=== PATIENT | male | born 1960 | race Hispanic/Latino ===

== ENCOUNTER 2020-06-23 19:33 | Inpatient (IN) | payer BC, OTHER ==
[2020-06-23 21:06] LABS: #Lymphocytes 0.7 thou/uL (1.20-3.40); #Monocytes 0.5 thou/uL (0.11-0.59); %Basophils 0.1 % (0.0-1.0); %Lymphocytes 5.8 % (21.0-51.0); %Monocytes 4.2 % (0.0-10.0); %Neutrophils 89.9 % (42.0-75.0); Hemoglobin 14.8 g/dL (14.0-18.0); Mean Corpuscular HGB CONC 32.2 g/dL (32.0-36.0); Mean Corpuscular Hemoglobin 30.3 pg (27.0-31.0); Mean Corpuscular Volume 93.9 fL (78.0-98.0); Platelet Count 195 thou/uL (130-400); RBC Distribution Width 12.1 % (11.5-14.5); Red Blood Cell (RBC) Count 4.87 mill/uL (4.70-6.10); White Blood Cell (WBC) Count 12.3 thou/uL (4.8-10.8)
[2020-06-23] MEDS ORDERED: Morphine 2 MG/ML VIAL SLOW IVP PRN (21:16)
[2020-06-23] MEDS ORDERED: Ondansetron PF 4 MG/2 ML Vial IVP PRN (21:16)
[2020-06-23] MEDS ORDERED: hydrALAZINE 20 MG/ML VIAL SLOW IVP PRN (21:16)
[2020-06-23] MEDS ORDERED: Promethazine HCl 12.5 MG in Sodium Chloride 0.9% 50 ML IVPB PRN (21:16)
[2020-06-23] MEDS ORDERED: Labetalol HCl 100 MG/20 ML VIAL SLOW IVP PRN (21:16)
[2020-06-23] MEDS ORDERED: HYDROcodone/Acetaminophen 5/325 mg Tablet PO PRN (21:16)
[2020-06-23] MEDS ORDERED: Guaifenesin DM 100-10/5 ML UDCUP PO PRN (21:16)
[2020-06-23] MEDS ORDERED: cloNIDine 0.1 MG TAB PO PRN (21:16)
[2020-06-23 21:21] LABS: Lactic Acid 2.1 mmol/L (0.5-2.2)
[2020-06-23 21:25] LABS: ALT (SGPT) 27 U/L (8-55); AST (SGOT) 45 U/L (5-34); Alkaline Phosphatase 45 U/L (40-110); Anion Gap 13 mmol/L (10-20); BUN (Urea Nitrogen) 14 mg/dL (8.4-25.7); Bilirubin, Total 0.4 mg/dL (0.2-1.2); CRP (Inflammatory) 6.01 mg/dL (= or < 0.5); Calc. Creatinine Clearance 96 mL/min (70-130); Calcium 8.8 mg/dL (7.8-10.44); Carbon Dioxide 24 mmol/L (22-29); Chloride 106 mmol/L (98-107); Estimated GFR-MDRD 86; Globulin 2.9 g/dL (2.4-3.5); Glucose 106 mg/dL (70-105); Potassium 3.7 mmol/L (3.5-5.1); Protein, Total 6.9 g/dL (6.0-8.3); Sodium 139 mmol/L (136-145)
[2020-06-23] MEDS ORDERED: cefTRIAXone\\ROCEPHIN 1 GM in Sodium Chloride 0.9% 100 ML IVPB SCH (21:30)
--- NOTE | 2020-06-23 21:32 | RAD ---
Exam: Chest one view HISTORY:Shortness of breath. Hypoxia. COVID patient. Comparison: 10/07/2015 FINDINGS: Cardiac silhouette: Normal Aorta: Unremarkable Pulmonary vessels: Normal Costophrenic angles: Clear LUNGS: Diffuse interstitial and alveolar opacities. Pneumothorax: None Osseous abnormalities: None IMPRESSION: Multifocal COVID pneumonia.
[2020-06-23] MEDS: Dexamethasone 10 MG/ML VIAL SLOW IVP SCH (21:54)
[2020-06-23] MEDS: Sodium Chloride 0.9% 1,000 ML IV SCH (21:54)
[2020-06-23] MEDS: Acetaminophen 325 MG TAB PO PRN (21:56)
[2020-06-23] MEDS ORDERED: Azithromycin 500 MG in Sodium Chloride 0.9% 250 ML 250 ML IVPB SCH (22:00)
--- NOTE | 2020-06-23 22:12 | PDOC.HHP ---
Hospitalist HPI - History of Present Illness Shortness of breath, hypoxia History of Present Illness: Patient is a 59 year old male with no significant PMH who presents as transfer from [facility] for cough, hypoxia, covid 19 infection. He was recently diagnosed with covid 4 days ago, presented again to [facility] with persistent cough preventing him from sleeping. he also complained of fever, body aches, sore throat, diarrhea. room air saturations were in mid 80s. CXR performed revealing bibasilar pneumonia which was new compared to previous XR 4 days prior. blood cultures were drawn and patient was started on abx there. Patient was placed on HFNC there, here he is comfortable but becomes SOB with minimal activity. He works in the [employer] and has been exposed through the long-term system. He recieved budesonide, azithromycin, ceftriaxone, lovenox dvt ppx dose, dexamethasone, duoneb, patient transferred here for further care. Hospitalist ROS - Review of Systems Constitutional: denies: fever, chills, sweats, weakness, malaise, other Eyes: denies: pain, vision change, conjunctivae inflammation, eyelid inflammation, redness, other ENT: denies: ear pain, ear discharge, nose pain, nose discharge, nose congestion , mouth pain, mouth swelling, throat pain, throat swelling, other Respiratory: reports: cough, shortness of breath. denies: dry, hemoptysis, SOB with excertion, pleuritic pain, sputum, wheezing, other Cardiovascular: denies: chest pain, palpitations, orthopnea, paroxysmal noc. dyspnea, edema, light headedness, other Gastrointestinal: reports: diarrhea. denies: nausea, vomiting, abdominal pain, constipation, melena, hematochezia, other Genitourinary: denies: dysuria, frequency, incontinence, hematuria, retention, other Musculoskeletal: denies: neck pain, shoulder pain, arm pain, back pain, hand pain, leg pain, foot pain, other Skin: denies: rash, lesions, michael, bruising, other Neurological: denies: weakness, numbness, incoordination, change in speech, confusion, seizures, other All other systems reviewed; all pertinent +/- noted in HPI/Subj - Medication Medications: Active Medications Generic Name Dose Route Start Last Admin Trade Name Freq PRN Reason Stop Dose Admin Acetaminophen 650 mg 06/23/20 21:16 06/23/20 21:56 Tylenol PO 650 mg Q4H PRN Administration Headache/Fever/Mild Pain (1-3) Dexamethasone 6 mg 06/23/20 22:00 06/23/20 21:54 Decadron SLOW IVP 6 mg 2200 MERRILL Administration Azithromycin 500 mg/ Sodium 250 mls @ 250 mls/hr 06/23/20 22:00 06/23/20 21: 54 Chloride IVPB 250 mls 2200 MERRILL Administration Ceftriaxone Sodium 1 gm/ 100 mls @ 200 mls/hr 06/23/20 21:30 06/23/20 21:54 Sodium Chloride IVPB 100 mls 2130 MERRILL Administration Sodium Chloride 1,000 mls @ 75 mls/hr 06/23/20 21:45 06/23/20 21:54 Normal Saline 0.9% IV 1,000 mls .[id number] MERRILL Administration no home medications Hospitalist History - Past Medical History Other Medical History: no significant PMH - Past Surgical History Other Surgical History: knee surgery - Family History Family History: reports: no pertinent history - Social History Smoking Status: Never smoker Alcohol: reports: None Drugs: reports: none - Exam General Appearance: NAD, awake alert Eye: PERRL, anicteric sclera ENT: normocephalic atraumatic, no oropharyngeal lesions, moist mucosa Neck: supple, symmetric, no JVD, no thyromegaly, no lymphadenopathy, no carotid bruit Heart: RRR, no murmur, no gallops, no rubs, normal peripheral pulses Respiratory: rales, rhonchi, tachypneic. negative: wheezes Gastrointestinal: soft, non-tender, non-distended, normal bowel sounds, no palpable masses, no hepatomegaly, no splenomegaly, no bruit Extremities: no cyanosis, no clubbing, no edema Skin: normal turgor, no lesions, no rashes Neurological: cranial nerve grossly intact, normal sensation to touch, no weakness, no focal deficits, no new deficit Musculoskeletal: normal tone, normal strength, no muscle wasting Psychiatric: normal affect, normal behavior, A&O x 3 Hospitalist Results - Labs Result Diagrams: 06/24/20 03:14 06/24/20 03:13 Lab results: WBC 12.3 thou/uL (4.8-10.8) H 06/23/20 20:58 Hgb 14.8 g/dL (14.0-18.0) 06/23/20 20:58 Hct 45.8 % (42.0-52.0) 06/23/20 20:58 MCV 93.9 fL (78.0-98.0) 06/23/20 20:58 Plt Count 195 thou/uL (130-400) 06/23/20 20:58 Neutrophils % 89.9 % (42.0-75.0) H 06/23/20 20:58 Sodium 139 mmol/L (136-145) 06/23/20 20:58 Potassium 3.7 mmol/L (3.5-5.1) 06/23/20 20:58 Chloride 106 mmol/L (98-107) 06/23/20 20:58 Carbon Dioxide 24 mmol/L (22-29) 06/23/20 20:58 BUN 14 mg/dL (8.4-25.7) 06/23/20 20:58 Creatinine 0.91 mg/dL (0.7-1.3) 06/23/20 20:58 Glucose 106 mg/dL (70-105) H 06/23/20 20:58 Lactic Acid 2.1 mmol/L (0.5-2.2) 06/23/20 20:58 Calcium 8.8 mg/dL (7.8-10.44) 06/23/20 20:58 Total Bilirubin 0.4 mg/dL (0.2-1.2) 06/23/20 20:58 AST 45 U/L (5-34) H 06/23/20 20:58 ALT 27 U/L (8-55) 06/23/20 20:58 Alkaline Phosphatase 45 U/L (40-110) 06/23/20 20:58 C-Reactive Protein 6.01 mg/dL (= or < 0.5) H 06/23/20 20:58 Serum Total Protein 6.9 g/dL (6.0-8.3) 06/23/20 20:58 Albumin 4.0 g/dL (3.5-5.0) 06/23/20 20:58 Additional comment: outside CXR report w/ patchy opacities more pronounced in lower lobes. outside labs reviewed abg 7.39/po2 47 pco2 36 tni <0.05 WBC 11.2 CMP essentially normal (AST 48 normal 11-38) hb 13.9 Hospitalist H&P A/P - Plan Plan: Patient is a 59 year old male with no significant PMH who presents as transfer from [facility] for cough, hypoxia, covid 19 infection. # bilateral pneumonia likely viral in setting of covid 19 infection - admit to IMCU on HFNC - continue azithromycin, ceftriaxone, decadron - monitor closely in intermediate care - symptomatic/supportive care - consider pulmonary consult if condition worsens DVT/GI ppx full code
[2020-06-24 03:38] LABS: #Lymphocytes 0.7 thou/uL (1.20-3.40); #Monocytes 0.5 thou/uL (0.11-0.59); #Neutrophils 11.1 thou/uL (1.40-6.50); %Basophils 0.1 % (0.0-1.0); %Eosinophils 0.1 % (0.0-10.0); %Lymphocytes 5.5 % (21.0-51.0); %Monocytes 4.4 % (0.0-10.0); Hemoglobin 14.6 g/dL (14.0-18.0); Mean Corpuscular HGB CONC 32.4 g/dL (32.0-36.0); Mean Corpuscular Hemoglobin 30.5 pg (27.0-31.0); Mean Corpuscular Volume 94.1 fL (78.0-98.0); Mean Platelet Volume 8.9 fL (7.4-10.4); Platelet Count 188 thou/uL (130-400); RBC Distribution Width 12.2 % (11.5-14.5); Red Blood Cell (RBC) Count 4.78 mill/uL (4.70-6.10); White Blood Cell (WBC) Count 12.4 thou/uL (4.8-10.8)
[2020-06-24 04:01] LABS: Anion Gap 14 mmol/L (10-20); BUN (Urea Nitrogen) 14 mg/dL (8.4-25.7); Calc. Creatinine Clearance 105 mL/min (70-130); Calcium 8.6 mg/dL (7.8-10.44); Carbon Dioxide 20 mmol/L (22-29); Chloride 109 mmol/L (98-107); Estimated GFR-MDRD Greater than 90; Glucose 122 mg/dL (70-105); Magnesium 1.9 mg/dL (1.6-2.6); Potassium 4.2 mmol/L (3.5-5.1); Sodium 139 mmol/L (136-145)
[2020-06-24] MEDS ORDERED: Enoxaparin Sodium 40 MG/0.4 ML SYRINGE SC SCH ×2 (09:00→21:00)
[2020-06-24] MEDS: Polyethylene Glycol 3350 17 GM Packet PO SCH (09:33)
[2020-06-24] MEDS: Famotidine 20 MG TAB PO SCH ×2 (09:33→20:47)
[2020-06-24] MEDS: Sodium Chloride 0.9% 1,000 ML IV SCH (09:34)
[2020-06-24] MEDS: Loperamide HCl 1 MG/7.5 ML UDCUP PO PRN (09:37)
--- NOTE | 2020-06-24 11:16 | CON ---
DATE OF CONSULTATION: 06/24/2020 CONSULTING PHYSICIAN: Hospitalist Group. REASON FOR CONSULTATION: COVID-19 pneumonia. HISTORY OF PRESENT ILLNESS: Awais Masterson is a 59-year-old male, who has been sick for 3 days with fever and shortness of breath. He presented to the emergency room with room air O2 saturations in the mid 80s. X-ray showed pneumonia. Apparently, his COVID test was positive. I presume that was done at an outside facility. PAST MEDICAL HISTORY: He essentially denies any past medical history including no history of diabetes. PAST SURGICAL HISTORY: Knee surgery. FAMILY MEDICAL HISTORY: Negative. SOCIAL HISTORY: Does not smoke. Does not consume alcohol. Does not use illicit drugs. MEDICATIONS: Prior to admission, none. REVIEW OF SYSTEMS: Negative except for shortness of breath. PHYSICAL EXAMINATION: VITAL SIGNS: Temperature 98, pulse 63, and blood pressure 143/85. GENERAL: He is on BiPAP. He is tachypneic. His minute ventilation is about 23 L per minute. HEENT: Unremarkable. NECK: No adenopathy or JVD. LUNGS: Diffuse bilateral crackles. CARDIAC: S1 and S2. Regular. ABDOMEN: Soft. EXTREMITIES: No edema. LABORATORY DATA: Sodium 139, potassium 4.2, chloride 109, CO2 of 20, BUN 14, creatinine 0.8, and glucose 122. White blood cell count 12.4, hematocrit 45, and platelet count 188. His x-ray shows diffuse bilateral infiltrates. ASSESSMENT: COVID-19 pneumonia with acute hypoxic respiratory failure, requiring noninvasive ventilation. RECOMMENDATIONS: I agree with the Decadron. Additionally, we would put him on Pulmicort and increase his anticoagulation and continue the BiPAP. Hopefully, he will not progress to intubation, but certainly it looks like he could. Job ID: [id number]
--- NOTE | 2020-06-24 17:41 | PDOC.HOSPP ---
- Subjective Encounter Date: 06/24/20 Subjective: Only okay. Still little short of breath. Improved with the nasal cannula high flow. - Objective Vital Signs & Weight: Vital Signs (12 hours) Temp Pulse Resp Pulse Ox 06/24/20 16:09 98.2 F 06/24/20 13:18 20 06/24/20 12:00 95 06/24/20 08:00 100 06/24/20 06:32 87 21 H 94 L Weight Admit Weight 169 lb Weight 169 lb Most Recent Monitor Data Heart Rate from ECG 71 NIBP 148/89 NIBP BP-Mean 108 Respiration from ECG 34 SpO2 95 I&O: 06/23/20 06/24/20 06/25/20 06:59 06:59 06:59 Output Total 300 Balance -300 Result Diagrams: 06/24/20 03:14 06/24/20 03:13 Hospitalist ROS - Medication Medications: Active Medications Generic Name Dose Route Start Last Admin Trade Name Freq PRN Reason Stop Dose Admin Acetaminophen 650 mg 06/23/20 21:16 06/23/20 21:56 Tylenol PO 650 mg Q4H PRN Administration Headache/Fever/Mild Pain (1-3) Dexamethasone 6 mg 06/23/20 22:00 06/23/20 21:54 Decadron SLOW IVP 6 mg 2200 MERRILL Administration Famotidine 20 mg 06/24/20 09:00 06/24/20 09:33 Pepcid PO Not Given BID MERRILL Sodium Chloride 1,000 mls @ 75 mls/hr 06/23/20 21:45 06/24/20 09:34 Normal Saline 0.9% IV 1,000 mls .[id number] MERRILL Administration Loperamide HCl 1 mg 06/24/20 05:26 06/24/20 09:37 Imodium PO 1 mg Q4H PRN Administration Diarrhea/Loose Stools Morphine Sulfate 2 mg 06/23/20 21:16 06/23/20 23:49 Morphine SLOW IVP 2 mg Q4H PRN Administration Moderate to Severe Pain (4-10) Polyethylene Glycol 17 gm 06/24/20 09:00 06/24/20 09:33 Miralax PO Not Given DAILY MERRILL - Exam General Appearance: NAD, awake alert Heart: RRR, no murmur, no gallops, no rubs, normal peripheral pulses Respiratory - other findings: Scattered bilateral rales Gastrointestinal: soft, non-tender, non-distended, normal bowel sounds, no palpable masses, no hepatomegaly, no splenomegaly, no bruit Extremities: no cyanosis, no clubbing, no edema Skin: normal turgor, no lesions, no rashes Neurological: no new deficit Musculoskeletal: normal tone, normal strength, no muscle wasting Psychiatric: normal affect, normal behavior, A&O x 3 Hosp A/P (1) Acute respiratory failure with hypoxia Code(s): J96.01 - ACUTE RESPIRATORY FAILURE WITH HYPOXIA Status: Acute (2) COVID-19 virus infection Code(s): U07.1 - COVID-19 Status: Acute - Plan DVT proph w/lovenox, GI proph (Pepcid) Discussed with pulmonology. Continue with the high flow nasal cannula oxygen and Decadron. Will discontinue the Rocephin and azithromycin as there is no evidence of underlying bacterial infection. His ferritin level is 1438. CRP is 6.0.
[2020-06-24] MEDS: Mometasone 100 MCG/PUFF (1 INHALER) INH SCH (17:58)
[2020-06-24] MEDS ORDERED: Budesonide 0.5 MG/2 ML NEB INH SCH (18:30)
[2020-06-24] MEDS: Dexamethasone 10 MG/ML VIAL SLOW IVP SCH (20:46)
[2020-06-24] MEDS: Enoxaparin Sodium 80 MG/0.8 ML SYRINGE SC SCH (20:48)
[2020-06-25 03:46] LABS: #Lymphocytes 0.5 thou/uL (1.20-3.40); #Monocytes 0.3 thou/uL (0.11-0.59); #Neutrophils 7.7 thou/uL (1.40-6.50); %Lymphocytes 5.6 % (21.0-51.0); %Monocytes 3.5 % (0.0-10.0); %Neutrophils 90.9 % (42.0-75.0); Hemoglobin 13.7 g/dL (14.0-18.0); Mean Corpuscular HGB CONC 32.2 g/dL (32.0-36.0); Mean Corpuscular Hemoglobin 30.3 pg (27.0-31.0); Mean Corpuscular Volume 94.2 fL (78.0-98.0); Mean Platelet Volume 7.8 fL (7.4-10.4); Platelet Count 174 thou/uL (130-400); RBC Distribution Width 12.1 % (11.5-14.5); Red Blood Cell (RBC) Count 4.52 mill/uL (4.70-6.10); White Blood Cell (WBC) Count 8.5 thou/uL (4.8-10.8)
[2020-06-25 04:05] LABS: Anion Gap 12 mmol/L (10-20); BUN (Urea Nitrogen) 17 mg/dL (8.4-25.7); Calc. Creatinine Clearance 111 mL/min (70-130); Calcium 8.4 mg/dL (7.8-10.44); Carbon Dioxide 24 mmol/L (22-29); Chloride 108 mmol/L (98-107); Estimated GFR-MDRD Greater than 90; Glucose 135 mg/dL (70-105); Potassium 3.9 mmol/L (3.5-5.1); Sodium 140 mmol/L (136-145)
[2020-06-25] MEDS: Sodium Chloride 0.9% 1,000 ML IV SCH ×2 (04:42→08:51)
[2020-06-25] MEDS: Famotidine 20 MG TAB PO SCH ×3 (08:49→21:50)
[2020-06-25] MEDS: Enoxaparin Sodium 80 MG/0.8 ML SYRINGE SC SCH ×2 (08:49→21:35)
[2020-06-25] MEDS: Mometasone 100 MCG/PUFF (1 INHALER) INH SCH ×2 (08:51→17:06)
[2020-06-25] MEDS: Polyethylene Glycol 3350 17 GM Packet PO SCH (08:52)
--- NOTE | 2020-06-25 10:13 | PRG ---
DATE OF SERVICE: 06/25/2020 35 minutes critical care time. SUBJECTIVE: The patient remains on high-flow oxygen, alternating with BiPAP. He is about the same. OBJECTIVE: VITAL SIGNS: His temperature is 98.2, pulse 62, and blood pressure 139/79. HEENT: Unremarkable. NECK: No adenopathy or JVD. CHEST: With crackles. CARDIAC: S1 and S2. Regular. ABDOMEN: Soft. EXTREMITIES: No edema. LABORATORY DATA: White blood cell count 8.5, hematocrit 42, and platelet count 174. Sodium 140, potassium 3.9, chloride 108, CO2 of 24, BUN 17, creatinine 0.8, and glucose 135. ASSESSMENT: COVID-19 pneumonia with acute hypoxic respiratory failure. PLAN: 1. Continue steroids, empiric antibiotics, anticoagulation, inhaled budesonide. 2. Wean FiO2 as tolerated. 3. Repeat chest x-ray tomorrow. Job ID: [id number]
[2020-06-25] MEDS: Loperamide HCl 1 MG/7.5 ML UDCUP PO PRN (17:07)
--- NOTE | 2020-06-25 19:37 | PDOC.HOSPP ---
- Subjective Encounter Date: 06/25/20 Subjective: Reports feeling slightly better today. Tolerating BiPAP. - Objective Vital Signs & Weight: Vital Signs (12 hours) Temp Pulse Ox 06/25/20 12:00 98.4 F 06/25/20 08:00 98.1 F 100 Weight Admit Weight 169 lb Weight 169 lb Most Recent Monitor Data Heart Rate from ECG 64 NIBP 161/122 NIBP BP-Mean 135 Respiration from ECG 26 SpO2 97 I&O: 06/24/20 06/25/20 06/26/20 06:59 06:59 06:59 Intake Total 1305 Output Total 800 600 Balance 505 -600 Result Diagrams: 06/25/20 03:34 06/25/20 03:34 Hospitalist ROS - Medication Medications: Active Medications Generic Name Dose Route Start Last Admin Trade Name Freq PRN Reason Stop Dose Admin Acetaminophen 650 mg 06/23/20 21:16 06/23/20 21:56 Tylenol PO 650 mg Q4H PRN Administration Headache/Fever/Mild Pain (1-3) Dexamethasone 6 mg 06/23/20 22:00 06/24/20 20:46 Decadron SLOW IVP 6 mg 2200 MERRILL Administration Enoxaparin Sodium 70 mg 06/24/20 21:00 06/25/20 08:49 Lovenox SC 70 mg 0900,2100 MERRILL Administration Famotidine 20 mg 06/24/20 09:00 06/25/20 08:49 Pepcid PO 20 mg BID MERRILL Administration Sodium Chloride 1,000 mls @ 75 mls/hr 06/23/20 21:45 06/25/20 08:51 Normal Saline 0.9% IV 1,000 mls .[id number] MERRILL Administration Loperamide HCl 1 mg 06/24/20 05:26 06/25/20 17:07 Imodium PO 1 mg Q4H PRN Administration Diarrhea/Loose Stools Mometasone Furoate 100 mcg 06/24/20 18:30 06/25/20 17:06 Asmanex Hfa 100 Mcg INH 1 inh BID-RT MERRILL Administration Morphine Sulfate 2 mg 06/23/20 21:16 06/23/20 23:49 Morphine SLOW IVP 2 mg Q4H PRN Administration Moderate to Severe Pain (4-10) Polyethylene Glycol 17 gm 06/24/20 09:00 06/25/20 08:52 Miralax PO Not Given DAILY MERRILL Sodium Chloride 10 ml 06/24/20 21:00 06/25/20 08:50 Flush - Normal Saline IVF 10 ml Q12HR MERRILL Administration - Exam General Appearance: NAD, awake alert Neck: supple, symmetric, no JVD, no thyromegaly, no lymphadenopathy, no carotid bruit Heart: RRR, no murmur, no gallops, no rubs, normal peripheral pulses Respiratory: CTAB, no wheezes, no rales, no ronchi, normal chest expansion, no tachypnea, normal percussion Gastrointestinal: soft, non-tender, non-distended, normal bowel sounds, no palpable masses, no hepatomegaly, no splenomegaly, no bruit Extremities: no cyanosis, no clubbing, no edema Skin: normal turgor Musculoskeletal: normal tone Psychiatric: normal affect, normal behavior, A&O x 3 Hosp A/P (1) Acute respiratory failure with hypoxia Code(s): J96.01 - ACUTE RESPIRATORY FAILURE WITH HYPOXIA Status: Acute (2) COVID-19 virus infection Code(s): U07.1 - COVID-19 Status: Acute - Plan Continue with the high flow nasal cannula oxygen and Decadron, inhaled budesonide. Activity as tolerated.
[2020-06-25] MEDS: Dexamethasone 10 MG/ML VIAL SLOW IVP SCH (21:39)
[2020-06-26] MEDS: Sodium Chloride 0.9% 1,000 ML IV SCH ×2 (03:06→18:09)
[2020-06-26 03:35] LABS: #Basophils 0.1 thou/uL (0.0-0.2); #Lymphocytes 0.3 thou/uL (1.20-3.40); #Monocytes 0.2 thou/uL (0.11-0.59); #Neutrophils 7.2 thou/uL (1.40-6.50); %Basophils 1.6 % (0.0-1.0); %Eosinophils 0.2 % (0.0-10.0); %Lymphocytes 3.7 % (21.0-51.0); %Monocytes 3.1 % (0.0-10.0); %Neutrophils 91.4 % (42.0-75.0); Hemoglobin 13.5 g/dL (14.0-18.0); Mean Corpuscular HGB CONC 33.5 g/dL (32.0-36.0); Mean Corpuscular Hemoglobin 31.5 pg (27.0-31.0); Mean Corpuscular Volume 94.1 fL (78.0-98.0); Mean Platelet Volume 7.9 fL (7.4-10.4); Platelet Count 184 thou/uL (130-400); RBC Distribution Width 11.9 % (11.5-14.5); Red Blood Cell (RBC) Count 4.28 mill/uL (4.70-6.10); White Blood Cell (WBC) Count 7.9 thou/uL (4.8-10.8)
[2020-06-26 03:56] LABS: Anion Gap 12 mmol/L (10-20); BUN (Urea Nitrogen) 16 mg/dL (8.4-25.7); Calc. Creatinine Clearance 112 mL/min (70-130); Calcium 8.4 mg/dL (7.8-10.44); Carbon Dioxide 26 mmol/L (22-29); Chloride 105 mmol/L (98-107); Estimated GFR-MDRD Greater than 90; Glucose 117 mg/dL (70-105); Potassium 4.2 mmol/L (3.5-5.1); Sodium 139 mmol/L (136-145)
[2020-06-26] MEDS: Mometasone 100 MCG/PUFF (1 INHALER) INH SCH ×2 (06:15→18:09)
--- NOTE | 2020-06-26 08:07 | RAD ---
XR Chest 1 View Portable History: Pneumonia Comparison: Radiograph June 23, 2020 Findings: Heart size is normal. Multifocal airspace opacities are similar. No pneumothorax. No effusi on. No acute osseous abnormality. Impression: Similar examination of the chest.
[2020-06-26] MEDS: Famotidine 20 MG TAB PO SCH ×2 (09:08→21:04)
[2020-06-26] MEDS: Enoxaparin Sodium 80 MG/0.8 ML SYRINGE SC SCH ×2 (09:08→21:00)
[2020-06-26] MEDS: Polyethylene Glycol 3350 17 GM Packet PO SCH (09:09)
--- NOTE | 2020-06-26 11:52 | PDOC.HOSPP ---
- Subjective Encounter Date: 06/26/20 Subjective: Continues to feel like he is getting little bit better. Apparently prefers the BiPAP over the high flow nasal cannula. Good appetite. - Objective Vital Signs & Weight: Vital Signs (12 hours) Temp Resp Pulse Ox 06/26/20 08:00 98.2 F 06/26/20 04:00 97.7 F 06/26/20 00:14 28 H 97 06/26/20 00:00 98.0 F Weight Admit Weight 169 lb Weight 169 lb Most Recent Monitor Data Heart Rate from ECG 60 NIBP 137/69 NIBP BP-Mean 91 Respiration from ECG 25 SpO2 100 I&O: 06/25/20 06/26/20 06/27/20 06:59 06:59 06:59 Intake Total 1305 2220 Output Total 800 1850 550 Balance 505 370 -550 Result Diagrams: 06/26/20 03:20 06/26/20 03:20 Hospitalist ROS - Medication Medications: Active Medications Generic Name Dose Route Start Last Admin Trade Name Freq PRN Reason Stop Dose Admin Acetaminophen 650 mg 06/23/20 21:16 06/23/20 21:56 Tylenol PO 650 mg Q4H PRN Administration Headache/Fever/Mild Pain (1-3) Dexamethasone 6 mg 06/23/20 22:00 06/25/20 21:39 Decadron SLOW IVP 6 mg 2200 MERRILL Administration Enoxaparin Sodium 70 mg 06/24/20 21:00 06/26/20 09:08 Lovenox SC 70 mg 0900,2100 MERRILL Administration Famotidine 20 mg 06/24/20 09:00 06/26/20 09:08 Pepcid PO 20 mg BID MERRILL Administration Sodium Chloride 1,000 mls @ 75 mls/hr 06/23/20 21:45 06/26/20 03:06 Normal Saline 0.9% IV 1,000 mls .[id number] MERRILL Administration Loperamide HCl 1 mg 06/24/20 05:26 06/25/20 17:07 Imodium PO 1 mg Q4H PRN Administration Diarrhea/Loose Stools Mometasone Furoate 100 mcg 06/24/20 18:30 06/26/20 06:15 Asmanex Hfa 100 Mcg INH Not Given BID-RT MERRILL Morphine Sulfate 2 mg 06/23/20 21:16 06/23/20 23:49 Morphine SLOW IVP 2 mg Q4H PRN Administration Moderate to Severe Pain (4-10) Ondansetron HCl 4 mg 06/23/20 21:16 06/26/20 04:40 Zofran IVP 4 mg Q6H PRN Administration Nausea/Vomiting, use 1st Polyethylene Glycol 17 gm 06/24/20 09:00 06/26/20 09:09 Miralax PO Not Given DAILY MERRILL Sodium Chloride 10 ml 06/24/20 21:00 06/26/20 09:09 Flush - Normal Saline IVF 10 ml Q12HR MERRILL Administration - Exam General Appearance: NAD, awake alert Neck: supple, symmetric, no JVD, no thyromegaly, no lymphadenopathy, no carotid bruit Heart: RRR, no murmur, no gallops, no rubs, normal peripheral pulses Respiratory: rales (Fine scattered rales significantly worse at the left base.) Gastrointestinal: soft, non-tender, non-distended, normal bowel sounds, no palpable masses, no hepatomegaly, no splenomegaly, no bruit Extremities: no cyanosis, no clubbing, no edema Skin: normal turgor, no lesions, no rashes Musculoskeletal: normal tone Psychiatric: normal affect, normal behavior, A&O x 3 Hosp A/P (1) Acute respiratory failure with hypoxia Code(s): J96.01 - ACUTE RESPIRATORY FAILURE WITH HYPOXIA Status: Acute (2) COVID-19 virus infection Code(s): U07.1 - COVID-19 Status: Acute - Plan Continue with the high flow nasal cannula oxygen and Decadron, inhaled budesonide. Activity as tolerated. High-dose anticoagulation. Pulmonology following.
--- NOTE | 2020-06-26 14:57 | PRG ---
DATE OF SERVICE: 06/26/2020 SUBJECTIVE: Awais Masterson remains in the intermediate care unit. OBJECTIVE: VITAL SIGNS: His heart rate is in the 50s, respiratory rate is in 20s, oximetry is 100%. He is alternating with BiPAP and high flow. When he is on high-flow, he says he gets anxious. Remainder of his exam is unchanged. LABORATORY DATA: White count 7.9, hemoglobin 13.5, platelets 184. Electrolytes are normal. We will try low doses of morphine for his air hunger. Overall, he appears to be slowly improving. Job ID: [id number]
[2020-06-26] MEDS: Morphine 4 MG/ML VIAL SLOW IVP SCH ×3 (16:08→21:14)
[2020-06-26] MEDS: Dexamethasone 10 MG/ML VIAL SLOW IVP SCH (21:01)
[2020-06-27] MEDS: Morphine 4 MG/ML VIAL SLOW IVP SCH ×7 (00:19→20:00)
[2020-06-27] MEDS: Mometasone 100 MCG/PUFF (1 INHALER) INH SCH ×2 (06:10→17:08)
[2020-06-27] MEDS: Sodium Chloride 0.9% 1,000 ML IV SCH ×2 (08:08→17:12)
[2020-06-27] MEDS: Enoxaparin Sodium 80 MG/0.8 ML SYRINGE SC SCH ×2 (08:09→19:59)
[2020-06-27] MEDS: Polyethylene Glycol 3350 17 GM Packet PO SCH (08:09)
[2020-06-27] MEDS: Famotidine 20 MG TAB PO SCH ×2 (08:09→19:59)
[2020-06-27] MEDS: Loperamide HCl 1 MG/7.5 ML UDCUP PO PRN (08:38)
--- NOTE | 2020-06-27 15:15 | PDOC.HOSPP ---
- Subjective Encounter Date: 06/27/20 Subjective: Patient reports she is doing okay. She is trying to tolerate the high flow nasal cannula rather than the BiPAP. States it is more of a psychological issue for him. Feels like he is getting more oxygen from the BiPAP. When he feels like he is not getting enough from the high flow nasal cannula he has some panic. Patient does report missing his family. Became tearful when telling me that he just found out today that his daughter is 2 weeks . Says he is homesick. Had lots of questions regarding the long-term sequelae of the infection. - Objective Vital Signs & Weight: Vital Signs (12 hours) Temp Pulse Ox 06/27/20 12:10 98.6 F 06/27/20 08:00 98.7 F 06/27/20 07:18 97 06/27/20 04:00 97.8 F Weight Admit Weight 169 lb Weight 169 lb Most Recent Monitor Data Heart Rate from ECG 70 NIBP 148/70 NIBP BP-Mean 96 Respiration from ECG 31 SpO2 95 I&O: 06/26/20 06/27/20 06/28/20 06:59 06:59 06:59 Intake Total 2220 1880 Output Total 1850 1450 Balance 370 430 Result Diagrams: 06/26/20 03:20 06/26/20 03:20 Hospitalist ROS - Medication Medications: Active Medications Generic Name Dose Route Start Last Admin Trade Name Freq PRN Reason Stop Dose Admin Acetaminophen 650 mg 06/23/20 21:16 06/23/20 21:56 Tylenol PO 650 mg Q4H PRN Administration Headache/Fever/Mild Pain (1-3) Dexamethasone 6 mg 06/23/20 22:00 06/26/20 21:01 Decadron SLOW IVP 6 mg 2200 MERRILL Administration Enoxaparin Sodium 70 mg 06/24/20 21:00 06/27/20 08:09 Lovenox SC 70 mg 0900,2100 MERRILL Administration Famotidine 20 mg 06/24/20 09:00 06/27/20 08:09 Pepcid PO 20 mg BID MERRILL Administration Sodium Chloride 1,000 mls @ 75 mls/hr 06/23/20 21:45 06/27/20 08:08 Normal Saline 0.9% IV 1,000 mls .[id number] MERRILL Administration Loperamide HCl 1 mg 06/24/20 05:26 06/27/20 08:38 Imodium PO 1 mg Q4H PRN Administration Diarrhea/Loose Stools Mometasone Furoate 100 mcg 06/24/20 18:30 06/27/20 06:10 Asmanex Hfa 100 Mcg INH Not Given BID-RT [facility] Morphine Sulfate 2 mg 06/23/20 21:16 06/23/20 23:49 Morphine SLOW IVP 2 mg Q4H PRN Administration Moderate to Severe Pain (4-10) Morphine Sulfate 4 mg 06/26/20 15:00 06/27/20 14:40 Morphine SLOW IVP Not Given Q3HR MERRILL Ondansetron HCl 4 mg 06/23/20 21:16 06/26/20 04:40 Zofran IVP 4 mg Q6H PRN Administration Nausea/Vomiting, use 1st Polyethylene Glycol 17 gm 06/24/20 09:00 06/27/20 08:09 Miralax PO Not Given DAILY [facility] Sodium Chloride 10 ml 06/24/20 21:00 06/27/20 08:10 Flush - Normal Saline IVF 10 ml Q12HR MERRILL Administration - Exam General Appearance: NAD, awake alert Heart: RRR, no murmur, no gallops, no rubs, normal peripheral pulses Respiratory: CTAB, rales (Scattered bilateral fine rales) Gastrointestinal: soft, non-tender, non-distended, normal bowel sounds, no palpable masses, no hepatomegaly, no splenomegaly, no bruit Extremities: no cyanosis, no clubbing, no edema Skin: normal turgor, no lesions, no rashes Musculoskeletal: normal tone Psychiatric: normal behavior, A&O x 3 Psychiatric - other findings: Tearful at times. Hosp A/P (1) Acute respiratory failure with hypoxia Code(s): J96.01 - ACUTE RESPIRATORY FAILURE WITH HYPOXIA Status: Acute (2) COVID-19 virus infection Code(s): U07.1 - COVID-19 Status: Acute (3) Anxiety Code(s): F41.9 - ANXIETY DISORDER, UNSPECIFIED Status: Acute - Plan Continue with the high flow nasal cannula oxygen and Decadron, inhaled mometasone. Encouraged activity as tolerated. Therapeutic range Lovenox. Repeat inflammatory markers in the morning Pulmonology following. Long discussion with the patient today regarding the treatment plan, prognosis, long-term follow-up plan. Xanax 0.25 mg 1 p.o. 3 times daily as needed anxiety.
[2020-06-27] MEDS: ALPRAZolam 0.25 MG TAB PO PRN (15:48)
[2020-06-27] MEDS: Acetaminophen 325 MG TAB PO PRN (20:22)
[2020-06-27] MEDS: Dexamethasone 10 MG/ML VIAL SLOW IVP SCH (22:57)
[2020-06-28] MEDS: Morphine 4 MG/ML VIAL SLOW IVP SCH ×7 (03:27→17:41)
[2020-06-28] MEDS: Mometasone 100 MCG/PUFF (1 INHALER) INH SCH ×2 (05:42→17:41)
[2020-06-28] MEDS: Sodium Chloride 0.9% 1,000 ML IV SCH ×2 (05:44→15:53)
[2020-06-28] MEDS: Polyethylene Glycol 3350 17 GM Packet PO SCH (08:32)
[2020-06-28] MEDS: ALPRAZolam 0.25 MG TAB PO PRN ×2 (08:33→15:50)
[2020-06-28] MEDS: Famotidine 20 MG TAB PO SCH ×2 (08:33→20:26)
[2020-06-28] MEDS: Enoxaparin Sodium 80 MG/0.8 ML SYRINGE SC SCH ×2 (08:33→20:25)
--- NOTE | 2020-06-28 14:03 | PRG ---
DATE OF SERVICE: 06/28/2020 SUBJECTIVE: Mr. Masterson continues to be on and off BiPAP. OBJECTIVE: VITAL SIGNS: He is afebrile. Heart rate is in 70s, blood pressure 150/82, respiratory rates in the high 20s to low 30s. Oximetry is in the low 90s. LUNGS: Unchanged. ABDOMEN: Unchanged. LABORATORY DATA: He has no recent lab. IMPRESSION: COVID-19 pneumonia, making slow progress. He is very anxious with a high-flow and feels better on BiPAP surprisingly. Hopefully this will improve with anxiolytics. Job ID: [id number]
--- NOTE | 2020-06-28 14:04 | PQF ---
CLINICAL DOCUMENTATION CLARIFICATION FORM: Dear Dr. West Date: 06/28/2020 Please exercise your independent, professional judgment in responding to the clarification form. Clinical indicators are provided on the bottom of this form for your review. Please check appropriate box(es) to clarify if the following diagnosis has been ruled in our ruled out: Sepsis [ ] Ruled in diagnosis [ ] Continue to treat [ ] Resolved [ x ] Ruled out diagnosis [ ] Improving [ ] Cannot rule out diagnosis [ ] Other diagnosis [ ] Unable to determine In addition, please specify: Present on Admission (POA): [ ] Yes [ ] No [ ] Unable to determine For continuity of documentation, please document condition throughout progress notes and discharge summary. Thank You. To be completed by CDI/Coding staff for physician review: CLINICAL INDICATORS - SIGNS / SYMPTOMS / LABS / RESULTS AND LOCATION IN [facility]& 06/23 ([facility]) pt with tachypnea, fever to 103F. add diagnosis: sepsis due to covid 19 pneumonia Lab: WBC 12.3 Lactic Acid 2.1 06/24 ([place]) His ferritin level is 1438. CRP is 6.0 RISK FACTORS / RESULTS AND LOCATION IN [facility]& 06/23 ([facility]) Transfer from [facility] for cough hypoxia , covid 19 infection. 06/24 ([place]) COVID -19 pneumonia with acute hypoxic respiratory failure. TREATMENTS / RESULTS AND LOCATION IN 06/24 ([facility]) Continue with high flow nasal cannula oxygen and Decadron. Will discontinue the Rocephin and azithromycin as there is no evidence of underlying bacterial infection. Thank you, Janie Villegas RN, BSN [email or web address] This is a permanent part of the Medical Record [facility]
[2020-06-28] MEDS: Acetaminophen 325 MG TAB PO PRN ×2 (16:08→20:44)
--- NOTE | 2020-06-28 16:50 | PDOC.HOSPP ---
- Subjective Encounter Date: 06/28/20 Subjective: Patient reports he is doing okay. Tolerating BiPAP well. Says he has been getting up a bit. He set up for his meal today. Tolerating that well. - Objective Vital Signs & Weight: Vital Signs (12 hours) Temp Pulse Pulse Ox 06/28/20 16:08 68 06/28/20 12:00 98.5 F 06/28/20 08:00 98.4 F 93 L Weight Admit Weight 169 lb Weight 169 lb Most Recent Monitor Data Heart Rate from ECG 78 NIBP 150/82 NIBP BP-Mean 104 Respiration from ECG 32 SpO2 92 I&O: 06/27/20 06/28/20 06/29/20 06:59 06:59 06:59 Intake Total 1880 700 Output Total 1450 2075 Balance 430 -1375 Result Diagrams: 06/26/20 03:20 06/26/20 03:20 Hospitalist ROS - Medication Medications: Active Medications Generic Name Dose Route Start Last Admin Trade Name Freq PRN Reason Stop Dose Admin Acetaminophen 650 mg 06/23/20 21:16 06/28/20 16:08 Tylenol PO 650 mg Q4H PRN Administration Headache/Fever/Mild Pain (1-3) Alprazolam 0.25 mg 06/27/20 14:04 06/28/20 15:50 Xanax PO 0.25 mg TIDPRN PRN Administration Anxiety Dexamethasone 6 mg 06/23/20 22:00 06/27/20 22:57 Decadron SLOW IVP 6 mg 2200 MERRILL Administration Enoxaparin Sodium 70 mg 06/24/20 21:00 06/28/20 08:33 Lovenox SC 70 mg 0900,2100 MERRILL Administration Famotidine 20 mg 06/24/20 09:00 06/28/20 08:33 Pepcid PO 20 mg BID MERRILL Administration Hydralazine HCl 10 mg 06/23/20 21:16 06/28/20 16:08 Apresoline SLOW IVP 10 mg Q6H PRN Administration SBP GREATER THAN 160 Sodium Chloride 1,000 mls @ 75 mls/hr 06/23/20 21:45 06/28/20 15:53 Normal Saline 0.9% IV 1,000 mls .[id number] MERRILL Administration Loperamide HCl 1 mg 06/24/20 05:26 06/27/20 08:38 Imodium PO 1 mg Q4H PRN Administration Diarrhea/Loose Stools Mometasone Furoate 100 mcg 06/24/20 18:30 06/28/20 05:42 Asmanex Hfa 100 Mcg INH 2 inh BID-RT MERRILL Administration Morphine Sulfate 4 mg 06/26/20 15:00 06/28/20 15:50 Morphine SLOW IVP Not Given Q3HR MERRILL Ondansetron HCl 4 mg 06/23/20 21:16 06/26/20 04:40 Zofran IVP 4 mg Q6H PRN Administration Nausea/Vomiting, use 1st Polyethylene Glycol 17 gm 06/24/20 09:00 06/28/20 08:32 Miralax PO Not Given DAILY MERRILL Sodium Chloride 10 ml 06/24/20 21:00 06/28/20 08:33 Flush - Normal Saline IVF 10 ml Q12HR MERRILL Administration - Exam General Appearance: NAD, awake alert Heart: RRR, no murmur, no gallops, no rubs, normal peripheral pulses Respiratory: no wheezes, no ronchi, rales (Fine bilateral rales. Slightly better.) Gastrointestinal: soft, non-tender, non-distended, normal bowel sounds, no palpable masses, no hepatomegaly, no splenomegaly, no bruit Extremities: no cyanosis, no clubbing, no edema Skin: normal turgor, no lesions, no rashes Neurological: no new deficit Musculoskeletal: normal tone Psychiatric: normal affect, normal behavior, A&O x 3 Hosp A/P (1) Acute respiratory failure with hypoxia Code(s): J96.01 - ACUTE RESPIRATORY FAILURE WITH HYPOXIA Status: Acute (2) COVID-19 virus infection Code(s): U07.1 - COVID-19 Status: Acute (3) Anxiety Code(s): F41.9 - ANXIETY DISORDER, UNSPECIFIED Status: Acute - Plan CRP and D-dimer up, but ferritin down. Continue with the high flow nasal cannula oxygen and Decadron, inhaled mometasone. Encouraged activity as tolerated. Therapeutic range Lovenox. Repeat inflammatory markers in the morning Pulmonology following. Xanax 0.25 mg 1 p.o. 3 times daily as needed anxiety.
[2020-06-28] MEDS: Dexamethasone 10 MG/ML VIAL SLOW IVP SCH (21:02)
[2020-06-29] MEDS: Mometasone 100 MCG/PUFF (1 INHALER) INH SCH ×2 (05:39→18:13)
[2020-06-29] MEDS: Sodium Chloride 0.9% 1,000 ML IV SCH (06:24)
[2020-06-29] MEDS: Polyethylene Glycol 3350 17 GM Packet PO SCH (08:38)
[2020-06-29] MEDS: Famotidine 20 MG TAB PO SCH ×2 (09:17→21:23)
[2020-06-29] MEDS: Enoxaparin Sodium 80 MG/0.8 ML SYRINGE SC SCH ×2 (09:17→21:22)
--- NOTE | 2020-06-29 16:24 | PDOC.HOSPP ---
- Subjective Encounter Date: 06/29/20 Subjective: Still about the same. Patient continues to be frustrated that there are continued attempts to try to get him off the BiPAP and onto the high flow nasal cannula. He prefers the BiPAP. - Objective Vital Signs & Weight: Vital Signs (12 hours) Temp 06/29/20 11:38 98.5 F 06/29/20 08:00 98.9 F Weight Admit Weight 169 lb Weight 169 lb Most Recent Monitor Data Heart Rate from ECG 114 NIBP 138/80 NIBP BP-Mean 99 Respiration from ECG 22 SpO2 96 I&O: 06/28/20 06/29/20 06/30/20 06:59 06:59 06:59 Intake Total 700 2650 Output Total 2075 1920 Balance -1375 730 Result Diagrams: 06/26/20 03:20 06/26/20 03:20 Hospitalist ROS - Medication Medications: Active Medications Generic Name Dose Route Start Last Admin Trade Name Freq PRN Reason Stop Dose Admin Acetaminophen 650 mg 06/23/20 21:16 06/28/20 20:44 Tylenol PO 650 mg Q4H PRN Administration Headache/Fever/Mild Pain (1-3) Alprazolam 0.25 mg 06/27/20 14:04 06/28/20 15:50 Xanax PO 0.25 mg TIDPRN PRN Administration Anxiety Dexamethasone 6 mg 06/23/20 22:00 06/28/20 21:02 Decadron SLOW IVP 6 mg 2200 MERRILL Administration Enoxaparin Sodium 70 mg 06/24/20 21:00 06/29/20 09:17 Lovenox SC 70 mg 0900,2100 MERRILL Administration Famotidine 20 mg 06/24/20 09:00 06/29/20 09:17 Pepcid PO 20 mg BID MERRILL Administration Hydralazine HCl 10 mg 06/23/20 21:16 06/28/20 16:08 Apresoline SLOW IVP 10 mg Q6H PRN Administration SBP GREATER THAN 160 Sodium Chloride 1,000 mls @ 75 mls/hr 06/23/20 21:45 06/29/20 06:24 Normal Saline 0.9% IV 1,000 mls .[id number] MERRILL Administration Loperamide HCl 1 mg 06/24/20 05:26 06/27/20 08:38 Imodium PO 1 mg Q4H PRN Administration Diarrhea/Loose Stools Mometasone Furoate 100 mcg 06/24/20 18:30 06/29/20 05:39 Asmanex Hfa 100 Mcg INH 1 inh BID-RT MERRILL Administration Ondansetron HCl 4 mg 06/23/20 21:16 06/26/20 04:40 Zofran IVP 4 mg Q6H PRN Administration Nausea/Vomiting, use 1st Polyethylene Glycol 17 gm 06/24/20 09:00 06/29/20 08:38 Miralax PO Not Given DAILY MERRILL Sodium Chloride 10 ml 06/24/20 21:00 06/29/20 09:17 Flush - Normal Saline IVF 10 ml Q12HR MERRILL Administration - Exam General Appearance: NAD, awake alert Heart: RRR, no murmur, no gallops, no rubs, normal peripheral pulses Respiratory - other findings: Bibasilar high-pitched rales Gastrointestinal: soft, non-tender, non-distended, normal bowel sounds, no palpable masses, no hepatomegaly, no splenomegaly, no bruit Extremities: no cyanosis, no clubbing, no edema Skin: normal turgor, no lesions, no rashes Hosp A/P (1) Acute respiratory failure with hypoxia Code(s): J96.01 - ACUTE RESPIRATORY FAILURE WITH HYPOXIA Status: Acute (2) COVID-19 virus infection Code(s): U07.1 - COVID-19 Status: Acute (3) Anxiety Code(s): F41.9 - ANXIETY DISORDER, UNSPECIFIED Status: Acute - Plan Continue with the high flow nasal cannula oxygen or BiPAP and Decadron, inhaled mometasone. Encouraged activity as tolerated. Therapeutic range Lovenox. Follow markers. Pulmonology following. Discussed possibly trying to get him from the BiPAP down to facemask oxygen with potential nasal cannula underneath rather than high flow nasal cannula. Xanax 0.25 mg 1 p.o. 3 times daily as needed anxiety.
[2020-06-29] MEDS: Scopolamine 1.5 mg/72 hour Patch TD SCH (18:08)
--- NOTE | 2020-06-29 19:30 | PRG ---
DATE OF SERVICE: 06/29/2020 SUBJECTIVE: Mr. Masterson remains on and off BiPAP. His high-flow makes him dizzy. OBJECTIVE: VITAL SIGNS: He is afebrile. Blood pressure , heart rate is in the 90s, respiratory rates in the high 20s. LUNGS: Unchanged. HEART: Unchanged. ABDOMEN: Unchanged. LABORATORY DATA: Ferritin 730. C-reactive protein is 5 yesterday. IMPRESSION AND PLAN: COVID pneumonia, He is slowly improving. We might be able to control his symptoms on high-flow with a scopolamine patch. trying to switch him to face mask when he is off BiPAP and see how he does with face mask oxygen. He certainly does not have any signs of muscle fatigue at this point in time. Job ID: [id number]
[2020-06-29] MEDS: Dexamethasone 10 MG/ML VIAL SLOW IVP SCH (21:23)
[2020-06-29] MEDS: Loperamide HCl 1 MG/7.5 ML UDCUP PO PRN (21:42)
[2020-06-29] MEDS: Acetaminophen 325 MG TAB PO PRN (22:52)
[2020-06-29] MEDS: ALPRAZolam 0.25 MG TAB PO PRN (23:13)
[2020-06-30] MEDS: Sodium Chloride 0.9% 1,000 ML IV SCH ×2 (01:15→14:54)
[2020-06-30] MEDS: Enoxaparin Sodium 80 MG/0.8 ML SYRINGE SC SCH ×2 (09:05→20:55)
[2020-06-30] MEDS: Famotidine 20 MG TAB PO SCH ×2 (09:06→20:55)
[2020-06-30] MEDS: Mometasone 100 MCG/PUFF (1 INHALER) INH SCH ×2 (09:06→19:30)
[2020-06-30] MEDS: Polyethylene Glycol 3350 17 GM Packet PO SCH (09:06)
--- NOTE | 2020-06-30 16:40 | PDOC.HOSPP ---
- Subjective Encounter Date: 06/30/20 Subjective: Doing about the same. No new complaints. Plan to switch him over to a nonrebreather did not happen yesterday. Apparently there was an equipment issue. - Objective Vital Signs & Weight: Vital Signs (12 hours) Temp Pulse Resp Pulse Ox 06/30/20 08:00 98.5 F 06/30/20 07:02 73 25 H 89 L Weight Admit Weight 169 lb Weight 169 lb Most Recent Monitor Data Heart Rate from ECG 75 NIBP 130/57 NIBP BP-Mean 81 Respiration from ECG 34 SpO2 90 I&O: 06/29/20 06/30/20 07/01/20 06:59 06:59 06:59 Intake Total 2650 900 Output Total 1920 1375 Balance 730 -475 Result Diagrams: 06/26/20 03:20 06/26/20 03:20 Hospitalist ROS - Medication Medications: Active Medications Generic Name Dose Route Start Last Admin Trade Name Freq PRN Reason Stop Dose Admin Acetaminophen 650 mg 06/23/20 21:16 06/29/20 22:52 Tylenol PO 650 mg Q4H PRN Administration Headache/Fever/Mild Pain (1-3) Alprazolam 0.25 mg 06/27/20 14:04 06/29/20 23:13 Xanax PO 0.25 mg TIDPRN PRN Administration Anxiety Dexamethasone 6 mg 06/23/20 22:00 06/29/20 21:23 Decadron SLOW IVP 6 mg 2200 MERRILL Administration Enoxaparin Sodium 70 mg 06/24/20 21:00 06/30/20 09:05 Lovenox SC 70 mg 0900,2100 MERRILL Administration Famotidine 20 mg 06/24/20 09:00 06/30/20 09:06 Pepcid PO 20 mg BID MERRILL Administration Hydralazine HCl 10 mg 06/23/20 21:16 06/28/20 16:08 Apresoline SLOW IVP 10 mg Q6H PRN Administration SBP GREATER THAN 160 Sodium Chloride 1,000 mls @ 75 mls/hr 06/23/20 21:45 06/30/20 14:54 Normal Saline 0.9% IV 1,000 mls .[id number] MERRILL Administration Loperamide HCl 1 mg 06/24/20 05:26 06/29/20 21:42 Imodium PO 1 mg Q4H PRN Administration Diarrhea/Loose Stools Mometasone Furoate 100 mcg 06/24/20 18:30 06/30/20 09:06 Asmanex Hfa 100 Mcg INH 1 inh BID-RT MERRILL Administration Ondansetron HCl 4 mg 06/23/20 21:16 06/26/20 04:40 Zofran IVP 4 mg Q6H PRN Administration Nausea/Vomiting, use 1st Polyethylene Glycol 17 gm 06/24/20 09:00 06/30/20 09:06 Miralax PO Not Given DAILY MERRILL Scopolamine 1.5 mg 06/29/20 17:00 06/29/20 18:08 Transderm Scop TD 1.5 mg Q3D MERRILL Administration Sodium Chloride 10 ml 06/24/20 21:00 06/30/20 09:06 Flush - Normal Saline IVF 10 ml Q12HR MERRILL Administration - Exam General Appearance: NAD, awake alert Heart: RRR, no murmur, no gallops, no rubs, normal peripheral pulses Respiratory: no wheezes, no ronchi, normal chest expansion, no tachypnea, normal percussion, rales (Bibasilar high-pitched rales.) Gastrointestinal: soft, non-tender, non-distended, normal bowel sounds, no palpable masses, no hepatomegaly, no splenomegaly, no bruit Extremities: no cyanosis, no clubbing, no edema Musculoskeletal: normal tone, normal strength, no muscle wasting Psychiatric: normal affect, normal behavior, A&O x 3 Hosp A/P (1) Acute respiratory failure with hypoxia Code(s): J96.01 - ACUTE RESPIRATORY FAILURE WITH HYPOXIA Status: Acute (2) COVID-19 virus infection Code(s): U07.1 - COVID-19 Status: Acute (3) Anxiety Code(s): F41.9 - ANXIETY DISORDER, UNSPECIFIED Status: Acute - Plan Continue with the high flow nasal cannula oxygen or BiPAP and Decadron, inhaled mometasone. Encouraged activity as tolerated. Therapeutic range Lovenox. Follow markers. Pulmonology following. Discussed possibly trying to get him from the BiPAP down to nonrebreather oxygen rather than high flow nasal cannula. Xanax 0.25 mg 1 p.o. 3 times daily as needed anxiety. He continues to struggle little bit emotionally with all of this. He is homesick, misses his family and wants to be outside. Discussed possibilities of antidepressants as he is frequently on the verge of being tearful. He tended to recoil at that idea. Did encourage him to go sit in the chair by the window where he can get some son and see outside. Tends to sit in the room all day with the curtains closed.
[2020-06-30] MEDS: ALPRAZolam 0.25 MG TAB PO PRN (20:55)
[2020-06-30] MEDS: Dexamethasone 10 MG/ML VIAL SLOW IVP SCH (20:59)
[2020-06-30] MEDS: Acetaminophen 325 MG TAB PO PRN (21:07)
--- NOTE | 2020-06-30 22:23 | PRG ---
DATE OF SERVICE: 06/30/2020 Awais Masterson continues to be on and off BiPAP. We are trying to see if he will tolerate face mask oxygen today. His hemodynamics have been stable. Otherwise, it is changed. As expected, he is making slow progress. Job ID: [id number]
[2020-07-01] MEDS: Sodium Chloride 0.9% 1,000 ML IV SCH ×2 (00:26→17:24)
[2020-07-01] MEDS: Mometasone 100 MCG/PUFF (1 INHALER) INH SCH ×2 (06:04→21:13)
[2020-07-01] MEDS: Polyethylene Glycol 3350 17 GM Packet PO SCH (07:57)
[2020-07-01] MEDS: Enoxaparin Sodium 80 MG/0.8 ML SYRINGE SC SCH ×2 (07:57→21:12)
[2020-07-01] MEDS: Famotidine 20 MG TAB PO SCH ×2 (07:58→21:12)
--- NOTE | 2020-07-01 15:15 | PDOC.HOSPP ---
- Subjective Encounter Date: 07/01/20 Subjective: Doing okay. No new complaints today. He is managing to eat okay. This morning when he went to high flow for a short period of time to eat he did desaturate into the 70s. He was subsequently put back on BiPAP. Patient reports that the high flow nasal cannula smells like wild hogs to him. - Objective Vital Signs & Weight: Vital Signs (12 hours) Temp BP Pulse Ox 07/01/20 12:00 98.1 F 07/01/20 10:11 90 L 07/01/20 08:00 97.6 F 91 L 07/01/20 06:00 110/71 07/01/20 05:00 112/68 07/01/20 04:00 97.1 F L Weight Admit Weight 169 lb Weight 169 lb Most Recent Monitor Data Heart Rate from ECG 80 NIBP 105/52 NIBP BP-Mean 69 Respiration from ECG 30 SpO2 90 I&O: 06/30/20 07/01/20 07/02/20 06:59 06:59 06:59 Intake Total 900 1380 Output Total 1375 1800 Balance -475 -420 Result Diagrams: 06/26/20 03:20 06/26/20 03:20 Hospitalist ROS - Medication Medications: Active Medications Generic Name Dose Route Start Last Admin Trade Name Freq PRN Reason Stop Dose Admin Acetaminophen 650 mg 06/23/20 21:16 06/30/20 21:07 Tylenol PO 650 mg Q4H PRN Administration Headache/Fever/Mild Pain (1-3) Alprazolam 0.25 mg 06/27/20 14:04 06/30/20 20:55 Xanax PO 0.25 mg TIDPRN PRN Administration Anxiety Dexamethasone 6 mg 06/23/20 22:00 06/30/20 20:59 Decadron SLOW IVP 6 mg 2200 MERRILL Administration Enoxaparin Sodium 70 mg 06/24/20 21:00 07/01/20 07:57 Lovenox SC 70 mg 0900,2100 MERRILL Administration Famotidine 20 mg 06/24/20 09:00 07/01/20 07:58 Pepcid PO 20 mg BID MERRILL Administration Hydralazine HCl 10 mg 06/23/20 21:16 06/28/20 16:08 Apresoline SLOW IVP 10 mg Q6H PRN Administration SBP GREATER THAN 160 Sodium Chloride 1,000 mls @ 75 mls/hr 06/23/20 21:45 07/01/20 00:26 Normal Saline 0.9% IV 1,000 mls .[id number] MERRILL Administration Loperamide HCl 1 mg 06/24/20 05:26 06/29/20 21:42 Imodium PO 1 mg Q4H PRN Administration Diarrhea/Loose Stools Mometasone Furoate 100 mcg 06/24/20 18:30 07/01/20 06:04 Asmanex Hfa 100 Mcg INH Not Given BID-RT MERRILL Ondansetron HCl 4 mg 06/23/20 21:16 06/26/20 04:40 Zofran IVP 4 mg Q6H PRN Administration Nausea/Vomiting, use 1st Polyethylene Glycol 17 gm 06/24/20 09:00 07/01/20 07:57 Miralax PO Not Given DAILY MERRILL Scopolamine 1.5 mg 06/29/20 17:00 06/29/20 18:08 Transderm Scop TD 1.5 mg Q3D MERRILL Administration Sodium Chloride 10 ml 06/24/20 21:00 07/01/20 07:59 Flush - Normal Saline IVF 10 ml Q12HR MERRILL Administration - Exam General Appearance: NAD, awake alert Heart: RRR, no murmur, no gallops, no rubs, normal peripheral pulses Respiratory: CTAB, no wheezes, no ronchi, normal chest expansion, no tachypnea, normal percussion, rales (Bibasilar rales. Right slightly greater than left.) Gastrointestinal: soft, non-tender, non-distended, normal bowel sounds, no palpable masses, no hepatomegaly, no splenomegaly, no bruit Extremities: no cyanosis, no clubbing, no edema Musculoskeletal: normal tone, normal strength, no muscle wasting Psychiatric: normal affect, normal behavior, A&O x 3 Hosp A/P (1) Acute respiratory failure with hypoxia Code(s): J96.01 - ACUTE RESPIRATORY FAILURE WITH HYPOXIA Status: Acute (2) COVID-19 virus infection Code(s): U07.1 - COVID-19 Status: Acute (3) Anxiety Code(s): F41.9 - ANXIETY DISORDER, UNSPECIFIED Status: Acute - Plan Continue with the high flow nasal cannula oxygen or BiPAP and Decadron, inhaled mometasone. Encouraged activity as tolerated. Therapeutic range Lovenox. Follow markers. Pulmonology following. Discussed possibly trying to get him from the BiPAP down to nonrebreather oxygen rather than high flow nasal cannula. Appears that he is still largely requiring the BiPAP. Xanax 0.25 mg 1 p.o. 3 times daily as needed anxiety.
[2020-07-01] MEDS: Dexamethasone 10 MG/ML VIAL SLOW IVP SCH (21:14)
--- NOTE | 2020-07-01 21:48 | PRG ---
DATE OF SERVICE: 07/01/2020 SUBJECTIVE: Awais Masterson is clinically unchanged. OBJECTIVE: VITAL SIGNS: He is afebrile. Heart rate is in the 90s, respiratory rates in the 20s, oximetry is 95, still on BiPAP most of the time. LUNGS: Unchanged. HEART: Unchanged. ABDOMEN: Unchanged. IMPRESSION: COVID-19 pneumonia, making slow progress as expected. Job ID: [id number]
[2020-07-02] MEDS: Sodium Chloride 0.9% 1,000 ML IV SCH ×2 (03:36→21:24)
[2020-07-02] MEDS: Mometasone 100 MCG/PUFF (1 INHALER) INH SCH ×2 (07:53→21:21)
[2020-07-02] MEDS: Polyethylene Glycol 3350 17 GM Packet PO SCH (07:53)
[2020-07-02] MEDS: Enoxaparin Sodium 80 MG/0.8 ML SYRINGE SC SCH ×2 (07:53→21:23)
[2020-07-02] MEDS: Famotidine 20 MG TAB PO SCH ×2 (07:53→21:23)
--- NOTE | 2020-07-02 09:26 | PRG ---
DATE OF SERVICE: 07/02/2020 SUBJECTIVE: Mr. Masterson remains on BiPAP. He is afebrile. Heart rate is in the 60s, blood pressure 120/83. Overall, he is unchanged otherwise. tomorrow. IMPRESSION: COVID-19 pneumonia, clinically stable. He is on full-dose Lovenox and Decadron. He is also getting inhaled steroids. He is on scopolamine for his dizziness, he was experiencing with high-flow oxygen. We will continue to try to give him breaks from BiPAP. Hopefully, weaning him eventually. Job ID: [id number]
--- NOTE | 2020-07-02 14:10 | PDOC.HOSPP ---
- Subjective Encounter Date: 07/02/20 Encounter Time: 10:20 Subjective: is on bipap feels good, breathing better he is getting into bedside commode and back says he is eating well - Objective Vital Signs & Weight: Vital Signs (12 hours) Temp Pulse Ox 07/02/20 12:00 97.9 F 07/02/20 08:00 98.1 F 96 07/02/20 04:00 97.9 F 96 Weight Admit Weight 169 lb Weight 169 lb Most Recent Monitor Data Heart Rate from ECG 74 NIBP 118/51 NIBP BP-Mean 73 Respiration from ECG 35 SpO2 94 I&O: 07/01/20 07/02/20 07/03/20 06:59 06:59 06:59 Intake Total 1380 3100 Output Total 1800 1200 Balance -420 1900 Result Diagrams: 06/26/20 03:20 06/26/20 03:20 Hospitalist ROS - Medication Medications: Active Medications Generic Name Dose Route Start Last Admin Trade Name Freq PRN Reason Stop Dose Admin Acetaminophen 650 mg 06/23/20 21:16 06/30/20 21:07 Tylenol PO 650 mg Q4H PRN Administration Headache/Fever/Mild Pain (1-3) Alprazolam 0.25 mg 06/27/20 14:04 06/30/20 20:55 Xanax PO 0.25 mg TIDPRN PRN Administration Anxiety Dexamethasone 6 mg 06/23/20 22:00 07/01/20 21:14 Decadron SLOW IVP 6 mg 2200 MERRILL Administration Enoxaparin Sodium 70 mg 06/24/20 21:00 07/02/20 07:53 Lovenox SC 70 mg 0900,2100 MERRILL Administration Famotidine 20 mg 06/24/20 09:00 07/02/20 07:53 Pepcid PO 20 mg BID MERRILL Administration Hydralazine HCl 10 mg 06/23/20 21:16 06/28/20 16:08 Apresoline SLOW IVP 10 mg Q6H PRN Administration SBP GREATER THAN 160 Sodium Chloride 1,000 mls @ 75 mls/hr 06/23/20 21:45 07/02/20 03:36 Normal Saline 0.9% IV 1,000 mls .[id number] MERRILL Administration Loperamide HCl 1 mg 06/24/20 05:26 06/29/20 21:42 Imodium PO 1 mg Q4H PRN Administration Diarrhea/Loose Stools Mometasone Furoate 100 mcg 06/24/20 18:30 07/02/20 07:53 Asmanex Hfa 100 Mcg INH 1 inh BID-RT MERRILL Administration Ondansetron HCl 4 mg 06/23/20 21:16 06/26/20 04:40 Zofran IVP 4 mg Q6H PRN Administration Nausea/Vomiting, use 1st Polyethylene Glycol 17 gm 06/24/20 09:00 07/02/20 07:53 Miralax PO Not Given DAILY MERRILL Scopolamine 1.5 mg 06/29/20 17:00 06/29/20 18:08 Transderm Scop TD 1.5 mg Q3D MERRILL Administration Sodium Chloride 10 ml 06/24/20 21:00 07/02/20 07:53 Flush - Normal Saline IVF 10 ml Q12HR MERRILL Administration - Exam General Appearance: awake alert Eye: PERRL, anicteric sclera ENT: no oropharyngeal lesions, moist mucosa Neck: supple, no JVD Heart: RRR, no murmur Respiratory: no wheezes, no rales, rhonchi Gastrointestinal: soft, non-tender, non-distended, normal bowel sounds Extremities: no cyanosis, no edema Neurological: cranial nerve grossly intact, no focal deficits Psychiatric: normal affect, A&O x 3 Hosp A/P (1) Pneumonia due to COVID-19 virus Code(s): U07.1 - COVID-19; J12.89 - OTHER VIRAL PNEUMONIA Status: Acute (2) Acute respiratory failure with hypoxia Code(s): J96.01 - ACUTE RESPIRATORY FAILURE WITH HYPOXIA Status: Acute (3) Anxiety Code(s): F41.9 - ANXIETY DISORDER, UNSPECIFIED Status: Chronic - Plan is on lovenox full dose, dexamethasone dc iv fluids if he is drinking enough fluids hemostable trial of weaning bipap to nasal canula
[2020-07-02] MEDS: Scopolamine 1.5 mg/72 hour Patch TD SCH (18:00)
[2020-07-02] MEDS: Dexamethasone 10 MG/ML VIAL SLOW IVP SCH (21:23)
[2020-07-03 03:46] LABS: Band 8 % (5-11); Hemoglobin 13.1 g/dL (14.0-18.0); Lymphocytes 3 % (21-51); MDiff Complete? YES; Mean Corpuscular HGB CONC 33.1 g/dL (32.0-36.0); Mean Corpuscular Hemoglobin 30.8 pg (27.0-31.0); Mean Corpuscular Volume 93.1 fL (78.0-98.0); Mean Platelet Volume 8.2 fL (7.4-10.4); Monocytes 2 % (0-10); Neutrophil 87 % (42-75); Platelet Count 200 thou/uL (130-400); Platelet Morphology Comment Appears Adequate; Red Blood Cell (RBC) Count 4.25 mill/uL (4.70-6.10); White Blood Cell (WBC) Count 9.1 thou/uL (4.8-10.8)
[2020-07-03 03:55] LABS: Anion Gap 11 mmol/L (10-20); BUN (Urea Nitrogen) 14 mg/dL (8.4-25.7); Calc. Creatinine Clearance 109 mL/min (70-130); Calcium 8.2 mg/dL (7.8-10.44); Carbon Dioxide 26 mmol/L (22-29); Chloride 104 mmol/L (98-107); Estimated GFR-MDRD Greater than 90; Glucose 132 mg/dL (70-105); Potassium 4.1 mmol/L (3.5-5.1); Sodium 137 mmol/L (136-145)
[2020-07-03] MEDS: Sodium Chloride 0.9% 1,000 ML IV SCH ×2 (08:49→19:53)
[2020-07-03] MEDS: Polyethylene Glycol 3350 17 GM Packet PO SCH (08:50)
[2020-07-03] MEDS: Mometasone 100 MCG/PUFF (1 INHALER) INH SCH ×2 (08:58→19:52)
[2020-07-03] MEDS: Enoxaparin Sodium 80 MG/0.8 ML SYRINGE SC SCH ×2 (08:58→19:51)
[2020-07-03] MEDS: Famotidine 20 MG TAB PO SCH ×2 (08:58→19:51)
--- NOTE | 2020-07-03 12:54 | PDOC.HOSPP ---
- Subjective Encounter Date: 07/03/20 Encounter Time: 09:40 Subjective: is on bipap, anxious, breathing around 30/min shallow breaths - Objective Vital Signs & Weight: Vital Signs (12 hours) Temp Pulse Resp Pulse Ox 07/03/20 12:00 97.9 F 07/03/20 08:00 98.4 F 07/03/20 07:32 96 07/03/20 07:23 75 30 H 96 07/03/20 04:05 98.9 F Weight Admit Weight 169 lb Weight 169 lb Most Recent Monitor Data Heart Rate from ECG 91 NIBP 139/67 NIBP BP-Mean 91 Respiration from ECG 31 SpO2 97 I&O: 07/02/20 07/03/20 07/04/20 06:59 06:59 06:59 Intake Total 3100 1150 Output Total 1200 725 Balance 1900 425 Result Diagrams: 07/03/20 03:10 07/03/20 03:10 Hospitalist ROS - Medication Medications: Active Medications Generic Name Dose Route Start Last Admin Trade Name Freq PRN Reason Stop Dose Admin Acetaminophen 650 mg 06/23/20 21:16 06/30/20 21:07 Tylenol PO 650 mg Q4H PRN Administration Headache/Fever/Mild Pain (1-3) Alprazolam 0.25 mg 06/27/20 14:04 06/30/20 20:55 Xanax PO 0.25 mg TIDPRN PRN Administration Anxiety Dexamethasone 6 mg 06/23/20 22:00 07/02/20 21:23 Decadron SLOW IVP 6 mg 2200 MERRILL Administration Enoxaparin Sodium 70 mg 06/24/20 21:00 07/03/20 08:58 Lovenox SC 70 mg 0900,2100 MERRILL Administration Famotidine 20 mg 06/24/20 09:00 07/03/20 08:58 Pepcid PO 20 mg BID MERRILL Administration Hydralazine HCl 10 mg 06/23/20 21:16 06/28/20 16:08 Apresoline SLOW IVP 10 mg Q6H PRN Administration SBP GREATER THAN 160 Sodium Chloride 1,000 mls @ 75 mls/hr 06/23/20 21:45 07/03/20 08:49 Normal Saline 0.9% IV Not Given .[id number] MERRILL Loperamide HCl 1 mg 06/24/20 05:26 08/04/20 21:42 Imodium PO 1 mg Q4H PRN Administration Diarrhea/Loose Stools Mometasone Furoate 100 mcg 06/24/20 18:30 07/03/20 08:58 Asmanex Hfa 100 Mcg INH 1 inh BID-RT MERRILL Administration Ondansetron HCl 4 mg 06/23/20 21:16 06/26/20 04:40 Zofran IVP 4 mg Q6H PRN Administration Nausea/Vomiting, use 1st Polyethylene Glycol 17 gm 06/24/20 09:00 07/03/20 08:50 Miralax PO Not Given DAILY MERRILL Scopolamine 1.5 mg 06/29/20 17:00 07/02/20 18:00 Transderm Scop TD 1.5 mg Q3D MERRILL Administration Sodium Chloride 10 ml 06/24/20 21:00 07/03/20 09:20 Flush - Normal Saline IVF Not Given Q12HR MERRILL - Exam General Appearance: awake alert Eye: PERRL, anicteric sclera ENT: no oropharyngeal lesions, moist mucosa Neck: supple, no JVD Heart: RRR, no murmur Respiratory: no wheezes, rales, rhonchi Gastrointestinal: soft, non-tender, non-distended, normal bowel sounds Extremities: no cyanosis, no edema Neurological: cranial nerve grossly intact, no focal deficits Psychiatric: normal affect, A&O x 3 Hosp A/P (1) Pneumonia due to COVID-19 virus Code(s): U07.1 - COVID-19; J12.89 - OTHER VIRAL PNEUMONIA Status: Acute (2) Acute respiratory failure with hypoxia Code(s): J96.01 - ACUTE RESPIRATORY FAILURE WITH HYPOXIA Status: Acute (3) Anxiety Code(s): F41.9 - ANXIETY DISORDER, UNSPECIFIED Status: Chronic - Plan is on lovenox full dose, dexamethasone dc iv fluids hemostable trial of weaning bipap to nasal canula cxr today, his inflammatory markers are not high and are trending down may need lasix x1 dose
--- NOTE | 2020-07-03 13:14 | RAD ---
Chest one view HISTORY: Pneumonia. COVID positive. COMPARISON: 06/26/2020. FINDINGS: Cardiac silhouette is magnified and now partially obscured by worsening groundglass infiltr ate throughout each lung, worse on the left than the right. Mediastinum is midline. Pulmonary vasculature are unremarkable. No evidence of pneumothorax. IMPRESSION : Worsening widespread parenchymal infiltrate.
--- NOTE | 2020-07-03 14:09 | PRG ---
DATE OF SERVICE: 07/03/2020 PRESENT ILLNESS: Mr. Masterson is holding his own, but he is still requiring much higher oxygen demands and we would like. He is on BiPAP almost continuously with oxygen 75% and pressure is 15/7. He has been transiently on high-flow nasal cannula at 90% in order to eat and will have rapid desaturation into the mid 70s. He is fairly comfortable and we are doing our best not to proceed with intubation. He denies other symptoms today. PHYSICAL EXAMINATION: VITAL SIGNS: Blood pressure 139/67; heart rate is 91; oxygen saturation 97%, although, again on high oxygen demand; temperature 97.9. GENERAL: He is in no acute distress. Fairly comfortable on BiPAP. He has no adenopathy. LUNGS: Show diffuse crackles without any wheezing. HEART: Regular rate and rhythm. ABDOMEN: Soft. There is no organomegaly. He does not have edema. LABORATORY DATA: White count today 9800, hemoglobin 13.1 with hematocrit 39.6, and platelet count of 200,000. He has 8% bands. Chemistry includes sodium 137, potassium 4.1, chloride 104, CO2 is 26, BUN 14, creatinine 0.8. His CRP is 6. IMPRESSION: COVID pneumonia on high FiO2 demands. PLAN: We will continue current therapies. At this point, we have little to offer except intubation and we would like to avoid this if at all possible. Job ID: [id number]
[2020-07-03] MEDS: Dexamethasone 10 MG/ML VIAL SLOW IVP SCH (19:55)
[2020-07-04 03:46] LABS: Anion Gap 12 mmol/L (10-20); BUN (Urea Nitrogen) 13 mg/dL (8.4-25.7); Calc. Creatinine Clearance 118 mL/min (70-130); Calcium 8.4 mg/dL (7.8-10.44); Carbon Dioxide 24 mmol/L (22-29); Chloride 101 mmol/L (98-107); Estimated GFR-MDRD Greater than 90; Glucose 113 mg/dL (70-105); Potassium 4.4 mmol/L (3.5-5.1); Sodium 133 mmol/L (136-145)
[2020-07-04 03:54] LABS: Band 4 % (5-11); Hemoglobin 13.5 g/dL (14.0-18.0); Hypochromia SLIGHT = 6-15 cells (100X) (0-5/hpf); Lymphocytes 1 % (21-51); MDiff Complete? YES; Mean Corpuscular HGB CONC 33.5 g/dL (32.0-36.0); Mean Corpuscular Hemoglobin 31.1 pg (27.0-31.0); Mean Platelet Volume 7.8 fL (7.4-10.4); Metamyelocyte 1 % (0-0); Monocytes 2 % (0-10); Neutrophil 92 % (42-75); Platelet Count 219 thou/uL (130-400); Platelet Morphology Comment Appears Adequate; RBC Distribution Width 11.9 % (11.5-14.5); Red Blood Cell (RBC) Count 4.34 mill/uL (4.70-6.10); White Blood Cell (WBC) Count 9.1 thou/uL (4.8-10.8)
[2020-07-04] MEDS: Enoxaparin Sodium 80 MG/0.8 ML SYRINGE SC SCH ×2 (08:32→21:02)
[2020-07-04] MEDS: Famotidine 20 MG TAB PO SCH ×2 (08:32→21:03)
[2020-07-04] MEDS: Mometasone 100 MCG/PUFF (1 INHALER) INH SCH ×2 (08:32→18:47)
[2020-07-04] MEDS: Polyethylene Glycol 3350 17 GM Packet PO SCH (09:10)
--- NOTE | 2020-07-04 12:27 | PDOC.HOSPP ---
- Subjective Encounter Date: 07/04/20 Encounter Time: 11:00 Subjective: has sob, is on bipap oriented, is eating well - Objective Vital Signs & Weight: Vital Signs (12 hours) Temp Pulse Resp Pulse Ox 07/04/20 12:00 98.9 F 07/04/20 08:00 97.9 F 07/04/20 07:52 94 L 07/04/20 04:00 97.5 F L 07/04/20 02:49 72 24 H 94 L Weight Admit Weight 169 lb Weight 169 lb Most Recent Monitor Data Heart Rate from ECG 90 NIBP 134/68 NIBP BP-Mean 90 Respiration from ECG 37 SpO2 89 I&O: 07/03/20 07/04/20 07/05/20 06:59 06:59 06:59 Intake Total 1150 400 Output Total 725 1525 Balance 425 -1125 Result Diagrams: 07/04/20 03:16 07/04/20 03:16 Hospitalist ROS - Medication Medications: Active Medications Generic Name Dose Route Start Last Admin Trade Name Freq PRN Reason Stop Dose Admin Acetaminophen 650 mg 06/23/20 21:16 06/30/20 21:07 Tylenol PO 650 mg Q4H PRN Administration Headache/Fever/Mild Pain (1-3) Alprazolam 0.25 mg 06/27/20 14:04 06/30/20 20:55 Xanax PO 0.25 mg TIDPRN PRN Administration Anxiety Dexamethasone 6 mg 06/23/20 22:00 07/03/20 19:55 Decadron SLOW IVP 6 mg 2200 MERRILL Administration Enoxaparin Sodium 70 mg 06/24/20 21:00 07/04/20 08:32 Lovenox SC 70 mg 0900,2100 MERRILL Administration Famotidine 20 mg 06/24/20 09:00 07/04/20 08:32 Pepcid PO 20 mg BID MERRILL Administration Hydralazine HCl 10 mg 06/23/20 21:16 06/28/20 16:08 Apresoline SLOW IVP 10 mg Q6H PRN Administration SBP GREATER THAN 160 Loperamide HCl 1 mg 06/24/20 05:26 06/29/20 21:42 Imodium PO 1 mg Q4H PRN Administration Diarrhea/Loose Stools Mometasone Furoate 100 mcg 06/24/20 18:30 07/04/20 08:32 Asmanex Hfa 100 Mcg INH 1 inh BID-RT MERRILL Administration Ondansetron HCl 4 mg 06/23/20 21:16 06/26/20 04:40 Zofran IVP 4 mg Q6H PRN Administration Nausea/Vomiting, use 1st Polyethylene Glycol 17 gm 06/24/20 09:00 07/04/20 09:10 Miralax PO Not Given DAILY MERRILL Scopolamine 1.5 mg 06/29/20 17:00 07/02/20 18:00 Transderm Scop TD 1.5 mg Q3D MERRILL Administration Sodium Chloride 10 ml 06/24/20 21:00 07/04/20 09:10 Flush - Normal Saline IVF Not Given Q12HR MERRILL - Exam General Appearance: awake alert Eye: PERRL, anicteric sclera ENT: no oropharyngeal lesions, dry oral mucosa Neck: supple, no JVD Heart: RRR, no murmur Respiratory: no wheezes, no ronchi, rales Gastrointestinal: soft, non-tender, non-distended, normal bowel sounds Extremities: no cyanosis, no edema Neurological: cranial nerve grossly intact, no focal deficits Psychiatric: normal affect, A&O x 3 Hosp A/P (1) Pneumonia due to COVID-19 virus Code(s): U07.1 - COVID-19; J12.89 - OTHER VIRAL PNEUMONIA Status: Acute (2) Acute respiratory failure with hypoxia Code(s): J96.01 - ACUTE RESPIRATORY FAILURE WITH HYPOXIA Status: Acute (3) Anxiety Code(s): F41.9 - ANXIETY DISORDER, UNSPECIFIED Status: Chronic (4) ARDS (adult respiratory distress syndrome) Code(s): J80 - ACUTE RESPIRATORY DISTRESS SYNDROME Status: Acute - Plan is on lovenox full dose, dexamethasone cxr showed worsening infiltrates yesterday might get intubated today will need convalescent plasma and IL-6 inh, await pulm advice hemostable pt says he is talking to his over facetime and updating her
[2020-07-04] MEDS ORDERED: Vecuronium 10 MG VIAL ONE (13:07)
[2020-07-04] MEDS ORDERED: Lorazepam 2 MG/ML VIAL SLOW IVP PRN (13:43)
[2020-07-04] MEDS ORDERED: DISCONTINUE PREVIOUS NARCOTIC PAIN MEDICATIONS AND BENZODIAZEPINES FS SCH (13:43)
[2020-07-04] MEDS ORDERED: Fentanyl BOLUS 250 ML IVPB PRN (13:43)
[2020-07-04] MEDS ORDERED: Propofol 1,000 MG/100 ML VIAL IV PRN (13:43)
[2020-07-04] MEDS ORDERED: Lorazepam 2 MG/ML VIAL ONE (13:43)
[2020-07-04] MEDS ORDERED: Propofol BOLUS 1,000 MG/100 ML VIAL IV PRN ×2 (13:43→20:25)
[2020-07-04] MEDS ORDERED: Morphine 2 MG/ML VIAL SLOW IVP PRN ×2 (13:43→20:28)
[2020-07-04] MEDS: fentaNYL Citrate/PF 2,000 MCG in Sodium Chloride 0.9% 60 ML IV SCH (14:03)
--- NOTE | 2020-07-04 14:25 | RAD ---
FRONTAL RADIOGRAPH CHEST SUPINE Date: 07-04-2020 Comparison: 07-03-2020 History: Intubated patient FINDINGS: There has been interval placement of an endotracheal tube and nasogastric tube in proper position. Th ere is a left subclavian vascular catheter with distal tip in the region of the cavoatrial junction. As seen on the prior examination there is extensive nonspecific interstitial and alveolar opacity. IMPRESSION: Extensive nonspecific airspace disease. Question a history of Covid pneumonia. Lines and tubes as abo ve. POS: CHINTAN
[2020-07-04 15:01] LABS: Actual Bicarbonate (HCO3a) 23.1 mEq/L (22-28); Analyzer IN Cardio OR; Base Excess (BEa) -2.2 mEq/L (-2.0 to +3.0); CO2 Tension 41.9 mmHg (35.0-45.0); Calcium, Ionized (arterial) 1.16 mmol/L (1.12-1.30); Hemoglobin (Hb) 14.3 g/dL (14.0-18.0); O2 Tension (PaO2), arterial 74.5 mmHg (80.0-100.0); Potassium - ABG Lab 3.76 mmol/L (3.70-5.30); pH, Arterial 7.36 (7.35-7.45)
[2020-07-04 15:02] LABS: ALV-art Gradient 514.825 (0-20)
--- NOTE | 2020-07-04 15:03 | OP ---
DATE OF PROCEDURE: 07/04/2020 PROCEDURE PERFORMED: Right subclavian triple-lumen catheter placement. INDICATIONS: Hypotension, requiring pressors and sedation and the patient with COVID pneumonia. POSTOPERATIVE DIAGNOSES: Hypotension, requiring pressors and sedation and the patient with COVID pneumonia. DESCRIPTION OF PROCEDURE: Following informed consent, a left subclavian triple-lumen catheter was placed in the usual fashion without complication. All ports were flushed. The catheter was sutured in place and a sterile bandage applied. Postprocedure x-ray showed good placement without evidence of pneumothorax. Job ID: [id number]
--- NOTE | 2020-07-04 15:58 | PRG ---
DATE OF SERVICE: SUBJECTIVE: Mr. Masterson has shown clinical deterioration in the past 24 hours. He has been continuously on BiPAP. He is increasingly fatigued and saturations have been as low as the mid 70s and only is high in the upper 80s on BiPAP with 100% oxygen. The patient is clearly failing. His x-ray shows very dense bilateral consolidations. We have discussed his situation with him and expressed concern that intubation is the best approach at this point. The patient consents. PHYSICAL EXAMINATION: VITAL SIGNS: Blood pressure 134/68, heart rate 90. He is afebrile. GENERAL: He is a 59-year-old gentleman with increased work of breathing. He is mildly diaphoretic. He is having a hard time communicating because of his breathlessness. HEENT: Shows no adenopathy. LUNGS: Show bilateral diffuse rales without wheezing. HEART: Regular rate and rhythm with resting tachycardia. ABDOMEN: Soft. There is no organomegaly. EXTREMITIES: He has no edema. LABORATORY DATA: Chest x-ray shows very dense bilateral consolidation consistent with his COVID infection. White count today 9100, hemoglobin is 13.5 with hematocrit of 40.3, and platelet count of 219,000. Electrolytes include sodium 133, potassium 4.4, chloride 101, CO2 is 24, BUN 13, and creatinine 0.7. Blood gas on BiPAP revealed a pH 7.36, CO2 of 42, PO2 of 74, bicarbonate 23. This is obtained on BiPAP at 100% with a calculated AA gradient of over 500. IMPRESSION: COVID pneumonia with hypoxic respiratory failure. We have no real alternative at this point, except to provide intubation and support. PLAN: The patient is transferred to the intensive care unit and we will pursue intubation and aggressive resuscitation. Critical care time exclusive of any procedures is 40 minutes. Job ID: [id number]
[2020-07-04] MEDS ORDERED: Sodium Chloride 0.9% 1,000 ML IV SCH (16:15)
[2020-07-04] MEDS ORDERED: cloNIDine 0.1 MG TAB PO PRN (20:19)
[2020-07-04] MEDS ORDERED: Acetaminophen 325 MG TAB PO PRN (20:19)
[2020-07-04] MEDS ORDERED: Guaifenesin DM 100-10/5 ML UDCUP PO PRN (20:19)
[2020-07-04] MEDS ORDERED: hydrALAZINE 20 MG/ML VIAL SLOW IVP PRN (20:20)
[2020-07-04] MEDS ORDERED: Loperamide HCl 1 MG/7.5 ML UDCUP PO PRN (20:21)
[2020-07-04] MEDS ORDERED: Promethazine HCl 12.5 MG in Sodium Chloride 0.9% 50 ML IVPB PRN (20:21)
[2020-07-04] MEDS ORDERED: Azithromycin 500 MG in Sodium Chloride 0.9% 250 ML 250 ML IVPB SCH (22:00)
[2020-07-04] MEDS ORDERED: Dexamethasone 10 MG/ML VIAL SLOW IVP SCH (22:00)
[2020-07-04] MEDS: Sodium Chloride 0.9% 1,000 ML IV SCH (22:56)
[2020-07-04] MEDS: Scopolamine 1.5 mg/72 hour Patch TD SCH (23:01)
[2020-07-04] MEDS: Propofol 1,000 MG/100 ML VIAL IV PRN (23:04)
[2020-07-05] MEDS: Propofol 1,000 MG/100 ML VIAL IV PRN ×4 (04:56→20:34)
[2020-07-05 05:08] LABS: Anion Gap 9 mmol/L (10-20); BUN (Urea Nitrogen) 16 mg/dL (8.4-25.7); Calc. Creatinine Clearance 111 mL/min (70-130); Calcium 7.9 mg/dL (7.8-10.44); Carbon Dioxide 31 mmol/L (22-29); Chloride 100 mmol/L (98-107); Estimated GFR-MDRD Greater than 90; Glucose 112 mg/dL (70-105); Potassium 4.5 mmol/L (3.5-5.1); Sodium 135 mmol/L (136-145)
[2020-07-05 05:19] LABS: Band 4 % (5-11); Hemoglobin 12.3 g/dL (14.0-18.0); Lymphocytes 5 % (21-51); MDiff Complete? YES; Mean Corpuscular HGB CONC 31.9 g/dL (32.0-36.0); Mean Corpuscular Hemoglobin 30.2 pg (27.0-31.0); Mean Corpuscular Volume 94.7 fL (78.0-98.0); Mean Platelet Volume 8.4 fL (7.4-10.4); Monocytes 2 % (0-10); Neutrophil 89 % (42-75); Platelet Count 241 thou/uL (130-400); Platelet Morphology Comment Appears Adequate; RBC Distribution Width 11.9 % (11.5-14.5); Red Blood Cell (RBC) Count 4.07 mill/uL (4.70-6.10); White Blood Cell (WBC) Count 9.5 thou/uL (4.8-10.8)
--- NOTE | 2020-07-05 07:47 | OP ---
DATE OF PROCEDURE: 07/04/2020 PROCEDURE: Intubation. INDICATIONS: Hypoxic respiratory failure secondary to COVID pneumonia. DESCRIPTION OF PROCEDURE: Following informed consent from the patient, he received propofol 60 mg IV push and was then intubated with 7.5 endotracheal tube using a laryngoscope. No complications were noted. The patient had improvement in oxygen saturation, was placed on ventilatory support. Postprocedure x-ray shows good positioning. Tube secured 24 cm at the lip. Job ID: [id number]
[2020-07-05 07:58] LABS: Actual Bicarbonate (HCO3a) 30.4 mEq/L (22-28); Base Excess (BEa) 4.9 mEq/L (-2.0 to +3.0); Calcium, Ionized (arterial) 1.15 mmol/L (1.12-1.30); Carboxyhemoglobin (COHb) 0.5 gm% (0.0-3.0); Hemoglobin (Hb) 13.3 g/dL (14.0-18.0); Potassium - ABG Lab 4.56 mmol/L (3.70-5.30); pH, Arterial 7.42 (7.35-7.45)
[2020-07-05 08:05] LABS: O2 Tension (PaO2), arterial 59.4 mmHg (80.0-100.0); Puncture Site RRA
[2020-07-05] MEDS: Famotidine 20 MG TAB PO SCH ×2 (08:05→19:16)
[2020-07-05] MEDS: Sodium Chloride 0.9% 1,000 ML IV SCH ×2 (08:05→15:33)
[2020-07-05] MEDS: Enoxaparin Sodium 80 MG/0.8 ML SYRINGE SC SCH ×2 (08:06→19:16)
[2020-07-05] MEDS: Polyethylene Glycol 3350 17 GM Packet PO SCH (08:06)
[2020-07-05] MEDS ORDERED: Vecuronium 10 MG VIAL ONE (08:16)
[2020-07-05] MEDS ORDERED: VANCOMYCIN IVPB PRN (08:19)
[2020-07-05] MEDS: Lorazepam 2 MG/ML VIAL SLOW IVP PRN ×4 (08:20→19:17)
[2020-07-05] MEDS ORDERED: Sterile Water 10 ML ONE ×4 (09:19→15:31)
[2020-07-05] MEDS: Vecuronium 10 MG VIAL IVP PRN ×6 (09:20→23:10)
--- NOTE | 2020-07-05 09:29 | PRG ---
DATE OF SERVICE: 07/05/2020 35 minutes of critical care time. SUBJECTIVE: The patient remains intubated on mechanical ventilation. There have been no acute changes overnight. OBJECTIVE: VITAL SIGNS: His temperature is 98.0, pulse 77, blood pressure 97/62, and O2 saturation 98%. A 24-hour intake 1194, output 1490. GENERAL: He was intubated. HEENT: Remarkable for intubated oropharynx. NECK: No JVD. LUNGS: Harsh expiratory crackles bilaterally. CARDIOVASCULAR: S1, S2. Regular. ABDOMEN: Soft and nontender to palpation. EXTREMITIES: No clubbing, cyanosis, or edema. LABORATORY DATA: Sodium 135, potassium 4.5, chloride 100, CO2 of 31, BUN 16, creatinine 0.7, and glucose 112. ABG; pH 7.42, pCO2 of 48, PO2 of 59 high-pressure 28, low pressure 12 time 1.3 seconds, FiO2 of 90%. Sodium 135, potassium 4.5, chloride 100, CO2 of 31, BUN 16, creatinine 0.7, and glucose 112. ASSESSMENT: 1. COVID-19 pneumonia. 2. Acute hypoxic respiratory failure, requiring mechanical ventilation. PLAN: 1. This patient has had progressive pneumonia despite being on IV corticosteroids, high-flow oxygen and BiPAP. It is possible that he could have a secondary pneumonia given this length of time in the hospital. Based on that, I will go ahead and add broad-spectrum IV antibiotics. 2. Continue steroids. 3. Prone position ventilation. 4. Prognosis is very dismal given the events of the last 24 hours. Job ID: [id number]
[2020-07-05] MEDS ORDERED: Tocilizumab 400 MG in Sodium Chloride 0.9% 80 ML IV SCH (09:45)
[2020-07-05] MEDS: Mometasone 100 MCG/PUFF (1 INHALER) INH SCH ×2 (10:01→18:37)
[2020-07-05] MEDS: Vancomycin HCl 1.25 GM in Sodium Chloride 0.9% 250 ML 250 ML IVPB SCH ×2 (10:19→20:04)
[2020-07-05] MEDS: Cefepime 1 GM in Sodium Chloride 0.9% 100 ML IVPB SCH ×2 (10:21→19:16)
--- NOTE | 2020-07-05 13:34 | PDOC.HOSPP ---
- Subjective Encounter Date: 07/05/20 Encounter Time: 10:25 Subjective: is in prone ventilation, not in distress, sedated - Objective Vital Signs & Weight: Vital Signs (12 hours) Temp Pulse Resp BP Pulse Ox 07/05/20 12:00 97.6 F 20 07/05/20 10:24 92 98/56 L 07/05/20 10:00 20 07/05/20 08:01 72 107/72 07/05/20 08:00 97.8 F 20 98 07/05/20 06:00 21 H 07/05/20 04:00 98.0 F 23 H 07/05/20 02:48 90 103/65 07/05/20 02:00 24 H Weight Admit Weight 169 lb Weight 169 lb Most Recent Monitor Data Heart Rate from ECG 83 NIBP 109/63 NIBP BP-Mean 78 Respiration from ECG 20 SpO2 94 I&O: 07/04/20 07/05/20 07/06/20 06:59 06:59 06:59 Intake Total 400 1194 1571.2 Output Total 1525 1490 490 Balance -1125 -296 1081.2 Result Diagrams: 07/05/20 04:00 07/05/20 04:00 Hospitalist ROS - Medication Medications: Active Medications Generic Name Dose Route Start Last Admin Trade Name Freq PRN Reason Stop Dose Admin Enoxaparin Sodium 70 mg 07/04/20 21:00 07/05/20 08:06 Lovenox SC 70 mg 0900,2100 MERRILL Administration Famotidine 20 mg 07/04/20 21:00 07/05/20 08:05 Pepcid PO 20 mg BID MERRILL Administration Fentanyl Citrate 2,000 mcg/ 100 mls @ 0 mls/hr 07/04/20 13:43 07/04/20 14:03 Sodium Chloride IV 08/03/20 13:43 100 mls INF MERRILL Administration Protocol Per Protocol Sodium Chloride 1,000 mls @ 100 mls/hr 07/04/20 20:30 07/05/20 08:05 Normal Saline 0.9% IV 1,000 mls .Q10H MERRILL Administration Cefepime HCl 1 gm/ Sodium 100 mls @ 200 mls/hr 07/05/20 09:00 07/05/20 10:21 Chloride IVPB 100 mls Q12HR MERRILL Administration Vancomycin HCl 1.25 gm/ Sodium 250 mls @ 166.667 mls/hr 07/05/20 09:00 10:19 Chloride IVPB 250 mls Q12HR MERRILL Administration Tocilizumab 400 mg/ Sodium 100 mls @ 100 mls/hr 07/05/20 09:45 07/05/20 10:21 Chloride IV 07/05/20 15:00 100 mls NOW MERRILL Administration Lorazepam 2 mg 07/04/20 20:28 07/05/20 08:20 Ativan SLOW IVP 08/03/20 13:43 2 mg Q1H PRN Administration Breakthrough agitation Mometasone Furoate 100 mcg 07/05/20 06:30 07/05/20 10:01 Asmanex Hfa 100 Mcg INH 1 puff BID-RT MERRILL Administration Polyethylene Glycol 17 gm 07/05/20 09:00 07/05/20 08:06 Miralax PO 17 gm DAILY MERRILL Administration Propofol 1,000 mg 07/04/20 20:25 07/05/20 11:08 Diprivan IV 08/03/20 13:43 1,000 mg INF PRN Administration TO ACHIEVE GOAL RASS Protocol Scopolamine 1.5 mg 07/04/20 20:30 07/04/20 23:01 Transderm Scop TD 1.5 mg Q3D MERRILL Administration Sodium Chloride 10 ml 07/04/20 21:00 07/05/20 08:05 Flush - Normal Saline IVF 10 ml Q12HR MERRILL Administration Vecuronium [place] 10 mg 07/05/20 08:14 07/05/20 10:26 Norcuron IVP 10 mg Q30MIN PRN Administration Agitation - Exam General Appearance: ill appearing Eye: PERRL, anicteric sclera ENT: no oropharyngeal lesions, moist mucosa Neck: supple, no JVD Heart: RRR, no murmur Respiratory: rales, rhonchi Gastrointestinal: soft, non-tender, non-distended, normal bowel sounds Extremities: no cyanosis, no edema Neurological: cranial nerve grossly intact, no focal deficits Hosp A/P (1) Pneumonia due to COVID-19 virus Code(s): U07.1 - COVID-19; J12.89 - OTHER VIRAL PNEUMONIA Status: Acute (2) Acute respiratory failure with hypoxia Code(s): J96.01 - ACUTE RESPIRATORY FAILURE WITH HYPOXIA Status: Acute (3) Anxiety Code(s): F41.9 - ANXIETY DISORDER, UNSPECIFIED Status: Chronic (4) ARDS (adult respiratory distress syndrome) Code(s): J80 - ACUTE RESPIRATORY DISTRESS SYNDROME Status: Acute - Plan is on lovenox full dose, dexamethasone, will get IL-6 inh and convalescent plasma d/w prognosis guarded, has had progressive worsening of inflamatory changes seen in cxr hemostable tried calling his x2 to give updates, unable to reach (phone goes straight to voicemail)
[2020-07-05] MEDS: Rocuronium Bromide 10 MG/ML (10ML VIAL) IVP PRN ×4 (16:53→21:32)
[2020-07-05] MEDS: Budesonide 0.5 MG/2 ML NEB INH SCH (18:37)
[2020-07-05] MEDS: fentaNYL Citrate/PF 2,000 MCG in Sodium Chloride 0.9% 60 ML IV SCH (19:32)
[2020-07-05] MEDS ORDERED: Dexamethasone 4 mg/ml Vial SLOW IVP SCH (22:00)
[2020-07-06] MEDS: Rocuronium Bromide 10 MG/ML (10ML VIAL) IVP PRN ×8 (00:19→23:30)
[2020-07-06] MEDS: Sodium Chloride 0.9% 1,000 ML IV SCH ×2 (00:28→09:28)
[2020-07-06] MEDS: Propofol 1,000 MG/100 ML VIAL IV PRN (00:28)
[2020-07-06] MEDS: Vecuronium 10 MG VIAL IVP PRN ×2 (02:02→22:26)
[2020-07-06 04:24] LABS: Anion Gap 7 mmol/L (10-20); BUN (Urea Nitrogen) 15 mg/dL (8.4-25.7); Calc. Creatinine Clearance 121 mL/min (70-130); Carbon Dioxide 31 mmol/L (22-29); Chloride 101 mmol/L (98-107); Estimated GFR-MDRD Greater than 90; Glucose 130 mg/dL (70-105); Potassium 4.5 mmol/L (3.5-5.1); Sodium 134 mmol/L (136-145)
[2020-07-06 04:47] LABS: Band 4 % (5-11); Hemoglobin 12.4 g/dL (14.0-18.0); Hypochromia SLIGHT = 6-15 cells (100X) (0-5/hpf); Lymphocytes 4 % (21-51); MDiff Complete? YES; Mean Corpuscular HGB CONC 33.1 g/dL (32.0-36.0); Mean Corpuscular Hemoglobin 31.6 pg (27.0-31.0); Mean Corpuscular Volume 95.5 fL (78.0-98.0); Mean Platelet Volume 7.8 fL (7.4-10.4); Neutrophil 92 % (42-75); Platelet Count 256 thou/uL (130-400); Platelet Morphology Comment Appears Adequate; RBC Distribution Width 12.1 % (11.5-14.5); Red Blood Cell (RBC) Count 3.91 mill/uL (4.70-6.10); White Blood Cell (WBC) Count 7.2 thou/uL (4.8-10.8)
[2020-07-06 07:21] LABS: Actual Bicarbonate (HCO3a) 28.2 mEq/L (22-28); Base Excess (BEa) 1.1 mEq/L (-2.0 to +3.0); CO2 Tension 55.4 mmHg (35.0-45.0); Calcium, Ionized (arterial) 1.17 mmol/L (1.12-1.30); Carboxyhemoglobin (COHb) 0.2 gm% (0.0-3.0); O2 Tension (PaO2), arterial 65.7 mmHg (80.0-100.0); Potassium - ABG Lab 4.54 mmol/L (3.70-5.30); pH, Arterial 7.32 (7.35-7.45)
[2020-07-06] MEDS: Budesonide 0.5 MG/2 ML NEB INH SCH ×2 (07:26→19:16)
[2020-07-06] MEDS: Mometasone 100 MCG/PUFF (1 INHALER) INH SCH (07:26)
[2020-07-06 07:29] LABS: Puncture Site LR
--- NOTE | 2020-07-06 08:32 | PRG ---
DATE OF SERVICE: 07/06/2020 TIME SPENT: 35 minutes of critical care time. SUBJECTIVE: Mr. Masterson remains in prone position ventilation. He is having to be paralyzed to facilitate cooperation. OBJECTIVE: VITAL SIGNS: Temperature 97.8, pulse 84, blood pressure 96/63, and O2 saturations 96%. 24-hour intake 4812, output 2020. HEENT: He has a bandage over his nose. No evidence of facial edema or necrosis. LUNGS: Crackles bilaterally. CARDIAC: S1 and S2. Regular. ABDOMEN: Cannot be examined because he is in prone position. EXTREMITIES: No edema. LABORATORY DATA: Sodium 134, potassium 4.5, chloride 101, CO2 of 31, BUN 15, creatinine 0.7, and glucose 130. PH of 7.32, pCO2 of 55, pO2 of 65 on bilevel pressure 40, low pressure 12, rate 20, pressure support 15, and FiO2 of 85%. White blood cell count 7.2, hematocrit 37.3, and platelet count 256. ASSESSMENT: COVID-19 pneumonia with acute hypoxic respiratory failure, requiring mechanical ventilation. Does not appear to have any underlying comorbidities. PLAN: 1. I discussed the case in detail with his last night. I have told her that his prognosis is very guarded at this point. 2. I will switch from Decadron to IV Solu-Medrol to see if he has a better response to that. 3. Continue the empiric antibiotics in case he has a secondary infection. 4. He got tocilizumab yesterday. He has received convalescent serum. 5. I have added budesonide nebs. 6. Continue tube feeds. 7. Start Versed drip and stop propofol. Job ID: [id number]
[2020-07-06] MEDS: Famotidine 20 MG TAB PO SCH ×2 (08:43→20:27)
[2020-07-06] MEDS: Enoxaparin Sodium 80 MG/0.8 ML SYRINGE SC SCH ×2 (08:43→20:27)
[2020-07-06] MEDS: Vancomycin HCl 1.25 GM in Sodium Chloride 0.9% 250 ML 250 ML IVPB SCH ×2 (08:44→22:48)
[2020-07-06] MEDS: Lorazepam 2 MG/ML VIAL SLOW IVP PRN ×2 (08:44→23:30)
[2020-07-06] MEDS: Cefepime 1 GM in Sodium Chloride 0.9% 100 ML IVPB SCH ×2 (08:44→20:28)
[2020-07-06] MEDS: Polyethylene Glycol 3350 17 GM Packet PO SCH (08:44)
[2020-07-06] MEDS: methylPREDNISolone Sod Succ 40 MG VIAL IVP SCH ×3 (10:34→23:27)
--- NOTE | 2020-07-06 14:29 | PDOC.HOSPP ---
- Subjective Encounter Date: 07/06/20 Encounter Time: 09:25 Subjective: on vent in prone position, sedated - Objective Vital Signs & Weight: Vital Signs (12 hours) Temp Pulse Resp BP Pulse Ox 07/06/20 12:48 82 109/66 07/06/20 12:00 98.3 F 20 07/06/20 10:44 72 91/57 L 07/06/20 10:00 20 07/06/20 08:00 97.5 F L 95 07/06/20 06:56 90 100/66 07/06/20 06:00 23 H 07/06/20 04:00 33 H 07/06/20 03:00 97.8 F 07/06/20 02:46 93 98/67 Weight Admit Weight 169 lb Weight 163 lb 9.328 oz Most Recent Monitor Data Heart Rate from ECG 76 NIBP 101/62 NIBP BP-Mean 75 Respiration from ECG 21 SpO2 95 I&O: 07/05/20 07/06/20 07/07/20 06:59 06:59 06:59 Intake Total 1194 4812.1 165 Output Total 1490 2020 580 Balance -296 2792.1 -415 Result Diagrams: 07/06/20 03:31 07/06/20 03:31 Hospitalist ROS - Medication Medications: Active Medications Generic Name Dose Route Start Last Admin Trade Name Freq PRN Reason Stop Dose Admin Budesonide 0.5 mg 07/05/20 18:30 07/06/20 07:26 Pulmicort Neb Solution INH 0.5 mg BID-RT MERRILL Administration Enoxaparin Sodium 70 mg 07/04/20 21:00 07/06/20 08:43 Lovenox SC 70 mg 0900,2100 MERRILL Administration Famotidine 20 mg 07/04/20 21:00 07/06/20 08:43 Pepcid PO 20 mg BID MERRILL Administration Fentanyl Citrate 2,000 mcg/ 100 mls @ 0 mls/hr 07/04/20 13:43 07/05/20 19:32 Sodium Chloride IV 08/03/20 13:43 100 mls INF MERRILL Administration Protocol Per Protocol Cefepime HCl 1 gm/ Sodium 100 mls @ 200 mls/hr 07/05/20 09:00 07/06/20 08:44 Chloride IVPB 100 mls Q12HR MERRILL Administration Vancomycin HCl 1.25 gm/ Sodium 250 mls @ 166.667 mls/hr 07/05/20 09:00 08:44 Chloride IVPB 250 mls Q12HR MERRILL Administration Sodium Chloride 1,000 mls @ 70 mls/hr 07/06/20 08:11 07/06/20 09:28 Normal Saline 0.9% IV 1,000 mls .[id number] MERRILL Administration Midazolam HCl 100 mls @ 0 mls/hr 07/06/20 08:15 07/06/20 09:16 Versed IVPB 100 mls INF MERRILL Administration Protocol Titrate Lorazepam 2 mg 07/04/20 20:28 07/06/20 08:44 Ativan SLOW IVP 08/03/20 13:43 2 mg Q1H PRN Administration Breakthrough agitation Methylprednisolone Sodium Succinate 60 mg 07/06/20 12:00 07/06/20 10:34 Solu-Medrol IVP 60 mg Q6HR MERRILL Administration Polyethylene Glycol 17 gm 07/05/20 09:00 07/06/20 08:44 Miralax PO 17 gm DAILY MERRILL Administration Propofol 1,000 mg 07/04/20 20:25 07/06/20 00:28 Diprivan IV 08/03/20 13:43 1,000 mg INF PRN Administration TO ACHIEVE GOAL RASS Protocol Rocuronium [place] 100 mg 07/05/20 16:10 07/06/20 11:59 Zemuron IVP 100 mg Q30MIN PRN Administration movement Scopolamine 1.5 mg 07/04/20 20:30 07/04/20 23:01 Transderm Scop TD 1.5 mg Q3D MERRILL Administration Sodium Chloride 10 ml 07/04/20 21:00 07/06/20 08:45 Flush - Normal Saline IVF 10 ml Q12HR MERRILL Administration Vecuronium [place] 10 mg 07/05/20 08:14 07/06/20 02:02 Norcuron IVP 10 mg Q30MIN PRN Administration Agitation - Exam General Appearance: ill appearing Eye: anicteric sclera ENT: normocephalic atraumatic Neck: no JVD Heart: RRR Respiratory: normal chest expansion, tachypneic Gastrointestinal: non-distended Extremities: no edema Neurological: no focal deficits Hosp A/P (1) Pneumonia due to COVID-19 virus Code(s): U07.1 - COVID-19; J12.89 - OTHER VIRAL PNEUMONIA Status: Acute (2) Acute respiratory failure with hypoxia Code(s): J96.01 - ACUTE RESPIRATORY FAILURE WITH HYPOXIA Status: Acute (3) Anxiety Code(s): F41.9 - ANXIETY DISORDER, UNSPECIFIED Status: Chronic (4) ARDS (adult respiratory distress syndrome) Code(s): J80 - ACUTE RESPIRATORY DISTRESS SYNDROME Status: Acute - Plan is on lovenox full dose, steroids, got IL-6 inh and convalescent plasma d/w prognosis guarded, has had progressive worsening of inflamatory changes seen in cxr hemostable spoke to yesterday, she is aware of poor prognosis
[2020-07-06] MEDS: fentaNYL Citrate/PF 2,000 MCG in Sodium Chloride 0.9% 60 ML IV SCH (15:53)
[2020-07-06 21:14] LABS: Vancomycin, Trough 10.2 ug/mL
[2020-07-06] MEDS: Vancomycin 1.5 GRAM/300 ML BAG 1.5 GM in Premix Bag 1 BAG IVPB SCH (23:26)
[2020-07-07] MEDS ORDERED: Sterile Water 10 ML ONE (00:41)
[2020-07-07] MEDS: Vecuronium 10 MG VIAL IVP PRN ×4 (00:43→06:03)
[2020-07-07] MEDS: Sodium Chloride 0.9% 1,000 ML IV SCH (03:39)
[2020-07-07 04:13] LABS: Band 7 % (5-11); Hemoglobin 12.2 g/dL (14.0-18.0); Lymphocytes 3 % (21-51); MDiff Complete? YES; Mean Corpuscular HGB CONC 32.3 g/dL (32.0-36.0); Mean Corpuscular Hemoglobin 30.3 pg (27.0-31.0); Mean Corpuscular Volume 93.9 fL (78.0-98.0); Mean Platelet Volume 7.8 fL (7.4-10.4); Monocytes 1 % (0-10); Neutrophil 89 % (42-75); Platelet Count 272 thou/uL (130-400); Platelet Morphology Comment Appears Adequate; RBC Distribution Width 12.1 % (11.5-14.5); Red Blood Cell (RBC) Count 4.01 mill/uL (4.70-6.10); White Blood Cell (WBC) Count 6.6 thou/uL (4.8-10.8)
[2020-07-07 04:24] LABS: Anion Gap 9 mmol/L (10-20); BUN (Urea Nitrogen) 17 mg/dL (8.4-25.7); Calc. Creatinine Clearance 113 mL/min (70-130); Calcium 8.1 mg/dL (7.8-10.44); Carbon Dioxide 29 mmol/L (22-29); Chloride 101 mmol/L (98-107); Estimated GFR-MDRD Greater than 90; Glucose 138 mg/dL (70-105); Potassium 4.7 mmol/L (3.5-5.1); Sodium 134 mmol/L (136-145)
[2020-07-07] MEDS: methylPREDNISolone Sod Succ 40 MG VIAL IVP SCH ×4 (06:03→23:33)
[2020-07-07] MEDS: Budesonide 0.5 MG/2 ML NEB INH SCH ×2 (07:10→19:02)
[2020-07-07 07:46] LABS: Actual Bicarbonate (HCO3a) 31.6 mEq/L (22-28); Calcium, Ionized (arterial) 1.18 mmol/L (1.12-1.30); Carboxyhemoglobin (COHb) 0.2 gm% (0.0-3.0); Hemoglobin (Hb) 12.8 g/dL (14.0-18.0); Potassium - ABG Lab 4.71 mmol/L (3.70-5.30); pH, Arterial 7.33 (7.35-7.45)
--- NOTE | 2020-07-07 07:52 | PRG ---
DATE OF SERVICE: 07/07/2020 TIME SPENT: 35 minutes of critical care time. SUBJECTIVE: The patient remains intubated on mechanical ventilation. He is in a supine position today. OBJECTIVE: VITAL SIGNS: Temperature is 98.1, pulse 84, and blood pressure 103/63. 24-hour intake 3237, output 2330. HEENT: Unremarkable. NECK: No adenopathy or JVD. LUNGS: Inspiratory crackles. CARDIAC: S1 and S2. Regular. ABDOMEN: Soft. EXTREMITIES: No edema. LABORATORY DATA: His blood gas is pending. His white blood cell count is 6.6, hematocrit 37.6, and platelet count 272. Sodium 134, potassium 4.7, chloride 101, CO2 of 29, BUN 17, creatinine 0.8, and glucose 138. IMAGING DATA: Chest x-ray shows some mild clearing compared to previous. ASSESSMENT: Acute respiratory failure, requiring mechanical ventilation, secondary to COVID-19 pneumonia. PLAN: 1. I have now told that he has not received his convalescent serum, that is still pending. 2. He was switched over to high-dose Solu-Medrol yesterday, which I will continue. 3. Continue cefepime and vancomycin for secondary coverage given his decompensation several days ago. 4. I will go ahead and stop the normal saline since he is receiving tube feeds. 5. Prognosis remains guarded for recovery. His has been updated several times. Job ID: [id number]
[2020-07-07 08:10] LABS: CO2 Tension 61.9 mmHg (35.0-45.0); O2 Tension (PaO2), arterial 54.1 mmHg (80.0-100.0); Puncture Site L.R.
[2020-07-07 08:11] LABS: ALV-art Gradient 403.275 (0-20)
[2020-07-07] MEDS: fentaNYL Citrate/PF 2,000 MCG in Sodium Chloride 0.9% 60 ML IV SCH ×2 (08:43→23:33)
[2020-07-07] MEDS: Polyethylene Glycol 3350 17 GM Packet PO SCH (08:47)
[2020-07-07] MEDS: Famotidine 20 MG TAB PO SCH ×2 (08:47→19:50)
[2020-07-07] MEDS: Cefepime 1 GM in Sodium Chloride 0.9% 100 ML IVPB SCH ×2 (08:47→19:50)
[2020-07-07] MEDS: Enoxaparin Sodium 80 MG/0.8 ML SYRINGE SC SCH ×2 (08:47→19:50)
--- NOTE | 2020-07-07 09:52 | RAD ---
CHEST 1 VIEW: INDICATION: History of pneumonia. COMPARISON: Prior exam dated 07/04/2020. IMPRESSION: The patient remains intubated with gastric catheter placement and left subclavian central venous cath eter placement. Bilateral airspace disease is stable-appearing. No pleural effusion or pneumothorax is evident. POS: BH
[2020-07-07] MEDS: Vancomycin 1.5 GRAM/300 ML BAG 1.5 GM in Premix Bag 1 BAG IVPB SCH ×2 (10:53→21:51)
--- NOTE | 2020-07-07 13:16 | PDOC.HOSPP ---
- Subjective Encounter Date: 07/07/20 Encounter Time: 12:00 Subjective: is in prone position, not in distress, is on vent, mild sedation - Objective Vital Signs & Weight: Vital Signs (12 hours) Temp Pulse Resp BP Pulse Ox 07/07/20 10:32 81 110/64 07/07/20 10:00 24 H 07/07/20 08:00 98.5 F 24 H 99 07/07/20 07:10 89 33 H 107/64 95 07/07/20 06:00 20 07/07/20 04:00 98.1 F 20 07/07/20 03:32 84 108/63 07/07/20 02:00 20 Weight Admit Weight 169 lb Weight 163 lb 9.328 oz Most Recent Monitor Data Heart Rate from ECG 82 NIBP 111/65 NIBP BP-Mean 80 Respiration from ECG 13 SpO2 98 I&O: 07/06/20 07/07/20 07/08/20 06:59 06:59 06:59 Intake Total 4812.1 3237 Output Total 1542 2330 325 Balance 2792.1 907 -325 Result Diagrams: 07/07/20 03:45 07/07/20 03:45 Hospitalist ROS - Medication Medications: Active Medications Generic Name Dose Route Start Last Admin Trade Name Freq PRN Reason Stop Dose Admin Budesonide 0.5 mg 07/05/20 18:30 07/07/20 07:10 Pulmicort Neb Solution INH 0.5 mg BID-RT MERRILL Administration Enoxaparin Sodium 70 mg 07/04/20 21:00 07/07/20 08:47 Lovenox SC 70 mg 0900,2100 MERRILL Administration Famotidine 20 mg 07/04/20 21:00 07/07/20 08:47 Pepcid PO 20 mg BID MERRILL Administration Fentanyl Citrate 2,000 mcg/ 100 mls @ 0 mls/hr 07/04/20 13:43 07/07/20 08:43 Sodium Chloride IV 08/03/20 13:43 100 mls INF MERRILL Administration Protocol Per Protocol Cefepime HCl 1 gm/ Sodium 100 mls @ 200 mls/hr 07/05/20 09:00 07/07/20 08:47 Chloride IVPB 100 mls Q12HR MERRILL Administration Midazolam HCl 100 mls @ 0 mls/hr 07/06/20 08:15 07/07/20 08:49 Versed IVPB 100 mls INF MERRILL Administration Protocol Titrate Vancomycin HCl 1.5 gm/ Device 300 mls @ 200 mls/hr 07/06/20 22:00 07/07/20 10 :53 IVPB 300 mls 1000,2200 MERRILL Administration Lorazepam 2 mg 07/04/20 20:28 07/06/20 23:30 Ativan SLOW IVP 08/03/20 13:43 2 mg Q1H PRN Administration Breakthrough agitation Methylprednisolone Sodium Succinate 60 mg 07/06/20 12:00 07/07/20 11:18 Solu-Medrol IVP 60 mg Q6HR MERRILL Administration Polyethylene Glycol 17 gm 07/05/20 09:00 07/07/20 08:47 Miralax PO 17 gm DAILY MERRILL Administration Propofol 1,000 mg 07/04/20 20:25 07/06/20 00:28 Diprivan IV 08/03/20 13:43 1,000 mg INF PRN Administration TO ACHIEVE GOAL RASS Protocol Rocuronium [place] 100 mg 07/05/20 16:10 07/06/20 23:30 Zemuron IVP 100 mg Q30MIN PRN Administration movement Scopolamine 1.5 mg 07/04/20 20:30 07/04/20 23:01 Transderm Scop TD 1.5 mg Q3D MERRILL Administration Sodium Chloride 10 ml 07/04/20 21:00 07/07/20 08:48 Flush - Normal Saline IVF 10 ml Q12HR MERRILL Administration Vecuronium [place] 10 mg 07/05/20 08:14 07/07/20 06:03 Norcuron IVP 10 mg Q30MIN PRN Administration Agitation - Exam General Appearance: ill appearing Eye: anicteric sclera ENT: dry oral mucosa Neck: no JVD Heart: RRR Respiratory: normal chest expansion, tachypneic Gastrointestinal: non-distended Extremities: no cyanosis, no edema Neurological: no focal deficits Hosp A/P (1) Pneumonia due to COVID-19 virus Code(s): U07.1 - COVID-19; J12.89 - OTHER VIRAL PNEUMONIA Status: Acute (2) Acute respiratory failure with hypoxia Code(s): J96.01 - ACUTE RESPIRATORY FAILURE WITH HYPOXIA Status: Acute (3) Anxiety Code(s): F41.9 - ANXIETY DISORDER, UNSPECIFIED Status: Chronic (4) ARDS (adult respiratory distress syndrome) Code(s): J80 - ACUTE RESPIRATORY DISTRESS SYNDROME Status: Acute - Plan is on lovenox full dose, steroids, got IL-6 inhibitor and to get convalescent plasma today prognosis guarded, has had progressive worsening of inflamatory changes seen in cxr hemostable is aware of poor prognosis
[2020-07-07] MEDS: Scopolamine 1.5 mg/72 hour Patch TD SCH (19:50)
[2020-07-08] MEDS: methylPREDNISolone Sod Succ 40 MG VIAL IVP SCH ×4 (04:46→23:14)
[2020-07-08] MEDS: Lorazepam 2 MG/ML VIAL SLOW IVP PRN ×2 (04:46→22:00)
[2020-07-08] MEDS: Vecuronium 10 MG VIAL IVP PRN (04:46)
[2020-07-08 04:48] LABS: Band 2 % (5-11); Hemoglobin 12.6 g/dL (14.0-18.0); Hypochromia SLIGHT = 6-15 cells (100X) (0-5/hpf); Lymphocytes 6 % (21-51); MDiff Complete? YES; Mean Corpuscular HGB CONC 32.7 g/dL (32.0-36.0); Mean Corpuscular Hemoglobin 30.6 pg (27.0-31.0); Mean Corpuscular Volume 93.6 fL (78.0-98.0); Mean Platelet Volume 8.2 fL (7.4-10.4); Monocytes 3 % (0-10); Neutrophil 89 % (42-75); Platelet Count 263 thou/uL (130-400); Platelet Morphology Comment Appears Adequate; RBC Distribution Width 11.8 % (11.5-14.5); Red Blood Cell (RBC) Count 4.14 mill/uL (4.70-6.10)
[2020-07-08 04:52] LABS: Anion Gap 11 mmol/L (10-20); BUN (Urea Nitrogen) 23 mg/dL (8.4-25.7); Calc. Creatinine Clearance 119 mL/min (70-130); Calcium 8.5 mg/dL (7.8-10.44); Carbon Dioxide 31 mmol/L (22-29); Chloride 99 mmol/L (98-107); Estimated GFR-MDRD Greater than 90; Glucose 137 mg/dL (70-105); Potassium 4.6 mmol/L (3.5-5.1); Sodium 136 mmol/L (136-145)
[2020-07-08] MEDS: Budesonide 0.5 MG/2 ML NEB INH SCH ×2 (07:15→19:23)
[2020-07-08 07:30] LABS: Actual Bicarbonate (HCO3a) 30.4 mEq/L (22-28); Base Excess (BEa) 2.3 mEq/L (-2.0 to +3.0); Calcium, Ionized (arterial) 1.24 mmol/L (1.12-1.30); Carboxyhemoglobin (COHb) 0.4 gm% (0.0-3.0); Potassium - ABG Lab 4.42 mmol/L (3.70-5.30); pH, Arterial 7.31 (7.35-7.45)
[2020-07-08 07:58] LABS: CO2 Tension 61.7 mmHg (35.0-45.0); O2 Tension (PaO2), arterial 58.9 mmHg (80.0-100.0)
[2020-07-08 07:59] LABS: ALV-art Gradient 398.725 (0-20); Puncture Site L.R.
[2020-07-08] MEDS: Famotidine 20 MG TAB PO SCH ×2 (08:22→19:48)
[2020-07-08] MEDS: Polyethylene Glycol 3350 17 GM Packet PO SCH (08:22)
[2020-07-08] MEDS: Cefepime 1 GM in Sodium Chloride 0.9% 100 ML IVPB SCH ×2 (08:23→19:47)
[2020-07-08] MEDS: Enoxaparin Sodium 80 MG/0.8 ML SYRINGE SC SCH ×2 (08:24→19:48)
--- NOTE | 2020-07-08 08:39 | PRG ---
DATE OF SERVICE: 07/08/2020 TIME SPENT: 35 minutes of critical care time. SUBJECTIVE: The patient remains critically ill in the CCU on mechanical ventilation. OBJECTIVE: VITAL SIGNS: Temperature is 98.9, pulse 92, blood pressure 117/70, 24-hour intake 2557 and output 3145. HEENT: Unremarkable. NECK: No adenopathy or JVD. LUNGS: Coarse rhonchi. CARDIOVASCULAR: S1, S2. Regular. ABDOMEN: Soft. EXTREMITIES: No edema. LABORATORY DATA: Sodium 136, potassium 4.6, chloride 99, CO2 of 31, BUN 23, creatinine 0.7, and glucose 137. White blood cell count 9, hematocrit 38.7, and platelet count 263. PH of 7.31, pCO2 of 61, pO2 of 58 on bilevel 40/12, FiO2 of 75%, inspiratory time 1.3 seconds. Chest x-ray shows no change in the diffuse bilateral infiltrates. ASSESSMENT: 1. COVID-19 pneumonia with respiratory failure, requiring mechanical ventilation. 2. Acute respiratory distress syndrome. PLAN: 1. The patient will be continued on high-dose Solu-Medrol. He continues on broad-spectrum IV antibiotics for possible secondary infections. 2. I have decreased his high pressure on the ventilator and got up on his respiratory rate so that we can maintain a minute ventilation and try to protect his lungs from barotrauma. 3. He will continue to require paralytics for facilitation of mechanical ventilation. 4. Prognosis extremely poor. Job ID: [id number]
--- NOTE | 2020-07-08 08:54 | RAD ---
CHEST 1 VIEW PORTABLE: HISTORY: Followup pneumonia. COMPARISON: 07/07/2020. FINDINGS: Again noted is extensive bilateral alveolar nodular parenchymal changes throughout both lungs, eviden ce for pneumonia. Gastric tube and endotracheal tubes remain in satisfactory location. Left subclav rob catheter in place. IMPRESSION: Extensive bilateral alveolar and ground-glass opacity changes, evidence for bilateral pneumonia. POS: OFF
[2020-07-08 09:38] LABS: Vancomycin, Trough 12.7 ug/mL
[2020-07-08] MEDS: Vancomycin 1.5 GRAM/300 ML BAG 1.5 GM in Premix Bag 1 BAG IVPB SCH (10:45)
[2020-07-08] MEDS: Vancomycin HCl 1.75 GM in Sodium Chloride 0.9% 500 ML IVPB SCH ×2 (11:33→22:00)
[2020-07-08] MEDS: fentaNYL Citrate/PF 2,000 MCG in Sodium Chloride 0.9% 60 ML IV SCH (11:38)
--- NOTE | 2020-07-08 15:05 | PDOC.HOSPP ---
- Subjective Encounter Date: 07/08/20 Encounter Time: 13:15 Subjective: on vent, sedated - Objective Vital Signs & Weight: Vital Signs (12 hours) Temp Pulse Resp Pulse Ox 07/08/20 12:00 97.8 F 07/08/20 10:00 24 H 07/08/20 09:00 97.7 F 07/08/20 08:00 24 H 94 L 07/08/20 07:15 82 20 93 L 07/08/20 06:00 29 H 07/08/20 04:03 79 07/08/20 04:00 98.9 F 20 Weight Admit Weight 169 lb Weight 163 lb 9.328 oz Most Recent Monitor Data Heart Rate from ECG 77 NIBP 98/62 NIBP BP-Mean 74 Respiration from ECG 15 SpO2 97 I&O: 07/07/20 07/08/20 07/09/20 06:59 06:59 06:59 Intake Total 3237 2557 233.2 Output Total 2330 3145 800 Balance 907 -588 -566.8 Result Diagrams: 07/08/20 03:40 07/08/20 03:40 Hospitalist ROS - Medication Medications: Active Medications Generic Name Dose Route Start Last Admin Trade Name Freq PRN Reason Stop Dose Admin Budesonide 0.5 mg 07/05/20 18:30 07/08/20 07:15 Pulmicort Neb Solution INH 0.5 mg BID-RT MERRILL Administration Enoxaparin Sodium 70 mg 07/04/20 21:00 07/08/20 08:24 Lovenox SC 70 mg 0900,2100 MERRILL Administration Famotidine 20 mg 07/04/20 21:00 07/08/20 08:22 Pepcid PO 20 mg BID MERRILL Administration Fentanyl Citrate 2,000 mcg/ 100 mls @ 0 mls/hr 07/04/20 13:43 07/08/20 11:38 Sodium Chloride IV 08/03/20 13:43 100 mls INF MERRILL Administration Protocol Per Protocol Cefepime HCl 1 gm/ Sodium 100 mls @ 200 mls/hr 07/05/20 09:00 07/08/20 08:23 Chloride IVPB 100 mls Q12HR MERRILL Administration Midazolam HCl 100 mls @ 0 mls/hr 07/06/20 08:15 07/08/20 00:50 Versed IVPB 100 mls INF MERRILL Administration Protocol Titrate Vancomycin HCl 1.75 gm/ Sodium 500 mls @ 250 mls/hr 07/08/20 11:00 07/08/20 11:33 Chloride IVPB 500 mls 1100,2300 MERRILL Administration Lorazepam 2 mg 07/04/20 20:28 07/08/20 04:46 Ativan SLOW IVP 08/03/20 13:43 2 mg Q1H PRN Administration Breakthrough agitation Methylprednisolone Sodium Succinate 60 mg 07/06/20 12:00 07/08/20 11:33 Solu-Medrol IVP 60 mg Q6HR MERRILL Administration Polyethylene Glycol 17 gm 07/05/20 09:00 07/08/20 08:22 Miralax PO 17 gm DAILY MRERILL Administration Propofol 1,000 mg 07/04/20 20:25 07/06/20 00:28 Diprivan IV 08/03/20 13:43 1,000 mg INF PRN Administration TO ACHIEVE GOAL RASS Protocol Rocuronium [place] 100 mg 07/05/20 16:10 07/06/20 23:30 Zemuron IVP 100 mg Q30MIN PRN Administration movement Scopolamine 1.5 mg 07/04/20 20:30 07/07/20 19:50 Transderm Scop TD 1.5 mg Q3D MERRILL Administration Sodium Chloride 10 ml 07/04/20 21:00 07/08/20 08:25 Flush - Normal Saline IVF 10 ml Q12HR MERRILL Administration Vecuronium [place] 10 mg 07/05/20 08:14 07/08/20 04:46 Norcuron IVP 10 mg Q30MIN PRN Administration Agitation - Exam General Appearance: ill appearing Eye: anicteric sclera Neck: supple, no JVD Heart: RRR Respiratory: normal chest expansion, tachypneic Gastrointestinal: non-distended Extremities: no edema Neurological: cranial nerve grossly intact Hosp A/P (1) Pneumonia due to COVID-19 virus Code(s): U07.1 - COVID-19; J12.89 - OTHER VIRAL PNEUMONIA Status: Acute (2) Acute respiratory failure with hypoxia Code(s): J96.01 - ACUTE RESPIRATORY FAILURE WITH HYPOXIA Status: Acute (3) Anxiety Code(s): F41.9 - ANXIETY DISORDER, UNSPECIFIED Status: Chronic (4) ARDS (adult respiratory distress syndrome) Code(s): J80 - ACUTE RESPIRATORY DISTRESS SYNDROME Status: Acute - Plan is on lovenox full dose, steroids, got IL-6 inhibitor 07/06, convalescent plasma 07/07. prognosis guarded, has had progressive worsening hemostable is aware of poor prognosis
[2020-07-09] MEDS: fentaNYL Citrate/PF 2,000 MCG in Sodium Chloride 0.9% 60 ML IV SCH ×2 (01:52→15:25)
[2020-07-09] MEDS: methylPREDNISolone Sod Succ 40 MG VIAL IVP SCH ×4 (05:06→23:03)
[2020-07-09 05:13] LABS: Band 1 % (5-11); Hemoglobin 11.9 g/dL (14.0-18.0); Lymphocytes 4 % (21-51); MDiff Complete? YES; Mean Corpuscular HGB CONC 32.6 g/dL (32.0-36.0); Mean Corpuscular Hemoglobin 30.4 pg (27.0-31.0); Mean Corpuscular Volume 93.3 fL (78.0-98.0); Mean Platelet Volume 8.2 fL (7.4-10.4); Monocytes 3 % (0-10); Neutrophil 92 % (42-75); Platelet Count 284 thou/uL (130-400); Platelet Morphology Comment Appears Adequate; RBC Distribution Width 11.8 % (11.5-14.5); RBC Morphology Normal; Red Blood Cell (RBC) Count 3.92 mill/uL (4.70-6.10); White Blood Cell (WBC) Count 11.1 thou/uL (4.8-10.8)
[2020-07-09 05:41] LABS: Anion Gap 10 mmol/L (10-20); BUN (Urea Nitrogen) 24 mg/dL (8.4-25.7); Calc. Creatinine Clearance 121 mL/min (70-130); Calcium 8.2 mg/dL (7.8-10.44); Carbon Dioxide 32 mmol/L (22-29); Chloride 99 mmol/L (98-107); Estimated GFR-MDRD Greater than 90; Glucose 122 mg/dL (70-105); Potassium 4.7 mmol/L (3.5-5.1); Sodium 136 mmol/L (136-145)
[2020-07-09] MEDS: Budesonide 0.5 MG/2 ML NEB INH SCH ×2 (07:30→18:18)
[2020-07-09 07:44] LABS: Actual Bicarbonate (HCO3a) 30.9 mEq/L (22-28); Base Excess (BEa) 4.8 mEq/L (-2.0 to +3.0); CO2 Tension 52.1 mmHg (35.0-45.0); Carboxyhemoglobin (COHb) 0.4 gm% (0.0-3.0); Hemoglobin (Hb) 12.8 g/dL (14.0-18.0); Potassium - ABG Lab 4.53 mmol/L (3.70-5.30); pH, Arterial 7.39 (7.35-7.45)
--- NOTE | 2020-07-09 07:48 | RAD ---
Chest one view HISTORY: Pneumonia. Follow-up. COMPARISON: 07/08/2020. FINDINGS: Cardiac silhouette is magnified by projection. Pulmonary vasculature predominantly obscured by dense widespread airspace infiltrate throughout each lung. Mediastinum is midline. No lobar consolidation or evidence of pneumothorax. IMPRESSION : Dense diffuse infiltrate and other findings are stable
[2020-07-09] MEDS: Famotidine 20 MG TAB PO SCH ×2 (08:12→19:43)
[2020-07-09] MEDS: Cefepime 1 GM in Sodium Chloride 0.9% 100 ML IVPB SCH ×2 (08:12→19:42)
[2020-07-09] MEDS: Enoxaparin Sodium 80 MG/0.8 ML SYRINGE SC SCH ×2 (08:12→19:42)
[2020-07-09] MEDS: Polyethylene Glycol 3350 17 GM Packet PO SCH (08:13)
[2020-07-09 08:45] LABS: O2 Tension (PaO2), arterial 56.6 mmHg (80.0-100.0); Puncture Site LR
[2020-07-09 08:46] LABS: ALV-art Gradient 377.375 (0-20)
--- NOTE | 2020-07-09 08:55 | PRG ---
DATE OF SERVICE: 07/09/2020 TIME SPENT: 35 minutes of critical care time. SUBJECTIVE: Mr. Masterson remains intubated on mechanical ventilation. He is sedated with Versed and fentanyl. He is able to wake up and follow commands. OBJECTIVE: VITAL SIGNS: His temperature is 98.6, pulse 74, blood pressure 112/67, O2 saturation 93%. 24-hour intake 3091, output 3545. HEENT: Unremarkable except for being intubated. NECK: No adenopathy or JVD. LUNGS: Coarse rhonchi. CARDIOVASCULAR: S1, S2. Regular. ABDOMEN: Soft and nontender. EXTREMITIES: No edema. LABORATORY DATA: Sodium 136, potassium 4.7, chloride 99, CO2 of 32, BUN 24, creatinine 0.7, glucose 122. White blood cell count 11.1, hematocrit 36.5, and platelet count 284. PH 7.39, pCO2 of 52, pO2 of 56 on bilevel rate 24, high pressure 37, low pressure 12, FiO2 of 70%. X-ray continued to show bilateral infiltrates, but may be slightly better than the x-ray from the previous days. ASSESSMENT: 1. COVID-19 pneumonia. 2. Acute respiratory failure, requiring mechanical ventilation. 3. Slightly elevated BUN on labs, which is probably from the high-dose steroids I am giving him. PLAN: 1. Since the cultures have been negative, I will go ahead and stop the vancomycin, but we will continue cefepime for secondary coverage. 2. Continue anticoagulation with Lovenox. 3. Continue high-dose steroids. 4. Not weanable from mechanical ventilation at this time. 5. I spent a significant amount of time discussing the above with his , Suzie. I will ask nursing staff if they can get her up here to see him since she is now tested negative for COVID-is over her illness. Job ID: [id number]
[2020-07-09] MEDS: Lorazepam 2 MG/ML VIAL SLOW IVP PRN ×6 (09:46→23:56)
--- NOTE | 2020-07-09 12:43 | PDOC.HOSPP ---
- Subjective Encounter Date: 07/09/20 Encounter Time: 11:45 Subjective: on vent, is supine, sedated - Objective Vital Signs & Weight: Vital Signs (12 hours) Temp Pulse Resp BP Pulse Ox 07/09/20 12:00 98.2 F 07/09/20 10:41 103 H 95/61 07/09/20 10:00 24 H 07/09/20 08:00 98.0 F 24 H 93 L 07/09/20 07:30 74 28 H 98 07/09/20 07:16 74 96/64 07/09/20 06:00 24 H 07/09/20 04:06 76 07/09/20 04:00 28 H 07/09/20 03:00 98.6 F 07/09/20 02:00 24 H Weight Admit Weight 169 lb Weight 163 lb 9.328 oz Most Recent Monitor Data Heart Rate from ECG 96 NIBP 107/67 NIBP BP-Mean 80 Respiration from ECG 21 SpO2 100 I&O: 07/08/20 07/09/20 07/10/20 06:59 06:59 06:59 Intake Total 2557 3091.8 150 Output Total 3145 3545 550 Balance -588 -453.2 -400 Result Diagrams: 07/09/20 03:12 07/09/20 03:12 Hospitalist ROS - Medication Medications: Active Medications Generic Name Dose Route Start Last Admin Trade Name Freq PRN Reason Stop Dose Admin Budesonide 0.5 mg 07/05/20 18:30 07/09/20 07:30 Pulmicort Neb Solution INH 0.5 mg BID-RT MERRILL Administration Enoxaparin Sodium 70 mg 07/04/20 21:00 07/09/20 08:12 Lovenox SC 70 mg 0900,2100 MERRILL Administration Famotidine 20 mg 07/04/20 21:00 07/09/20 08:12 Pepcid PO 20 mg BID MERRILL Administration Fentanyl Citrate 2,000 mcg/ 100 mls @ 0 mls/hr 07/04/20 13:43 07/09/20 01:52 Sodium Chloride IV 08/03/20 13:43 100 mls INF MERRILL Administration Protocol Per Protocol Cefepime HCl 1 gm/ Sodium 100 mls @ 200 mls/hr 07/05/20 09:00 07/09/20 08:12 Chloride IVPB 100 mls Q12HR MERRILL Administration Midazolam HCl 100 mls @ 0 mls/hr 07/06/20 08:15 07/09/20 09:46 Versed IVPB 100 mls INF MERRILL Administration Protocol Titrate Lorazepam 2 mg 07/04/20 20:28 07/09/20 11:02 Ativan SLOW IVP 08/03/20 13:43 2 mg Q1H PRN Administration Breakthrough agitation Methylprednisolone Sodium Succinate 60 mg 07/06/20 12:00 07/09/20 11:01 Solu-Medrol IVP 60 mg Q6HR MERRILL Administration Polyethylene Glycol 17 gm 07/05/20 09:00 07/09/20 08:13 Miralax PO Not Given DAILY MERRILL Propofol 1,000 mg 07/04/20 20:25 07/06/20 00:28 Diprivan IV 08/03/20 13:43 1,000 mg INF PRN Administration TO ACHIEVE GOAL RASS Protocol Rocuronium [place] 100 mg 07/05/20 16:10 07/06/20 23:30 Zemuron IVP 100 mg Q30MIN PRN Administration movement Scopolamine 1.5 mg 07/04/20 20:30 07/07/20 19:50 Transderm Scop TD 1.5 mg Q3D MERRILL Administration Sodium Chloride 10 ml 07/04/20 21:00 07/09/20 08:13 Flush - Normal Saline IVF 10 ml Q12HR MERRILL Administration Vecuronium [place] 10 mg 07/05/20 08:14 07/08/20 04:46 Norcuron IVP 10 mg Q30MIN PRN Administration Agitation - Exam General Appearance: ill appearing Respiratory: tachypneic Hosp A/P (1) Pneumonia due to COVID-19 virus Code(s): U07.1 - COVID-19; J12.89 - OTHER VIRAL PNEUMONIA Status: Acute (2) Acute respiratory failure with hypoxia Code(s): J96.01 - ACUTE RESPIRATORY FAILURE WITH HYPOXIA Status: Acute (3) Anxiety Code(s): F41.9 - ANXIETY DISORDER, UNSPECIFIED Status: Chronic (4) ARDS (adult respiratory distress syndrome) Code(s): J80 - ACUTE RESPIRATORY DISTRESS SYNDROME Status: Acute - Plan is on lovenox full dose, steroids, got IL-6 inhibitor 07/06, convalescent plasma 07/07. prognosis guarded, has had progressive worsening hemostable is aware of poor prognosis per
[2020-07-10] MEDS: Lorazepam 2 MG/ML VIAL SLOW IVP PRN ×7 (03:52→23:04)
[2020-07-10 04:05] LABS: Anion Gap 11 mmol/L (10-20); BUN (Urea Nitrogen) 23 mg/dL (8.4-25.7); Calc. Creatinine Clearance 121 mL/min (70-130); Calcium 8.3 mg/dL (7.8-10.44); Carbon Dioxide 32 mmol/L (22-29); Chloride 98 mmol/L (98-107); Estimated GFR-MDRD Greater than 90; Glucose 165 mg/dL (70-105); Potassium 4.5 mmol/L (3.5-5.1); Sodium 136 mmol/L (136-145)
[2020-07-10 04:18] LABS: Band 2 % (5-11); Hemoglobin 12.8 g/dL (14.0-18.0); Lymphocytes 4 % (21-51); MDiff Complete? YES; Mean Corpuscular HGB CONC 32.8 g/dL (32.0-36.0); Mean Corpuscular Hemoglobin 30.7 pg (27.0-31.0); Mean Corpuscular Volume 93.6 fL (78.0-98.0); Monocytes 2 % (0-10); Neutrophil 92 % (42-75); Platelet Count 260 thou/uL (130-400); Platelet Morphology Comment Appears Adequate; RBC Distribution Width 12.1 % (11.5-14.5); Red Blood Cell (RBC) Count 4.16 mill/uL (4.70-6.10); White Blood Cell (WBC) Count 11.6 thou/uL (4.8-10.8)
[2020-07-10] MEDS: fentaNYL Citrate/PF 2,000 MCG in Sodium Chloride 0.9% 60 ML IV SCH ×2 (04:39→17:21)
[2020-07-10] MEDS: methylPREDNISolone Sod Succ 40 MG VIAL IVP SCH ×4 (05:07→23:05)
[2020-07-10] MEDS: Cefepime 1 GM in Sodium Chloride 0.9% 100 ML IVPB SCH ×2 (07:21→20:40)
[2020-07-10] MEDS: Budesonide 0.5 MG/2 ML NEB INH SCH ×2 (07:30→18:11)
[2020-07-10] MEDS: Polyethylene Glycol 3350 17 GM Packet PO SCH (07:43)
[2020-07-10 07:45] LABS: Actual Bicarbonate (HCO3a) 31.7 mEq/L (22-28); Base Excess (BEa) 5.4 mEq/L (-2.0 to +3.0); Calcium, Ionized (arterial) 1.19 mmol/L (1.12-1.30); Carboxyhemoglobin (COHb) 0.4 gm% (0.0-3.0); Hemoglobin (Hb) 13.2 g/dL (14.0-18.0); pH, Arterial 7.39 (7.35-7.45)
[2020-07-10 08:02] LABS: Puncture Site RB
[2020-07-10] MEDS: Enoxaparin Sodium 80 MG/0.8 ML SYRINGE SC SCH ×2 (08:16→20:40)
[2020-07-10] MEDS: Famotidine 20 MG TAB PO SCH (08:17)
--- NOTE | 2020-07-10 11:16 | RAD ---
CHEST 1 VIEW: Date: 07/10/2020 HISTORY: Endotracheal tube and NG tubes remain in place. Again noted are extensive bilateral alveolar and grou nd-glass opacity changes throughout both lungs. There are some linear lucencies adjacent to the left of mediastinum, having more the appearance of a small pneumomediastinum. Conceivably this could repre sent a very small pneumothorax. IMPRESSION: 1. No significant change in the pulmonary parenchymal changes in both lungs. Evidence for extensive bilateral pneumonia. 2. Evidence for probable small left-sided pneumomediastinum. Findings discussed with nurse, Brenda, at 0852 hours. CODE CR. POS: OFF
--- NOTE | 2020-07-10 13:25 | PDOC.HOSPP ---
- Subjective Encounter Date: 07/10/20 (f/u acute resp failure) Encounter Time: 13:20 Subjective: Pt admitted for acute respiratory failure secondary to COVID. Over past 24 hours has required increasing amounts of lorazepam, even with versed gtt and fentanyl gtt chart reviewed - no significant changes. Pt remains intubated. - Objective Vital Signs & Weight: Vital Signs (12 hours) Temp Pulse Resp BP Pulse Ox 07/10/20 12:00 30 H 07/10/20 10:47 79 113/73 07/10/20 10:00 24 H 07/10/20 08:00 96.6 F L 24 H 07/10/20 07:47 24 H 97 07/10/20 07:30 68 32 H 98 07/10/20 07:26 97 07/10/20 06:00 24 H 07/10/20 04:00 24 H 07/10/20 03:00 98.8 F 07/10/20 02:00 25 H Weight Admit Weight 169 lb Weight 163 lb 9.328 oz Most Recent Monitor Data Heart Rate from ECG 77 NIBP 120/79 NIBP BP-Mean 92 Respiration from ECG 16 SpO2 98 I&O: 07/09/20 07/10/20 07/11/20 06:59 06:59 06:59 Intake Total 3091.8 2945.8 156.3 Output Total 3545 3295 550 Balance -453.2 -349.2 -393.7 Result Diagrams: 07/10/20 03:00 07/10/20 03:00 EKG Reviewed by me: Yes (tele - sinus 70's) Hospitalist ROS - Medication Medications: Active Medications Generic Name Dose Route Start Last Admin Trade Name Freq PRN Reason Stop Dose Admin Budesonide 0.5 mg 07/05/20 18:30 07/10/20 07:30 Pulmicort Neb Solution INH 0.5 mg BID-RT MERRILL Administration Enoxaparin Sodium 70 mg 07/04/20 21:00 07/10/20 08:16 Lovenox SC 70 mg 0900,2100 MERRILL Administration Famotidine 20 mg 07/04/20 21:00 07/10/20 08:17 Pepcid PO 20 mg BID MERRILL Administration Fentanyl Citrate 2,000 mcg/ 100 mls @ 0 mls/hr 07/04/20 13:43 07/10/20 04:39 Sodium Chloride IV 09/08/20 13:43 100 mls INF MERRILL Administration Protocol Per Protocol Cefepime HCl 1 gm/ Sodium 100 mls @ 200 mls/hr 07/05/20 09:00 07/10/20 07:21 Chloride IVPB 100 mls Q12HR MERRILL Administration Midazolam HCl 100 mls @ 0 mls/hr 07/06/20 08:15 07/10/20 09:43 Versed IVPB 100 mls INF MERRILL Administration Protocol Titrate Lorazepam 2 mg 07/04/20 20:28 07/10/20 13:02 Ativan SLOW IVP 08/03/20 13:43 2 mg Q1H PRN Administration Breakthrough agitation Methylprednisolone Sodium Succinate 60 mg 07/06/20 12:00 07/10/20 13:02 Solu-Medrol IVP 60 mg Q6HR MERRILL Administration Polyethylene Glycol 17 gm 07/05/20 09:00 07/10/20 07:43 Miralax PO Not Given DAILY MERRILL Propofol 1,000 mg 07/04/20 20:25 07/06/20 00:28 Diprivan IV 08/03/20 13:43 1,000 mg INF PRN Administration TO ACHIEVE GOAL RASS Protocol Rocuronium [place] 100 mg 07/05/20 16:10 07/06/20 23:30 Zemuron IVP 100 mg Q30MIN PRN Administration movement Scopolamine 1.5 mg 07/04/20 20:30 07/07/20 19:50 Transderm Scop TD 1.5 mg Q3D MERRILL Administration Sodium Chloride 10 ml 07/04/20 21:00 07/10/20 08:19 Flush - Normal Saline IVF 10 ml Q12HR MERRILL Administration Vecuronium [place] 10 mg 07/05/20 08:14 07/08/20 04:46 Norcuron IVP 10 mg Q30MIN PRN Administration Agitation - Exam General Appearance: NAD (Room not entered/pt not examined in person) Hosp A/P (1) ARDS (adult respiratory distress syndrome) Code(s): J80 - ACUTE RESPIRATORY DISTRESS SYNDROME Status: Acute (2) Acute respiratory failure with hypoxia Code(s): J96.01 - ACUTE RESPIRATORY FAILURE WITH HYPOXIA Status: Acute (3) COVID-19 virus infection Code(s): U07.1 - COVID-19 Status: Acute - Plan Following along as hospitalist - appreciate Pulmonology directing care. On steroids - IV and inhaled, antibiotics and s/p convalescent plasma and IL-6 inhibitor full anticoagulation tube feeds recommend increasing versed to reduce the amount of prn lorazepam needed recheck inflammatory markers tomorrow GI prophy - famotidine code status - full
[2020-07-10] MEDS ORDERED: Polyethylene Glycol 3350 17 GM Packet PO PRN (13:27)
--- NOTE | 2020-07-10 14:59 | PRG ---
DATE OF SERVICE: 07/10/2020 SUBJECTIVE: Awais Masterson remains mechanically ventilated. He has been in the hospital 17 days now. OBJECTIVE: VITAL SIGNS: Blood pressure 120/79, heart rates in the 70s, respiratory rates in the teens, oximetry is 98%. LUNGS: Unchanged. HEART: Unchanged. ABDOMEN: Unchanged. LABORATORY DATA: White count 11.6, hemoglobin 12.8, platelets 260. Sodium 136, potassium 4.5, chloride 98, bicarb 32, BUN 23, creatinine 0.7. PH 7.39, pCO2 of 54, pO2 of 63. He is on bilevel at 37/12, rate of 24. His FiO2 is this morning has been turned down to 70%. IMPRESSION: COVID pneumonia, not weanable at this point in time. PLAN: Continue supportive care. Job ID: [id number]
[2020-07-10] MEDS: Propofol 1,000 MG/100 ML VIAL IV PRN ×2 (17:30→23:09)
[2020-07-10] MEDS: Scopolamine 1.5 mg/72 hour Patch TD SCH (19:30)
[2020-07-10] MEDS: Famotidine/PF 20 mg/2ml Vial SLOW IVP SCH (20:41)
[2020-07-11] MEDS: Propofol 1,000 MG/100 ML VIAL IV PRN ×5 (04:01→20:59)
[2020-07-11 04:56] LABS: Anion Gap 11 mmol/L (10-20); BUN (Urea Nitrogen) 22 mg/dL (8.4-25.7); Calc. Creatinine Clearance 122 mL/min (70-130); Calcium 8.4 mg/dL (7.8-10.44); Carbon Dioxide 34 mmol/L (22-29); Chloride 99 mmol/L (98-107); Estimated GFR-MDRD Greater than 90; Glucose 145 mg/dL (70-105); Potassium 4.7 mmol/L (3.5-5.1); Sodium 139 mmol/L (136-145)
[2020-07-11 05:03] LABS: Band 5 % (5-11); Hemoglobin 13.1 g/dL (14.0-18.0); Lymphocytes 4 % (21-51); MDiff Complete? YES; Mean Corpuscular HGB CONC 33.2 g/dL (32.0-36.0); Mean Corpuscular Hemoglobin 31.2 pg (27.0-31.0); Mean Corpuscular Volume 94.1 fL (78.0-98.0); Mean Platelet Volume 7.9 fL (7.4-10.4); Monocytes 3 % (0-10); Neutrophil 87 % (42-75); Platelet Count 258 thou/uL (130-400); Platelet Morphology Comment Appears Adequate; RBC Distribution Width 12.2 % (11.5-14.5); Reactive Lymphocytes 1 % (0-10); Red Blood Cell (RBC) Count 4.18 mill/uL (4.70-6.10); White Blood Cell (WBC) Count 13.1 thou/uL (4.8-10.8)
[2020-07-11] MEDS: methylPREDNISolone Sod Succ 40 MG VIAL IVP SCH ×4 (06:03→23:08)
[2020-07-11] MEDS: Budesonide 0.5 MG/2 ML NEB INH SCH ×2 (06:54→18:23)
[2020-07-11 07:24] LABS: Actual Bicarbonate (HCO3a) 32.6 mEq/L (22-28); Base Excess (BEa) 5.4 mEq/L (-2.0 to +3.0); Carboxyhemoglobin (COHb) 0.7 gm% (0.0-3.0); Hemoglobin (Hb) 14.6 g/dL (14.0-18.0); Potassium - ABG Lab 4.57 mmol/L (3.70-5.30); pH, Arterial 7.37 (7.35-7.45)
[2020-07-11 07:47] LABS: O2 Tension (PaO2), arterial 53.5 mmHg (80.0-100.0); Puncture Site RRAD
[2020-07-11] MEDS: Cefepime 1 GM in Sodium Chloride 0.9% 100 ML IVPB SCH ×2 (08:25→21:02)
[2020-07-11] MEDS: Enoxaparin Sodium 80 MG/0.8 ML SYRINGE SC SCH ×2 (08:26→21:02)
[2020-07-11] MEDS: Famotidine/PF 20 mg/2ml Vial SLOW IVP SCH ×2 (08:26→21:00)
[2020-07-11] MEDS: Lorazepam 2 MG/ML VIAL SLOW IVP PRN ×2 (08:26→10:53)
--- NOTE | 2020-07-11 10:28 | RAD ---
CHEST 1 VIEW: HISTORY: Followup pneumonia. FINDINGS: NG tube, endotracheal tube, and left central lines in place. Fairly extensive bilateral alveolar and ground-glass opacity changes throughout both lungs. The previously noted linear air lucency seen ad jacent to the left mediastinum and heart border are not definitely demonstrated on today's study. No pneumothorax or evidence for pneumomediastinum on this exam. IMPRESSION: Extensive stable bilateral opacities. Continue short-term followup. POS: OFF
--- NOTE | 2020-07-11 14:42 | PDOC.HOSPP ---
- Subjective Encounter Date: 07/11/20 (f/u respiratory failure) Encounter Time: 14:39 Subjective: chart reviewed, d/w RN - pt now on precedex in addition to other meds to improve comfort with the vent. - Objective Vital Signs & Weight: Vital Signs (12 hours) Temp Pulse Resp Pulse Ox 07/11/20 14:33 70 07/11/20 12:00 26 H 07/11/20 10:17 73 07/11/20 10:00 27 H 07/11/20 08:00 35 H 07/11/20 07:45 80 07/11/20 07:42 24 H 90 L 07/11/20 07:00 97.0 F L 07/11/20 06:00 38 H 07/11/20 04:00 96.4 F L 32 H Weight Admit Weight 169 lb Weight 163 lb 9.328 oz Most Recent Monitor Data Heart Rate from ECG 73 NIBP 105/68 NIBP BP-Mean 80 Respiration from ECG 9 SpO2 93 I&O: 07/10/20 07/11/20 07/12/20 06:59 06:59 06:59 Intake Total 2945.8 2233.1 100 Output Total 3295 3355 400 Balance -349.2 -1121.9 -300 Result Diagrams: 07/11/20 04:00 07/11/20 04:00 EKG Reviewed by me: Yes (sinus 60-70's) Hospitalist ROS - Medication Medications: Active Medications Generic Name Dose Route Start Last Admin Trade Name Freq PRN Reason Stop Dose Admin Budesonide 0.5 mg 07/05/20 18:30 07/11/20 06:54 Pulmicort Neb Solution INH 0.5 mg BID-RT MERRILL Administration Enoxaparin Sodium 70 mg 07/04/20 21:00 07/11/20 08:26 Lovenox SC 70 mg 0900,2100 MERRILL Administration Famotidine 20 mg 07/10/20 21:00 07/11/20 08:26 Pepcid SLOW IVP 20 mg BID MERRILL Administration Fentanyl Citrate 2,000 mcg/ 100 mls @ 0 mls/hr 07/04/20 13:43 07/10/20 17:21 Sodium Chloride IV 08/03/20 13:43 100 mls INF MERRILL Administration Protocol Per Protocol Cefepime HCl 1 gm/ Sodium 100 mls @ 200 mls/hr 07/05/20 09:00 07/11/20 08:25 Chloride IVPB 100 mls Q12HR MERRILL Administration Midazolam HCl 100 mls @ 0 mls/hr 07/06/20 08:15 07/10/20 09:43 Versed IVPB 100 mls INF MERRILL Administration Protocol Titrate Dexmedetomidine HCl 400 mcg/ 100 mls @ 0 mls/hr 07/11/20 11:00 07/11/20 11:58 Sodium Chloride IVPB 100 mls INF MERRILL Administration Protocol Titrate Lorazepam 2 mg 07/04/20 20:28 07/11/20 10:53 Ativan SLOW IVP 08/03/20 13:43 2 mg Q1H PRN Administration Breakthrough agitation Methylprednisolone Sodium Succinate 60 mg 07/06/20 12:00 07/11/20 10:53 Solu-Medrol IVP 60 mg Q6HR MERRILL Administration Propofol 1,000 mg 07/04/20 20:25 07/11/20 08:26 Diprivan IV 08/03/20 13:43 1,000 mg INF PRN Administration TO ACHIEVE GOAL RASS Protocol Rocuronium [place] 100 mg 07/05/20 16:10 07/06/20 23:30 Zemuron IVP 100 mg Q30MIN PRN Administration movement Scopolamine 1.5 mg 07/04/20 20:30 07/10/20 19:30 Transderm Scop TD 1.5 mg Q3D MERRILL Administration Sodium Chloride 10 ml 07/04/20 21:00 07/11/20 08:27 Flush - Normal Saline IVF 10 ml Q12HR MERRILL Administration Vecuronium [place] 10 mg 07/05/20 08:14 07/08/20 04:46 Norcuron IVP 10 mg Q30MIN PRN Administration Agitation - Exam General - other findings: did not enter room Hosp A/P (1) ARDS (adult respiratory distress syndrome) Code(s): J80 - ACUTE RESPIRATORY DISTRESS SYNDROME Status: Acute (2) Acute respiratory failure with hypoxia Code(s): J96.01 - ACUTE RESPIRATORY FAILURE WITH HYPOXIA Status: Acute (3) COVID-19 virus infection Code(s): U07.1 - COVID-19 Status: Acute - Plan Following along as hospitalist - appreciate Pulmonology directing care. On steroids - IV and inhaled, antibiotics and s/p convalescent plasma and IL-6 inhibitor full anticoagulation tube feeds GI prophy - famotidine code status - full
--- NOTE | 2020-07-11 14:50 | PRG ---
DATE OF SERVICE: 07/11/2020 SUBJECTIVE: Awais Masterson remains mechanically ventilated. I have decreased his high PEEP to 34, decreased his rate to 20 today. OBJECTIVE: VITAL SIGNS: Heart rates in the 70s, blood pressure 103/67, respiratory rates mechanical ventilation. HEAD AND NECK: Unchanged. LUNGS: Remarkable for coarse equal breath sounds. HEART: Regular rhythm. ABDOMEN: Soft. EXTREMITIES: Without edema. He is 18 days into his hospitalization, so theory should be out of the risk phase for transmitting virus. LABORATORY DATA: White count 13.1, hemoglobin 13.1, platelets 258. Electrolytes are unremarkable. Creatinine is 0.69. C-reactive protein is back to normal. IMPRESSION: COVID pneumonia, still with bilevel ventilation requirement, bilateral infiltrates on today's chest x-ray. He is making slow progress. By the end of the week, he might be a candidate for tracheostomy. Need better gas exchange before that can be considered. Critical care time 30 min. Job ID: [id number] MTDD
[2020-07-11] MEDS: fentaNYL Citrate/PF 2,000 MCG in Sodium Chloride 0.9% 60 ML IV SCH (16:45)
[2020-07-12 05:50] LABS: Anion Gap 10 mmol/L (10-20); BUN (Urea Nitrogen) 24 mg/dL (8.4-25.7); Calc. Creatinine Clearance 116 mL/min (70-130); Calcium 8.4 mg/dL (7.8-10.44); Carbon Dioxide 36 mmol/L (22-29); Chloride 96 mmol/L (98-107); Estimated GFR-MDRD Greater than 90; Glucose 126 mg/dL (70-105); Potassium 4.9 mmol/L (3.5-5.1); Sodium 137 mmol/L (136-145)
[2020-07-12 06:01] LABS: Band 7 % (5-11); Lymphocytes 2 % (21-51); MDiff Complete? YES; Mean Corpuscular HGB CONC 32.4 g/dL (32.0-36.0); Mean Corpuscular Hemoglobin 30.4 pg (27.0-31.0); Mean Corpuscular Volume 93.8 fL (78.0-98.0); Mean Platelet Volume 7.9 fL (7.4-10.4); Monocytes 5 % (0-10); Neutrophil 86 % (42-75); Platelet Count 261 thou/uL (130-400); RBC Distribution Width 12.3 % (11.5-14.5); Red Blood Cell (RBC) Count 4.29 mill/uL (4.70-6.10); White Blood Cell (WBC) Count 15.1 thou/uL (4.8-10.8)
[2020-07-12] MEDS: Propofol 1,000 MG/100 ML VIAL IV PRN (06:08)
[2020-07-12] MEDS: methylPREDNISolone Sod Succ 40 MG VIAL IVP SCH ×3 (06:08→18:09)
[2020-07-12] MEDS: Budesonide 0.5 MG/2 ML NEB INH SCH ×2 (07:06→19:06)
[2020-07-12 07:23] LABS: Base Excess (BEa) 7.7 mEq/L (-2.0 to +3.0); CO2 Tension 49.3 mmHg (35.0-45.0); Calcium, Ionized (arterial) 1.14 mmol/L (1.12-1.30); Carboxyhemoglobin (COHb) 0.2 gm% (0.0-3.0); Hemoglobin (Hb) 12.5 g/dL (14.0-18.0); Potassium - ABG Lab 5.69 mmol/L (3.70-5.30); pH, Arterial 7.44 (7.35-7.45)
--- NOTE | 2020-07-12 08:02 | RAD ---
Exam: Chest one view HISTORY:Pneumonia. Comparison: 07/11/2020 FINDINGS: Lines and tubes: Stable endotracheal and nasogastric tubes. Stable left-sided vascular catheter. Cardiac silhouette: Normal Aorta: Unremarkable Pulmonary vessels: Normal Costophrenic angles: Clear LUNGS: Persistent multi lobar infiltrate. Pneumothorax: None Osseous abnormalities: None IMPRESSION: Stable multi lobar pneumonia.
--- NOTE | 2020-07-12 08:42 | PRG ---
DATE OF SERVICE: 07/12/2020 TIME SPENT: 35 minutes of critical care time. SUBJECTIVE: The patient remains mechanically ventilated. Dr. Singh was able to go down some of the settings over the weekend. For some reason, the patient has been placed back on a propofol drip. OBJECTIVE: VITAL SIGNS: On exam, temperature is 98.0, pulse 69, blood pressure 98/61, and O2 saturation 95%. 24-hour intake 2233, output 3355. He has actually been in negative fluid balance for the last 4 days. HEENT: Unremarkable except for orally intubated. NECK: No JVD. LUNGS: Crackles. CARDIAC: S1 and S2. Regular. ABDOMEN: Soft. EXTREMITIES: Generalized edema throughout. LABORATORY DATA: Sodium 137, potassium 4.9, chloride 96, CO2 of 36, BUN 24, creatinine 0.7, and glucose 126. His blood gas did not show a pO2. His white blood cell count is 15.1, hematocrit 40, and platelet count 261. IMAGING DATA: His x-ray continued to show bilateral infiltrates ASSESSMENT: COVID-19 pneumonia with acute respiratory distress syndrome, requiring mechanical ventilation. PLAN: 1. I have turned his FiO2 down to 55%. 2. I have spoken with his . The patient is making slow progress, but he is making some progress. 3. Continue anticoagulation. 4. Switch back to Versed. Can continue Precedex. I am worried about propofol infusion syndrome, so that is why I have stopped that, particularly in reference to bradycardia. 5. If not better by the end of this week beginning next week, then consider tracheostomy. Job ID: [id number]
[2020-07-12 08:52] LABS: Puncture Site RB
[2020-07-12] MEDS: Cefepime 1 GM in Sodium Chloride 0.9% 100 ML IVPB SCH (09:51)
[2020-07-12] MEDS: Enoxaparin Sodium 80 MG/0.8 ML SYRINGE SC SCH (09:51)
[2020-07-12] MEDS: Famotidine/PF 20 mg/2ml Vial SLOW IVP SCH (09:51)
[2020-07-12] MEDS: fentaNYL Citrate/PF 2,000 MCG in Sodium Chloride 0.9% 60 ML IV SCH (10:42)
[2020-07-12 11:51] LABS: Actual Bicarbonate (HCO3a) 30.1 mEq/L (22-28); Base Excess (BEa) 4.2 mEq/L (-2.0 to +3.0); CO2 Tension 49.4 mmHg (35.0-45.0); Calcium, Ionized (arterial) 1.17 mmol/L (1.12-1.30); Carboxyhemoglobin (COHb) 1.1 gm% (0.0-3.0); Hemoglobin (Hb) 15.4 g/dL (14.0-18.0); O2 Tension (PaO2), arterial 45.2 mmHg (80.0-100.0); Potassium - ABG Lab 4.82 mmol/L (3.70-5.30)
[2020-07-12 11:52] LABS: Puncture Site RB
--- NOTE | 2020-07-12 17:45 | PDOC.HOSPP ---
- Subjective Encounter Date: 07/12/20 (f/u renal failure) Encounter Time: 17:43 Subjective: 59 y/o male with COVID pneumonia and respiratory failure who remains on a vent. Reviewed pt with RN - difficulty with managing sx of being on vent, IV infusions changed today. - Objective Vital Signs & Weight: Vital Signs (12 hours) Temp Pulse Resp BP Pulse Ox 07/12/20 14:28 64 89/57 L 07/12/20 14:00 31 H 07/12/20 13:00 98.0 F 07/12/20 12:00 27 H 07/12/20 10:16 65 104/63 07/12/20 10:00 25 H 07/12/20 09:00 98.2 F 07/12/20 08:00 27 H 92 L 07/12/20 07:06 65 23 H 95 07/12/20 06:00 36 H Weight Admit Weight 169 lb Weight 163 lb 9.328 oz Most Recent Monitor Data Heart Rate from ECG 73 NIBP 91/56 NIBP BP-Mean 67 Respiration from ECG 14 SpO2 95 I&O: 07/11/20 07/12/20 07/13/20 06:59 06:59 06:59 Intake Total 2233.1 2494.7 30 Output Total 3355 3025 650 Balance -1121.9 -530.3 -620 Result Diagrams: 07/12/20 05:00 07/12/20 05:00 EKG Reviewed by me: Yes (tele - sinus 70's) Hospitalist ROS - Medication Medications: Active Medications Generic Name Dose Route Start Last Admin Trade Name Freq PRN Reason Stop Dose Admin Budesonide 0.5 mg 07/05/20 18:30 07/12/20 07:06 Pulmicort Neb Solution INH 0.5 mg BID-RT MERRILL Administration Enoxaparin Sodium 70 mg 07/04/20 21:00 07/12/20 09:51 Lovenox SC 70 mg 0900,2100 MERRILL Administration Famotidine 20 mg 07/10/20 21:00 07/12/20 09:51 Pepcid SLOW IVP 20 mg BID MERRILL Administration Fentanyl Citrate 2,000 mcg/ 100 mls @ 0 mls/hr 07/04/20 13:43 07/12/20 10:42 Sodium Chloride IV 08/03/20 13:43 100 mls INF MERRILL Administration Protocol Per Protocol Cefepime HCl 1 gm/ Sodium 100 mls @ 200 mls/hr 07/05/20 09:00 07/12/20 09:51 Chloride IVPB 100 mls Q12HR MERRILL Administration Midazolam HCl 100 mls @ 0 mls/hr 07/06/20 08:15 07/12/20 11:00 Versed IVPB 100 mls INF MERRILL Administration Protocol Titrate Dexmedetomidine HCl 400 mcg/ 100 mls @ 0 mls/hr 07/11/20 11:00 07/12/20 11:03 Sodium Chloride IVPB 100 mls INF MERRILL Administration Protocol Titrate Lorazepam 2 mg 07/04/20 20:28 07/11/20 10:53 Ativan SLOW IVP 08/03/20 13:43 2 mg Q1H PRN Administration Breakthrough agitation Methylprednisolone Sodium Succinate 60 mg 07/06/20 12:00 07/12/20 13:11 Solu-Medrol IVP 60 mg Q6HR MERRILL Administration Rocuronium [place] 100 mg 07/05/20 16:10 07/06/20 23:30 Zemuron IVP 100 mg Q30MIN PRN Administration movement Scopolamine 1.5 mg 07/04/20 20:30 07/10/20 19:30 Transderm Scop TD 1.5 mg Q3D MERRILL Administration Sodium Chloride 10 ml 07/04/20 21:00 07/12/20 09:51 Flush - Normal Saline IVF Not Given Q12HR MERRILL Sodium Chloride 10 ml 07/04/20 20:22 07/11/20 21:00 Flush - Normal Saline IVF 10 ml PRN PRN Administration Saline Flush Vecuronium [place] 10 mg 07/05/20 08:14 07/08/20 04:46 Norcuron IVP 10 mg Q30MIN PRN Administration Agitation - Exam General Appearance: NAD General - other findings: room not entered Hosp A/P (1) ARDS (adult respiratory distress syndrome) Code(s): J80 - ACUTE RESPIRATORY DISTRESS SYNDROME Status: Acute (2) Acute respiratory failure with hypoxia Code(s): J96.01 - ACUTE RESPIRATORY FAILURE WITH HYPOXIA Status: Acute (3) COVID-19 virus infection Code(s): U07.1 - COVID-19 Status: Acute - Plan Following along as hospitalist - appreciate Pulmonology directing care. - no recommendations as hospitalist full anticoagulation tube feeds GI prophy - famotidine code status - full
[2020-07-12] MEDS ORDERED: Norepinephrine 8 MG/0.9% NS 250 ML ONE (18:07)
[2020-07-12] MEDS ORDERED: Norepinephrine 8 MG/0.9% NS 250 ML IVPB PRN (18:14)
[2020-07-13 05:20] LABS: Band 4 % (5-11); Hemoglobin 13.4 g/dL (14.0-18.0); Lymphocytes 2 % (21-51); MDiff Complete? YES; Mean Corpuscular HGB CONC 32.1 g/dL (32.0-36.0); Mean Corpuscular Hemoglobin 30.3 pg (27.0-31.0); Mean Corpuscular Volume 94.4 fL (78.0-98.0); Monocytes 4 % (0-10); Myelocyte 3 % (0-0); Neutrophil 87 % (42-75); Platelet Count 319 thou/uL (130-400); RBC Distribution Width 12.7 % (11.5-14.5); Red Blood Cell (RBC) Count 4.43 mill/uL (4.70-6.10); White Blood Cell (WBC) Count 16.6 thou/uL (4.8-10.8)
[2020-07-13 05:30] LABS: Anion Gap 11 mmol/L (10-20); BUN (Urea Nitrogen) 27 mg/dL (8.4-25.7); Calc. Creatinine Clearance 107 mL/min (70-130); Calcium 8.3 mg/dL (7.8-10.44); Carbon Dioxide 34 mmol/L (22-29); Chloride 98 mmol/L (98-107); Estimated GFR-MDRD Greater than 90; Glucose 131 mg/dL (70-105); Potassium 4.8 mmol/L (3.5-5.1); Sodium 138 mmol/L (136-145)
--- NOTE | 2020-07-13 07:14 | RAD ---
CHEST 1 VIEW: Date: 07/13/2020 INDICATION: History of pneumonia. COMPARISON: Prior exam dated 07/12/2020. FINDINGS/IMPRESSION: The patient is intubated with left subclavian central venous catheter and gastric catheter. This is u nchanged. Diffuse air space opacity within both lungs is stable. No pneumothorax is evident. Osseous structures are unchanged. POS: BH
[2020-07-13] MEDS: Cefepime 1 GM in Sodium Chloride 0.9% 100 ML IVPB SCH ×3 (08:13→20:45)
[2020-07-13] MEDS: Enoxaparin Sodium 80 MG/0.8 ML SYRINGE SC SCH ×3 (08:14→20:48)
[2020-07-13] MEDS: Famotidine/PF 20 mg/2ml Vial SLOW IVP SCH ×2 (08:14→08:41)
[2020-07-13] MEDS: methylPREDNISolone Sod Succ 40 MG VIAL IVP SCH ×3 (08:15→18:09)
--- NOTE | 2020-07-13 08:18 | PRG ---
DATE OF SERVICE: 07/13/2020 35 minutes of critical care time. SUBJECTIVE: The patient remains intubated on mechanical ventilation. He will wake up once sedation is lessened. OBJECTIVE: VITAL SIGNS: His temperature is 98.0, no fever overnight; pulse 73; blood pressure 101/64. He is currently on Precedex and Versed. His intake for 24 hours was 2494, output 3025. HEENT: Unremarkable. NECK: No adenopathy or JVD. LUNGS: Crackles anteriorly. CARDIAC: S1 and S2. Regular. ABDOMEN: Soft. EXTREMITIES: No edema. LABORATORY DATA: Sodium 138, potassium 4.8, chloride 98, CO2 of 34, BUN 27, creatinine 0.7, glucose 131. White blood cell count 16.6, hematocrit 41.8, and platelet count 319. ABG is pending. O2 saturations are running in the mid to high 90s on mechanical ventilation, 50% oxygen. ASSESSMENT: 1. Acute respiratory failure requiring mechanical ventilation. 2. COVID-19 pneumonia. PLAN: 1. I have switched him over to pressure control ventilation. I have lowered his FiO2 to 50%. 2. Continue to make slow and steady progress. 3. I am hoping we can continue to wean. No overt tracheostomy. 4. Continue IV antibiotics. 5. Continue anticoagulation. 6. Continue high-dose steroids. Job ID: [id number]
[2020-07-13 08:28] LABS: Actual Bicarbonate (HCO3a) 29.3 mEq/L (22-28); Base Excess (BEa) 4.4 mEq/L (-2.0 to +3.0); CO2 Tension 44.9 mmHg (35.0-45.0); Calcium, Ionized (arterial) 1.15 mmol/L (1.12-1.30); Carboxyhemoglobin (COHb) 0.8 gm% (0.0-3.0); Hemoglobin (Hb) 14.1 g/dL (14.0-18.0); O2 Tension (PaO2), arterial 62.5 mmHg (80.0-100.0); Potassium - ABG Lab 4.73 mmol/L (3.70-5.30); pH, Arterial 7.43 (7.35-7.45)
[2020-07-13] MEDS: Budesonide 0.5 MG/2 ML NEB INH SCH ×2 (08:30→19:26)
[2020-07-13 10:54] LABS: ALV-art Gradient 237.875 (0-20); Puncture Site RRA
--- NOTE | 2020-07-13 16:58 | PDOC.HOSPP ---
- Subjective Encounter Date: 07/13/20 non-verbal - Objective Vital Signs & Weight: Vital Signs (12 hours) Temp Pulse Resp BP Pulse Ox 07/13/20 14:35 62 105/66 07/13/20 14:00 23 H 07/13/20 12:00 98.9 F 20 07/13/20 10:59 74 94/60 07/13/20 10:00 20 07/13/20 08:25 74 94/60 07/13/20 08:00 97.8 F 20 98 Weight Admit Weight 169 lb Weight 163 lb 9.328 oz Most Recent Monitor Data Heart Rate from ECG 97 NIBP 131/78 NIBP BP-Mean 95 Respiration from ECG 20 SpO2 95 I&O: 07/12/20 07/13/20 07/14/20 06:59 06:59 06:59 Intake Total 2494.7 1077 80 Output Total 3025 1000 850 Balance -530.3 77 -770 Result Diagrams: 07/13/20 04:00 07/13/20 04:00 Hospitalist ROS - Medication Medications: Active Medications Generic Name Dose Route Start Last Admin Trade Name Freq PRN Reason Stop Dose Admin Budesonide 0.5 mg 07/05/20 18:30 07/13/20 08:30 Pulmicort Neb Solution INH 0.5 mg BID-RT MERRILL Administration Enoxaparin Sodium 70 mg 07/04/20 21:00 07/13/20 08:41 Lovenox SC 70 mg 0900,2100 MERRILL Administration Fentanyl Citrate 2,000 mcg/ 100 mls @ 0 mls/hr 07/04/20 13:43 07/12/20 10:42 Sodium Chloride IV 08/03/20 13:43 100 mls INF MERRILL Administration Protocol Per Protocol Cefepime HCl 1 gm/ Sodium 100 mls @ 200 mls/hr 07/05/20 09:00 07/13/20 08:40 Chloride IVPB 100 mls Q12HR MERRILL Administration Midazolam HCl 100 mls @ 0 mls/hr 07/06/20 08:15 07/12/20 11:00 Versed IVPB 100 mls INF MERRILL Administration Protocol Titrate Dexmedetomidine HCl 400 mcg/ 100 mls @ 0 mls/hr 07/11/20 11:00 07/12/20 11:03 Sodium Chloride IVPB 100 mls INF MERRILL Administration Protocol Titrate Lorazepam 2 mg 07/04/20 20:28 07/11/20 10:53 Ativan SLOW IVP 08/03/20 13:43 2 mg Q1H PRN Administration Breakthrough agitation Methylprednisolone Sodium Succinate 60 mg 07/06/20 12:00 07/13/20 12:19 Solu-Medrol IVP 60 mg Q6HR MERRILL Administration Rocuronium [place] 100 mg 07/05/20 16:10 07/06/20 23:30 Zemuron IVP 100 mg Q30MIN PRN Administration movement Scopolamine 1.5 mg 07/04/20 20:30 07/10/20 19:30 Transderm Scop TD 1.5 mg Q3D MERRILL Administration Sodium Chloride 10 ml 07/04/20 21:00 07/13/20 08:42 Flush - Normal Saline IVF 10 ml Q12HR MERRILL Administration Sodium Chloride 10 ml 07/04/20 20:22 07/11/20 21:00 Flush - Normal Saline IVF 10 ml PRN PRN Administration Saline Flush Vecuronium [place] 10 mg 07/05/20 08:14 07/08/20 04:46 Norcuron IVP 10 mg Q30MIN PRN Administration Agitation - Exam General Appearance: NAD Neck: supple, symmetric, no JVD, no thyromegaly, no lymphadenopathy, no carotid bruit Heart: RRR, no murmur, no gallops, no rubs, normal peripheral pulses Respiratory: no ronchi, rales (Mild bilateral) Gastrointestinal: soft, non-tender, non-distended, normal bowel sounds, no palpable masses, no hepatomegaly, no splenomegaly, no bruit Extremities: no cyanosis, no clubbing, no edema Skin: normal turgor, no lesions, no rashes Musculoskeletal: generalized weakness Hosp A/P (1) Acute respiratory failure with hypoxia Code(s): J96.01 - ACUTE RESPIRATORY FAILURE WITH HYPOXIA Status: Acute (2) COVID-19 virus infection Code(s): U07.1 - COVID-19 Status: Acute (3) Anxiety Code(s): F41.9 - ANXIETY DISORDER, UNSPECIFIED Status: Chronic - Plan Unfortunately required intubation. Pulmonary following. I been able to make some improvements and wean the vent somewhat. IV steroids and inhaled steroids. Therapeutic range Lovenox. Empiric antibiotics.
[2020-07-13] MEDS: Scopolamine 1.5 mg/72 hour Patch TD SCH (20:44)
[2020-07-13] MEDS: Famotidine 20 MG TAB PER TUBE SCH (20:48)
[2020-07-14] MEDS: methylPREDNISolone Sod Succ 40 MG VIAL IVP SCH ×4 (00:11→13:01)
[2020-07-14] MEDS: fentaNYL Citrate/PF 2,000 MCG in Sodium Chloride 0.9% 60 ML IV SCH ×2 (02:40→10:09)
[2020-07-14 03:06] LABS: Band 7 % (5-11); Hemoglobin 14.9 g/dL (14.0-18.0); Lymphocytes 3 % (21-51); MDiff Complete? YES; Mean Platelet Volume 7.8 fL (7.4-10.4); Monocytes 1 % (0-10); Neutrophil 89 % (42-75); Platelet Count 304 thou/uL (130-400); RBC Distribution Width 13.3 % (11.5-14.5); White Blood Cell (WBC) Count 21.3 thou/uL (4.8-10.8)
[2020-07-14 03:31] LABS: Anion Gap 12 mmol/L (10-20); BUN (Urea Nitrogen) 26 mg/dL (8.4-25.7); Calc. Creatinine Clearance 107 mL/min (70-130); Calcium 8.4 mg/dL (7.8-10.44); Carbon Dioxide 32 mmol/L (22-29); Chloride 99 mmol/L (98-107); Estimated GFR-MDRD Greater than 90; Glucose 146 mg/dL (70-105); Sodium 138 mmol/L (136-145)
[2020-07-14] MEDS: Budesonide 0.5 MG/2 ML NEB INH SCH ×2 (06:46→18:58)
[2020-07-14 07:06] LABS: Actual Bicarbonate (HCO3a) 30.9 mEq/L (22-28); Base Excess (BEa) 4.8 mEq/L (-2.0 to +3.0); CO2 Tension 51.1 mmHg (35.0-45.0); Calcium, Ionized (arterial) 1.16 mmol/L (1.12-1.30); Carboxyhemoglobin (COHb) 0.8 gm% (0.0-3.0); O2 Tension (PaO2), arterial 70.8 mmHg (80.0-100.0); Potassium - ABG Lab 4.93 mmol/L (3.70-5.30)
[2020-07-14 07:08] LABS: ALV-art Gradient 186.175 (0-20); Puncture Site RRA
--- NOTE | 2020-07-14 08:03 | RAD ---
Exam: Chest one view HISTORY:Pneumonia Comparison: 07/13/2020, 07/12/2020 FINDINGS: Cardiac silhouette:Enlarged cardiac silhouette. Lines and tubes: Stable left-sided vascular catheter, endotracheal tube and nasogastric tube. Aorta: Unremarkable Pulmonary vessels: Normal Costophrenic angles: Clear LUNGS: Confluent interstitial and alveolar opacities in the lung parenchyma Pneumothorax: Extensive subcutaneous emphysema. There is pneumomediastinum. Multiple bilateral apical pneumothoraces are suggested. Osseous abnormalities: None IMPRESSION: 1. Interval development of pneumomediastinum and subcutaneous emphysema. Small bilateral apical pneum othoraces are suggested. Results study discussed with Betty patient's nurse 07/14/2020 at 8:00 AM Code CR
--- NOTE | 2020-07-14 08:42 | PRG ---
DATE OF SERVICE: 07/14/2020 SUBJECTIVE: The patient is doing fairly well. We have been able to come down on his oxygen nicely. He is awake, following commands. OBJECTIVE: VITAL SIGNS: His temperature is 98 with no fever, pulse generally in the 50s to 60s, blood pressure 103/73, 24-hour intake 2029, output 2109. HEENT: Unremarkable. NECK: No adenopathy or JVD, and some subcutaneous air in left side of his neck. LUNGS: Clear anteriorly. CARDIOVASCULAR: S1 and S2, regular. ABDOMEN: Soft and nontender. EXTREMITIES: No edema. LABORATORY DATA: Sodium 138, potassium 5, chloride 99, CO2 of 32, BUN 26, creatinine 0.7, and glucose 146. White blood cell count 21.3, hematocrit 45.2, and platelet count 304. ASSESSMENT: 1. Pneumomediastinum. 2. Coronavirus disease 2019 pneumonia. 3. Mild hyperkalemia. PLAN: 1. No chest tubes needed to be placed through the mediastinum but just watching closely. 2. Because of the white count, we probably need to think about stopping central line and putting in midlines. 3. Continue IV antibiotics. 4. Continue anticoagulation. 5. Start to wean steroids. 6. I have adjusted ventilator. Job ID: [id number]
[2020-07-14] MEDS: Cefepime 1 GM in Sodium Chloride 0.9% 100 ML IVPB SCH (10:14)
[2020-07-14] MEDS: Enoxaparin Sodium 80 MG/0.8 ML SYRINGE SC SCH (10:15)
[2020-07-14] MEDS: Famotidine 20 MG TAB PER TUBE SCH (10:17)
[2020-07-14] MEDS: Lorazepam 2 MG/ML VIAL SLOW IVP PRN (10:55)
[2020-07-14] MEDS ORDERED: methylPREDNISolone Sod Succ/PF 125 MG/2 ML VIAL IVP SCH (12:30)
[2020-07-14 15:11] LABS: Actual Bicarbonate (HCO3a) 21.9 mEq/L (22-28); Base Excess (BEa) -2.4 mEq/L (-2.0 to +3.0); CO2 Tension 36.5 mmHg (35.0-45.0); Calcium, Ionized (arterial) 1.14 mmol/L (1.12-1.30); Carboxyhemoglobin (COHb) 0.3 gm% (0.0-3.0); Hemoglobin (Hb) 14.1 g/dL (14.0-18.0); Potassium - ABG Lab 4.04 mmol/L (3.70-5.30)
[2020-07-14 15:12] LABS: O2 Tension (PaO2), arterial 47.6 mmHg (80.0-100.0)
[2020-07-14 15:13] LABS: Puncture Site RRA
--- NOTE | 2020-07-14 15:24 | PDOC.HOSPP ---
- Subjective Encounter Date: 07/14/20 non-verbal - Objective Vital Signs & Weight: Vital Signs (12 hours) Temp Pulse Resp BP Pulse Ox 07/14/20 14:33 69 105/69 07/14/20 14:00 20 07/14/20 12:00 98.7 F 20 07/14/20 11:09 100 101/72 07/14/20 10:00 20 07/14/20 08:00 99.0 F 21 H 95 07/14/20 06:57 59 L 104/72 Weight Admit Weight 169 lb Weight 163 lb 9.328 oz Most Recent Monitor Data Heart Rate from ECG 70 NIBP 105/66 NIBP BP-Mean 79 Respiration from ECG 14 SpO2 99 I&O: 07/13/20 07/14/20 07/15/20 06:59 06:59 06:59 Intake Total 1077 2030.4 350 Output Total 1000 2110 625 Balance 77 -79.6 -275 Result Diagrams: 07/14/20 02:40 07/14/20 02:40 Hospitalist ROS - Medication Medications: Active Medications Generic Name Dose Route Start Last Admin Trade Name Freq PRN Reason Stop Dose Admin Budesonide 0.5 mg 07/05/20 18:30 07/14/20 06:46 Pulmicort Neb Solution INH 0.5 mg BID-RT MERRILL Administration Enoxaparin Sodium 70 mg 07/04/20 21:00 07/14/20 10:15 Lovenox SC 70 mg 0900,2100 MERRILL Administration Famotidine 20 mg 07/13/20 21:00 07/14/20 10:17 Pepcid PER TUBE 20 mg BID MERRILL Administration Cefepime HCl 1 gm/ Sodium 100 mls @ 200 mls/hr 07/05/20 09:00 07/14/20 10:14 Chloride IVPB 100 mls Q12HR MERRILL Administration Midazolam HCl 100 mls @ 0 mls/hr 07/06/20 08:15 07/14/20 10:09 Versed IVPB 100 mls INF MERRILL Administration Protocol Titrate Dexmedetomidine HCl 400 mcg/ 100 mls @ 0 mls/hr 07/11/20 11:00 07/14/20 14:29 Sodium Chloride IVPB 100 mls INF MERRILL Administration Protocol Titrate Lorazepam 2 mg 07/04/20 20:28 07/14/20 10:55 Ativan SLOW IVP 08/03/20 13:43 2 mg Q1H PRN Administration Breakthrough agitation Morphine Sulfate 2 mg 07/04/20 20:28 07/14/20 10:15 Morphine SLOW IVP 08/03/20 13:43 2 mg Q1H PRN Administration Breakthrough Pain/Agitation Polyethylene Glycol 17 gm 07/10/20 13:27 07/14/20 10:15 Miralax PO 17 gm DAILYPRN PRN Administration Constipation Rocuronium [place] 100 mg 07/05/20 16:10 07/06/20 23:30 Zemuron IVP 100 mg Q30MIN PRN Administration movement Scopolamine 1.5 mg 07/04/20 20:30 07/13/20 20:44 Transderm Scop TD 1.5 mg Q3D MERRILL Administration Sodium Chloride 10 ml 07/04/20 21:00 07/14/20 10:17 Flush - Normal Saline IVF 10 ml Q12HR MERRILL Administration Sodium Chloride 10 ml 07/04/20 20:22 07/11/20 21:00 Flush - Normal Saline IVF 10 ml PRN PRN Administration Saline Flush - Exam General Appearance: NAD General - other findings: Intubated. Awake. Heart: RRR, no murmur, no gallops, no rubs, normal peripheral pulses Respiratory: CTAB, no wheezes, no ronchi, normal chest expansion, no tachypnea, normal percussion, rales Gastrointestinal: soft, non-tender, non-distended, normal bowel sounds, no palpable masses, no hepatomegaly, no splenomegaly, no bruit Extremities: no cyanosis, no clubbing, no edema Skin: normal turgor Hosp A/P (1) Acute respiratory failure with hypoxia Code(s): J96.01 - ACUTE RESPIRATORY FAILURE WITH HYPOXIA Status: Acute (2) COVID-19 virus infection Code(s): U07.1 - COVID-19 Status: Acute (3) Anxiety Code(s): F41.9 - ANXIETY DISORDER, UNSPECIFIED Status: Chronic (4) Pneumomediastinum Code(s): J98.2 - INTERSTITIAL EMPHYSEMA Status: Acute - Plan Remains intubated Pulmonary following. Made some improvements and wean the vent somewhat. IV steroids and inhaled steroids. Weaning IV steroids. Therapeutic range Lovenox. Empiric antibiotics. Nothing additional to offer.
[2020-07-14] MEDS: methylPREDNISolone Sod Succ/PF 125 MG/2 ML VIAL IVP SCH (18:31)
[2020-07-15 04:16] LABS: Anion Gap 12 mmol/L (10-20); BUN (Urea Nitrogen) 29 mg/dL (8.4-25.7); Calc. Creatinine Clearance 116 mL/min (70-130); Calcium 8.3 mg/dL (7.8-10.44); Carbon Dioxide 30 mmol/L (22-29); Chloride 99 mmol/L (98-107); Estimated GFR-MDRD Greater than 90; Glucose 145 mg/dL (70-105); Potassium 4.6 mmol/L (3.5-5.1); Sodium 136 mmol/L (136-145)
[2020-07-15 04:41] LABS: Band 1 % (5-11); Hemoglobin 13.8 g/dL (14.0-18.0); Lymphocytes 6 % (21-51); MDiff Complete? YES; Mean Corpuscular HGB CONC 32.8 g/dL (32.0-36.0); Mean Corpuscular Hemoglobin 31.1 pg (27.0-31.0); Mean Corpuscular Volume 94.8 fL (78.0-98.0); Mean Platelet Volume 8.2 fL (7.4-10.4); Monocytes 3 % (0-10); Neutrophil 90 % (42-75); Platelet Count 256 thou/uL (130-400); RBC Distribution Width 13.4 % (11.5-14.5); Red Blood Cell (RBC) Count 4.43 mill/uL (4.70-6.10); White Blood Cell (WBC) Count 18.4 thou/uL (4.8-10.8)
[2020-07-15] MEDS: Budesonide 0.5 MG/2 ML NEB INH SCH ×2 (06:53→18:58)
[2020-07-15 07:09] LABS: Actual Bicarbonate (HCO3a) 31.8 mEq/L (22-28); Base Excess (BEa) 6.2 mEq/L (-2.0 to +3.0); CO2 Tension 49.5 mmHg (35.0-45.0); Calcium, Ionized (arterial) 1.15 mmol/L (1.12-1.30); Carboxyhemoglobin (COHb) 1.3 gm% (0.0-3.0); Hemoglobin (Hb) 14.6 g/dL (14.0-18.0); Potassium - ABG Lab 4.98 mmol/L (3.70-5.30); pH, Arterial 7.43 (7.35-7.45)
[2020-07-15 07:11] LABS: Puncture Site RRA
[2020-07-15 07:12] LABS: ALV-art Gradient 170.325 (0-20)
--- NOTE | 2020-07-15 08:08 | RAD ---
EXAM: Single view of the chest HISTORY: Pneumonia COMPARISON: 07/14/2020 FINDINGS: Single view of the chest shows an enlarged but stable cardiomediastinal silhouette. The sukhdev tral venous catheter has been removed. The other lines and tubes are unchanged in position. Stable diffuse mixed multifocal opacities are seen. Air is seen in the soft tissues at the cervicothoracic j unction. No obvious pneumothorax is seen, but evaluation is limited given the subcutaneous air. Degenerative changes are seen in the spine. IMPRESSION: Stable exam
[2020-07-15] MEDS: Enoxaparin Sodium 80 MG/0.8 ML SYRINGE SC SCH ×3 (08:53→21:13)
[2020-07-15] MEDS: Famotidine 20 MG TAB PER TUBE SCH ×3 (08:54→21:13)
[2020-07-15] MEDS: Cefepime 1 GM in Sodium Chloride 0.9% 100 ML IVPB SCH ×2 (08:54→12:27)
--- NOTE | 2020-07-15 09:11 | PRG ---
DATE OF SERVICE: 07/15/2020 TIME SPENT: 35 minutes critical care time. SUBJECTIVE: Mr. Masterson remains intubated on mechanical ventilation. He is in a sitting position this morning. He is awake and can follow commands without limitation. OBJECTIVE: VITAL SIGNS: His temperature is 98.8, pulse 78, blood pressure 158/104, O2 saturation 95%. Intake for 24 hours 1294, output 1015. HEENT: Unremarkable. NECK: No adenopathy or JVD. LUNGS: Inspiratory crackles. CARDIOVASCULAR: S1, S2. Slightly tachycardic. ABDOMEN: Soft and nontender. EXTREMITIES: No edema. LABORATORY DATA: ABG; pH 7.43, pCO2 of 49, and pO2 of 53, that was on SIMV rate 20 with an inspiratory pressure of 23 and FiO2 of 40%. A-a gradient is down to 170. Sodium 136, potassium 4.6, chloride 99, CO2 of 30, BUN 29, creatinine 0.7, and glucose 145. White blood cell count 18.4, hematocrit 42, and platelet count 256. Chest x-ray continues to show small pneumomediastinum. ASSESSMENT: 1. COVID-19 pneumonia. 2. Acute hypoxic respiratory failure requiring mechanical ventilation. 3. Pneumomediastinum. PLAN: 1. Trial pressure support ventilation, so far tolerated well this morning. 2. Continue IV antibiotics, anticoagulation, steroids, and daily chair trials. 3. PT, OT involvement. 4. Hopefully working toward extubation in the upcoming days. Job ID: [id number]
[2020-07-15] MEDS: methylPREDNISolone Sod Succ/PF 125 MG/2 ML VIAL IVP SCH ×5 (12:23→23:26)
[2020-07-15] MEDS: fentaNYL Citrate/PF 2,000 MCG in Sodium Chloride 0.9% 60 ML IV SCH (13:14)
--- NOTE | 2020-07-15 15:47 | PDOC.HOSPP ---
- Subjective Encounter Date: 07/15/20 non-verbal - Objective Vital Signs & Weight: Vital Signs (12 hours) Temp Pulse Pulse Pulse Resp BP BP 07/15/20 14:27 99 80/59 L 07/15/20 14:22 92 87 123/71 07/15/20 14:00 17 07/15/20 13:00 99.9 F H 07/15/20 12:00 20 07/15/20 11:00 118 H 155/113 H 07/15/20 10:00 13 07/15/20 08:00 22 H 07/15/20 07:29 23 H 07/15/20 07:00 99.9 F H 07/15/20 06:54 77 158/104 H 07/15/20 06:53 60 20 BP Pulse Ox Pulse Ox Pulse Ox 07/15/20 14:27 07/15/20 14:22 80/59 L 99 99 07/15/20 14:00 07/15/20 13:00 07/15/20 12:00 07/15/20 11:00 07/15/20 10:00 07/15/20 08:00 07/15/20 07:29 92 L 07/15/20 07:00 07/15/20 06:54 07/15/20 06:53 99 Weight Admit Weight 169 lb Weight 163 lb 9.328 oz Most Recent Monitor Data Heart Rate from ECG 105 NIBP 151/79 NIBP BP-Mean 103 Respiration from ECG 12 SpO2 96 I&O: 07/14/20 07/15/20 07/16/20 06:59 06:59 06:59 Intake Total 2030.4 1294.9 80 Output Total 2110 1015 695 Balance -79.6 279.9 -615 Result Diagrams: 07/15/20 03:28 07/15/20 03:29 Hospitalist ROS - Medication Medications: Active Medications Generic Name Dose Route Start Last Admin Trade Name Freq PRN Reason Stop Dose Admin Budesonide 0.5 mg 07/05/20 18:30 07/15/20 06:53 Pulmicort Neb Solution INH 0.5 mg BID-RT MERRILL Administration Enoxaparin Sodium 70 mg 07/04/20 21:00 07/15/20 12:28 Lovenox SC Not Given 899,2099 MERRILL Famotidine 20 mg 07/13/20 21:00 07/15/20 12:28 Pepcid PER TUBE Not Given BID MERRILL Cefepime HCl 1 gm/ Sodium 100 mls @ 200 mls/hr 07/05/20 09:00 07/15/20 12:27 Chloride IVPB Not Given Q12HR MERRILL Midazolam HCl 100 mls @ 0 mls/hr 07/06/20 08:15 07/15/20 08:20 Versed IVPB 100 mls INF MERRILL Administration Protocol Titrate Dexmedetomidine HCl 400 mcg/ 100 mls @ 0 mls/hr 07/11/20 11:00 07/15/20 14:08 Sodium Chloride IVPB 100 mls INF MERRILL Administration Protocol Titrate Fentanyl Citrate 2,000 mcg/ 100 mls @ 0 mls/hr 07/14/20 20:00 07/15/20 13:14 Sodium Chloride IV 100 mls INF MERRILL Administration Protocol Per Protocol Methylprednisolone Sodium Succinate 40 mg 07/14/20 18:00 07/15/20 12:29 Solu-Medrol IVP Not Given Q6HR [facility] Polyethylene Glycol 17 gm 07/10/20 13:27 07/14/20 10:15 Miralax PO 17 gm DAILYPRN PRN Administration Constipation Rocuronium [place] 100 mg 07/05/20 16:10 07/06/20 23:30 Zemuron IVP 100 mg Q30MIN PRN Administration movement Scopolamine 1.5 mg 07/04/20 20:30 07/13/20 20:44 Transderm Scop TD 1.5 mg Q3D MERRILL Administration Sodium Chloride 10 ml 07/04/20 21:00 07/15/20 12:28 Flush - Normal Saline IVF Not Given Q12HR MERRILL Sodium Chloride 10 ml 07/04/20 20:22 07/11/20 21:00 Flush - Normal Saline IVF 10 ml PRN PRN Administration Saline Flush - Exam General Appearance: NAD General - other findings: Intubated and mechanically ventilated. Slightly sedated. Heart: RRR, no murmur, no gallops, no rubs, normal peripheral pulses Respiratory: CTAB, no wheezes, no rales, no ronchi, normal chest expansion, no tachypnea, normal percussion Gastrointestinal: soft, non-tender, non-distended, normal bowel sounds, no palpable masses, no hepatomegaly, no splenomegaly, no bruit Extremities: no cyanosis, no clubbing, no edema Musculoskeletal: generalized weakness Hosp A/P (1) Acute respiratory failure with hypoxia Code(s): J96.01 - ACUTE RESPIRATORY FAILURE WITH HYPOXIA Status: Acute (2) COVID-19 virus infection Code(s): U07.1 - COVID-19 Status: Acute (3) Anxiety Code(s): F41.9 - ANXIETY DISORDER, UNSPECIFIED Status: Chronic (4) Pneumomediastinum Code(s): J98.2 - INTERSTITIAL EMPHYSEMA Status: Acute - Plan Remains intubated. He has been weaned significantly. Was on a CPAP trial this morning. Did well until he fatigue. Discussed with nursing. Patient's Lorazepam has fallen off. We will renew that as he seems to have some anxiety associated with the ventilator and that seems to work well. Pulmonary following. IV steroids and inhaled steroids. Weaning IV steroids. Therapeutic range Lovenox. Empiric antibiotics.
[2020-07-16] MEDS: Lorazepam 2 MG/ML VIAL SLOW IVP PRN ×2 (03:23→09:04)
[2020-07-16 03:40] LABS: Band 8 % (5-11); Hemoglobin 13.6 g/dL (14.0-18.0); Lymphocytes 1 % (21-51); MDiff Complete? YES; Mean Corpuscular HGB CONC 33.4 g/dL (32.0-36.0); Mean Corpuscular Hemoglobin 31.3 pg (27.0-31.0); Mean Corpuscular Volume 93.8 fL (78.0-98.0); Mean Platelet Volume 8.8 fL (7.4-10.4); Monocytes 1 % (0-10); Neutrophil 90 % (42-75); Platelet Count 185 thou/uL (130-400); Platelet Morphology Comment Appears Adequate; RBC Distribution Width 13.5 % (11.5-14.5); Red Blood Cell (RBC) Count 4.33 mill/uL (4.70-6.10); White Blood Cell (WBC) Count 21.6 thou/uL (4.8-10.8)
[2020-07-16 03:46] LABS: Anion Gap 13 mmol/L (10-20); BUN (Urea Nitrogen) 30 mg/dL (8.4-25.7); Calc. Creatinine Clearance 106 mL/min (70-130); Calcium 8.5 mg/dL (7.8-10.44); Carbon Dioxide 30 mmol/L (22-29); Chloride 98 mmol/L (98-107); Estimated GFR-MDRD Greater than 90; Glucose 137 mg/dL (70-105); Potassium 4.8 mmol/L (3.5-5.1); Sodium 136 mmol/L (136-145)
[2020-07-16] MEDS: methylPREDNISolone Sod Succ/PF 125 MG/2 ML VIAL IVP SCH ×3 (05:27→18:24)
[2020-07-16 07:47] LABS: Actual Bicarbonate (HCO3a) 29.5 mEq/L (22-28); Base Excess (BEa) 5.1 mEq/L (-2.0 to +3.0); CO2 Tension 42.6 mmHg (35.0-45.0); Calcium, Ionized (arterial) 1.14 mmol/L (1.12-1.30); Carboxyhemoglobin (COHb) 0.6 gm% (0.0-3.0); Hemoglobin (Hb) 13.9 g/dL (14.0-18.0); Potassium - ABG Lab 4.32 mmol/L (3.70-5.30); pH, Arterial 7.46 (7.35-7.45)
[2020-07-16 07:49] LABS: O2 Tension (PaO2), arterial 56.6 mmHg (80.0-100.0); Puncture Site RRA
[2020-07-16] MEDS: Budesonide 0.5 MG/2 ML NEB INH SCH ×2 (07:53→19:06)
--- NOTE | 2020-07-16 08:39 | RAD ---
CHEST 1 VIEW: Date: 07/16/2020 HISTORY: Pneumonia. COMPARISON: 07/15/2020. FINDINGS/IMPRESSION: Again noted is evidence for pneumomediastinum. Life support tubes in place and stable. Again noted ar e extensive bilateral alveolar nodular and ground-glass opacity changes throughout both lungs, eviden ce for extensive bilateral but overall stable COVID pneumonia. Continue short-term follow-up. POS: OFF
[2020-07-16] MEDS: Famotidine 20 MG TAB PER TUBE SCH ×2 (09:04→20:30)
[2020-07-16] MEDS: Enoxaparin Sodium 80 MG/0.8 ML SYRINGE SC SCH ×2 (09:05→20:30)
--- NOTE | 2020-07-16 09:24 | PRG ---
DATE OF SERVICE: 07/16/2020 TIME SPENT: 35 minutes of critical care time. SUBJECTIVE: The patient remains intubated on mechanical ventilation. He is sitting up. He is awake. He follows commands. OBJECTIVE: VITAL SIGNS: On exam, his pulse is 130, blood pressure 201/99, O2 saturation 94%, and respiratory rate 17. HEENT: Unremarkable except for being intubated. NECK: No JVD. LUNGS: Coarse breath sounds. CARDIAC: S1 and S2. Tachycardic and agitated. ABDOMEN: Soft. EXTREMITIES: No edema. LABORATORY DATA: Sodium 136, potassium 4.8, chloride 98, CO2 of 30, BUN 30, creatinine 0.8, and glucose 137. PH of 7.46, pCO2 of 42, pO2 of 56, A-a gradient 246, FiO2 currently set of 50%. White blood cell count 21.6, hematocrit 40.6, and platelet count 185. ASSESSMENT: 1. COVID-19 pneumonia. 2. Acute respiratory failure, requiring mechanical ventilation. 3. Pneumomediastinum. 4. Extensive agitation. PLAN: 1. Start him on scheduled Geodon. 2. Add metoprolol given tachycardia and elevated blood pressure. 3. I have gone down on his inspiratory pressure on mechanical ventilation. 4. We will see how he is doing over the weekend. If he is not making much progress by Sunday, then consider tracheostomy. Job ID: [id number]
[2020-07-16] MEDS ORDERED: Ziprasidone 20 MG VIAL IM SCH ×2 (10:00→21:00)
[2020-07-16] MEDS: Labetalol HCl 100 MG/20 ML VIAL SLOW IVP PRN (10:55)
[2020-07-16] MEDS: fentaNYL Citrate/PF 2,000 MCG in Sodium Chloride 0.9% 60 ML IV SCH (11:34)
--- NOTE | 2020-07-16 13:59 | PDOC.HOSPP ---
- Subjective Encounter Date: 07/16/20 non-verbal - Objective Vital Signs & Weight: Vital Signs (12 hours) Temp Pulse Pulse Pulse Resp BP BP 07/16/20 10:55 136 H 173/105 H 07/16/20 10:28 115 H 07/16/20 08:35 112 H 72 173/92 H 07/16/20 07:27 112 H 07/16/20 05:57 17 07/16/20 04:00 98.8 F 13 07/16/20 02:47 80 07/16/20 02:00 18 BP Pulse Ox Pulse Ox 07/16/20 10:55 07/16/20 10:28 07/16/20 08:35 177/72 H 96 98 07/16/20 07:27 07/16/20 05:57 07/16/20 04:00 07/16/20 02:47 07/16/20 02:00 Weight Admit Weight 169 lb Weight 163 lb 9.328 oz Most Recent Monitor Data Heart Rate from ECG 106 NIBP 173/99 NIBP BP-Mean 123 Respiration from ECG 12 SpO2 94 I&O: 07/15/20 07/16/20 07/17/20 06:59 06:59 06:59 Intake Total 1294.9 3392 Output Total 1015 1750 Balance 279.9 1642 Result Diagrams: 07/16/20 03:00 07/16/20 03:00 Hospitalist ROS - Medication Medications: Active Medications Generic Name Dose Route Start Last Admin Trade Name Freq PRN Reason Stop Dose Admin Budesonide 0.5 mg 07/05/20 18:30 07/16/20 07:53 Pulmicort Neb Solution INH 0.5 mg BID-RT MERRILL Administration Enoxaparin Sodium 70 mg 07/04/20 21:00 07/16/20 09:05 Lovenox SC 70 mg 0900,2100 MERRILL Administration Famotidine 20 mg 07/13/20 21:00 07/16/20 09:04 Pepcid PER TUBE 20 mg BID MERRILL Administration Dexmedetomidine HCl 400 mcg/ 100 mls @ 0 mls/hr 07/11/20 11:00 07/16/20 05:55 Sodium Chloride IVPB 100 mls INF MERRILL Administration Protocol Titrate Fentanyl Citrate 2,000 mcg/ 100 mls @ 0 mls/hr 07/14/20 20:00 07/16/20 11:34 Sodium Chloride IV 100 mls INF MERRILL Administration Protocol Per Protocol Labetalol HCl 20 mg 07/04/20 20:20 07/16/20 10:55 Normodyne SLOW IVP 20 mg Q4H PRN Administration SBP > 160, use third Lorazepam 2 mg 07/15/20 15:45 07/16/20 09:04 Ativan SLOW IVP 2 mg Q6H PRN Administration Anxiety/Agitation Methylprednisolone Sodium Succinate 40 mg 07/14/20 18:00 07/16/20 12:14 Solu-Medrol IVP 40 mg Q6HR MERRILL Administration Polyethylene Glycol 17 gm 07/10/20 13:27 07/14/20 10:15 Miralax PO 17 gm DAILYPRN PRN Administration Constipation Rocuronium Quimby 100 mg 07/05/20 16:10 07/06/20 23:30 Zemuron IVP 100 mg Q30MIN PRN Administration movement Scopolamine 1.5 mg 07/04/20 20:30 07/13/20 20:44 Transderm Scop TD 1.5 mg Q3D MERRILL Administration Sodium Chloride 10 ml 07/04/20 21:00 07/16/20 09:05 Flush - Normal Saline IVF 10 ml Q12HR MERRILL Administration Sodium Chloride 10 ml 07/04/20 20:22 07/11/20 21:00 Flush - Normal Saline IVF 10 ml PRN PRN Administration Saline Flush - Exam General Appearance: NAD, awake alert General - other findings: Intubated Heart: RRR, no murmur, no gallops, no rubs, normal peripheral pulses Respiratory: CTAB, no wheezes, no rales, no ronchi, normal chest expansion, no tachypnea, normal percussion Gastrointestinal: soft, non-distended, normal bowel sounds, no palpable masses, no hepatomegaly, no splenomegaly, no bruit Extremities - other findings: Trace edema in all extremities Skin: normal turgor Musculoskeletal: generalized weakness Psychiatric: flat affect Hosp A/P (1) Acute respiratory failure with hypoxia Code(s): J96.01 - ACUTE RESPIRATORY FAILURE WITH HYPOXIA Status: Acute (2) COVID-19 virus infection Code(s): U07.1 - COVID-19 Status: Acute (3) Anxiety Code(s): F41.9 - ANXIETY DISORDER, UNSPECIFIED Status: Chronic (4) Pneumomediastinum Code(s): J98.2 - INTERSTITIAL EMPHYSEMA Status: Acute - Plan Remains intubated. Pulmonary following. Weaning as tolerated. IV steroids and inhaled steroids. Therapeutic range Lovenox. Empiric antibiotics. Patient has a significant anxiety component. Resumed Lorazepam. Pulmonary adding scheduled Geomehdi.
[2020-07-16] MEDS: Scopolamine 1.5 mg/72 hour Patch TD SCH (20:30)
[2020-07-16] MEDS ORDERED: Metoprolol Tartrate 25 MG TAB PER TUBE SCH (21:00)
[2020-07-17] MEDS: methylPREDNISolone Sod Succ/PF 125 MG/2 ML VIAL IVP SCH ×2 (00:10→05:02)
[2020-07-17] MEDS: fentaNYL Citrate/PF 2,000 MCG in Sodium Chloride 0.9% 60 ML IV SCH ×2 (01:39→18:14)
[2020-07-17 04:30] LABS: Anion Gap 12 mmol/L (10-20); BUN (Urea Nitrogen) 26 mg/dL (8.4-25.7); Calc. Creatinine Clearance 117 mL/min (70-130); Calcium 8.3 mg/dL (7.8-10.44); Carbon Dioxide 29 mmol/L (22-29); Chloride 98 mmol/L (98-107); Estimated GFR-MDRD Greater than 90; Glucose 128 mg/dL (70-105); Potassium 4.4 mmol/L (3.5-5.1); Sodium 135 mmol/L (136-145)
[2020-07-17 04:40] LABS: Band 1 % (5-11); Hemoglobin 12.5 g/dL (14.0-18.0); Lymphocytes 2 % (21-51); MDiff Complete? YES; Mean Corpuscular HGB CONC 33.3 g/dL (32.0-36.0); Mean Corpuscular Hemoglobin 31.2 pg (27.0-31.0); Mean Corpuscular Volume 93.6 fL (78.0-98.0); Mean Platelet Volume 9.2 fL (7.4-10.4); Metamyelocyte 1 % (0-0); Monocytes 3 % (0-10); Neutrophil 93 % (42-75); Platelet Count 203 thou/uL (130-400); Platelet Morphology Comment Appears Adequate; RBC Distribution Width 13.9 % (11.5-14.5); RBC Morphology Normal; White Blood Cell (WBC) Count 18.7 thou/uL (4.8-10.8)
--- NOTE | 2020-07-17 07:43 | RAD ---
CHEST 1 VIEW: INDICATION: History of pneumonia. COMPARISON: Prior exam dated 07/16/2020. IMPRESSION: There is some mild improvement in the parenchymal opacities within both lungs. Mild cardiomegaly per sists. ET tube and gastric catheter are unchanged. No pneumothorax is evident. There is persistent subcutaneous edema overlying the neck base. POS: BH
[2020-07-17] MEDS: Budesonide 0.5 MG/2 ML NEB INH SCH ×2 (07:44→18:55)
[2020-07-17 07:53] LABS: Actual Bicarbonate (HCO3a) 27.3 mEq/L (22-28); Base Excess (BEa) 2.2 mEq/L (-2.0 to +3.0); Calcium, Ionized (arterial) 1.14 mmol/L (1.12-1.30); Carboxyhemoglobin (COHb) 0.7 gm% (0.0-3.0); Hemoglobin (Hb) 12.8 g/dL (14.0-18.0); O2 Tension (PaO2), arterial 62.9 mmHg (80.0-100.0); Potassium - ABG Lab 4.54 mmol/L (3.70-5.30); pH, Arterial 7.41 (7.35-7.45)
[2020-07-17 07:54] LABS: Puncture Site LRA
[2020-07-17] MEDS ORDERED: Sterile Water 10 ML VIAL FS PRN (08:39)
--- NOTE | 2020-07-17 08:58 | PRG ---
DATE OF SERVICE: 07/17/2020 TIME SPENT: 35 minutes of critical care time. SUBJECTIVE: Mr. Masterson remains intubated, on mechanical ventilation. He will wake up and follow commands. He is currently sedated on light dose of Versed, Precedex, and fentanyl. OBJECTIVE: VITAL SIGNS: Temperature 98.3, pulse 101, blood pressure 156/99, O2 saturation 98%. Total intake 1132, output 1670. HEENT: Unremarkable. NECK: No adenopathy or JVD. LUNGS: Clear anteriorly. CARDIAC: S1, S2. Regular. ABDOMEN: Soft. EXTREMITIES: No edema. LABORATORY DATA: White blood cell count 18.7, hematocrit 37.4, and platelet count 203. PH 7.41, pCO2 of 44, pO2 of 62, A-a gradient 238, on SIMV rate 10, high pressure 13, PEEP 11, FiO2 of 50%. Sodium 135, potassium 4.4, chloride 98, CO2 of 29, BUN 26, creatinine 0.7, and glucose 128. Chest x-ray shows some clearing. ASSESSMENT: 1. Improving COVID-19 pneumonia. 2. Acute hypoxic respiratory failure, requiring mechanical ventilation. 3. Diarrhea. 4. Resolved pneumomediastinum. PLAN: 1. We will lower respiratory settings. He is rapidly progressing toward extubation, which hopefully can be accomplished next week. I have cut his steroid dose down. I have also cut his Geodon dose down. I have to decrease his beta shell dose because he was getting mildly hypotensive on the dose I started him on yesterday. 2. We will update his . Job ID: [id number]
[2020-07-17] MEDS: Metoprolol Tartrate 25 MG TAB PER TUBE SCH ×2 (09:24→20:26)
[2020-07-17] MEDS: Ziprasidone 20 MG VIAL IM SCH ×2 (09:24→20:27)
[2020-07-17] MEDS: Famotidine 20 MG TAB PER TUBE SCH ×2 (09:24→20:26)
[2020-07-17] MEDS: Enoxaparin Sodium 80 MG/0.8 ML SYRINGE SC SCH ×2 (09:25→20:26)
[2020-07-17] MEDS: Ondansetron PF 4 MG/2 ML Vial IVP PRN (10:41)
--- NOTE | 2020-07-17 14:30 | PDOC.HOSPP ---
- Subjective Encounter Date: 07/17/20 Subjective: Intubated. - Objective Vital Signs & Weight: Vital Signs (12 hours) Temp Pulse Resp BP Pulse Ox 07/17/20 14:01 112 H 160/86 H 07/17/20 12:00 19 07/17/20 10:11 83 134/82 07/17/20 10:00 30 H 07/17/20 08:00 99.1 F 26 H 98 07/17/20 07:31 93 156/99 H 07/17/20 06:00 14 07/17/20 04:00 25 H 07/17/20 03:13 90 142/69 H Weight Admit Weight 169 lb Weight 163 lb 9.328 oz Most Recent Monitor Data Heart Rate from ECG 112 NIBP 136/87 NIBP BP-Mean 103 Respiration from ECG 24 SpO2 96 I&O: 07/16/20 07/17/20 07/18/20 06:59 06:59 06:59 Intake Total 3392 1132.6 60 Output Total 1750 1670 410 Balance 1642 -537.4 -350 Result Diagrams: 07/17/20 03:05 07/17/20 03:05 Hospitalist ROS - Medication Medications: Active Medications Generic Name Dose Route Start Last Admin Trade Name Freq PRN Reason Stop Dose Admin Budesonide 0.5 mg 07/05/20 18:30 07/17/20 07:44 Pulmicort Neb Solution INH 0.5 mg BID-RT MERRILL Administration Enoxaparin Sodium 70 mg 07/04/20 21:00 07/17/20 09:25 Lovenox SC 70 mg 0900,2100 MERRILL Administration Famotidine 20 mg 07/13/20 21:00 07/17/20 09:24 Pepcid PER TUBE 20 mg BID MERRILL Administration Dexmedetomidine HCl 400 mcg/ 100 mls @ 0 mls/hr 07/11/20 11:00 07/17/20 06:38 Sodium Chloride IVPB 100 mls INF MERRILL Administration Protocol Titrate Fentanyl Citrate 2,000 mcg/ 100 mls @ 0 mls/hr 07/14/20 20:00 07/17/20 01:39 Sodium Chloride IV 100 mls INF MERRILL Administration Protocol Per Protocol Midazolam HCl 100 mls @ 0 mls/hr 07/16/20 13:15 07/16/20 15:13 Versed IVPB 100 mls INF MERRILL Administration Protocol Titrate Labetalol HCl 20 mg 07/04/20 20:20 07/16/20 10:55 Normodyne SLOW IVP 20 mg Q4H PRN Administration SBP > 160, use third Lorazepam 2 mg 07/15/20 15:45 07/16/20 09:04 Ativan SLOW IVP 2 mg Q6H PRN Administration Anxiety/Agitation Metoprolol Tartrate 12.5 mg 07/17/20 09:00 07/17/20 09:24 Lopressor PER TUBE 12.5 mg BID MERRILL Administration Ondansetron HCl 4 mg 07/04/20 20:20 07/17/20 10:41 Zofran IVP 4 mg Q6H PRN Administration Nausea/Vomiting, use 1st Polyethylene Glycol 17 gm 07/10/20 13:27 07/14/20 10:15 Miralax PO 17 gm DAILYPRN PRN Administration Constipation Rocuronium Pauline 100 mg 07/05/20 16:10 07/06/20 23:30 Zemuron IVP 100 mg Q30MIN PRN Administration movement Scopolamine 1.5 mg 07/04/20 20:30 07/16/20 20:30 Transderm Scop TD 1.5 mg Q3D MERRILL Administration Sodium Chloride 10 ml 07/04/20 21:00 07/17/20 09:26 Flush - Normal Saline IVF 10 ml Q12HR MERRILL Administration Sodium Chloride 10 ml 07/04/20 20:22 07/11/20 21:00 Flush - Normal Saline IVF 10 ml PRN PRN Administration Saline Flush Sterile Water 1.2 ml 07/17/20 08:39 07/17/20 09:24 Water For Injection FS 1.2 ml PRN PRN Administration RECONSTITUTION Ziprasidone 10 mg 07/17/20 09:00 07/17/20 09:24 Geodon IM 10 mg Q12HR MERRILL Administration - Exam General Appearance: NAD, awake alert Heart: RRR, no murmur, no gallops, no rubs, normal peripheral pulses Respiratory: CTAB, no wheezes, no rales, no ronchi, normal chest expansion, no tachypnea, normal percussion Gastrointestinal: soft, non-tender, non-distended, normal bowel sounds, no palpable masses, no hepatomegaly, no splenomegaly, no bruit Extremities: no cyanosis, no clubbing, no edema Skin: normal turgor Hosp A/P (1) Acute respiratory failure with hypoxia Code(s): J96.01 - ACUTE RESPIRATORY FAILURE WITH HYPOXIA Status: Acute (2) COVID-19 virus infection Code(s): U07.1 - COVID-19 Status: Acute (3) Anxiety Code(s): F41.9 - ANXIETY DISORDER, UNSPECIFIED Status: Chronic (4) Pneumomediastinum Code(s): J98.2 - INTERSTITIAL EMPHYSEMA Status: Acute - Plan Remains intubated. Pulmonary following. Weaning is going fairly well. IV steroids, which are being reduced, and inhaled steroids. Therapeutic range Lovenox. Empiric antibiotics. Patient has a significant anxiety component. Resumed Lorazepam. Pulmonary adding scheduled Geodon. This dose has been decreased.
[2020-07-17] MEDS: methylPREDNISolone Sod Succ 40 MG VIAL IVP SCH (17:27)
[2020-07-18 05:17] LABS: Anion Gap 12 mmol/L (10-20); BUN (Urea Nitrogen) 21 mg/dL (8.4-25.7); Calc. Creatinine Clearance 114 mL/min (70-130); Carbon Dioxide 29 mmol/L (22-29); Chloride 97 mmol/L (98-107); Estimated GFR-MDRD Greater than 90; Glucose 122 mg/dL (70-105); Potassium 4.2 mmol/L (3.5-5.1); Sodium 134 mmol/L (136-145)
[2020-07-18 05:26] LABS: Band 2 % (5-11); Hemoglobin 11.5 g/dL (14.0-18.0); Lymphocytes 3 % (21-51); MDiff Complete? YES; Mean Corpuscular HGB CONC 33.3 g/dL (32.0-36.0); Mean Corpuscular Hemoglobin 30.9 pg (27.0-31.0); Mean Platelet Volume 8.8 fL (7.4-10.4); Monocytes 3 % (0-10); Myelocyte 1 % (0-0); Neutrophil 91 % (42-75); Platelet Count 232 thou/uL (130-400); RBC Distribution Width 13.9 % (11.5-14.5); Red Blood Cell (RBC) Count 3.71 mill/uL (4.70-6.10); White Blood Cell (WBC) Count 28.2 thou/uL (4.8-10.8)
[2020-07-18] MEDS: methylPREDNISolone Sod Succ 40 MG VIAL IVP SCH ×2 (05:50→17:48)
--- NOTE | 2020-07-18 06:25 | RAD ---
CHEST ONE VIEW: INDICATIONS: History of pneumonia. COMPARISON: Prior exam dated 07/17/2020. IMPRESSION: Diffuse bilateral air space disease persists and appears stable. Gastric catheter and endotracheal tu be are unchanged. Subcutaneous emphysema involving the upper chest wall and neck base are stable. No definite pneumothorax is evident. Osseous structures are intact. POS: BH
[2020-07-18] MEDS: fentaNYL Citrate/PF 2,000 MCG in Sodium Chloride 0.9% 60 ML IV SCH ×2 (07:53→22:22)
[2020-07-18] MEDS: Budesonide 0.5 MG/2 ML NEB INH SCH ×2 (07:53→18:47)
[2020-07-18 08:06] LABS: Actual Bicarbonate (HCO3a) 27.7 mEq/L (22-28); Base Excess (BEa) 2.9 mEq/L (-2.0 to +3.0); CO2 Tension 43.3 mmHg (35.0-45.0); Calcium, Ionized (arterial) 1.12 mmol/L (1.12-1.30); Carboxyhemoglobin (COHb) 0.8 gm% (0.0-3.0); Hemoglobin (Hb) 12.7 g/dL (14.0-18.0); Potassium - ABG Lab 4.32 mmol/L (3.70-5.30); pH, Arterial 7.42 (7.35-7.45)
[2020-07-18 08:07] LABS: O2 Tension (PaO2), arterial 56.8 mmHg (80.0-100.0); Puncture Site RRA
[2020-07-18 08:08] LABS: ALV-art Gradient 245.575 (0-20)
[2020-07-18] MEDS: Enoxaparin Sodium 80 MG/0.8 ML SYRINGE SC SCH ×2 (08:12→21:54)
[2020-07-18] MEDS: Ziprasidone 20 MG VIAL IM SCH ×2 (08:12→21:55)
[2020-07-18] MEDS: Famotidine 20 MG TAB PER TUBE SCH ×2 (08:13→21:55)
[2020-07-18] MEDS: Metoprolol Tartrate 25 MG TAB PER TUBE SCH ×2 (08:13→21:40)
--- NOTE | 2020-07-18 11:18 | PRG ---
DATE OF SERVICE: 07/18/2020 35 minutes critical care time. SUBJECTIVE: The patient remains intubated on mechanical ventilation. He will wake up and follow all commands for me. OBJECTIVE: VITAL SIGNS: His temperature is 99.5, pulse 105, blood pressure 117/78. HEENT: Unremarkable. NECK: No adenopathy or JVD. CHEST: Clear anteriorly. CARDIAC: S1 and S2. Regular. ABDOMEN: Soft. EXTREMITIES: No edema. LABORATORY DATA: PH 7.42, pCO2 of 43, pO2 of 56. White blood count 28.2, hematocrit 34.1, and platelet count 232. Sodium 134, potassium 4.2, chloride 97, CO2 of 29, BUN 21, creatinine 0.7, glucose 122. ASSESSMENT: 1. COVID-19 pneumonia. 2. Acute hypoxic respiratory failure requiring mechanical ventilation. 3. Slowly improving x-ray. PLAN: 1. Decrease respiratory rate and PEEP. 2. Tentatively plan to extubate tomorrow if he does well today. He probably extubated directly to a high-flow nasal cannula. 3. I will go ahead and re-culture him since his white count is persistently elevated and he just came off antibiotics. Of note, we did take his central line out earlier this week because of elevated white blood cell count. The count may be elevated simply due steroids. However, since he is on steroids, infection surveillance is warranted. I will speak with the patient's . Job ID: [id number]
--- NOTE | 2020-07-18 12:53 | ULT ---
ULTRASOUND DOPPLER DUPLEX VENOUS RIGHT UPPER EXTREMITY: DATE: 07/18/2020 HISTORY: 59-year-old male with right arm swelling. TECHNIQUE: Grayscale, color-flow, and spectral analysis, of the right internal jugular, subclavian, axillary, br achial, basilic, cephalic, radial, and ulnar, veins. FINDINGS: Technically difficult study because patient unable to cooperate, and because of severe arm swelling. Large hematoma in the arm, from proximal arm to proximal forearm. The brachial vein is not visualized at all. Brachial artery is visualized with pulsatile flow, in the antecubital fossa and upper arm proximal to the hematoma. Cephalic vein is thrombosed, with noncompressibility and lack of flow from mid arm through elbow and forearm. Basilic vein has flow. Axillary vein has flow. Internal jugular vein has flow. Subclavian vein has flow. Radial and ulnar veins and arteries have flow.. IMPRESSION: 1) large hematoma in right arm. 2) nonvisualization of brachial vein in arm, presumably occluded. 3) occlusive superficial venous thrombosis of right cephalic vein.
[2020-07-18] MEDS ORDERED: fentaNYL 75 mcg/hour Patch TD SCH (13:00)
[2020-07-18] MEDS: Nicotine 14 MG PATCH TD SCH (13:29)
--- NOTE | 2020-07-18 17:22 | PDOC.HOSPP ---
- Subjective Encounter Date: 07/18/20 (f/u acute resp failure) Encounter Time: 17:21 Subjective: Pt remains intubated and sedated. Currently hypotensive secondary to meds used for agitation associated with being on vent. Pt continues to require intermittent dosing of meds along with the continuous gtts. - Objective Vital Signs & Weight: Vital Signs (12 hours) Temp Pulse Resp BP Pulse Ox 07/18/20 16:00 98.4 F 12 07/18/20 14:50 105 H 164/97 H 07/18/20 14:00 28 H 07/18/20 12:00 98.6 F 07/18/20 11:53 10 L 07/18/20 10:50 76 117/78 07/18/20 10:00 16 07/18/20 08:00 99.5 F 12 97 07/18/20 07:53 143 H 138/76 07/18/20 06:00 16 Weight Admit Weight 169 lb Weight 163 lb 9.328 oz Most Recent Monitor Data Heart Rate from ECG 104 NIBP 163/82 NIBP BP-Mean 109 Respiration from ECG 26 SpO2 96 I&O: 07/17/20 07/18/20 07/19/20 06:59 06:59 06:59 Intake Total 1132.6 2458.4 160 Output Total 1670 1735 750 Balance -537.4 723.4 -590 Result Diagrams: 07/18/20 04:31 07/18/20 04:31 EKG Reviewed by me: Yes (sinus 60's) Hospitalist ROS - Medication Medications: Active Medications Generic Name Dose Route Start Last Admin Trade Name Stanislawq PRN Reason Stop Dose Admin Budesonide 0.5 mg 07/05/20 18:30 07/18/20 07:53 Pulmicort Neb Solution INH 0.5 mg BID-RT MERRILL Administration Enoxaparin Sodium 70 mg 07/04/20 21:00 07/18/20 08:12 Lovenox SC 70 mg 0900,2100 MERRILL Administration Famotidine 20 mg 07/13/20 21:00 07/18/20 08:13 Pepcid PER TUBE 20 mg BID MERRILL Administration Fentanyl 75 mcg 07/18/20 13:00 07/18/20 13:21 Duragesic TD 75 mcg Q3D MERRILL Administration Dexmedetomidine HCl 400 mcg/ 100 mls @ 0 mls/hr 07/11/20 11:00 07/18/20 15:14 Sodium Chloride IVPB 100 mls INF MERRILL Administration Protocol Titrate Fentanyl Citrate 2,000 mcg/ 100 mls @ 0 mls/hr 07/14/20 20:00 07/18/20 07:53 Sodium Chloride IV 100 mls INF MERRILL Administration Protocol Per Protocol Midazolam HCl 100 mls @ 0 mls/hr 07/16/20 13:15 07/17/20 19:12 Versed IVPB 100 mls INF MERRILL Administration Protocol Titrate Labetalol HCl 20 mg 07/04/20 20:20 07/16/20 10:55 Normodyne SLOW IVP 20 mg Q4H PRN Administration SBP > 160, use third Lorazepam 2 mg 07/15/20 15:45 07/16/20 09:04 Ativan SLOW IVP 2 mg Q6H PRN Administration Anxiety/Agitation Methylprednisolone Sodium Succinate 40 mg 07/17/20 18:00 07/18/20 05:50 Solu-Medrol IVP 40 mg 0600,1800 MERRILL Administration Metoprolol Tartrate 12.5 mg 07/17/20 09:00 07/18/20 08:13 Lopressor PER TUBE 12.5 mg BID MERRILL Administration Nicotine 14 mg 07/18/20 12:00 07/18/20 13:29 Nicoderm Patch TD 14 mg Q24HR MERRILL Administration Ondansetron HCl 4 mg 07/04/20 20:20 07/17/20 10:41 Zofran IVP 4 mg Q6H PRN Administration Nausea/Vomiting, use 1st Polyethylene Glycol 17 gm 07/10/20 13:27 07/14/20 10:15 Miralax PO 17 gm DAILYPRN PRN Administration Constipation Scopolamine 1.5 mg 07/04/20 20:30 07/16/20 20:30 Transderm Scop TD 1.5 mg Q3D MERRILL Administration Sodium Chloride 10 ml 07/04/20 21:00 07/18/20 08:13 Flush - Normal Saline IVF 10 ml Q12HR MERRILL Administration Sodium Chloride 10 ml 07/04/20 20:22 07/11/20 21:00 Flush - Normal Saline IVF 10 ml PRN PRN Administration Saline Flush Sterile Water 1.2 ml 07/17/20 08:39 07/17/20 09:24 Water For Injection FS 1.2 ml PRN PRN Administration RECONSTITUTION Ziprasidone 10 mg 07/17/20 09:00 07/18/20 08:12 Geodon IM 10 mg Q12HR MERRILL Administration - Exam General Appearance: NAD General - other findings: intubated, sedated Heart: RRR, no murmur Respiratory: no wheezes, no rales, no ronchi Gastrointestinal: soft, non-tender, non-distended, normal bowel sounds Extremities: no cyanosis, no clubbing Neurological - other findings: unable to assess Psychiatric - other findings: unable to assess Hosp A/P (1) ARDS (adult respiratory distress syndrome) Code(s): J80 - ACUTE RESPIRATORY DISTRESS SYNDROME Status: Acute (2) Acute respiratory failure with hypoxia Code(s): J96.01 - ACUTE RESPIRATORY FAILURE WITH HYPOXIA Status: Acute (3) COVID-19 virus infection Code(s): U07.1 - COVID-19 Status: Acute (4) Hematoma Code(s): T14.8XXA - OTHER INJURY OF UNSPECIFIED BODY REGION, INITIAL ENCOUNTER Status: Acute - Plan Acute respiratory failure with hypoxia - appreciate Pulmonology directing care - weaning from vent with possible extubation tomorrow - IV and inhaled steroids Hematoma RUE with presumed brachial vein occlusion - monitor for signs of vascular compromise - pt is already on full dose lovenox for presumed RUE DVT Elevated WBC count - surveillance cultures performed today PT/OT DVT prophy - on full dose lovenox due to COVID GI prophy - famotidine code status - full
[2020-07-19 04:28] LABS: Hemoglobin 9.5 g/dL (14.0-18.0); Hypochromia SLIGHT = 6-15 cells (100X) (0-5/hpf); Lymphocytes 2 % (21-51); MDiff Complete? YES; Mean Corpuscular HGB CONC 33.4 g/dL (32.0-36.0); Mean Corpuscular Hemoglobin 31.4 pg (27.0-31.0); Mean Corpuscular Volume 94.1 fL (78.0-98.0); Mean Platelet Volume 9.6 fL (7.4-10.4); Monocytes 2 % (0-10); Neutrophil 96 % (42-75); Platelet Count 143 thou/uL (130-400); Platelet Morphology Comment Appears Adequate; RBC Distribution Width 14.3 % (11.5-14.5); Red Blood Cell (RBC) Count 3.02 mill/uL (4.70-6.10); White Blood Cell (WBC) Count 22.5 thou/uL (4.8-10.8)
[2020-07-19 04:32] LABS: Anion Gap 13 mmol/L (10-20); BUN (Urea Nitrogen) 22 mg/dL (8.4-25.7); Calc. Creatinine Clearance 117 mL/min (70-130); Calcium 7.8 mg/dL (7.8-10.44); Carbon Dioxide 29 mmol/L (22-29); Chloride 99 mmol/L (98-107); Estimated GFR-MDRD Greater than 90; Glucose 116 mg/dL (70-105); Potassium 4.5 mmol/L (3.5-5.1); Sodium 136 mmol/L (136-145)
[2020-07-19] MEDS: methylPREDNISolone Sod Succ 40 MG VIAL IVP SCH ×2 (05:35→18:22)
[2020-07-19] MEDS: Budesonide 0.5 MG/2 ML NEB INH SCH ×2 (06:50→18:44)
[2020-07-19 07:07] LABS: Base Excess (BEa) 4.2 mEq/L (-2.0 to +3.0); CO2 Tension 44.3 mmHg (35.0-45.0); Calcium, Ionized (arterial) 1.11 mmol/L (1.12-1.30); Hemoglobin (Hb) 11.3 g/dL (14.0-18.0); O2 Tension (PaO2), arterial 66.3 mmHg (80.0-100.0); Potassium - ABG Lab 4.18 mmol/L (3.70-5.30); pH, Arterial 7.43 (7.35-7.45)
[2020-07-19 07:10] LABS: ALV-art Gradient 199.175 (0-20); Peep/CPAP 7.5 cmH2O; Puncture Site LRA
--- NOTE | 2020-07-19 08:00 | RAD ---
Chest AP view INDICATION: Pneumonia COMPARISON: Prior exam dated July 18, 2020 FINDINGS: Lungs: Bilateral airspace disease persists Cardiac silhouette: Mild cardiomegaly is stable. Pulmonary vasculature: Normal Pleural spaces: No pleural effusion or pneumothorax is demonstrated. Upper abdomen: Gastric catheter is unchanged. Osseous structures: No acute osseous abnormality. Additional findings: Subcutaneous emphysema involving the neck base and upper chest wall is stable. ET tube tip is unchanged. IMPRESSION: Stable exam.
[2020-07-19] MEDS ORDERED: Lorazepam 2 MG/ML VIAL SLOW IVP PRN (08:03)
--- NOTE | 2020-07-19 08:32 | PRG ---
DATE OF SERVICE: 07/19/2020 Thirty minutes of critical time. SUBJECTIVE: The patient remains intubated on mechanical ventilation. He will wake up and follow commands without limitation. OBJECTIVE: VITAL SIGNS: His temperature is 99.8, pulse 128, blood pressure 127/84. The 24-hour intake 2017, output 2230. HEENT: Unremarkable. NECK: No adenopathy or JVD. LUNGS: Fairly clear anteriorly. Has some subcu subcutaneous air, right upper lobe. ABDOMEN: Soft and nontender. CARDIAC: S1 and S2. Tachycardic. EXTREMITIES: No edema. LABORATORY DATA: White count 22.5, hematocrit 28.4, and platelet count 143. Sodium 136, potassium 4.5, chloride 99, CO2 of 29, BUN 22, creatinine 0.7, glucose 116. Ultrasound of the right arm showed a large hematoma. Cultures show no growth to date. Chest x-ray stable. ASSESSMENT: 1. COVID-19 pneumonia with acute respiratory failure requiring mechanical ventilation. 2. Right arm hematoma with anemia. PLAN: Just very borderline for extubation today. His heart rate is extremely fast, and I think we would probably be better off waiting until tomorrow before proceeding. We will discuss with the . Job ID: [id number]
[2020-07-19] MEDS: Metoprolol Tartrate 25 MG TAB PER TUBE SCH ×2 (09:11→22:28)
[2020-07-19] MEDS: Famotidine 20 MG TAB PER TUBE SCH ×2 (09:11→22:28)
[2020-07-19] MEDS: Ziprasidone 20 MG CAP PER TUBE SCH ×2 (09:12→22:28)
--- NOTE | 2020-07-19 09:29 | PDOC.HOSPP ---
- Subjective Encounter Date: 07/19/20 Encounter Time: 11:00 Subjective: Patient remains sedated on vent. Gets very anxious. Heart rate elevated this AM , better now in 110s. - Objective Vital Signs & Weight: Vital Signs (12 hours) Temp Pulse Resp BP 07/19/20 06:55 133 H 07/19/20 02:32 76 73/42 L 07/19/20 00:00 25 H 07/18/20 23:00 99.2 F 07/18/20 22:34 135 H 113/71 07/18/20 22:00 28 H Weight Admit Weight 169 lb Weight 163 lb 9.328 oz Most Recent Monitor Data Heart Rate from ECG 128 NIBP 127/84 NIBP BP-Mean 98 Respiration from ECG 20 SpO2 98 I&O: 07/18/20 07/19/20 07/20/20 06:59 06:59 06:59 Intake Total 2458.4 2217 Output Total 1735 2230 Balance 723.4 -13 Result Diagrams: 07/19/20 03:05 07/19/20 03:05 Hospitalist ROS - Review of Systems ROS unobtainable: due to endotracheal tube - Medication Medications: Active Medications Generic Name Dose Route Start Last Admin Trade Name Freq PRN Reason Stop Dose Admin Budesonide 0.5 mg 07/05/20 18:30 07/19/20 06:50 Pulmicort Neb Solution INH 0.5 mg BID-RT MERRILL Administration Enoxaparin Sodium 70 mg 07/04/20 21:00 07/18/20 21:54 Lovenox SC 70 mg 0900,2100 MERRILL Administration Famotidine 20 mg 07/13/20 21:00 07/19/20 09:11 Pepcid PER TUBE 20 mg BID MERRILL Administration Fentanyl 75 mcg 07/18/20 13:00 07/18/20 13:21 Duragesic TD 75 mcg Q3D MERRILL Administration Dexmedetomidine HCl 400 mcg/ 100 mls @ 0 mls/hr 07/11/20 11:00 07/18/20 21:56 Sodium Chloride IVPB 100 mls INF MERRILL Administration Protocol Titrate Fentanyl Citrate 2,000 mcg/ 100 mls @ 0 mls/hr 07/14/20 20:00 07/18/20 22:22 Sodium Chloride IV 100 mls INF MERRILL Administration Protocol Per Protocol Midazolam HCl 100 mls @ 0 mls/hr 07/16/20 13:15 07/19/20 00:30 Versed IVPB 100 mls INF MERRILL Administration Protocol Titrate Labetalol HCl 20 mg 07/04/20 20:20 07/16/20 10:55 Normodyne SLOW IVP 20 mg Q4H PRN Administration SBP > 160, use third Lorazepam 2 mg 07/15/20 15:45 07/16/20 09:04 Ativan SLOW IVP 2 mg Q6H PRN Administration Anxiety/Agitation Methylprednisolone Sodium Succinate 40 mg 07/17/20 18:00 07/19/20 05:35 Solu-Medrol IVP 40 mg 0600,1800 MERRILL Administration Metoprolol Tartrate 12.5 mg 07/17/20 09:00 07/19/20 09:11 Lopressor PER TUBE 12.5 mg BID MERRILL Administration Nicotine 14 mg 07/18/20 12:00 07/18/20 13:29 Nicoderm Patch TD 14 mg Q24HR MERRILL Administration Ondansetron HCl 4 mg 07/04/20 20:20 07/17/20 10:41 Zofran IVP 4 mg Q6H PRN Administration Nausea/Vomiting, use 1st Polyethylene Glycol 17 gm 07/10/20 13:27 07/14/20 10:15 Miralax PO 17 gm DAILYPRN PRN Administration Constipation Scopolamine 1.5 mg 07/04/20 20:30 07/16/20 20:30 Transderm Scop TD 1.5 mg Q3D MERRILL Administration Sodium Chloride 10 ml 07/04/20 21:00 07/19/20 09:12 Flush - Normal Saline IVF 10 ml Q12HR MERRILL Administration Sodium Chloride 10 ml 07/04/20 20:22 07/11/20 21:00 Flush - Normal Saline IVF 10 ml PRN PRN Administration Saline Flush Sterile Water 1.2 ml 07/17/20 08:39 07/17/20 09:24 Water For Injection FS 1.2 ml PRN PRN Administration RECONSTITUTION Ziprasidone 20 mg 07/19/20 09:00 07/19/20 09:12 Geodon PER TUBE 20 mg BID MERRILL Administration - Exam General Appearance: NAD ENT: moist mucosa Heart: no murmur, no gallops, no rubs Heart - other findings: tachycardic Respiratory: CTAB, no wheezes, no rales, no ronchi Gastrointestinal: soft, non-tender, non-distended, normal bowel sounds Extremities: no edema Psychiatric - other findings: sedated on vent Hosp A/P (1) Pneumonia due to COVID-19 virus Code(s): U07.1 - COVID-19; J12.89 - OTHER VIRAL PNEUMONIA Status: Acute (2) ARDS (adult respiratory distress syndrome) Code(s): J80 - ACUTE RESPIRATORY DISTRESS SYNDROME Status: Acute (3) Acute respiratory failure with hypoxia Code(s): J96.01 - ACUTE RESPIRATORY FAILURE WITH HYPOXIA Status: Acute (4) Hematoma Code(s): T14.8XXA - OTHER INJURY OF UNSPECIFIED BODY REGION, INITIAL ENCOUNTER Status: Acute (5) Anxiety Code(s): F41.9 - ANXIETY DISORDER, UNSPECIFIED Status: Chronic - Plan Acute respiratory failure with hypoxia - appreciate Pulmonology directing care - weaning from vent, holding extubation due to tachycardia, possibly tomorrow - IV and inhaled steroids - off Covid-19 precautions due to length of stay Hematoma RUE with presumed brachial vein occlusion - monitor for signs of vascular compromise - pt is already on full dose lovenox for presumed RUE DVT - Hgb dropped to 9 today, monitor closely Elevated WBC count - surveillance cultures performed 07/18/2020 - Likely due to steroids PT/OT DVT prophy - on full dose lovenox due to COVID GI prophy - famotidine code status - full
[2020-07-19] MEDS: Ondansetron PF 4 MG/2 ML Vial IVP PRN (12:26)
[2020-07-19] MEDS: Nicotine 14 MG PATCH TD SCH (12:29)
[2020-07-19] MEDS: fentaNYL Citrate/PF 2,000 MCG in Sodium Chloride 0.9% 60 ML IV SCH (14:56)
[2020-07-19] MEDS: Scopolamine 1.5 mg/72 hour Patch TD SCH (22:27)
[2020-07-19] MEDS: Labetalol HCl 100 MG/20 ML VIAL SLOW IVP PRN (22:28)
[2020-07-20 03:33] LABS: Band 8 % (5-11); Hemoglobin 9.8 g/dL (14.0-18.0); MDiff Complete? YES; Mean Corpuscular HGB CONC 32.6 g/dL (32.0-36.0); Mean Corpuscular Hemoglobin 30.9 pg (27.0-31.0); Mean Corpuscular Volume 94.6 fL (78.0-98.0); Mean Platelet Volume 8.4 fL (7.4-10.4); Monocytes 1 % (0-10); Neutrophil 91 % (42-75); Platelet Count 171 thou/uL (130-400); Platelet Morphology Comment Appears Adequate; RBC Distribution Width 14.3 % (11.5-14.5); Red Blood Cell (RBC) Count 3.19 mill/uL (4.70-6.10); White Blood Cell (WBC) Count 25.8 thou/uL (4.8-10.8)
[2020-07-20 03:49] LABS: Anion Gap 12 mmol/L (10-20); BUN (Urea Nitrogen) 20 mg/dL (8.4-25.7); Calc. Creatinine Clearance 134 mL/min (70-130); Calcium 8.4 mg/dL (7.8-10.44); Carbon Dioxide 31 mmol/L (22-29); Chloride 98 mmol/L (98-107); Estimated GFR-MDRD Greater than 90; Glucose 133 mg/dL (70-105); Potassium 4.5 mmol/L (3.5-5.1); Sodium 136 mmol/L (136-145)
[2020-07-20] MEDS: methylPREDNISolone Sod Succ 40 MG VIAL IVP SCH ×2 (05:15→18:54)
--- NOTE | 2020-07-20 07:03 | RAD ---
CHEST 1 VIEW: Date: 07/20/2020 INDICATION: History of pneumonia. COMPARISON: Prior exam dated 07/19/2020. IMPRESSION: Bilateral air space disease, ET tube, and gastric catheter are unchanged. No pneumothorax is evident. Chest wall emphysema and neck/face emphysema is stable. Mild cardiomegaly is similar. POS: BH
[2020-07-20] MEDS: Budesonide 0.5 MG/2 ML NEB INH SCH ×2 (07:04→18:56)
[2020-07-20 07:14] LABS: Base Excess (BEa) 5.3 mEq/L (-2.0 to +3.0); CO2 Tension 59.1 mmHg (35.0-45.0); Calcium, Ionized (arterial) 1.15 mmol/L (1.12-1.30); Carboxyhemoglobin (COHb) 0.8 gm% (0.0-3.0); Hemoglobin (Hb) 9.4 g/dL (14.0-18.0); O2 Tension (PaO2), arterial 64.7 mmHg (80.0-100.0); pH, Arterial 7.35 (7.35-7.45)
[2020-07-20 07:16] LABS: Puncture Site RRA
[2020-07-20 07:17] LABS: ALV-art Gradient 182.275 (0-20)
--- NOTE | 2020-07-20 08:25 | PRG ---
DATE OF SERVICE: 07/20/2020 TIME SPENT: 35 minutes critical time. SUBJECTIVE: Awais is doing well this morning. He has been on spontaneous breathing for several days now. OBJECTIVE: VITAL SIGNS: Temperature 99.7, pulse 116, blood pressure 153/91, 24-hour intake 2750, output 2530. HEENT: Unremarkable. NECK: No JVD. CHEST: Fairly clear anteriorly. CARDIOVASCULAR: S1 and S2. Regular. ABDOMEN: Soft. EXTREMITIES: No edema. LABORATORY DATA: Sodium 136, potassium 4.5, chloride 98, CO2 of 31, BUN 20, creatinine 0.6, and glucose 133. White blood count 25.8, hematocrit 30.2, and platelet count 171. IMAGING: Chest x-ray shows no significant change. ASSESSMENT: 1. Acute respiratory failure requiring mechanical ventilation. 2. COVID-19 pneumonia. 3. Right arm hematoma with anemia. PLAN: 1. Extubation trial. 2. Holding anticoagulation temporarily until the right arm situation is better. 3. Continue IV steroids. 4. Continue the fentanyl patch as I am concerned about narcotic withdrawal given the duration that he has been on a fentanyl drip. 5. P.r.n. Ativan as I am worried about benzo withdrawal given the duration that he has been on . Job ID: [id number]
[2020-07-20] MEDS: Metoprolol Tartrate 25 MG TAB PER TUBE SCH ×2 (09:00→20:33)
[2020-07-20] MEDS: Famotidine 20 MG TAB PER TUBE SCH ×2 (09:00→20:32)
--- NOTE | 2020-07-20 11:15 | PDOC.HOSPP ---
- Subjective Encounter Date: 07/20/20 Encounter Time: 11:30 Subjective: Patient extubated this AM. Did have some initial desating. Improved with repositioning and then with placement of high flow O2 at 70%. Patient is much happier, starting to try to talk though very hoarse, and eager to start moving around. - Objective Vital Signs & Weight: Vital Signs (12 hours) Temp Pulse Resp BP Pulse Ox 07/20/20 08:09 102 H 21 H 96 07/20/20 07:10 88 07/20/20 06:00 12 07/20/20 04:00 99.7 F H 07/20/20 02:43 110 H 102/66 07/20/20 02:00 13 07/20/20 00:00 13 Weight Admit Weight 169 lb Weight 163 lb 9.328 oz Most Recent Monitor Data Heart Rate from ECG 116 NIBP 153/91 NIBP BP-Mean 111 Respiration from ECG 19 SpO2 91 I&O: 07/19/20 07/20/20 07/21/20 06:59 06:59 06:59 Intake Total 2217 2750 Output Total 2230 2530 Balance -13 220 Result Diagrams: 07/20/20 03:07 07/20/20 03:07 Hospitalist ROS - Review of Systems Constitutional: denies: fever Respiratory: denies: cough, shortness of breath Cardiovascular: denies: chest pain, palpitations Gastrointestinal: denies: nausea, vomiting, abdominal pain - Medication Medications: Active Medications Generic Name Dose Route Start Last Admin Trade Name Freq PRN Reason Stop Dose Admin Budesonide 0.5 mg 07/05/20 18:30 07/20/20 07:04 Pulmicort Neb Solution INH 0.5 mg BID-RT MERRILL Administration Enoxaparin Sodium 70 mg 07/04/20 21:00 07/18/20 21:54 Lovenox SC 70 mg 0900,2100 MERRILL Administration Famotidine 20 mg 07/13/20 21:00 07/19/20 22:28 Pepcid PER TUBE 20 mg BID MERRILL Administration Fentanyl 75 mcg 07/18/20 13:00 07/18/20 13:21 Duragesic TD 75 mcg Q3D MERRILL Administration Dexmedetomidine HCl 400 mcg/ 100 mls @ 0 mls/hr 07/11/20 11:00 07/19/20 12:26 Sodium Chloride IVPB 100 mls INF MERRILL Administration Protocol Titrate Labetalol HCl 20 mg 07/04/20 20:20 07/19/20 22:28 Normodyne SLOW IVP 20 mg Q4H PRN Administration SBP > 160, use third Methylprednisolone Sodium Succinate 40 mg 07/17/20 18:00 07/20/20 05:15 Solu-Medrol IVP 40 mg 0600,1800 MERRILL Administration Metoprolol Tartrate 12.5 mg 07/17/20 09:00 07/19/20 22:28 Lopressor PER TUBE 12.5 mg BID MERRILL Administration Nicotine 14 mg 07/18/20 12:00 07/19/20 12:29 Nicoderm Patch TD 14 mg Q24HR MERRILL Administration Ondansetron HCl 4 mg 07/04/20 20:20 07/19/20 12:26 Zofran IVP 4 mg Q6H PRN Administration Nausea/Vomiting, use 1st Polyethylene Glycol 17 gm 07/10/20 13:27 07/14/20 10:15 Miralax PO 17 gm DAILYPRN PRN Administration Constipation Scopolamine 1.5 mg 07/04/20 20:30 07/19/20 22:27 Transderm Scop TD 1.5 mg Q3D MERRILL Administration Sodium Chloride 10 ml 07/04/20 21:00 07/19/20 22:28 Flush - Normal Saline IVF 10 ml Q12HR MERRILL Administration Sodium Chloride 10 ml 07/04/20 20:22 07/11/20 21:00 Flush - Normal Saline IVF 10 ml PRN PRN Administration Saline Flush Sterile Water 1.2 ml 07/17/20 08:39 07/17/20 09:24 Water For Injection FS 1.2 ml PRN PRN Administration RECONSTITUTION - Exam General Appearance: NAD, awake alert ENT: moist mucosa ENT - other findings: high flow nasal canula O2 Heart: RRR, no murmur, no gallops, no rubs Respiratory: CTAB, no wheezes, no rales, no ronchi Gastrointestinal: soft, non-tender, non-distended, normal bowel sounds Psychiatric: normal affect, normal behavior Hosp A/P (1) Pneumonia due to COVID-19 virus Code(s): U07.1 - COVID-19; J12.89 - OTHER VIRAL PNEUMONIA Status: Acute (2) ARDS (adult respiratory distress syndrome) Code(s): J80 - ACUTE RESPIRATORY DISTRESS SYNDROME Status: Acute (3) Acute respiratory failure with hypoxia Code(s): J96.01 - ACUTE RESPIRATORY FAILURE WITH HYPOXIA Status: Acute (4) Hematoma Code(s): T14.8XXA - OTHER INJURY OF UNSPECIFIED BODY REGION, INITIAL ENCOUNTER Status: Acute (5) Anxiety Code(s): F41.9 - ANXIETY DISORDER, UNSPECIFIED Status: Chronic - Plan Acute respiratory failure with hypoxia - appreciate Pulmonology directing care - successfully extubated and on high flow NC O2 - IV and inhaled steroids - off Covid-19 precautions due to length of stay Hematoma RUE with presumed brachial vein occlusion - monitor for signs of vascular compromise - pt is already on full dose lovenox for presumed RUE DVT - Hgb dropped to 9, stable there today Elevated WBC count - surveillance cultures performed 07/18/2020- all negative - Likely due to steroids PT/OT DVT prophy - on full dose lovenox due to COVID GI prophy - famotidine code status - full
[2020-07-20] MEDS: Nicotine 14 MG PATCH TD SCH ×2 (12:00→15:06)
[2020-07-21 03:41] LABS: Anion Gap 14 mmol/L (10-20); BUN (Urea Nitrogen) 20 mg/dL (8.4-25.7); Calc. Creatinine Clearance 136 mL/min (70-130); Carbon Dioxide 27 mmol/L (22-29); Chloride 100 mmol/L (98-107); Estimated GFR-MDRD Greater than 90; Glucose 114 mg/dL (70-105); Potassium 5.1 mmol/L (3.5-5.1); Sodium 136 mmol/L (136-145)
[2020-07-21] MEDS: methylPREDNISolone Sod Succ 40 MG VIAL IVP SCH ×2 (06:24→17:57)
[2020-07-21 06:27] LABS: Hemoglobin 10.2 g/dL (14.0-18.0); Hypochromia SLIGHT = 6-15 cells (100X) (0-5/hpf); Lymphocytes 9 % (21-51); MDiff Complete? YES; Mean Corpuscular HGB CONC 31.9 g/dL (32.0-36.0); Mean Corpuscular Hemoglobin 30.8 pg (27.0-31.0); Mean Corpuscular Volume 96.6 fL (78.0-98.0); Mean Platelet Volume 8.9 fL (7.4-10.4); Monocytes 1 % (0-10); Neutrophil 90 % (42-75); Platelet Count 161 thou/uL (130-400); Platelet Morphology Comment Appears Adequate; RBC Distribution Width 14.4 % (11.5-14.5); Red Blood Cell (RBC) Count 3.32 mill/uL (4.70-6.10); White Blood Cell (WBC) Count 17.1 thou/uL (4.8-10.8)
[2020-07-21] MEDS: Budesonide 0.5 MG/2 ML NEB INH SCH ×2 (07:42→18:42)
--- NOTE | 2020-07-21 08:05 | PRG ---
DATE OF SERVICE: 07/21/2020 SUBJECTIVE: The patient remains in the ICU. He was extubated yesterday, but is extremely weak. OBJECTIVE: VITAL SIGNS: His temperature is 98.2, pulse 71, blood pressure 117/74, O2 saturation generally in the high 90s to 100% on BiPAP. He did do some high-flow nasal cannula yesterday as being put back on high-flow this morning. 24-hour intake was 925, output 2420. HEENT: Dry oral mucous secretions. NECK: No JVD. LUNGS: Few crackles. CARDIAC: S1 and S2. Regular. ABDOMEN: Soft. EXTREMITIES: No edema. LABORATORY DATA: Sodium 136, potassium 5.1, chloride 100, CO2 of 27, BUN 20, creatinine 0.6, and glucose 114. White blood cell count 17.1, hematocrit 32, and platelet count 161. ASSESSMENT: 1. COVID-19 pneumonia. 2. Status post respiratory failure requiring mechanical ventilation. 3. Right arm hematoma with anemia. PLAN: 1. We will try to back off on some of his sedation including weaning the Precedex off. 2. Reduce the dose of the fentanyl patch. 3. Reduce the dose of the p.r.n. Ativan. 4. Continue physical therapy and occupational therapy. 5. Stop scopolamine patch. 6. Continue steroids. 7. Leave the ICU. Job ID: [id number]
[2020-07-21] MEDS: Enoxaparin Sodium 80 MG/0.8 ML SYRINGE SC SCH ×2 (08:35→20:51)
[2020-07-21] MEDS: Metoprolol Tartrate 25 MG TAB PER TUBE SCH ×2 (08:52→19:41)
[2020-07-21] MEDS: Famotidine 20 MG TAB PER TUBE SCH (08:52)
--- NOTE | 2020-07-21 09:38 | PDOC.HOSPP ---
- Subjective Encounter Date: 07/21/20 Encounter Time: 11:30 non-verbal Subjective: Patient very tired from doing PT and OT in a row this AM. No return of voice yet. - Objective Vital Signs & Weight: Vital Signs (12 hours) Temp Pulse Resp Pulse Ox 07/21/20 07:54 100 07/21/20 07:43 100 07/21/20 07:42 72 17 100 07/21/20 04:00 98.2 F 07/21/20 02:28 66 07/21/20 00:00 98.1 F Weight Admit Weight 169 lb Weight 163 lb 9.328 oz Most Recent Monitor Data Heart Rate from ECG 81 NIBP 130/56 NIBP BP-Mean 80 Respiration from ECG 21 SpO2 93 I&O: 07/20/20 07/21/20 07/22/20 06:59 06:59 06:59 Intake Total 2750 925.1 Output Total 2530 2420 185 Balance 220 -1494.9 -185 Result Diagrams: 07/21/20 05:44 07/21/20 03:15 Hospitalist ROS - Review of Systems ROS unobtainable: due to mental status - Medication Medications: Active Medications Generic Name Dose Route Start Last Admin Trade Name Freq PRN Reason Stop Dose Admin Budesonide 0.5 mg 07/05/20 18:30 07/21/20 07:42 Pulmicort Neb Solution INH 0.5 mg BID-RT MERRILL Administration Enoxaparin Sodium 70 mg 07/04/20 21:00 07/21/20 08:35 Lovenox SC 70 mg 0900,2100 MERRILL Administration Famotidine 20 mg 07/13/20 21:00 07/21/20 08:52 Pepcid PER TUBE Not Given BID MERRILL Fentanyl 25 mcg 07/21/20 07:43 07/21/20 08:36 Duragesic TD 25 mcg Q3D MERRILL Administration Dexmedetomidine HCl 400 mcg/ 100 mls @ 0 mls/hr 07/11/20 11:00 07/20/20 21:16 Sodium Chloride IVPB 100 mls INF MERRILL Administration Protocol Titrate Labetalol HCl 20 mg 07/04/20 20:20 07/19/20 22:28 Normodyne SLOW IVP 20 mg Q4H PRN Administration SBP > 160, use third Methylprednisolone Sodium Succinate 40 mg 07/17/20 18:00 07/21/20 06:24 Solu-Medrol IVP 40 mg 0600,1800 MERRILL Administration Metoprolol Tartrate 12.5 mg 07/17/20 09:00 07/21/20 08:52 Lopressor PER TUBE Not Given BID MERRILL Nicotine 14 mg 07/18/20 12:00 07/20/20 15:06 Nicoderm Patch TD 14 mg Q24HR MERRILL Administration Ondansetron HCl 4 mg 07/04/20 20:20 07/19/20 12:26 Zofran IVP 4 mg Q6H PRN Administration Nausea/Vomiting, use 1st Polyethylene Glycol 17 gm 07/10/20 13:27 07/14/20 10:15 Miralax PO 17 gm DAILYPRN PRN Administration Constipation Sodium Chloride 10 ml 07/04/20 21:00 07/21/20 08:41 Flush - Normal Saline IVF 10 ml Q12HR MERRILL Administration Sodium Chloride 10 ml 07/04/20 20:22 07/11/20 21:00 Flush - Normal Saline IVF 10 ml PRN PRN Administration Saline Flush Sterile Water 1.2 ml 07/17/20 08:39 07/17/20 09:24 Water For Injection FS 1.2 ml PRN PRN Administration RECONSTITUTION - Exam General Appearance: NAD General - other findings: sleepy but arousable ENT: moist mucosa Heart: RRR, no murmur, no gallops, no rubs Respiratory: CTAB, no wheezes, no rales, no ronchi Gastrointestinal: soft, non-tender, non-distended, normal bowel sounds Psychiatric: normal affect, normal behavior Hosp A/P (1) Pneumonia due to COVID-19 virus Code(s): U07.1 - COVID-19; J12.89 - OTHER VIRAL PNEUMONIA Status: Acute (2) ARDS (adult respiratory distress syndrome) Code(s): J80 - ACUTE RESPIRATORY DISTRESS SYNDROME Status: Acute (3) Acute respiratory failure with hypoxia Code(s): J96.01 - ACUTE RESPIRATORY FAILURE WITH HYPOXIA Status: Acute (4) Hematoma Code(s): T14.8XXA - OTHER INJURY OF UNSPECIFIED BODY REGION, INITIAL ENCOUNTER Status: Acute (5) Anxiety Code(s): F41.9 - ANXIETY DISORDER, UNSPECIFIED Status: Chronic - Plan Acute respiratory failure with hypoxia - appreciate Pulmonology directing care - successfully extubated and on high flow NC O2 - IV and inhaled steroids - off Covid-19 precautions due to length of stay Hematoma RUE with presumed brachial vein occlusion - monitor for signs of vascular compromise - pt is already on full dose lovenox for presumed RUE DVT - Hgb dropped to 9, stable past few days Elevated WBC count - surveillance cultures performed 07/18/2020- all negative - Likely due to steroids - improved to 17,000 today PT/OT DVT prophy - on full dose lovenox due to COVID GI prophy - famotidine code status - full
[2020-07-21] MEDS ORDERED: Famotidine/PF 20 mg/2ml Vial SLOW IVP SCH (10:00)
[2020-07-21] MEDS: Nicotine 14 MG PATCH TD SCH (11:57)
[2020-07-21] MEDS: Labetalol HCl 100 MG/20 ML VIAL SLOW IVP PRN (18:09)
[2020-07-21] MEDS: Famotidine/PF 20 mg/2ml Vial SLOW IVP SCH (20:51)
[2020-07-22] MEDS: methylPREDNISolone Sod Succ 40 MG VIAL IVP SCH ×2 (05:58→18:42)
[2020-07-22] MEDS: Budesonide 0.5 MG/2 ML NEB INH SCH ×2 (07:47→18:46)
[2020-07-22 08:09] LABS: Hemoglobin 10.6 g/dL (14.0-18.0); Mean Corpuscular HGB CONC 32.2 g/dL (32.0-36.0); Mean Corpuscular Hemoglobin 31.2 pg (27.0-31.0); Mean Corpuscular Volume 97.1 fL (78.0-98.0); Mean Platelet Volume 8.2 fL (7.4-10.4); Platelet Count 233 thou/uL (130-400); RBC Distribution Width 14.6 % (11.5-14.5); White Blood Cell (WBC) Count 19.7 thou/uL (4.8-10.8)
[2020-07-22 08:12] LABS: Band 1 % (5-11); Eosinophils 2 % (0-10); Lymphocytes 6 % (21-51); MDiff Complete? YES; Monocytes 2 % (0-10); Neutrophil 88 % (42-75); Platelet Morphology Comment Appears Adequate; Polychromasia SLIGHT = 2-3 cells (100X) (0-2/hpf); Reactive Lymphocytes 1 % (0-10)
--- NOTE | 2020-07-22 08:14 | PRG ---
DATE OF SERVICE: 07/22/2020 SUBJECTIVE: The patient remains alternating between BiPAP and high-flow oxygen. He is much more awake and alert today. Does not appear to be in any distress. OBJECTIVE: VITAL SIGNS: On exam, his O2 saturations in the mid 90s, heart rate 96, blood pressure 146/70. He has had no fever. Intake 347, output 1585. HEENT: Unremarkable. NECK: No adenopathy or JVD. LUNGS: Clear anteriorly. CARDIAC: S1 and S2. Regular. ABDOMEN: Soft. EXTREMITIES: No edema except for the right arm hematoma. LABORATORY DATA: White blood cell count 17.1, hematocrit 32, and platelet count 161. Sodium 136, potassium 5.1, chloride 100, CO2 of 27, BUN 20, creatinine 0.6, and glucose 114. ASSESSMENT: 1. Status post acute respiratory failure requiring mechanical ventilation. 2. Status post COVID-19 pneumonia. PLAN: 1. Continue wean oxygen as tolerated. 2. Leave in ICU for the time being. 3. Continue PT. 4. Advance diet if okay with Speech. Job ID: [id number]
[2020-07-22 08:16] LABS: Anion Gap 15 mmol/L (10-20); BUN (Urea Nitrogen) 18 mg/dL (8.4-25.7); Calc. Creatinine Clearance 146 mL/min (70-130); Calcium 8.6 mg/dL (7.8-10.44); Carbon Dioxide 28 mmol/L (22-29); Chloride 98 mmol/L (98-107); Estimated GFR-MDRD Greater than 90; Glucose 102 mg/dL (70-105); Potassium 4.2 mmol/L (3.5-5.1); Sodium 137 mmol/L (136-145)
[2020-07-22] MEDS: Metoprolol Tartrate 25 MG TAB PER TUBE SCH ×2 (10:12→20:05)
--- NOTE | 2020-07-22 10:26 | PDOC.HOSPP ---
- Subjective Encounter Date: 07/22/20 Encounter Time: 11:00 Subjective: Patient on Bipap overnight, now on nasal cannula high flow and sating well without tachycardia, not quite as tired after PT as yesterday. Able to talk better. Refused his po meds this morning saying "I'm better now." is coming in at noon and will try to help us talk him in to taking them. - Objective Vital Signs & Weight: Vital Signs (12 hours) Pulse Resp Pulse Ox 07/22/20 08:00 99 07/22/20 07:49 92 L 07/22/20 07:47 92 22 H 93 L 07/22/20 02:25 99 07/22/20 00:32 83 Weight Admit Weight 169 lb Weight 163 lb 9.328 oz Most Recent Monitor Data Heart Rate from ECG 102 NIBP 153/91 NIBP BP-Mean 111 Respiration from ECG 22 SpO2 100 I&O: 07/21/20 07/22/20 07/23/20 06:59 06:59 06:59 Intake Total 925.1 347.5 Output Total 2420 1585 280 Balance -1494.9 -1237.5 -280 Result Diagrams: 07/22/20 07:27 07/22/20 07:27 Hospitalist ROS - Review of Systems Constitutional: denies: fever, chills Respiratory: denies: cough, shortness of breath Cardiovascular: denies: chest pain Gastrointestinal: denies: nausea, vomiting, abdominal pain - Medication Medications: Active Medications Generic Name Dose Route Start Last Admin Trade Name Freq PRN Reason Stop Dose Admin Budesonide 0.5 mg 07/05/20 18:30 07/22/20 07:47 Pulmicort Neb Solution INH 0.5 mg BID-RT MERRILL Administration Enoxaparin Sodium 70 mg 07/04/20 21:00 07/21/20 20:51 Lovenox SC 70 mg 0900,2100 MERRILL Administration Famotidine 20 mg 07/21/20 21:00 07/21/20 20:51 Pepcid SLOW IVP 20 mg BID MERRILL Administration Fentanyl 25 mcg 07/21/20 07:43 07/21/20 08:36 Duragesic TD 25 mcg Q3D MERRILL Administration Labetalol HCl 20 mg 07/04/20 20:20 07/21/20 18:09 Normodyne SLOW IVP 20 mg Q4H PRN Administration SBP > 160, use third Metoprolol Tartrate 12.5 mg 07/17/20 09:00 07/22/20 10:12 Lopressor PER TUBE Not Given BID MERRILL Nicotine 14 mg 07/18/20 12:00 07/21/20 11:57 Nicoderm Patch TD 14 mg Q24HR MERRILL Administration Ondansetron HCl 4 mg 07/04/20 20:20 07/19/20 12:26 Zofran IVP 4 mg Q6H PRN Administration Nausea/Vomiting, use 1st Polyethylene Glycol 17 gm 07/10/20 13:27 07/14/20 10:15 Miralax PO 17 gm DAILYPRN PRN Administration Constipation Sodium Chloride 10 ml 07/04/20 21:00 07/21/20 20:51 Flush - Normal Saline IVF 10 ml Q12HR MERRILL Administration Sodium Chloride 10 ml 07/04/20 20:22 07/11/20 21:00 Flush - Normal Saline IVF 10 ml PRN PRN Administration Saline Flush Sterile Water 1.2 ml 07/17/20 08:39 07/17/20 09:24 Water For Injection FS 1.2 ml PRN PRN Administration RECONSTITUTION - Exam General Appearance: NAD, awake alert ENT: moist mucosa Heart: RRR, no murmur, no gallops, no rubs Respiratory: CTAB, no wheezes, no rales, no ronchi Gastrointestinal: soft, non-tender, non-distended, normal bowel sounds Neurological - other findings: very hoarse but easiler to understand than 2 days ago Psychiatric: normal affect, normal behavior Hosp A/P (1) Pneumonia due to COVID-19 virus Code(s): U07.1 - COVID-19; J12.89 - OTHER VIRAL PNEUMONIA Status: Acute (2) ARDS (adult respiratory distress syndrome) Code(s): J80 - ACUTE RESPIRATORY DISTRESS SYNDROME Status: Acute (3) Acute respiratory failure with hypoxia Code(s): J96.01 - ACUTE RESPIRATORY FAILURE WITH HYPOXIA Status: Acute (4) Hematoma Code(s): T14.8XXA - OTHER INJURY OF UNSPECIFIED BODY REGION, INITIAL ENCOUNTER Status: Acute (5) Anxiety Code(s): F41.9 - ANXIETY DISORDER, UNSPECIFIED Status: Chronic - Plan Acute respiratory failure with hypoxia - appreciate Pulmonology directing care - successfully extubated and on high flow NC O2, alternating with Bipap when tires out - IV and inhaled steroids - off Covid-19 precautions due to length of stay Hematoma RUE with presumed brachial vein occlusion - monitor for signs of vascular compromise - pt is already on full dose lovenox for presumed RUE DVT - Hgb dropped to 9, now stable at 10 for the past couple days Elevated WBC count - surveillance cultures performed 07/18/2020- all negative - Likely due to steroids - improved, at 19,000 today PT/OT DVT prophy - on full dose lovenox due to COVID GI prophy - famotidine code status - full
[2020-07-22] MEDS: Enoxaparin Sodium 80 MG/0.8 ML SYRINGE SC SCH ×2 (12:54→20:06)
[2020-07-22] MEDS: Famotidine/PF 20 mg/2ml Vial SLOW IVP SCH ×2 (12:55→20:06)
[2020-07-22] MEDS: Nicotine 14 MG PATCH TD SCH (13:34)
--- NOTE | 2020-07-22 16:13 | RAD ---
Exam: 1 view abdomen HISTORY: Confirm Dobbhoff feeding tube placement FINDINGS: Nonspecific bowel gas pattern. No pneumoperitoneum on this supine projection. Dobbhoff feed ing tube curls upon itself in terminates in the gastric cardia. Repositioning and advancement is recommended No acute osseous abnormalities IMPRESSION: Dobbhoff feeding tube positioning as above. Repositioning and advancement is recommended.
--- NOTE | 2020-07-22 16:46 | RAD ---
Radiograph abdomen one view: DATE: 07/22/2020 Time: 4:36 PM HISTORY: 59-year-old male status post repositioning of Dobbhoff feeding tube. COMPARISON: 07/22/2020 3:54 PM FINDINGS: Dobbhoff feeding tube continues to be curled in the fundus of the stomach, with distal tip directed m edially, at or near the cardia. Normal bowel gas pattern. No interval change. IMPRESSION: No interval change in position of Dobbhoff feeding tube in the proximal stomach.
[2020-07-22] MEDS: Lorazepam 2 MG/ML VIAL SLOW IVP PRN (20:04)
[2020-07-23] MEDS: Lorazepam 2 MG/ML VIAL SLOW IVP PRN ×2 (01:38→14:44)
[2020-07-23] MEDS: methylPREDNISolone Sod Succ 40 MG VIAL IVP SCH ×2 (05:18→18:16)
[2020-07-23 05:43] LABS: Anion Gap 13 mmol/L (10-20); BUN (Urea Nitrogen) 19 mg/dL (8.4-25.7); Calc. Creatinine Clearance 130 mL/min (70-130); Calcium 8.8 mg/dL (7.8-10.44); Carbon Dioxide 31 mmol/L (22-29); Chloride 98 mmol/L (98-107); Estimated GFR-MDRD Greater than 90; Glucose 130 mg/dL (70-105); Potassium 4.1 mmol/L (3.5-5.1); Sodium 138 mmol/L (136-145)
[2020-07-23 06:19] LABS: Band 5 % (5-11); Hemoglobin 10.8 g/dL (14.0-18.0); Lymphocytes 3 % (21-51); MDiff Complete? YES; Mean Corpuscular HGB CONC 32.1 g/dL (32.0-36.0); Mean Corpuscular Hemoglobin 30.8 pg (27.0-31.0); Mean Corpuscular Volume 96.1 fL (78.0-98.0); Mean Platelet Volume 8.7 fL (7.4-10.4); Monocytes 2 % (0-10); Neutrophil 90 % (42-75); Platelet Count 222 thou/uL (130-400); RBC Distribution Width 14.9 % (11.5-14.5); Red Blood Cell (RBC) Count 3.51 mill/uL (4.70-6.10); White Blood Cell (WBC) Count 21.3 thou/uL (4.8-10.8)
[2020-07-23] MEDS: Budesonide 0.5 MG/2 ML NEB INH SCH ×2 (06:59→18:18)
[2020-07-23] MEDS: Metoprolol Tartrate 25 MG TAB PER TUBE SCH ×2 (07:40→20:30)
--- NOTE | 2020-07-23 07:56 | RAD ---
RADIOGRAPH CHEST 1 VIEW: DATE: 07/23/2020 TIME: 7:34 AM HISTORY: 59-year-old male with tachypnea and tachycardia COMPARISON: 07/18/2020 FINDINGS: Endotracheal tube has been removed. Nasogastric tube has been removed. There is a new Dobbhoff feeding tube with distal tip curled in the body and fundus of the stomach, di stal tip pointed towards the cardia. Subcutaneous emphysema in the neck, including supraclavicular regions, remains. No pneumothorax. Diffuse mild interstitial densities of the lungs, left greater than right, unchanged. No cardiomegaly. IMPRESSION: 1) status post extubation. 2) exchange of esophagogastric tube for Dobbhoff feeding tube. 3) no other interval change. 4) subcutaneous emphysema in neck. 5) mild interstitial changes, greatest at the bases, especially the left, unchanged,
--- NOTE | 2020-07-23 07:57 | PRG ---
DATE OF SERVICE: 07/23/2020 SUBJECTIVE: The patient remains in the ICU. He had to go back on BiPAP last night. He is more tachypneic this morning than he has been. OBJECTIVE: VITAL SIGNS: Temperature 98.8, pulse is in the 130s, blood pressure 158/86, O2 saturation 95%. 24-hour intake is 813, output 2075. HEENT: Unremarkable. NECK: No adenopathy or JVD. LUNGS: Coarse breath sounds. CARDIOVASCULAR: S1 and S2. Tachycardic sinus. ABDOMEN: Soft. EXTREMITIES: No edema. LABORATORY DATA: Sodium 138, potassium 4.1, chloride 98, CO2 of 31, BUN 19, creatinine 0.6, glucose 130. White blood cell count 21.3, hematocrit 33.7, and platelet count 221. Chest x-ray is pending. ASSESSMENT: 1. COVID-19 pneumonia. 2. Status post prolonged mechanical ventilation with extubation earlier this week. 3. Worsening tachypnea, now requiring noninvasive ventilation. PLAN: 1. Continue enteral tube feeds. Continue BiPAP. 2. Chest x-ray from today. 3. Continue to monitor daily labs. 4. Increase steroids. Job ID: [id number]
[2020-07-23] MEDS ORDERED: methylPREDNISolone Sod Succ 40 MG VIAL IVP SCH (08:00)
[2020-07-23] MEDS: Piperacillin/Tazobactam 3.375 GM in Sodium Chloride 0.9% 100 ML IVPB SCH ×3 (08:23→20:28)
[2020-07-23] MEDS: Enoxaparin Sodium 80 MG/0.8 ML SYRINGE SC SCH ×2 (08:24→20:29)
[2020-07-23] MEDS: Famotidine/PF 20 mg/2ml Vial SLOW IVP SCH ×2 (08:24→20:30)
--- NOTE | 2020-07-23 09:06 | PDOC.HOSPP ---
- Subjective Encounter Date: 07/23/20 Encounter Time: 10:10 Subjective: Patient with respiratory difficulty last night, put on BIPAP, still tachypneic this AM. Dr. Jefferson concerned about withdrawl symptoms since was on sedation on the vent for so long, precedex started. - Objective Vital Signs & Weight: Vital Signs (12 hours) Temp Pulse Resp Pulse Ox 07/23/20 08:00 99 07/23/20 07:03 130 H 07/23/20 06:59 136 H 35 H 98 07/23/20 05:00 98.8 F 07/23/20 02:32 92 07/23/20 00:13 106 H 07/22/20 22:04 105 H Weight Admit Weight 169 lb Weight 163 lb 9.328 oz Most Recent Monitor Data Heart Rate from ECG 137 NIBP 133/86 NIBP BP-Mean 101 Respiration from ECG 36 SpO2 97 I&O: 07/22/20 07/23/20 07/24/20 06:59 06:59 06:59 Intake Total 347.5 813 220 Output Total 1585 2075 105 Balance -1237.5 -1262 115 Result Diagrams: 07/23/20 05:00 07/23/20 05:00 Hospitalist ROS - Review of Systems Constitutional: denies: fever, chills Respiratory: denies: cough, shortness of breath Cardiovascular: denies: chest pain Gastrointestinal: denies: nausea, vomiting, abdominal pain - Medication Medications: Active Medications Generic Name Dose Route Start Last Admin Trade Name Freq PRN Reason Stop Dose Admin Budesonide 0.5 mg 07/05/20 18:30 07/23/20 06:59 Pulmicort Neb Solution INH 0.5 mg BID-RT MERRILL Administration Enoxaparin Sodium 70 mg 07/04/20 21:00 07/23/20 08:24 Lovenox SC 70 mg 0900,2100 MERRILL Administration Famotidine 20 mg 07/21/20 21:00 07/23/20 08:24 Pepcid SLOW IVP 20 mg BID MERRILL Administration Fentanyl 25 mcg 07/21/20 07:43 07/21/20 08:36 Duragesic TD 25 mcg Q3D MERRILL Administration Piperacillin Sod/Tazobactam 100 mls @ 200 mls/hr 07/23/20 08:00 07/23/20 08: 23 Sod 3.375 gm/ Sodium Chloride IVPB 100 mls 0200,0800,1400,2000 MERRILL Administration Dexmedetomidine HCl 400 mcg/ 100 mls @ 0 mls/hr 07/23/20 08:00 07/23/20 08:24 Sodium Chloride IVPB 100 mls INF MERRILL Administration Protocol Per Protocol Labetalol HCl 20 mg 07/04/20 20:20 07/21/20 18:09 Normodyne SLOW IVP 20 mg Q4H PRN Administration SBP > 160, use third Lorazepam 1 mg 07/21/20 07:48 07/23/20 01:38 Ativan SLOW IVP 1 mg Q4H PRN Administration Anxiety/Agitation Methylprednisolone Sodium Succinate 20 mg 07/23/20 08:00 07/23/20 08:23 Solu-Medrol IVP 07/23/20 10:00 20 mg NOW MERRILL Administration Metoprolol Tartrate 12.5 mg 07/17/20 09:00 07/23/20 07:40 Lopressor PER TUBE 12.5 mg BID MERRILL Administration Nicotine 14 mg 07/18/20 12:00 07/22/20 13:34 Nicoderm Patch TD 14 mg Q24HR MERRILL Administration Ondansetron HCl 4 mg 07/04/20 20:20 07/19/20 12:26 Zofran IVP 4 mg Q6H PRN Administration Nausea/Vomiting, use 1st Polyethylene Glycol 17 gm 07/10/20 13:27 07/14/20 10:15 Miralax PO 17 gm DAILYPRN PRN Administration Constipation Sertraline HCl 50 mg 07/23/20 09:00 07/23/20 08:24 Zoloft PO 50 mg DAILY MERRILL Administration Sodium Chloride 10 ml 07/04/20 21:00 07/23/20 08:24 Flush - Normal Saline IVF 10 ml Q12HR MERRILL Administration Sodium Chloride 10 ml 07/04/20 20:22 07/11/20 21:00 Flush - Normal Saline IVF 10 ml PRN PRN Administration Saline Flush Sterile Water 1.2 ml 07/17/20 08:39 07/17/20 09:24 Water For Injection FS 1.2 ml PRN PRN Administration RECONSTITUTION - Exam General Appearance: awake alert General - other findings: mild resp distress on Bipap Heart: no murmur, no gallops, no rubs Heart - other findings: regular rhythm, mild tachycardia Respiratory: CTAB, no wheezes, no rales, no ronchi Respiratory - other findings: mild increased WOB/tachypnea Gastrointestinal: soft, non-tender, non-distended, normal bowel sounds Psychiatric: normal affect, normal behavior Hosp A/P (1) Pneumonia due to COVID-19 virus Code(s): U07.1 - COVID-19; J12.89 - OTHER VIRAL PNEUMONIA Status: Acute (2) ARDS (adult respiratory distress syndrome) Code(s): J80 - ACUTE RESPIRATORY DISTRESS SYNDROME Status: Acute (3) Acute respiratory failure with hypoxia Code(s): J96.01 - ACUTE RESPIRATORY FAILURE WITH HYPOXIA Status: Acute (4) Hematoma Code(s): T14.8XXA - OTHER INJURY OF UNSPECIFIED BODY REGION, INITIAL ENCOUNTER Status: Acute (5) Anxiety Code(s): F41.9 - ANXIETY DISORDER, UNSPECIFIED Status: Chronic - Plan Acute respiratory failure with hypoxia - appreciate Pulmonology directing care - successfully extubated and on high flow NC O2, alternating with Bipap when tires out, tachypnea and had to be on Bipap last night and continuing this morning - IV and inhaled steroids - off Covid-19 precautions due to length of stay Hematoma RUE with presumed brachial vein occlusion - monitor for signs of vascular compromise - pt is already on full dose lovenox for presumed RUE DVT - Hgb dropped to 9, now stable at 10 for the past few days Elevated WBC count - surveillance cultures performed 07/18/2020- all negative - Likely due to steroids - WBC back up to 22,000 PT/OT DVT prophy - on full dose lovenox due to COVID GI prophy - famotidine code status - full
[2020-07-23] MEDS ORDERED: Piperacillin/Tazobactam 3.375 GM VIAL ONE (13:24)
[2020-07-23] MEDS: Nicotine 14 MG PATCH TD SCH (13:25)
[2020-07-24] MEDS: Piperacillin/Tazobactam 3.375 GM in Sodium Chloride 0.9% 100 ML IVPB SCH ×4 (02:42→20:30)
[2020-07-24] MEDS: Lorazepam 2 MG/ML VIAL SLOW IVP PRN (05:32)
[2020-07-24] MEDS: methylPREDNISolone Sod Succ 40 MG VIAL IVP SCH ×2 (05:32→17:06)
[2020-07-24 06:26] LABS: Anion Gap 12 mmol/L (10-20); BUN (Urea Nitrogen) 20 mg/dL (8.4-25.7); Calc. Creatinine Clearance 148 mL/min (70-130); Calcium 8.1 mg/dL (7.8-10.44); Carbon Dioxide 29 mmol/L (22-29); Chloride 104 mmol/L (98-107); Estimated GFR-MDRD Greater than 90; Glucose 129 mg/dL (70-105); Potassium 3.7 mmol/L (3.5-5.1); Sodium 141 mmol/L (136-145)
[2020-07-24 06:43] LABS: Hemoglobin 9.3 g/dL (14.0-18.0); Mean Corpuscular HGB CONC 33.2 g/dL (32.0-36.0); Mean Corpuscular Hemoglobin 32.4 pg (27.0-31.0); Mean Corpuscular Volume 97.5 fL (78.0-98.0); Mean Platelet Volume 8.3 fL (7.4-10.4); Platelet Count 181 thou/uL (130-400); RBC Distribution Width 14.8 % (11.5-14.5); Red Blood Cell (RBC) Count 2.88 mill/uL (4.70-6.10); White Blood Cell (WBC) Count 16.4 thou/uL (4.8-10.8)
[2020-07-24 06:45] LABS: Band 2 % (5-11); Lymphocytes 1 % (21-51); MDiff Complete? YES; Monocytes 2 % (0-10); Neutrophil 95 % (42-75)
[2020-07-24] MEDS: Budesonide 0.5 MG/2 ML NEB INH SCH ×2 (07:09→18:18)
[2020-07-24] MEDS: Famotidine/PF 20 mg/2ml Vial SLOW IVP SCH ×2 (09:04→20:31)
[2020-07-24] MEDS: Enoxaparin Sodium 80 MG/0.8 ML SYRINGE SC SCH ×2 (09:04→20:31)
[2020-07-24] MEDS: Metoprolol Tartrate 25 MG TAB PER TUBE SCH ×2 (09:05→20:31)
--- NOTE | 2020-07-24 09:57 | PRG ---
DATE OF SERVICE: 07/24/2020 SUBJECTIVE: This morning, he is awake, responsive, very weak. He is tachypneic and breathing about 30 times a minute. OBJECTIVE: VITAL SIGNS: Temperature 100.3, pulse 104, blood pressure 158/86. He has been day 30 in the hospital. He is on high-flow, and his saturations are 98%. CHEST: Decreased breath sounds. No wheezing. CARDIAC: Normal S1 and S2. No gallops. ABDOMEN: Soft. LABORATORY DATA: H and H are 9 and 27. Platelet count is normal. Lytes are normal. IMPRESSION AND PLAN: Status post sparks positive pneumonia, severe deconditioning, hypertension, tobacco abuse, pneumonia. Continue observation in the ICU. His condition is still precarious. Continue aggressive PT. Continue nutrition. Job ID: [id number]
[2020-07-24] MEDS: Nicotine 14 MG PATCH TD SCH (11:19)
--- NOTE | 2020-07-24 11:28 | PDOC.HOSPP ---
- Subjective Encounter Date: 07/24/20 Encounter Time: 11:50 Subjective: Patient off the BIPAP this AM. Still weak but better than yesterday. Sitting up in the bedside chair. - Objective Vital Signs & Weight: Vital Signs (12 hours) Temp Pulse Resp Pulse Ox 07/24/20 08:00 100.3 F H 07/24/20 07:11 100 07/24/20 07:09 104 H 26 H 100 07/24/20 01:57 95 07/24/20 00:00 98.7 F Weight Admit Weight 169 lb Weight 163 lb 9.328 oz Most Recent Monitor Data Heart Rate from ECG 79 NIBP 107/71 NIBP BP-Mean 83 Respiration from ECG 22 SpO2 100 I&O: 07/23/20 07/24/20 07/25/20 06:59 06:59 06:59 Intake Total 813 2678.8 100 Output Total 2075 1640 275 Balance -1262 1038.8 -175 Result Diagrams: 07/24/20 05:40 07/24/20 05:40 Hospitalist ROS - Review of Systems Constitutional: denies: fever Respiratory: reports: shortness of breath. denies: cough Cardiovascular: denies: chest pain, palpitations Gastrointestinal: denies: nausea, vomiting, abdominal pain - Medication Medications: Active Medications Generic Name Dose Route Start Last Admin Trade Name Freq PRN Reason Stop Dose Admin Budesonide 0.5 mg 07/05/20 18:30 07/24/20 07:09 Pulmicort Neb Solution INH 0.5 mg BID-RT MERRILL Administration Enoxaparin Sodium 70 mg 07/04/20 21:00 07/24/20 09:04 Lovenox SC 70 mg 0900,2100 MERRILL Administration Famotidine 20 mg 07/21/20 21:00 07/24/20 09:04 Pepcid SLOW IVP 20 mg BID MERRILL Administration Fentanyl 25 mcg 07/21/20 07:43 07/24/20 11:17 Duragesic TD 25 mcg Q3D MERRILL Administration Piperacillin Sod/Tazobactam 100 mls @ 200 mls/hr 07/23/20 08:00 07/24/20 09: 01 Sod 3.375 gm/ Sodium Chloride IVPB 100 mls 0200,0800,1400,2000 MERRILL Administration Dexmedetomidine HCl 400 mcg/ 100 mls @ 0 mls/hr 07/23/20 08:00 07/24/20 09:24 Sodium Chloride IVPB 100 mls INF MERRILL Administration Protocol Per Protocol Labetalol HCl 20 mg 07/04/20 20:20 07/21/20 18:09 Normodyne SLOW IVP 20 mg Q4H PRN Administration SBP > 160, use third Lorazepam 1 mg 07/21/20 07:48 07/24/20 05:32 Ativan SLOW IVP 1 mg Q4H PRN Administration Anxiety/Agitation Methylprednisolone Sodium Succinate 40 mg 07/23/20 07:42 07/24/20 05:32 Solu-Medrol IVP 40 mg 0600,1800 MERRILL Administration Metoprolol Tartrate 12.5 mg 07/17/20 09:00 07/24/20 09:05 Lopressor PER TUBE 12.5 mg BID MERRILL Administration Nicotine 14 mg 07/18/20 12:00 07/24/20 11:19 Nicoderm Patch TD 14 mg Q24HR MERRILL Administration Ondansetron HCl 4 mg 07/04/20 20:20 07/19/20 12:26 Zofran IVP 4 mg Q6H PRN Administration Nausea/Vomiting, use 1st Polyethylene Glycol 17 gm 07/10/20 13:27 07/14/20 10:15 Miralax PO 17 gm DAILYPRN PRN Administration Constipation Sertraline HCl 50 mg 07/23/20 09:00 07/24/20 09:05 Zoloft PO 50 mg DAILY MERRILL Administration Sodium Chloride 10 ml 07/04/20 21:00 07/24/20 09:06 Flush - Normal Saline IVF 10 ml Q12HR MERRILL Administration Sodium Chloride 10 ml 07/04/20 20:22 07/11/20 21:00 Flush - Normal Saline IVF 10 ml PRN PRN Administration Saline Flush Sterile Water 1.2 ml 07/17/20 08:39 07/17/20 09:24 Water For Injection FS 1.2 ml PRN PRN Administration RECONSTITUTION - Exam General Appearance: NAD, awake alert ENT: moist mucosa Heart: no murmur, no gallops, no rubs Heart - other findings: mild tachycardia Respiratory: no wheezes, no rales, no ronchi Respiratory - other findings: mild tachypnea Gastrointestinal: soft, non-tender, non-distended, normal bowel sounds Psychiatric: normal affect, normal behavior Hosp A/P (1) Pneumonia due to COVID-19 virus Code(s): U07.1 - COVID-19; J12.89 - OTHER VIRAL PNEUMONIA Status: Acute (2) ARDS (adult respiratory distress syndrome) Code(s): J80 - ACUTE RESPIRATORY DISTRESS SYNDROME Status: Acute (3) Acute respiratory failure with hypoxia Code(s): J96.01 - ACUTE RESPIRATORY FAILURE WITH HYPOXIA Status: Acute (4) Hematoma Code(s): T14.8XXA - OTHER INJURY OF UNSPECIFIED BODY REGION, INITIAL ENCOUNTER Status: Acute (5) Anxiety Code(s): F41.9 - ANXIETY DISORDER, UNSPECIFIED Status: Chronic - Plan Acute respiratory failure with hypoxia - appreciate Pulmonology directing care - successfully extubated and on high flow NC O2, alternating with Bipap when tires out, tachypnea. Off Bipap this AM but tachypnea and weak - IV and inhaled steroids - off Covid-19 precautions due to length of stay Hematoma RUE with presumed brachial vein occlusion - monitor for signs of vascular compromise - pt is already on full dose lovenox for presumed RUE DVT - Hgb dropped to 9, now stable at 10 for the past few days Elevated WBC count - surveillance cultures performed 07/18/2020- all negative - Likely due to steroids - WBC down to 16,000 today PT/OT DVT prophy - on full dose lovenox due to COVID GI prophy - famotidine code status - full
[2020-07-25] MEDS: Piperacillin/Tazobactam 3.375 GM in Sodium Chloride 0.9% 100 ML IVPB SCH ×4 (02:14→20:39)
[2020-07-25 05:38] LABS: Anion Gap 9 mmol/L (10-20); BUN (Urea Nitrogen) 20 mg/dL (8.4-25.7); Calc. Creatinine Clearance 133 mL/min (70-130); Carbon Dioxide 31 mmol/L (22-29); Chloride 105 mmol/L (98-107); Estimated GFR-MDRD Greater than 90; Glucose 156 mg/dL (70-105); Potassium 3.4 mmol/L (3.5-5.1); Sodium 142 mmol/L (136-145)
[2020-07-25] MEDS: methylPREDNISolone Sod Succ 40 MG VIAL IVP SCH ×2 (06:00→17:38)
[2020-07-25] MEDS: Budesonide 0.5 MG/2 ML NEB INH SCH ×2 (06:45→18:30)
[2020-07-25 07:07] LABS: Band 5 % (5-11); Hemoglobin 8.8 g/dL (14.0-18.0); Lymphocytes 6 % (21-51); MDiff Complete? YES; Mean Corpuscular HGB CONC 32.2 g/dL (32.0-36.0); Mean Corpuscular Hemoglobin 31.5 pg (27.0-31.0); Mean Corpuscular Volume 97.9 fL (78.0-98.0); Monocytes 2 % (0-10); Neutrophil 87 % (42-75); Platelet Count 161 thou/uL (130-400); RBC Distribution Width 14.9 % (11.5-14.5); White Blood Cell (WBC) Count 13.7 thou/uL (4.8-10.8)
[2020-07-25] MEDS: Famotidine/PF 20 mg/2ml Vial SLOW IVP SCH ×2 (09:36→20:38)
[2020-07-25] MEDS: Enoxaparin Sodium 80 MG/0.8 ML SYRINGE SC SCH ×2 (09:36→20:37)
--- NOTE | 2020-07-25 09:36 | PRG ---
DATE OF SERVICE: 07/25/2020 SUBJECTIVE: Awais Masterson is a 59-year-old gentleman, who has been in the ICU, weak. OBJECTIVE: VITAL SIGNS: Sats 94% to 95% on high-flow, 40%, blood pressure 141/67. CHEST: Decreased breath sounds. No wheezing. CARDIAC: Normal S1 and S2. No gallops. ABDOMEN: Soft. LABORATORY DATA: Hemoglobin and hematocrit platelet count 161, white count 37. IMPRESSION: Respiratory failure, positive pneumonia, weakness. PLAN: Continue aggressive PT, supportive care, antibiotics and steroids as prescribed. We will follow. Job ID: [id number]
[2020-07-25] MEDS: Potassium Bicarbonate/Cit Ac 25 MEQ TAB PO SCH ×2 (09:43→17:38)
[2020-07-25] MEDS: Metoprolol Tartrate 25 MG TAB PER TUBE SCH ×2 (09:44→20:38)
[2020-07-25] MEDS: Nicotine 14 MG PATCH TD SCH (11:52)
[2020-07-25] MEDS: Lorazepam 2 MG/ML VIAL SLOW IVP PRN (13:44)
--- NOTE | 2020-07-25 15:45 | PDOC.HOSPP ---
- Subjective Encounter Date: 07/25/20 Subjective: Feels tired due to increased attempts to rotate him. is at bedside. - Objective Vital Signs & Weight: Vital Signs (12 hours) Temp Pulse Resp Pulse Ox 07/25/20 11:00 98.1 F 07/25/20 08:00 92 L 07/25/20 07:00 98.3 F 07/25/20 06:48 100 07/25/20 06:45 80 17 100 07/25/20 04:00 97.5 F L Weight Admit Weight 169 lb Weight 151 lb 7.321 oz Most Recent Monitor Data Heart Rate from ECG 117 NIBP 132/69 NIBP BP-Mean 90 Respiration from ECG 28 SpO2 100 I&O: 07/24/20 07/25/20 07/26/20 06:59 06:59 06:59 Intake Total 2678.8 1939.2 440 Output Total 1640 1915 490 Balance 1038.8 24.2 -50 Result Diagrams: 07/25/20 04:33 07/25/20 04:33 Hospitalist ROS - Review of Systems Constitutional: reports: weakness Eyes: denies: pain, vision change, conjunctivae inflammation, eyelid inflammation, redness, other ENT: denies: ear pain, ear discharge, nose pain, nose discharge, nose congestion , mouth pain, mouth swelling, throat pain, throat swelling, other Respiratory: denies: cough, dry, shortness of breath, hemoptysis, SOB with excertion, pleuritic pain, sputum, wheezing, other Cardiovascular: denies: chest pain, palpitations, orthopnea, paroxysmal noc. dyspnea, edema, light headedness, other Gastrointestinal: denies: nausea, vomiting, abdominal pain, diarrhea, constipation, melena, hematochezia, other Genitourinary: denies: dysuria, frequency, incontinence, hematuria, retention, other Musculoskeletal: denies: neck pain, shoulder pain, arm pain, back pain, hand pain, leg pain, foot pain, other Neurological: reports: weakness - Medication Medications: Active Medications Generic Name Dose Route Start Last Admin Trade Name Freq PRN Reason Stop Dose Admin Budesonide 0.5 mg 07/05/20 18:30 07/25/20 06:45 Pulmicort Neb Solution INH 0.5 mg BID-RT MERRILL Administration Enoxaparin Sodium 70 mg 07/04/20 21:00 07/25/20 09:36 Lovenox SC 70 mg 0900,2100 MERRILL Administration Famotidine 20 mg 07/21/20 21:00 07/25/20 09:36 Pepcid SLOW IVP 20 mg BID MERRILL Administration Fentanyl 25 mcg 07/21/20 07:43 07/24/20 11:17 Duragesic TD 25 mcg Q3D MERRILL Administration Piperacillin Sod/Tazobactam 100 mls @ 200 mls/hr 07/23/20 08:00 07/25/20 14: 04 Sod 3.375 gm/ Sodium Chloride IVPB 100 mls 0200,0800,1400,2000 MERRILL Administration Dexmedetomidine HCl 400 mcg/ 100 mls @ 0 mls/hr 07/23/20 08:00 07/25/20 15:29 Sodium Chloride IVPB 100 mls INF MERRILL Administration Protocol Per Protocol Labetalol HCl 20 mg 07/04/20 20:20 07/21/20 18:09 Normodyne SLOW IVP 20 mg Q4H PRN Administration SBP > 160, use third Lorazepam 1 mg 07/21/20 07:48 07/25/20 13:44 Ativan SLOW IVP 1 mg Q4H PRN Administration Anxiety/Agitation Methylprednisolone Sodium Succinate 40 mg 07/23/20 07:42 07/25/20 06:00 Solu-Medrol IVP 40 mg 0600,1800 MERRILL Administration Metoprolol Tartrate 12.5 mg 07/17/20 09:00 07/25/20 09:44 Lopressor PER TUBE 12.5 mg BID MERRILL Administration Nicotine 14 mg 07/18/20 12:00 07/25/20 11:52 Nicoderm Patch TD 14 mg Q24HR MERRILL Administration Ondansetron HCl 4 mg 07/04/20 20:20 07/19/20 12:26 Zofran IVP 4 mg Q6H PRN Administration Nausea/Vomiting, use 1st Polyethylene Glycol 17 gm 07/10/20 13:27 07/14/20 10:15 Miralax PO 17 gm DAILYPRN PRN Administration Constipation Potassium Bicarbonate/Citric Acid 25 meq 07/25/20 17:00 07/25/20 09:43 K-Vescent PO 25 meq BID-WM MERRILL Administration Sertraline HCl 50 mg 07/23/20 09:00 07/25/20 09:37 Zoloft PO 50 mg DAILY MERRILL Administration Sodium Chloride 10 ml 07/04/20 21:00 07/25/20 09:37 Flush - Normal Saline IVF 10 ml Q12HR MERRILL Administration Sodium Chloride 10 ml 07/04/20 20:22 07/11/20 21:00 Flush - Normal Saline IVF 10 ml PRN PRN Administration Saline Flush Sterile Water 1.2 ml 07/17/20 08:39 07/17/20 09:24 Water For Injection FS 1.2 ml PRN PRN Administration RECONSTITUTION - Exam General Appearance: awake alert, ill appearing General - other findings: Dubhuff tube noted Eye: PERRL, anicteric sclera ENT: normocephalic atraumatic, moist mucosa Neck: supple, symmetric, no JVD, no thyromegaly, no lymphadenopathy Heart: no murmur, no gallops, no rubs Respiratory: CTAB, no wheezes, no rales, no ronchi Respiratory - other findings: High flow O2 noted at 40% Gastrointestinal: soft, non-tender, non-distended, normal bowel sounds Neurological: cranial nerve grossly intact Musculoskeletal: generalized weakness Psychiatric: normal affect, A&O x 3, oriented to person Hosp A/P (1) ARDS (adult respiratory distress syndrome) Code(s): J80 - ACUTE RESPIRATORY DISTRESS SYNDROME Status: Acute Plan: Cont current mgt including steroids, O2 and proning. PCCM is on board. (2) Acute respiratory failure with hypoxia Code(s): J96.01 - ACUTE RESPIRATORY FAILURE WITH HYPOXIA Status: Acute Plan: Wean off o2 as tolerated. (3) COVID-19 virus infection Code(s): U07.1 - COVID-19 Status: Acute Plan: No longer in isolation. COVID complications still being treated. Cont supportive mgt (4) Debility Code(s): R53.81 - OTHER MALAISE Status: Acute Plan: Cont PT/OT. Pt may need a boot for ankle/heel support. Will defer to PT. (5) Leucocytosis Code(s): D72.829 - ELEVATED WHITE BLOOD CELL COUNT, UNSPECIFIED Status: Acute Qualifiers: Leukocytosis type: unspecified Qualified Code(s): D72.829 - Elevated white blood cell count, unspecified Plan: Likely from steroids. Monitor WBC for now. - Plan plan discussed w/ family, respiratory therapy, DVT proph w/SCDs PPx: SCDs and Pepcid. CODE: FULL. Dispo: Cont current mgt.
[2020-07-26] MEDS: Piperacillin/Tazobactam 3.375 GM in Sodium Chloride 0.9% 100 ML IVPB SCH ×4 (02:16→22:32)
[2020-07-26 05:17] LABS: Band 2 % (5-11); Hemoglobin 9.3 g/dL (14.0-18.0); Lymphocytes 5 % (21-51); MDiff Complete? YES; Mean Corpuscular HGB CONC 32.7 g/dL (32.0-36.0); Mean Corpuscular Hemoglobin 32.1 pg (27.0-31.0); Mean Corpuscular Volume 98.1 fL (78.0-98.0); Mean Platelet Volume 8.7 fL (7.4-10.4); Metamyelocyte 1 % (0-0); Monocytes 2 % (0-10); Neutrophil 90 % (42-75); Platelet Count 152 thou/uL (130-400); RBC Distribution Width 14.7 % (11.5-14.5); Red Blood Cell (RBC) Count 2.88 mill/uL (4.70-6.10); White Blood Cell (WBC) Count 12.4 thou/uL (4.8-10.8)
[2020-07-26 05:34] LABS: Anion Gap 11 mmol/L (10-20); BUN (Urea Nitrogen) 18 mg/dL (8.4-25.7); Calc. Creatinine Clearance 118 mL/min (70-130); Calcium 8.1 mg/dL (7.8-10.44); Carbon Dioxide 29 mmol/L (22-29); Chloride 104 mmol/L (98-107); Estimated GFR-MDRD Greater than 90; Glucose 147 mg/dL (70-105); Potassium 4.2 mmol/L (3.5-5.1); Sodium 140 mmol/L (136-145)
[2020-07-26] MEDS: methylPREDNISolone Sod Succ 40 MG VIAL IVP SCH ×2 (05:47→22:32)
[2020-07-26] MEDS: Budesonide 0.5 MG/2 ML NEB INH SCH ×2 (08:30→18:49)
--- NOTE | 2020-07-26 08:36 | PDOC.HOSPP ---
- Subjective Encounter Date: 07/26/20 Encounter Time: 08:34 Subjective: alert, appropriate. no respiratory distress - Objective Vital Signs & Weight: Vital Signs (12 hours) Temp Pulse Resp Pulse Ox 07/26/20 08:30 77 29 H 100 07/26/20 04:00 98.6 F 07/26/20 00:00 98.7 F Weight Admit Weight 169 lb Weight 132 lb 7.965 oz Most Recent Monitor Data Heart Rate from ECG 100 NIBP 146/74 NIBP BP-Mean 98 Respiration from ECG 24 SpO2 100 I&O: 07/25/20 07/26/20 07/27/20 06:59 06:59 06:59 Intake Total 1939.2 2856.6 Output Total 1915 2315 Balance 24.2 541.6 Result Diagrams: 07/26/20 04:01 07/26/20 04:01 Hospitalist ROS - Medication Medications: Active Medications Generic Name Dose Route Start Last Admin Trade Name Freq PRN Reason Stop Dose Admin Budesonide 0.5 mg 07/05/20 18:30 07/26/20 08:30 Pulmicort Neb Solution INH 0.5 mg BID-RT MERRILL Administration Enoxaparin Sodium 70 mg 07/04/20 21:00 07/25/20 20:37 Lovenox SC 70 mg 0900,2100 MERRILL Administration Famotidine 20 mg 07/21/20 21:00 07/25/20 20:38 Pepcid SLOW IVP 20 mg BID MERRILL Administration Piperacillin Sod/Tazobactam 100 mls @ 200 mls/hr 07/23/20 08:00 07/26/20 02: 16 Sod 3.375 gm/ Sodium Chloride IVPB 100 mls 0200,0800,1400,2000 MERRILL Administration Dexmedetomidine HCl 400 mcg/ 100 mls @ 0 mls/hr 07/23/20 08:00 07/26/20 04:25 Sodium Chloride IVPB 100 mls INF MERRILL Administration Protocol Per Protocol Labetalol HCl 20 mg 07/04/20 20:20 07/21/20 18:09 Normodyne SLOW IVP 20 mg Q4H PRN Administration SBP > 160, use third Lorazepam 1 mg 07/21/20 07:48 07/25/20 13:44 Ativan SLOW IVP 1 mg Q4H PRN Administration Anxiety/Agitation Metoprolol Tartrate 12.5 mg 07/17/20 09:00 07/25/20 20:38 Lopressor PER TUBE 12.5 mg BID MERRILL Administration Nicotine 14 mg 07/18/20 12:00 07/25/20 11:52 Nicoderm Patch TD 14 mg Q24HR MERRILL Administration Ondansetron HCl 4 mg 07/04/20 20:20 07/19/20 12:26 Zofran IVP 4 mg Q6H PRN Administration Nausea/Vomiting, use 1st Polyethylene Glycol 17 gm 07/10/20 13:27 07/14/20 10:15 Miralax PO 17 gm DAILYPRN PRN Administration Constipation Potassium Bicarbonate/Citric Acid 25 meq 07/25/20 17:00 07/25/20 17:38 K-Vescent PO 25 meq BID-WM MERRILL Administration Sodium Chloride 10 ml 07/04/20 21:00 07/25/20 20:37 Flush - Normal Saline IVF 10 ml Q12HR MERRILL Administration Sodium Chloride 10 ml 07/04/20 20:22 07/11/20 21:00 Flush - Normal Saline IVF 10 ml PRN PRN Administration Saline Flush Sterile Water 1.2 ml 07/17/20 08:39 07/17/20 09:24 Water For Injection FS 1.2 ml PRN PRN Administration RECONSTITUTION - Exam General Appearance: awake alert Neck: no JVD Heart: RRR, no murmur Respiratory - other findings: decreased BS, no-focal findings Gastrointestinal: soft, non-tender, normal bowel sounds Extremities: no edema Hosp A/P (1) Yeast UTI Code(s): B37.49 - OTHER UROGENITAL CANDIDIASIS Status: Acute (2) Acute respiratory failure with hypoxia Code(s): J96.01 - ACUTE RESPIRATORY FAILURE WITH HYPOXIA Status: Acute (3) COVID-19 virus infection Code(s): U07.1 - COVID-19 Status: Acute (4) Pneumonia due to COVID-19 virus Code(s): U07.1 - COVID-19; J12.89 - OTHER VIRAL PNEUMONIA Status: Acute - Plan on high flow O2 support on iv diflucan for yeaast UTI iv glucocorticoidss full dose anticoag with lovenoxon broad spectrum iv antibx
[2020-07-26] MEDS: Fluconazole 100 MG TAB PER TUBE SCH (08:57)
[2020-07-26] MEDS: Enoxaparin Sodium 80 MG/0.8 ML SYRINGE SC SCH ×2 (08:57→22:33)
[2020-07-26] MEDS: Metoprolol Tartrate 25 MG TAB PER TUBE SCH ×2 (08:58→22:32)
[2020-07-26] MEDS: Potassium Bicarbonate/Cit Ac 25 MEQ TAB PO SCH ×2 (08:58→17:34)
[2020-07-26] MEDS: Famotidine/PF 20 mg/2ml Vial SLOW IVP SCH ×2 (08:58→22:33)
--- NOTE | 2020-07-26 09:08 | PRG ---
DATE OF SERVICE: 07/26/2020 SUBJECTIVE: The patient looks like he is actually doing well. He is able to verbalize in a soft voice, appears in no distress. OBJECTIVE: VITAL SIGNS: Temperature 98.6, pulse of 100, blood pressure 146/74, O2 saturation 100%. A 24-hour intake 2856, output 2315. HEENT: Unremarkable. NECK: No adenopathy or JVD. LUNGS: Clear anteriorly. CARDIAC: S1, S2. Regular. ABDOMEN: Soft. EXTREMITIES: No edema. LABORATORY DATA: Sodium 140, potassium 4.2, chloride 104, CO2 of 29, BUN 8, creatinine 0.6, glucose 147. White blood cell count 12.4, hematocrit 28.3, and platelet count 152. ASSESSMENT: 1. COVID-19 pneumonia with prolonged respiratory failure requiring mechanical ventilation. He has been extubated now for 5 or 6 days and although weak, his oxygen continues to improve impressively. 2. He has the appearance of a critical illness polyneuropathy/myopathy. This may be somewhat exacerbated by the steroids and I think he is at the point where we can start to wean the steroids more aggressively. PLAN: 1. Cut steroid dose. 2. Discontinue fentanyl patch. 3. Up in chair as tolerated. 4. Wean oxygen as tolerated. 5. Increase the dose of his antidepressant. Job ID: [id number]
[2020-07-26] MEDS: Nicotine 14 MG PATCH TD SCH (11:15)
[2020-07-26] MEDS: Lorazepam 2 MG/ML VIAL SLOW IVP PRN (14:00)
[2020-07-27] MEDS: Piperacillin/Tazobactam 3.375 GM in Sodium Chloride 0.9% 100 ML IVPB SCH ×4 (03:21→20:51)
[2020-07-27 05:51] LABS: Hemoglobin 9.6 g/dL (14.0-18.0); Mean Corpuscular HGB CONC 31.8 g/dL (32.0-36.0); Mean Corpuscular Hemoglobin 30.7 pg (27.0-31.0); Mean Corpuscular Volume 96.4 fL (78.0-98.0); Mean Platelet Volume 8.5 fL (7.4-10.4); Platelet Count 176 thou/uL (130-400); RBC Distribution Width 15.1 % (11.5-14.5); Red Blood Cell (RBC) Count 3.11 mill/uL (4.70-6.10); White Blood Cell (WBC) Count 15.9 thou/uL (4.8-10.8)
[2020-07-27 05:57] LABS: Anion Gap 15 mmol/L (10-20); BUN (Urea Nitrogen) 17 mg/dL (8.4-25.7); Calc. Creatinine Clearance 105 mL/min (70-130); Calcium 8.6 mg/dL (7.8-10.44); Carbon Dioxide 27 mmol/L (22-29); Chloride 98 mmol/L (98-107); Estimated GFR-MDRD Greater than 90; Glucose 157 mg/dL (70-105); Potassium 4.8 mmol/L (3.5-5.1); Sodium 135 mmol/L (136-145)
[2020-07-27 06:34] LABS: Band 4 % (5-11); Lymphocytes 8 % (21-51); MDiff Complete? YES; Monocytes 1 % (0-10); Neutrophil 87 % (42-75)
[2020-07-27] MEDS: Budesonide 0.5 MG/2 ML NEB INH SCH (07:18)
--- NOTE | 2020-07-27 08:37 | PRG ---
DATE OF SERVICE: 07/27/2020 SUBJECTIVE: Mr. Masterson is in fairly good spirits today. He remains on a Precedex drip. He says he is having some anxiety issues. OBJECTIVE: VITAL SIGNS: His temperature is 98.3, pulse 95, blood pressure 118/75, and O2 saturation 100%. 24-hour intake 1793, output 2450. HEENT: Unremarkable. NECK: No adenopathy or JVD. LUNGS: Fairly clear anteriorly. CARDIOVASCULAR: S1 and S2. Regular. ABDOMEN: Soft. EXTREMITIES: He has bilateral footdrop to some degree. LABORATORY DATA: Sodium 135, potassium 4.8, chloride 98, CO2 of 27, BUN 17, creatinine 0.6, and glucose 157. White blood cell count 15.9, hematocrit 30, and platelet count 176. ASSESSMENT: 1. COVID-19 pneumonia. 2. Status post acute respiratory failure, requiring mechanical ventilation. 3. Severe neuromuscular weakness. PLAN: 1. I will get some footdrop boots for the patient. 2. Wean off Precedex drip. 3. Continue Diflucan for the fungus in his urine. 4. Continue Zosyn for possible secondary infection. 5. Continue Zoloft for depression/anxiety. 6. Continue slow wean of steroids. Job ID: [id number]
[2020-07-27] MEDS: Metoprolol Tartrate 25 MG TAB PER TUBE SCH ×3 (09:41→22:36)
[2020-07-27] MEDS: Famotidine/PF 20 mg/2ml Vial SLOW IVP SCH ×2 (09:42→20:51)
[2020-07-27] MEDS: Fluconazole 100 MG TAB PER TUBE SCH (09:42)
[2020-07-27] MEDS: Lorazepam 2 MG/ML VIAL SLOW IVP PRN ×3 (09:43→18:27)
[2020-07-27] MEDS: Enoxaparin Sodium 80 MG/0.8 ML SYRINGE SC SCH ×2 (09:43→20:51)
[2020-07-27] MEDS: Potassium Bicarbonate/Cit Ac 25 MEQ TAB PO SCH ×2 (09:44→17:30)
--- NOTE | 2020-07-27 10:17 | PDOC.HOSPP ---
- Subjective Encounter Date: 07/27/20 Encounter Time: 10:14 Subjective: sedated - Objective Vital Signs & Weight: Vital Signs (12 hours) Temp Pulse Resp Pulse Ox 07/27/20 08:00 95 07/27/20 07:19 100 07/27/20 07:18 113 H 27 H 100 07/27/20 04:00 98.3 F Weight Admit Weight 169 lb Weight 132 lb 7.965 oz Most Recent Monitor Data Heart Rate from ECG 106 NIBP 113/79 NIBP BP-Mean 90 Respiration from ECG 24 SpO2 100 I&O: 07/26/20 07/27/20 07/28/20 06:59 06:59 06:59 Intake Total 2856.6 1793 183 Output Total 2315 7010 195 Balance 541.6 -657 -12 Result Diagrams: 07/27/20 05:25 07/27/20 05:25 Hospitalist ROS - Medication Medications: Active Medications Generic Name Dose Route Start Last Admin Trade Name Freq PRN Reason Stop Dose Admin Enoxaparin Sodium 70 mg 07/04/20 21:00 07/27/20 09:43 Lovenox SC 70 mg 0900,2100 MERRILL Administration Famotidine 20 mg 07/21/20 21:00 07/27/20 09:42 Pepcid SLOW IVP 20 mg BID MERRILL Administration Fluconazole 200 mg 07/26/20 09:00 07/27/20 09:42 Diflucan PER TUBE 07/31/20 09:01 200 mg DAILY MERRILL Administration Piperacillin Sod/Tazobactam 100 mls @ 200 mls/hr 07/23/20 08:00 07/27/20 09: 43 Sod 3.375 gm/ Sodium Chloride IVPB 100 mls 0200,0800,1400,2000 MERRILL Administration Dexmedetomidine HCl 400 mcg/ 100 mls @ 0 mls/hr 07/23/20 08:00 07/26/20 20:45 Sodium Chloride IVPB 100 mls INF MERRILL Administration Protocol Per Protocol Labetalol HCl 20 mg 07/04/20 20:20 07/21/20 18:09 Normodyne SLOW IVP 20 mg Q4H PRN Administration SBP > 160, use third Lorazepam 1 mg 07/21/20 07:48 07/27/20 09:43 Ativan SLOW IVP 1 mg Q4H PRN Administration Anxiety/Agitation Methylprednisolone Sodium Succinate 20 mg 07/26/20 21:00 07/26/20 22:32 Solu-Medrol IVP 20 mg 0900,2100 MERRILL Administration Metoprolol Tartrate 12.5 mg 07/17/20 09:00 07/27/20 09:41 Lopressor PER TUBE 12.5 mg BID MERRILL Administration Nicotine 14 mg 07/18/20 12:00 07/26/20 11:15 Nicoderm Patch TD Not Given Q24HR MERRILL Ondansetron HCl 4 mg 07/04/20 20:20 07/19/20 12:26 Zofran IVP 4 mg Q6H PRN Administration Nausea/Vomiting, use 1st Polyethylene Glycol 17 gm 07/10/20 13:27 07/14/20 10:15 Miralax PO 17 gm DAILYPRN PRN Administration Constipation Potassium Bicarbonate/Citric Acid 25 meq 07/25/20 17:00 07/27/20 09:44 K-Vescent PO 25 meq BID-WM MERRILL Administration Sertraline HCl 100 mg 07/26/20 08:15 07/27/20 09:42 Zoloft PO 100 mg DAILY MERRILL Administration Sodium Chloride 10 ml 07/04/20 21:00 07/27/20 09:44 Flush - Normal Saline IVF 10 ml Q12HR MERRILL Administration Sodium Chloride 10 ml 07/04/20 20:22 07/11/20 21:00 Flush - Normal Saline IVF 10 ml PRN PRN Administration Saline Flush Sterile Water 1.2 ml 07/17/20 08:39 07/17/20 09:24 Water For Injection FS 1.2 ml PRN PRN Administration RECONSTITUTION - Exam Neck: no JVD Heart: RRR, no murmur Respiratory: CTAB Gastrointestinal: soft, normal bowel sounds Extremities: no edema Hosp A/P (1) Yeast UTI Code(s): B37.49 - OTHER UROGENITAL CANDIDIASIS Status: Acute (2) Acute respiratory failure with hypoxia Code(s): J96.01 - ACUTE RESPIRATORY FAILURE WITH HYPOXIA Status: Acute (3) COVID-19 virus infection Code(s): U07.1 - COVID-19 Status: Acute (4) Pneumonia due to COVID-19 virus Code(s): U07.1 - COVID-19; J12.89 - OTHER VIRAL PNEUMONIA Status: Acute - Plan on high flow O2 support on iv diflucan for yeaast UTI iv glucocorticoids, slow taper per pulmonology full dose anticoag with lovenoxon broad spectrum iv antibx
[2020-07-27] MEDS: methylPREDNISolone Sod Succ 40 MG VIAL IVP SCH ×2 (12:08→20:52)
[2020-07-27] MEDS: Nicotine 14 MG PATCH TD SCH (12:11)
[2020-07-27] MEDS ORDERED: Fentanyl 100 MCG/2 ML VIAL ONE (18:53)
[2020-07-27] MEDS ORDERED: Fentanyl 100 MCG/2 ML VIAL SLOW IVP SCH (19:00)
[2020-07-27] MEDS: Fentanyl 100 MCG/2 ML VIAL SLOW IVP PRN ×2 (20:48→22:33)
[2020-07-28] MEDS: Fentanyl 100 MCG/2 ML VIAL SLOW IVP PRN ×3 (00:28→21:37)
[2020-07-28] MEDS: Piperacillin/Tazobactam 3.375 GM in Sodium Chloride 0.9% 100 ML IVPB SCH ×4 (01:07→19:32)
[2020-07-28] MEDS: Lorazepam 2 MG/ML VIAL SLOW IVP PRN ×3 (01:13→19:32)
[2020-07-28] MEDS: Famotidine/PF 20 mg/2ml Vial SLOW IVP SCH (08:02)
[2020-07-28] MEDS: methylPREDNISolone Sod Succ 40 MG VIAL IVP SCH ×2 (08:02→20:18)
[2020-07-28] MEDS: Fluconazole 100 MG TAB PER TUBE SCH (08:02)
[2020-07-28] MEDS: Metoprolol Tartrate 25 MG TAB PER TUBE SCH ×2 (08:02→20:18)
[2020-07-28] MEDS: Potassium Bicarbonate/Cit Ac 25 MEQ TAB PO SCH ×2 (08:05→17:18)
[2020-07-28] MEDS: Ziprasidone 20 MG CAP PER TUBE SCH ×2 (08:06→20:18)
--- NOTE | 2020-07-28 08:13 | PRG ---
DATE OF SERVICE: 07/28/2020 35 minutes critical care time. SUBJECTIVE: The patient had a very rough night last night. I believe he is probably now in narcotic withdrawal. He had been on fentanyl for quite some time intravenously and then on Duragesic patch for a while and I had stopped the patch about 48 hours ago. His symptoms last night were manifested by tachycardia, tachypnea, but incidentally he did not have any drop in his O2 sats on the same amount of oxygen. OBJECTIVE: GENERAL: Today, his temperature is 98.4. His pulse has been ranging from 98 to 130, blood pressure 97/71, O2 saturation 100%. 24-hour intake 2478, output 2318. HEENT: Unremarkable. NECK: No JVD. LUNGS: Few crackles anteriorly. CARDIAC: S1 and S2. Tachycardic. ABDOMEN: Soft. EXTREMITIES: No edema. LABORATORY DATA: Actually today was a lab holiday. ASSESSMENT: 1. Status post COVID-19 pneumonia with prolonged respiratory failure requiring mechanical ventilation. 2. Severe neuromuscular weakness. 3. Likely some degree of narcotic withdrawal. 4. Skin breakdown on his buttocks with some bleeding. PLAN: 1. Hold Lovenox for next 2 days. 2. fentanyl patch. 3. Add some Geodon. 4. Continuing Zosyn and Diflucan through . 5. Will update patient's . Job ID: [id number]
--- NOTE | 2020-07-28 09:40 | PDOC.HOSPP ---
- Subjective Encounter Date: 07/28/20 Encounter Time: 09:39 Subjective: profoundly weak, still tachycardic/tachypneic at times - Objective Vital Signs & Weight: Vital Signs (12 hours) Temp Pulse Pulse Ox 07/28/20 07:23 98 07/28/20 07:10 123 H 07/28/20 03:00 98.4 F 07/27/20 23:00 98.8 F Weight Admit Weight 169 lb Weight 148 lb 2.41 oz Most Recent Monitor Data Heart Rate from ECG 126 NIBP 116/86 NIBP BP-Mean 96 Respiration from ECG 33 SpO2 98 I&O: 07/27/20 07/28/20 07/29/20 06:59 06:59 06:59 Intake Total 1793 2478.7 30 Output Total 2450 2380 100 Balance -657 98.7 -70 Result Diagrams: 07/27/20 05:25 07/27/20 05:25 Hospitalist ROS - Medication Medications: Active Medications Generic Name Dose Route Start Last Admin Trade Name Freq PRN Reason Stop Dose Admin Enoxaparin Sodium 70 mg 07/04/20 21:00 07/27/20 20:51 Lovenox SC 70 mg 0900,2100 MERRILL Administration Famotidine 20 mg 07/21/20 21:00 07/28/20 08:02 Pepcid SLOW IVP 20 mg BID MERRILL Administration Fentanyl 50 mcg 07/27/20 20:35 07/28/20 07:57 Sublimaze SLOW IVP 50 mcg Q1H PRN Administration Severe Pain (7-10) Fluconazole 200 mg 07/26/20 09:00 07/28/20 08:02 Diflucan PER TUBE 07/31/20 09:01 200 mg DAILY MERRILL Administration Piperacillin Sod/Tazobactam 100 mls @ 200 mls/hr 07/23/20 08:00 07/28/20 08: 02 Sod 3.375 gm/ Sodium Chloride IVPB 100 mls 0200,0800,1400,2000 MERRILL Administration Dexmedetomidine HCl 400 mcg/ 100 mls @ 0 mls/hr 07/23/20 08:00 07/27/20 23:48 Sodium Chloride IVPB 100 mls INF MERRILL Administration Protocol Per Protocol Labetalol HCl 20 mg 07/04/20 20:20 07/21/20 18:09 Normodyne SLOW IVP 20 mg Q4H PRN Administration SBP > 160, use third Lorazepam 1 mg 07/21/20 07:48 07/28/20 01:13 Ativan SLOW IVP 1 mg Q4H PRN Administration Anxiety/Agitation Methylprednisolone Sodium Succinate 20 mg 07/26/20 21:00 07/28/20 08:02 Solu-Medrol IVP 20 mg 0900,2100 MERRILL Administration Metoprolol Tartrate 12.5 mg 07/17/20 09:00 07/28/20 08:02 Lopressor PER TUBE 12.5 mg BID MERRILL Administration Nicotine 14 mg 07/18/20 12:00 07/27/20 12:11 Nicoderm Patch TD 14 mg Q24HR MERRILL Administration Ondansetron HCl 4 mg 07/04/20 20:20 07/19/20 12:26 Zofran IVP 4 mg Q6H PRN Administration Nausea/Vomiting, use 1st Polyethylene Glycol 17 gm 07/10/20 13:27 07/14/20 10:15 Miralax PO 17 gm DAILYPRN PRN Administration Constipation Potassium Bicarbonate/Citric Acid 25 meq 07/25/20 17:00 07/28/20 08:05 K-Vescent PO 25 meq BID-WM MERRILL Administration Sertraline HCl 100 mg 07/26/20 08:15 07/28/20 08:01 Zoloft PO 100 mg DAILY MERRILL Administration Sodium Chloride 10 ml 07/04/20 21:00 07/28/20 08:03 Flush - Normal Saline IVF 10 ml Q12HR MERRILL Administration Sodium Chloride 10 ml 07/04/20 20:22 07/11/20 21:00 Flush - Normal Saline IVF 10 ml PRN PRN Administration Saline Flush Sterile Water 1.2 ml 07/17/20 08:39 07/17/20 09:24 Water For Injection FS 1.2 ml PRN PRN Administration RECONSTITUTION Ziprasidone 20 mg 07/28/20 09:00 07/28/20 08:06 Geodon PER TUBE 20 mg BID MERRILL Administration - Exam Neck: no JVD Heart: RRR Respiratory - other findings: grossly clear, adequate inspiratory effort Gastrointestinal: soft, normal bowel sounds Extremities: 1+ LE edema Hosp A/P (1) Yeast UTI Code(s): B37.49 - OTHER UROGENITAL CANDIDIASIS Status: Acute (2) Acute respiratory failure with hypoxia Code(s): J96.01 - ACUTE RESPIRATORY FAILURE WITH HYPOXIA Status: Acute (3) COVID-19 virus infection Code(s): U07.1 - COVID-19 Status: Acute (4) Pneumonia due to COVID-19 virus Code(s): U07.1 - COVID-19; J12.89 - OTHER VIRAL PNEUMONIA Status: Acute - Plan on high flow O2 support on iv diflucan for yeast UTI x 224 more hours iv glucocorticoids, slow taper per pulmonology lovenoxon held broad spectrum iv antibx x 24 more hours
--- NOTE | 2020-07-28 12:16 | PQF ---
CLINICAL DOCUMENTATION CLARIFICATION FORM: Dear Dr. Allison Date: 07/28/2020 Please exercise your independent, professional judgment in responding to the clarification form. Clinical indicators are provided on the bottom of this form for your review. Please check appropriate box(es): [ x ] UTI please specify if due to or related to (as applicable): [ ] Indwelling catheter [x ] Unable to determine etiology [ ] Other diagnosis [ ] Unable to determine In addition, please specify: Present on Admission (POA): [ ] Yes [ ] No [ ] Unable to determine For continuity of documentation, please document condition throughout progress notes and discharge summary. Thank You. To be completed by CDI/Coding staff for physician review: CLINICAL INDICATORS - SIGNS / SYMPTOMS / LABS / RESULTS AND LOCATION IN Nursing Assessment 06/23 @ 2301: Urine: Voiding method: Urinal Nursing Assessment 07/27: Urine voiding method Indwelling Catheter Date of insertion: 07/04/2020 Microbiology: Urine culture 07/18/2020: No growth at 48 hrs Source: Urine gaines catheter Microbiology: Urine culture 07/23/2020 Yeast species 07/26 (Keegan) Yeast UTI RISK FACTORS / RESULTS AND LOCATION IN MR / ([facility]) Pneumonia due to COVID 19 virus. Acute resp. failure with hypoxia. ARDS Nursing Assessment 07/27: Urine voiding method Indwelling Catheter. Date of insertion: 07/04/2020 TREATMENT / RESULTS AND LOCATION IN MR 07/18 Routine urine culture : Urine Gaines Catheter 07/26 (Keegan) on IV diflucan for yeast UTI Thank you, Janie Villegas RN, BSN [email or web address] This is a permanent part of the Medical Record [facility]
[2020-07-28] MEDS: Nicotine 14 MG PATCH TD SCH (15:06)
[2020-07-28] MEDS: Famotidine 20 MG TAB PER TUBE SCH (20:18)
[2020-07-29] MEDS: Piperacillin/Tazobactam 3.375 GM in Sodium Chloride 0.9% 100 ML IVPB SCH ×2 (02:03→07:57)
[2020-07-29 05:10] LABS: Anion Gap 13 mmol/L (10-20); BUN (Urea Nitrogen) 27 mg/dL (8.4-25.7); Calc. Creatinine Clearance 111 mL/min (70-130); Calcium 8.5 mg/dL (7.8-10.44); Carbon Dioxide 30 mmol/L (22-29); Chloride 103 mmol/L (98-107); Estimated GFR-MDRD Greater than 90; Glucose 162 mg/dL (70-105); Potassium 4.9 mmol/L (3.5-5.1); Sodium 141 mmol/L (136-145)
[2020-07-29 05:42] LABS: Anisocytosis SLIGHT = 6-15 cells (100X) (0-5/hpf); Band 6 % (5-11); Lymphocytes 6 % (21-51); MDiff Complete? YES; Mean Corpuscular HGB CONC 32.9 g/dL (32.0-36.0); Mean Corpuscular Hemoglobin 32.3 pg (27.0-31.0); Mean Corpuscular Volume 98.1 fL (78.0-98.0); Mean Platelet Volume 8.6 fL (7.4-10.4); Monocytes 4 % (0-10); Neutrophil 84 % (42-75); Nucleated RBC 3 % (0); Platelet Count 187 thou/uL (130-400); RBC Distribution Width 15.8 % (11.5-14.5); Red Blood Cell (RBC) Count 2.47 mill/uL (4.70-6.10); White Blood Cell (WBC) Count 26.3 thou/uL (4.8-10.8)
[2020-07-29] MEDS: methylPREDNISolone Sod Succ 40 MG VIAL IVP SCH ×2 (08:52→21:20)
--- NOTE | 2020-07-29 08:53 | PDOC.HOSPP ---
- Subjective Encounter Date: 07/29/20 Encounter Time: 08:51 Subjective: much more alert, expresses no distress - Objective Vital Signs & Weight: Vital Signs (12 hours) Temp Pulse Ox 07/29/20 08:37 100 07/29/20 04:00 97.7 F 07/29/20 00:00 98.7 F Weight Admit Weight 169 lb Weight 142 lb 3.17 oz Most Recent Monitor Data Heart Rate from ECG 136 NIBP 124/86 NIBP BP-Mean 98 Respiration from ECG 30 SpO2 100 I&O: 07/28/20 07/29/20 07/30/20 06:59 06:59 06:59 Intake Total 2478.7 2571.0 Output Total 2380 1890 Balance 98.7 681.0 Result Diagrams: 07/29/20 04:20 07/29/20 04:20 Hospitalist ROS - Medication Medications: Active Medications Generic Name Dose Route Start Last Admin Trade Name Freq PRN Reason Stop Dose Admin Enoxaparin Sodium 70 mg 07/04/20 21:00 07/27/20 20:51 Lovenox SC 70 mg 0900,2100 MERRILL Administration Famotidine 20 mg 07/28/20 21:00 07/28/20 20:18 Pepcid PER TUBE 20 mg BID MERRILL Administration Fentanyl 50 mcg 07/27/20 20:35 07/28/20 21:37 Sublimaze SLOW IVP 50 mcg Q1H PRN Administration Severe Pain (7-10) Fluconazole 200 mg 07/26/20 09:00 07/28/20 08:02 Diflucan PER TUBE 07/31/20 09:01 200 mg DAILY MERRILL Administration Piperacillin Sod/Tazobactam 100 mls @ 200 mls/hr 07/23/20 08:00 07/29/20 07: 57 Sod 3.375 gm/ Sodium Chloride IVPB 100 mls 0200,0800,1400,2000 MERRILL Administration Dexmedetomidine HCl 400 mcg/ 100 mls @ 0 mls/hr 07/23/20 08:00 07/28/20 17:45 Sodium Chloride IVPB 100 mls INF MERRILL Administration Protocol Per Protocol Labetalol HCl 20 mg 07/04/20 20:20 07/21/20 18:09 Normodyne SLOW IVP 20 mg Q4H PRN Administration SBP > 160, use third Lorazepam 1 mg 07/21/20 07:48 07/28/20 19:32 Ativan SLOW IVP 1 mg Q4H PRN Administration Anxiety/Agitation Methylprednisolone Sodium Succinate 20 mg 07/26/20 21:00 07/28/20 20:18 Solu-Medrol IVP 20 mg 0900,2100 MERRILL Administration Metoprolol Tartrate 12.5 mg 07/17/20 09:00 07/28/20 20:18 Lopressor PER TUBE 12.5 mg BID MERRILL Administration Nicotine 14 mg 07/18/20 12:00 07/28/20 15:06 Nicoderm Patch TD 14 mg Q24HR MERRILL Administration Ondansetron HCl 4 mg 07/04/20 20:20 07/19/20 12:26 Zofran IVP 4 mg Q6H PRN Administration Nausea/Vomiting, use 1st Polyethylene Glycol 17 gm 07/10/20 13:27 07/14/20 10:15 Miralax PO 17 gm DAILYPRN PRN Administration Constipation Potassium Bicarbonate/Citric Acid 25 meq 07/25/20 17:00 07/28/20 17:18 K-Vescent PO 25 meq BID-WM MERRILL Administration Sertraline HCl 100 mg 07/26/20 08:15 07/28/20 08:01 Zoloft PO 100 mg DAILY MERRILL Administration Sodium Chloride 10 ml 07/04/20 21:00 07/28/20 20:29 Flush - Normal Saline IVF Not Given Q12HR MERRILL Sodium Chloride 10 ml 07/04/20 20:22 07/11/20 21:00 Flush - Normal Saline IVF 10 ml PRN PRN Administration Saline Flush Sterile Water 1.2 ml 07/17/20 08:39 07/17/20 09:24 Water For Injection FS 1.2 ml PRN PRN Administration RECONSTITUTION Ziprasidone 20 mg 07/28/20 09:00 07/28/20 20:18 Geodon PER TUBE 20 mg BID MERRILL Administration - Exam General Appearance: awake alert Neck: no JVD Heart: RRR, no murmur Respiratory: CTAB Gastrointestinal: soft, normal bowel sounds Extremities: no edema Hosp A/P (1) Yeast UTI Code(s): B37.49 - OTHER UROGENITAL CANDIDIASIS Status: Acute (2) Acute respiratory failure with hypoxia Code(s): J96.01 - ACUTE RESPIRATORY FAILURE WITH HYPOXIA Status: Acute (3) COVID-19 virus infection Code(s): U07.1 - COVID-19 Status: Acute (4) Pneumonia due to COVID-19 virus Code(s): U07.1 - COVID-19; J12.89 - OTHER VIRAL PNEUMONIA Status: Acute - Plan on high flow O2 support DC diflucan, iv antibx iv glucocorticoids, slow taper per pulmonology patient in chronic phase with weakness, etc cont tube feedings
[2020-07-29] MEDS: Famotidine 20 MG TAB PER TUBE SCH ×2 (08:54→21:20)
[2020-07-29] MEDS: Fluconazole 100 MG TAB PER TUBE SCH (08:54)
[2020-07-29] MEDS: Metoprolol Tartrate 25 MG TAB PER TUBE SCH ×2 (08:54→21:20)
[2020-07-29] MEDS: Ziprasidone 20 MG CAP PER TUBE SCH ×2 (08:56→21:21)
[2020-07-29] MEDS: Potassium Bicarbonate/Cit Ac 25 MEQ TAB PO SCH ×2 (09:00→18:14)
--- NOTE | 2020-07-29 09:30 | PRG ---
DATE OF SERVICE: 07/29/2020 SUBJECTIVE: He is in better spirits today. He is more interactive and does not appear to be in near this stress he has been. OBJECTIVE: VITAL SIGNS: Temperature 97.7, pulse in the 120s, blood pressure 124/96. 24-hour intake 2571, output 1890. HEENT: Unremarkable. NECK: No adenopathy or JVD. LUNGS: Coarse breath sounds. CARDIAC: S1, S2. Slightly tachycardic. ABDOMEN: Soft. EXTREMITIES: No edema. LABORATORY DATA: White blood cell count 26.3, hematocrit 24.2, and platelet count 187. Sodium 141, potassium 4.9, chloride 103, CO2 of 30, BUN 27, creatinine 0.6, glucose 162. ASSESSMENT: 1. COVID-19 pneumonia. 2. Severe neuromuscular weakness. 3. Status post respiratory failure, requiring mechanical ventilation. PLAN: 1. Continue IV steroids, but at the low dose he is currently on. 2. Continue antidepressant, Geodon, and Precedex. 3. Continue fentanyl because I fear he was withdrawing from fentanyl the other day. 4. Hopefully resume anticoagulation tomorrow. It was held because of some bleeding from the buttocks area. Job ID: [id number]
[2020-07-29] MEDS: Ondansetron PF 4 MG/2 ML Vial IVP PRN (09:45)
[2020-07-29] MEDS: Nicotine 14 MG PATCH TD SCH (14:01)
[2020-07-30 04:46] LABS: Anion Gap 13 mmol/L (10-20); BUN (Urea Nitrogen) 29 mg/dL (8.4-25.7); Calc. Creatinine Clearance 102 mL/min (70-130); Calcium 8.7 mg/dL (7.8-10.44); Carbon Dioxide 32 mmol/L (22-29); Chloride 101 mmol/L (98-107); Estimated GFR-MDRD Greater than 90; Glucose 160 mg/dL (70-105); Potassium 5.1 mmol/L (3.5-5.1); Sodium 141 mmol/L (136-145)
[2020-07-30 05:04] LABS: Band 2 % (5-11); Hypochromia SLIGHT = 6-15 cells (100X) (0-5/hpf); Lymphocytes 11 % (21-51); MDiff Complete? YES; Mean Corpuscular HGB CONC 32.1 g/dL (32.0-36.0); Mean Corpuscular Volume 99.6 fL (78.0-98.0); Mean Platelet Volume 8.9 fL (7.4-10.4); Metamyelocyte 1 % (0-0); Monocytes 1 % (0-10); Neutrophil 85 % (42-75); Platelet Count 222 thou/uL (130-400); Platelet Morphology Comment Appears Adequate; RBC Distribution Width 15.7 % (11.5-14.5); Red Blood Cell (RBC) Count 2.51 mill/uL (4.70-6.10); White Blood Cell (WBC) Count 21.4 thou/uL (4.8-10.8)
--- NOTE | 2020-07-30 08:15 | PRG ---
DATE OF SERVICE: 07/30/2020 SUBJECTIVE: Mr. Masterson has now been extubated for about 10 days. He seems to be over the narcotic withdrawal, now that he is back on his fentanyl patch. The nurse has been able to come down his Precedex drip. OBJECTIVE: VITAL SIGNS: Temperature is 98.1, pulse 117, blood pressure 101/62, O2 saturation 100%. He is currently on 35% high-flow oxygen. HEENT: Unremarkable. NECK: No JVD. LUNGS: Clear anteriorly. CARDIOVASCULAR: S1 and S2. Slightly tachycardic. ABDOMEN: Soft. EXTREMITIES: He has hematoma through right upper arm. LABORATORY DATA: White blood cell count 21.4, hematocrit 25, platelet count 222. Sodium 141, potassium 5.1, chloride 101, CO2 of 32, BUN 29, creatinine 0.7, and glucose 160. ASSESSMENT: 1. COVID-19 pneumonia. 2. Status post acute respiratory failure, requiring prolonged mechanical ventilation. 3. Severe neuromuscular weakness. 4. Narcotic withdrawal symptoms. 5. Mild hyperkalemia. PLAN: 1. I will go ahead and stop the scheduled potassium that he was getting. 2. Start oral steroids and Florinef. 3. I told his that he is approaching the time where he can be transferred to an LTAC. I would make that a goal for this coming Sunday if he does well this weekend. 4. I would not attempt to wean him off the fentanyl patch at this time. 5. Continue the Zoloft for depression. Job ID: [id number]
[2020-07-30] MEDS: Enoxaparin Sodium 80 MG/0.8 ML SYRINGE SC SCH ×2 (09:08→20:15)
[2020-07-30] MEDS: Famotidine 20 MG TAB PER TUBE SCH ×2 (09:09→20:15)
[2020-07-30] MEDS: Ziprasidone 20 MG CAP PER TUBE SCH ×2 (09:09→20:15)
[2020-07-30] MEDS: Fludrocortisone Acetate 0.1 MG TAB PER TUBE SCH (09:10)
[2020-07-30] MEDS: Metoprolol Tartrate 25 MG TAB PER TUBE SCH ×2 (09:10→20:15)
[2020-07-30] MEDS: predniSONE 20 MG TAB PER TUBE SCH (09:10)
--- NOTE | 2020-07-30 09:28 | PDOC.HOSPP ---
- Subjective Encounter Date: 07/30/20 Encounter Time: 09:25 Subjective: more alert, resonsive, more acyivity with upper ext - Objective Vital Signs & Weight: Vital Signs (12 hours) Temp Pulse Ox 07/30/20 07:36 98.1 F 07/30/20 07:33 96 07/30/20 04:00 98.3 F 07/30/20 00:00 98.8 F Weight Admit Weight 169 lb Weight 142 lb 3.17 oz Most Recent Monitor Data Heart Rate from ECG 117 NIBP 101/62 NIBP BP-Mean 75 Respiration from ECG 23 SpO2 100 I&O: 07/29/20 07/30/20 07/31/20 06:59 06:59 06:59 Intake Total 2571.0 2215 Output Total 1890 1785 Balance 681.0 430 Result Diagrams: 07/30/20 04:15 07/30/20 04:15 Hospitalist ROS - Medication Medications: Active Medications Generic Name Dose Route Start Last Admin Trade Name Freq PRN Reason Stop Dose Admin Enoxaparin Sodium 70 mg 07/04/20 21:00 07/30/20 09:08 Lovenox SC 70 mg 0900,2100 MERRILL Administration Famotidine 20 mg 07/28/20 21:00 07/30/20 09:09 Pepcid PER TUBE 20 mg BID MERRILL Administration Fentanyl 50 mcg 07/27/20 20:35 07/28/20 21:37 Sublimaze SLOW IVP 50 mcg Q1H PRN Administration Severe Pain (7-10) Fludrocortisone Acetate 0.1 mg 07/30/20 08:00 07/30/20 09:10 Florinef PER TUBE 0.1 mg QAM-WM MERRILL Administration Dexmedetomidine HCl 400 mcg/ 100 mls @ 0 mls/hr 07/23/20 08:00 07/30/20 00:02 Sodium Chloride IVPB 100 mls INF MERRILL Administration Protocol Per Protocol Labetalol HCl 20 mg 07/04/20 20:20 07/21/20 18:09 Normodyne SLOW IVP 20 mg Q4H PRN Administration SBP > 160, use third Lorazepam 1 mg 07/21/20 07:48 07/28/20 19:32 Ativan SLOW IVP 1 mg Q4H PRN Administration Anxiety/Agitation Metoprolol Tartrate 12.5 mg 07/17/20 09:00 07/30/20 09:10 Lopressor PER TUBE 12.5 mg BID MERRILL Administration Nicotine 14 mg 07/18/20 12:00 07/29/20 14:01 Nicoderm Patch TD 14 mg Q24HR MERRILL Administration Ondansetron HCl 4 mg 07/04/20 20:20 07/29/20 09:45 Zofran IVP 4 mg Q6H PRN Administration Nausea/Vomiting, use 1st Polyethylene Glycol 17 gm 07/10/20 13:27 07/14/20 10:15 Miralax PO 17 gm DAILYPRN PRN Administration Constipation Prednisone 20 mg 07/30/20 08:00 07/30/20 09:10 Prednisone PER TUBE 20 mg 0800 MERRILL Administration Sertraline HCl 100 mg 07/26/20 08:15 07/30/20 09:16 Zoloft PO 100 mg DAILY MERRILL Administration Sodium Chloride 10 ml 07/04/20 21:00 07/30/20 09:17 Flush - Normal Saline IVF 10 ml Q12HR MERRILL Administration Sodium Chloride 10 ml 07/04/20 20:22 07/11/20 21:00 Flush - Normal Saline IVF 10 ml PRN PRN Administration Saline Flush Sterile Water 1.2 ml 07/17/20 08:39 07/17/20 09:24 Water For Injection FS 1.2 ml PRN PRN Administration RECONSTITUTION Ziprasidone 20 mg 07/28/20 09:00 07/30/20 09:09 Geodon PER TUBE 20 mg BID MERRILL Administration - Exam General Appearance: awake alert Neck: no JVD Heart: RRR, no murmur Respiratory: CTAB Gastrointestinal: soft, normal bowel sounds Extremities: no edema Hosp A/P (1) Yeast UTI Code(s): B37.49 - OTHER UROGENITAL CANDIDIASIS Status: Resolved (2) Acute respiratory failure with hypoxia Code(s): J96.01 - ACUTE RESPIRATORY FAILURE WITH HYPOXIA Status: Acute (3) COVID-19 virus infection Code(s): U07.1 - COVID-19 Status: Acute (4) Pneumonia due to COVID-19 virus Code(s): U07.1 - COVID-19; J12.89 - OTHER VIRAL PNEUMONIA Status: Acute (5) HTN (hypertension) Code(s): I10 - ESSENTIAL (PRIMARY) HYPERTENSION Status: Acute Qualifiers: Hypertension type: essential hypertension Qualified Code(s): I10 - Essential (primary) hypertension (6) Dysphagia Code(s): R13.10 - DYSPHAGIA, UNSPECIFIED Status: Acute Qualifiers: Dysphagia type: unspecified Qualified Code(s): R13.10 - Dysphagia, unspecified - Plan on high flow O2 support deescalate to ppo kristi and alida vanessa for nutrition/meds probable transfer to LTAC in near future
[2020-07-30] MEDS: Nicotine 14 MG PATCH TD SCH (12:19)
[2020-07-31] MEDS: Fentanyl 100 MCG/2 ML VIAL SLOW IVP PRN (04:26)
[2020-07-31 06:17] LABS: Anion Gap 15 mmol/L (10-20); BUN (Urea Nitrogen) 35 mg/dL (8.4-25.7); Calc. Creatinine Clearance 103 mL/min (70-130); Calcium 8.7 mg/dL (7.8-10.44); Carbon Dioxide 30 mmol/L (22-29); Chloride 103 mmol/L (98-107); Estimated GFR-MDRD Greater than 90; Glucose 162 mg/dL (70-105); Potassium 4.5 mmol/L (3.5-5.1); Sodium 143 mmol/L (136-145)
[2020-07-31 06:23] LABS: Band 2 % (5-11); Elliptocytes SLIGHT = 2-5 cells (100X) (0-1/hpf); Hemoglobin 7.5 g/dL (14.0-18.0); Lymphocytes 6 % (21-51); MDiff Complete? YES; Mean Corpuscular HGB CONC 31.2 g/dL (32.0-36.0); Mean Corpuscular Hemoglobin 31.1 pg (27.0-31.0); Mean Corpuscular Volume 99.4 fL (78.0-98.0); Mean Platelet Volume 8.6 fL (7.4-10.4); Monocytes 3 % (0-10); Neutrophil 89 % (42-75); Nucleated RBC 8 % (0); Platelet Count 294 thou/uL (130-400); Platelet Morphology Comment Appears Adequate; Polychromasia SLIGHT = 2-3 cells (100X) (0-2/hpf); RBC Distribution Width 16.5 % (11.5-14.5); Red Blood Cell (RBC) Count 2.41 mill/uL (4.70-6.10); White Blood Cell (WBC) Count 20.5 thou/uL (4.8-10.8)
[2020-07-31] MEDS: Fludrocortisone Acetate 0.1 MG TAB PER TUBE SCH (08:42)
[2020-07-31] MEDS: predniSONE 20 MG TAB PER TUBE SCH (08:43)
[2020-07-31] MEDS: Ziprasidone 20 MG CAP PER TUBE SCH ×2 (08:45→20:44)
[2020-07-31] MEDS: Famotidine 20 MG TAB PER TUBE SCH (08:45)
[2020-07-31] MEDS: Metoprolol Tartrate 25 MG TAB PER TUBE SCH ×2 (08:45→20:44)
[2020-07-31 09:36] LABS: Hemoglobin 8.4 g/dL (14.0-18.0); Mean Corpuscular HGB CONC 31.7 g/dL (32.0-36.0); RBC Distribution Width 16.7 % (11.5-14.5); Red Blood Cell (RBC) Count 2.63 mill/uL (4.70-6.10)
[2020-07-31 09:46] LABS: Anisocytosis MODERATE=16-30 cells (100X) (0-5/hpf); Band 4 % (5-11); Eosinophils 1 % (0-10); Lymphocytes 9 % (21-51); MDiff Complete? YES; Mean Platelet Volume 8.4 fL (7.4-10.4); Metamyelocyte 2 % (0-0); Monocytes 7 % (0-10); Myelocyte 1 % (0-0); Neutrophil 76 % (42-75); Nucleated RBC 6 % (0); Ovalocytes SLIGHT = 2-5 cells (100X) (0-1/hpf); Platelet Count 320 thou/uL (130-400); Platelet Morphology Comment Appears Adequate; Polychromasia MODERATE = 3-4 cells (100X) (0-2/hpf); White Blood Cell (WBC) Count 26.2 thou/uL (4.8-10.8)
[2020-07-31] MEDS: Enoxaparin Sodium 80 MG/0.8 ML SYRINGE SC SCH (10:52)
[2020-07-31] MEDS: Nicotine 14 MG PATCH TD SCH (11:52)
--- NOTE | 2020-07-31 13:59 | PDOC.HOSPP ---
- Subjective Encounter Date: 07/31/20 Encounter Time: 11:20 Subjective: On high flow oxygen -patient had a rectal tube for the last few days. This morning he had a significant amount of clot removed from that area. Patient is awake and he was expressing that he has a lower abdominal discomfort. Following that rectal tube evaluation showed a huge clot. Lovenox therapeutic dose discontinued and DVT prophylaxis dose initiated. His hemoglobin is kind of variable from 8.4- 7.4. We are going to repeat that this evening. He is on tube feed JVD. That has stopped until further GI evaluation. Placed him on Protonix IV daily. Iwill run the maintenance fluid for now. This morning his heart rate was in the 1 5160s improved to 110. - Objective Vital Signs & Weight: Vital Signs (12 hours) Temp Pulse Ox 07/31/20 08:00 97.8 F 100 07/31/20 07:34 97 07/31/20 03:00 98.5 F Weight Admit Weight 169 lb Weight 142 lb 3.17 oz Most Recent Monitor Data Heart Rate from ECG 122 NIBP 117/63 NIBP BP-Mean 81 Respiration from ECG 34 SpO2 98 I&O: 07/30/20 07/31/20 08/01/20 06:59 06:59 06:59 Intake Total 2215 1063.6 30.8 Output Total 1785 1781 240 Balance 430 -717.4 -209.2 Result Diagrams: 07/31/20 09:12 07/31/20 05:32 Hospitalist ROS - Medication Medications: Active Medications Generic Name Dose Route Start Last Admin Trade Name Freq PRN Reason Stop Dose Admin Fentanyl 25 mcg 07/30/20 19:30 07/30/20 20:14 Duragesic TD 25 mcg Q3D@1930 MERRILL Administration Fludrocortisone Acetate 0.1 mg 07/30/20 08:00 07/31/20 08:42 Florinef PER TUBE 0.1 mg QAM-WM MERRILL Administration Dexmedetomidine HCl 400 mcg/ 100 mls @ 0 mls/hr 07/23/20 08:00 07/31/20 08:45 Sodium Chloride IVPB 100 mls INF MERRILL Administration Protocol Per Protocol Metoprolol Tartrate 12.5 mg 07/17/20 09:00 07/31/20 08:45 Lopressor PER TUBE 12.5 mg BID MERRILL Administration Nicotine 14 mg 07/18/20 12:00 07/31/20 11:52 Nicoderm Patch TD Not Given Q24HR MERRILL Ondansetron HCl 4 mg 07/04/20 20:20 07/29/20 09:45 Zofran IVP 4 mg Q6H PRN Administration Nausea/Vomiting, use 1st Polyethylene Glycol 17 gm 07/10/20 13:27 07/14/20 10:15 Miralax PO 17 gm DAILYPRN PRN Administration Constipation Prednisone 20 mg 07/30/20 08:00 07/31/20 08:43 Prednisone PER TUBE 20 mg 0800 MERRILL Administration Sertraline HCl 100 mg 07/26/20 08:15 07/31/20 08:45 Zoloft PO 100 mg DAILY MERRILL Administration Sodium Chloride 10 ml 07/04/20 21:00 07/31/20 08:46 Flush - Normal Saline IVF 10 ml Q12HR MERRILL Administration Sodium Chloride 10 ml 07/04/20 20:22 07/11/20 21:00 Flush - Normal Saline IVF 10 ml PRN PRN Administration Saline Flush Sterile Water 1.2 ml 07/17/20 08:39 07/17/20 09:24 Water For Injection FS 1.2 ml PRN PRN Administration RECONSTITUTION Ziprasidone 20 mg 07/28/20 09:00 07/31/20 08:45 Geodon PER TUBE 20 mg BID MERRILL Administration - Exam General Appearance: NAD, awake alert General - other findings: On high flow oxygen. Eye: PERRL ENT: normocephalic atraumatic Neck: supple Heart: RRR Respiratory: CTAB, normal chest expansion Gastrointestinal: soft, normal bowel sounds Neurological: cranial nerve grossly intact, no focal deficits Psychiatric: A&O x 3 Hosp A/P - Plan (1) Yeast UTI Code(s): B37.49 - OTHER UROGENITAL CANDIDIASIS Status: Resolved (2) Acute respiratory failure with hypoxia Code(s): J96.01 - ACUTE RESPIRATORY FAILURE WITH HYPOXIA Status: Acute (3) COVID-19 virus infection Code(s): U07.1 - COVID-19 Status: Acute (4) Pneumonia due to COVID-19 virus Code(s): U07.1 - COVID-19; J12.89 - OTHER VIRAL PNEUMONIA Status: Acute (5) HTN (hypertension) Code(s): I10 - ESSENTIAL (PRIMARY) HYPERTENSION Status: Acute Qualifiers: Hypertension type: essential hypertension Qualified Code(s): I10 - Essential (primary) hypertension (6) Dysphagia Code(s): R13.10 - DYSPHAGIA, UNSPECIFIED Status: Acute Qualifiers: Dysphagia type: unspecified Qualified Code(s): R13.10 - Dysphagia, unspecified - Plan on high flow O2 support PPI IV prednisone and florinef Hold to the tube feed Blood clot via rectal tube Elevated leukocytosis Acute blood loss anemia Unclear why jump in white count to 26K. -?Likely due to the rectal bleed/blood clot with acute stress demargination -We will follow with chest x-ray as well as urine analysis.--Added. -Patient is not on any antibiotic Will follow with the image studies and will start antibiotic as clinically indicated. -Placed a GI consult. -Hold the tube feed and Lovenox switched to DVT prophylaxis. Will repeat both hemoglobin as well as white count this evening.
--- NOTE | 2020-07-31 14:11 | PRG ---
DATE OF SERVICE: 07/31/2020 SUBJECTIVE: Mr. Masterson is doing well. He is on high-flow oxygen. OBJECTIVE: His heart rate is 119, blood pressure 105/74, respiratory rate in the 20s, oximetry is 100%. LUNGS: Clear anteriorly. HEART: Regular rhythm. ABDOMEN: Soft. He had rectal bleeding around the rectal tube today so the rectal tube was removed. Multiple large blood clots were removed. A repeat CBC showed a hemoglobin that went from 7.5 to 8.4, platelets of 320,000. Electrolytes are normal. BUN 29, creatinine 0.7. IMPRESSION: 1. Status post mechanical ventilation COVID-19, clinically doing well. 2. Rectal bleeding, most likely secondary to rectal ulcer secondary to a rectal tube. GI has been consulted. 3. Critical illness myopathy. 4. Probable fentanyl withdrawal. He will hopefully transition out to the intermediate care unit today. Today is day 38 in the hospital. I met with his family and answered all their questions. Job ID: [id number]
--- NOTE | 2020-07-31 14:45 | RAD ---
PORTABLE CHEST ONE VIEW: 07/31/20 at 2:!6 p.m. HISTORY: Elevated WBCs. COMPARISON: 07/23/20. FINDINGS/IMPRESSION: Feeding tube can be traced into the stomach with tip excluded from the film. The heart size is normal . Subcutaneous emphysema has resolved. No lobar consolidation, pneumothoraces or large effusions are seen. Interstitial changes demonstrate mild improvement. POS: OFF
[2020-07-31 16:31] LABS: Anisocytosis SLIGHT = 6-15 cells (100X) (0-5/hpf); Band 4 % (5-11); Hemoglobin 7.8 g/dL (14.0-18.0); Lymphocytes 9 % (21-51); MDiff Complete? YES; Macrocytosis SLIGHT = 6-15 cells (100X) (0-5/hpf); Mean Corpuscular HGB CONC 31.9 g/dL (32.0-36.0); Mean Corpuscular Hemoglobin 31.9 pg (27.0-31.0); Mean Platelet Volume 8.7 fL (7.4-10.4); Metamyelocyte 2 % (0-0); Monocytes 3 % (0-10); Myelocyte 2 % (0-0); Neutrophil 80 % (42-75); Nucleated RBC 5 % (0); Platelet Count 289 thou/uL (130-400); Platelet Morphology Comment Appears Adequate; Polychromasia MODERATE = 3-4 cells (100X) (0-2/hpf); RBC Distribution Width 16.4 % (11.5-14.5); Red Blood Cell (RBC) Count 2.44 mill/uL (4.70-6.10); White Blood Cell (WBC) Count 24.3 thou/uL (4.8-10.8)
--- NOTE | 2020-07-31 20:46 | CON ---
DATE OF CONSULTATION: 07/31/2020 REASON FOR CONSULTATION: Hematochezia. CONSULTING PROVIDER: Dr. Toby Villanueva. HISTORY OF PRESENT ILLNESS: The patient is a 59-year-old male, with no significant past medical history, who was initially admitted to the hospital from [facility] due to acute respiratory failure. The patient had been diagnosed with the COVID virus approximately 4 days prior to being seen at the [facility], but had been having worsening respiratory status leading into that evaluation. While evaluated at the [facility], he complained of fever, body aches, sore throat, diarrhea with oxygen saturations in the mid 80s. Chest x-ray performed revealed bibasilar pneumonias, so he was transferred to [facility] for further management. While at [facility], the patient has had a fairly complicated hospital course, including mechanical ventilation secondary to adult respiratory distress syndrome with the causative etiology being COVID-19 virus. He also was noted to have a right upper extremity DVT and was subsequently placed on anticoagulation as part of the treatment for this condition. The patient was also placed on antifungal, antibiotic, and glucocorticoid therapy as part of treatment for the COVID virus infection and has been responding slowly with extubation from the ventilator only within the last week. He currently remains on high-flow oxygen as part of respiratory support. During the course of this hospitalization, he had a bowel management system placed with excoriations of his buttocks area and ulcerations of the buttocks area. However, over the last 24 to 48 hours, the patient has had some bright red blood from around the bowel management system and upon removal of the bowel management system, had overt hematochezia characterized as bright red blood per rectum. Since that time, he has had 2 to 3 semi-solid/liquid bowel movements with lessening amounts of bright red blood per bowel movement with no pain with the expression of this hematochezia. Given the patient's current respiratory status, conversation with him was very difficult due to significant conversational dyspnea. Currently, he denies any nausea, vomiting, fevers, chills, abdominal pain, hematemesis, odynophagia, or dysphagia. REVIEW OF SYSTEMS: A 10-category review of systems was difficult to obtain due to the patient's significant conversational dyspnea. PAST MEDICAL HISTORY: As per HPI and hospital course. PAST SURGICAL HISTORY: Knee surgery. FAMILY HISTORY: No GI malignancies. SOCIAL HISTORY: No mention of tobacco, alcohol, or illicit drug use within the chart. OUTPATIENT MEDICATIONS: Prior to this admission, none. INPATIENT MEDICATIONS: Reviewed. ALLERGIES: NO KNOWN DRUG ALLERGIES. PHYSICAL EXAMINATION: VITAL SIGNS: Temperature 98.5, pulse 132, blood pressure 138/75, respiratory rate 24, and saturating 97% on high-flow nasal cannula. GENERAL: The patient is lying in bed, in mild respiratory distress. Alert and oriented x3. Significant conversational dyspnea noted. HEENT: Normocephalic and atraumatic. NECK: Supple. No JVD or scleral icterus noted. CARDIOVASCULAR: Tachycardic rate but regular rhythm with no discernible murmurs, gallops, or rubs. RESPIRATORY: Diminished breath sounds auscultated in all lung cramer with mild coarse sounds due to high-flow oxygen. ABDOMEN: Normoactive bowel sounds. Soft, nontender, and nondistended. EXTREMITIES: Multiple ecchymoses noted on the upper extremities, more specifically the right upper extremity. Trace bilateral lower extremity edema to mid vidales. RECTAL: No evidence of external hemorrhoids, although bright red/maroon colored blood was seen mixed with stool. Upon rectal examination, significant excoriations of the gluteal skin in addition to what appeared to be a stage II decubitus ulceration was noted. LABORATORY DATA: CBC with a white blood cell count of 26.2, hemoglobin 8.4, hematocrit 26.5, and platelets 320. Chemistry with a sodium of 143, potassium 4.5, chloride 103, CO2 is 30, BUN 35, creatinine 0.71, and glucose 172. IMAGING DATA: Chest x-ray was obtained on July 31, 2020, which showed a feeding tube traced into the stomach with tip excluded from the film. Heart site was normal. Subcutaneous emphysema had resolved with no lobar consolidation, pneumothoraces, or large effusion seen. Interstitial changes demonstrated some mild improvement. ASSESSMENT AND PLAN: The patient is a 59-year-old male, with no prior medical history, presenting with COVID-19 infection, characterized with acute respiratory failure requiring medical ventilation and having a complicated hospital course, including right upper extremity deep venous thrombosis formation and now with hematochezia while on full anticoagulation. Hematochezia. The patient initially presented to the hospital with acute respiratory failure secondary to COVID-19 infection and during the course of this hospitalization has been on mechanical ventilation and had a bowel management system placed as part of treatment while on mechanical ventilation. The patient was also noted to have a right upper extremity deep vein thrombosis and was ultimately placed on full anticoagulation for this condition. However, over the last 24 to 48 hours, he has been having increasing amounts of hematochezia characterized as bright red/maroon-colored stools concerning for GI bleeding. However, this hematochezia seems to be more prominent now that the bowel management system/rectal tube has been removed. On rectal examination today, there was no evidence of external hemorrhoids with palpation of no internal hemorrhoids. However, again with the recent removal of the rectal tube and while on full anticoagulation, the pressure of the rectal tube could create colitis/proctitis within the rectum, which is now oozing blood while the patient is on full anticoagulation. RECOMMENDATIONS: 1. We would continue to trend his H and H and transfuse as necessary to maintain an H and H of 7/21. 2. Continue to monitor clinically for signs of active GI bleeding. 3. We would attempt to either decrease or hold any anticoagulation for the time being in light of active GI bleeding, but would weigh this in response to clinical benefit from treatment of his right upper extremity DVT. 4. We would recommend avoiding replacement of the bowel management system. 5. We would recommend consultation of wound service for evaluation of the gluteal ulcerations. 6. No endoscopic evaluation is indicated at this time given stable H and H and significantly compromised respiratory status. We will continue to follow. Please call with any questions. Job ID: [id number]
[2020-07-31 20:55] LABS: Bacteria/HPF None Seen HPF (None Seen); Bilirubin Negative (Negative); Blood, Urine Negative (Negative); Clarity Turbid (Clear); Glucose, Urine (Dipstick) Normal (Negative); Ketone, Urine Negative (Negative); Leukocyte Negative Leu/uL (Negative); Mucous/LPF Rare LPF (<2+); Nitrite Negative (Negative); Protein, Urine (Dipstick) 30 mg/dL (Neg-Trace); Specific Gravity, Urine 1.022 (1.002-1.036); Squamous Epithelial 0-3 HPF (0-3); Urobilinogen Normal mg/dL (Less than 2); WBC/HPF 0-3 HPF (0-3)
--- NOTE | 2020-07-31 22:54 | PDOC.EVN ---
Event Note - Event Note Event Note: Called by IMU RN. Hypotensive BP 80/45. HR 140s Went and examine pt lethargic Tachycardic Abd Mild tender Hgb 7.8 on admission 14 DC lovenox DC fentanyl patch hold metoprolol PPI drip transfuse 2 units PRBCs
[2020-07-31] MEDS ORDERED: Sodium Chloride 0.9% 500 ML IVPB SCH (23:00)
[2020-07-31] MEDS: Pantoprazole 80 MG, Admixture Fee 1 EACH in Sodium Chloride 0.9% 100 ML IVPB SCH (23:27)
[2020-08-01 06:34] LABS: Anion Gap 17 mmol/L (10-20); BUN (Urea Nitrogen) 51 mg/dL (8.4-25.7); Calc. Creatinine Clearance 90 mL/min (70-130); Calcium 8.3 mg/dL (7.8-10.44); Carbon Dioxide 27 mmol/L (22-29); Chloride 108 mmol/L (98-107); Estimated GFR-MDRD Greater than 90; Glucose 158 mg/dL (70-105); Potassium 4.4 mmol/L (3.5-5.1); Sodium 148 mmol/L (136-145)
[2020-08-01 06:42] LABS: Band 5 % (5-11); Hemoglobin 8.9 g/dL (14.0-18.0); Hypochromia SLIGHT = 6-15 cells (100X) (0-5/hpf); Lymphocytes 10 % (21-51); MDiff Complete? YES; Mean Corpuscular HGB CONC 31.7 g/dL (32.0-36.0); Mean Corpuscular Hemoglobin 31.1 pg (27.0-31.0); Mean Corpuscular Volume 98.2 fL (78.0-98.0); Mean Platelet Volume 8.8 fL (7.4-10.4); Monocytes 2 % (0-10); Neutrophil 83 % (42-75); Nucleated RBC 3 % (0); Platelet Count 274 thou/uL (130-400); Platelet Morphology Comment Appears Adequate; Red Blood Cell (RBC) Count 2.87 mill/uL (4.70-6.10); White Blood Cell (WBC) Count 20.4 thou/uL (4.8-10.8)
[2020-08-01] MEDS: Ziprasidone 20 MG CAP PER TUBE SCH ×2 (09:38→20:37)
[2020-08-01] MEDS: Metoprolol Tartrate 25 MG TAB PER TUBE SCH ×2 (09:39→20:38)
[2020-08-01] MEDS: predniSONE 20 MG TAB PER TUBE SCH (09:41)
[2020-08-01] MEDS: Enoxaparin Sodium 40 MG/0.4 ML SYRINGE SC SCH (09:41)
[2020-08-01] MEDS: Pantoprazole 40 MG VIAL IVP SCH (09:42)
--- NOTE | 2020-08-01 10:48 | PRG ---
DATE OF SERVICE: 08/01/2020 SUBJECTIVE: Awais Masterson continues to have large blood clots. The nurses tell me since last night, he has had 6 to 7 passings of large clots. He apparently became hypotensive overnight. It was documented dropped into the 90s. He received fluids and blood last night. His hemoglobin this morning is 8.9. OBJECTIVE: LUNGS: Unchanged. HEART: Unchanged. ABDOMEN: Unchanged. He is still on high flow, but appears reasonably comfortable. Given his drop in blood pressure and his ongoing rectal bleeding, probably needs to be back in the critical care unit for closer observation. Job ID: [id number]
[2020-08-01] MEDS: Fludrocortisone Acetate 0.1 MG TAB PER TUBE SCH (12:10)
[2020-08-01] MEDS: Nicotine 14 MG PATCH TD SCH (12:45)
[2020-08-01] MEDS: Pantoprazole 80 MG, Admixture Fee 1 EACH in Sodium Chloride 0.9% 100 ML IVPB SCH ×2 (13:24→23:50)
--- NOTE | 2020-08-01 13:41 | PDOC.HOSPP ---
- Subjective Encounter Date: 08/01/20 Encounter Time: 10:50 Subjective: Patient is alert. He feels he is hungry but no abdominal discomfort or pain anywhere. He did not pass the swallow study. He received a unit of blood last night. His white count is trending down. His sodium is quite high at 148. On tube feed - Objective Vital Signs & Weight: Vital Signs (12 hours) Temp Pulse Ox 08/01/20 11:00 100 08/01/20 10:30 99 08/01/20 10:00 100 08/01/20 07:31 98.5 F 08/01/20 03:40 98.7 F 08/01/20 03:32 98.7 F Weight Admit Weight 169 lb Weight 142 lb 3.17 oz Most Recent Monitor Data Heart Rate from ECG 107 NIBP 157/84 NIBP BP-Mean 108 Respiration from ECG 25 SpO2 100 I&O: 07/31/20 08/01/20 08/02/20 06:59 06:59 06:59 Intake Total 1063.6 1270.8 630 Output Total 1781 565 650 Balance -717.4 705.8 -20 Result Diagrams: 08/01/20 05:45 08/01/20 05:45 Hospitalist ROS - Medication Medications: Active Medications Generic Name Dose Route Start Last Admin Trade Name Freq PRN Reason Stop Dose Admin Acetaminophen 650 mg 07/04/20 20:19 08/01/20 09:38 Tylenol PO 650 mg Q4H PRN Administration Headache/Fever/Mild Pain (1-3) Enoxaparin Sodium 40 mg 08/01/20 09:00 08/01/20 09:41 Lovenox SC Not Given 899 MERRILL Fludrocortisone Acetate 0.1 mg 07/30/20 08:00 08/01/20 12:10 Florinef PER TUBE 0.1 mg QAM-WM MERRILL Administration Dexmedetomidine HCl 400 mcg/ 100 mls @ 0 mls/hr 07/23/20 08:00 07/31/20 17:37 Sodium Chloride IVPB 100 mls INF MERRILL Administration Protocol Per Protocol Pantoprazole Sodium 80 mg/ 100 mls @ 10 mls/hr 07/31/20 23:00 08/01/20 13:24 Miscellaneous Medication 1 IVPB 100 mls each/ Sodium Chloride INF MERRILL Administration Metoprolol Tartrate 12.5 mg 07/17/20 09:00 08/01/20 09:39 Lopressor PER TUBE 12.5 mg BID MERRILL Administration Nicotine 14 mg 07/18/20 12:00 08/01/20 12:45 Nicoderm Patch TD Not Given Q24HR MERRILL Ondansetron HCl 4 mg 07/04/20 20:20 07/29/20 09:45 Zofran IVP 4 mg Q6H PRN Administration Nausea/Vomiting, use 1st Pantoprazole Sodium 40 mg 08/01/20 09:00 08/01/20 09:42 Protonix IVP 40 mg DAILY MERRILL Administration Polyethylene Glycol 17 gm 07/10/20 13:27 07/14/20 10:15 Miralax PO 17 gm DAILYPRN PRN Administration Constipation Prednisone 20 mg 07/30/20 08:00 08/01/20 09:41 Prednisone PER TUBE 20 mg 0800 MERRILL Administration Sertraline HCl 100 mg 07/26/20 08:15 08/01/20 09:40 Zoloft PO 100 mg DAILY MERRILL Administration Sodium Chloride 10 ml 07/04/20 21:00 08/01/20 09:42 Flush - Normal Saline IVF 10 ml Q12HR MERRILL Administration Sodium Chloride 10 ml 07/04/20 20:22 07/11/20 21:00 Flush - Normal Saline IVF 10 ml PRN PRN Administration Saline Flush Sterile Water 1.2 ml 07/17/20 08:39 07/17/20 09:24 Water For Injection FS 1.2 ml PRN PRN Administration RECONSTITUTION Ziprasidone 20 mg 07/28/20 09:00 08/01/20 09:38 Geodon PER TUBE 20 mg BID MERRILL Administration - Exam General Appearance: NAD, awake alert General - other findings: T-piece Eye: PERRL ENT: normocephalic atraumatic Neck: supple Heart: RRR, normal peripheral pulses Respiratory: CTAB, normal chest expansion Gastrointestinal: soft, normal bowel sounds Neurological: no new deficit Psychiatric: oriented to person, oriented to place Hosp A/P - Plan (1) Yeast UTI Code(s): B37.49 - OTHER UROGENITAL CANDIDIASIS Status: Resolved (2) Acute respiratory failure with hypoxia Code(s): J96.01 - ACUTE RESPIRATORY FAILURE WITH HYPOXIA Status: Acute (3) COVID-19 virus infection Code(s): U07.1 - COVID-19 Status: Acute (4) Pneumonia due to COVID-19 virus Code(s): U07.1 - COVID-19; J12.89 - OTHER VIRAL PNEUMONIA Status: Acute (5) HTN (hypertension) Code(s): I10 - ESSENTIAL (PRIMARY) HYPERTENSION Status: Acute Qualifiers: Hypertension type: essential hypertension Qualified Code(s): I10 - Essential (primary) hypertension (6) Dysphagia Code(s): R13.10 - DYSPHAGIA, UNSPECIFIED Status: Acute Qualifiers: Dysphagia type: unspecified Qualified Code(s): R13.10 - Dysphagia, unspecified - Plan on high flow O2 support PPI IV prednisone and florinef Hold to the tube feed Blood clot via rectal tube Elevated leukocytosis Acute blood loss anemia Unclear why jump in white count to 26K. -?Likely due to the rectal bleed/blood clot with acute stress demargination -We will follow with chest x-ray as well as urine analysis.--Added. -Patient is not on any antibiotic Will follow with the image studies and will start antibiotic as clinically indicated. -Placed a GI consult. -Hold the tube feed and Lovenox switched to DVT prophylaxis. Will repeat both hemoglobin as well as white count this evening. 6th Acute blood loss anemia secondary to clot with the rectal tube associated. Status post unit of transfusion and current hemoglobin 8.9. -He is on Protonix drip. White count is trending down. -Chest x-ray with no new infiltrate -UA without any signs of urinary tract infection. Right upper extremity DVT -Given the rectal bleed will just provide Lovenox DVT prophylaxis for now. Gluteal ulceration present on admission Routine wound care If continued stability we can transfer him back to [facility] tomorrow.
[2020-08-01] MEDS ORDERED: Dextrose 5% w/ 20 mEq KCl 1,000 ML IV SCH (13:45)
--- NOTE | 2020-08-01 18:19 | PRG ---
DATE OF SERVICE: 08/01/2020 REASON FOR CONSULTATION: Hematochezia. SUBJECTIVE: Overnight, the patient had approximately 6 to 7 small to medium size bloody bowel movements, that was associated with significant hypotension with the systolic blood pressure reaching in the 90s mmHg. Subsequently, the patient was transferred back to the CCU for further/closer monitoring and care. Over the course of the day today, he has had no further episodes of bloody bowel movements and was resting comfortably at the time of evaluation. Currently, he denies any nausea, vomiting, fevers, chills, hematemesis, melena, abdominal pain, dysphagia, or odynophagia. OBJECTIVE: VITAL SIGNS: Temperature 98.5, pulse 116, blood pressure 135/70, respiratory rate 25, and saturating 100% on room air. GENERAL: The patient was lying in bed, in no acute distress. Alert and oriented x4. Significant conversational dyspnea noted. CARDIOVASCULAR: Tachycardic rate, but regular rhythm. RESPIRATORY: Diminished breath sounds auscultated in all lung cramer with mild coarse sounds due to the higher flow oxygen. ABDOMEN: Normoactive bowel sounds. Soft, nontender, nondistended. EXTREMITIES: Multiple ecchymoses noted in the right upper extremity. Trace bilateral lower extremity edema to the mid vidales. LABORATORY DATA: CBC with a white blood cell count of 20.4, hemoglobin 8.9, hematocrit 28.2, platelets 274. Chemistry with a sodium of 148, potassium 4.4, chloride 108, CO2 of 27, BUN 51, creatinine 0.82, glucose 158. IMAGING DATA: No current GI imaging is available for review. ASSESSMENT AND PLAN: The patient is a 59-year-old male with no prior medical history, presenting with the COVID-19 infection, complicated by acute respiratory failure requiring mechanical ventilation, and further complicated by right upper extremity deep venous thrombosis formation and now with hematochezia while on anticoagulation. Hematochezia: During the course of the patient's hospitalization, he has had a fairly complicated hospital course secondary to the sequelae of the COVID-19 infection, more recently the patient was noted to have a right upper extremity deep vein thrombosis and was ultimately placed on full anticoagulation for this condition. However, upon removal of the patient's rectal tube approximately 2 to 3 days ago, he had been having increasing amounts of hematochezia, characterized as bright red/maroon-colored stools. Initially on rectal examination, there was no evidence of external hemorrhoids and no palpation of internal hemorrhoids. However, on the night of July 31, 2020, he had continued passage of bloody bowel movement/blood clots with hypotension, concerning for acute blood loss resulting in decreased blood pressure. He was given IV fluids and blood product and responded very appropriately to both of these interventions with his hemoglobin and hematocrit this morning significantly above what would be expected for a gastrointestinal bleed to generate hypotension. During the course of the day today, he has had no further episodes of hematochezia. At this time, it seems the more likely explanation for his recent hematochezia would be colitis/proctitis associated with rectal tube insertion and resultant ulcerations from the pressure exerted on the distal rectum. With the restoration of placing the patient on full anticoagulation, it subsequently seems to have resulted in significant hematochezia; however, seems not to have been enough to generate significant hypotension (unclear if it was bleeding or the Precedex has generated the hypotension last night). RECOMMENDATIONS: 1. We would continue to trend his hemoglobin and hematocrit and transfuse as necessary to maintain hemoglobin and hematocrit of 7/21. 2. Continue to monitor clinically for signs of active GI bleeding. 3. We would hold any anticoagulation at this time in light of recent GI bleed. 4. Avoid replacement of the bowel management system. 5. If the patient continues to have decreasing hemoglobin and hematocrit/bloody bowel movements or any further episodes of hypotension, endoscopic evaluation may be indicated with flexible sigmoidoscopy with minimal sedation in order to prevent respiratory compromise during the procedure. We will continue to follow. Please call with any questions. Job ID: [id number]
[2020-08-02 04:45] LABS: Band 24 % (5-11); Eosinophils 1 % (0-10); Lymphocytes 6 % (21-51); MDiff Complete? YES; Mean Corpuscular HGB CONC 32.2 g/dL (32.0-36.0); Mean Corpuscular Hemoglobin 32.2 pg (27.0-31.0); Mean Platelet Volume 8.6 fL (7.4-10.4); Metamyelocyte 2 % (0-0); Monocytes 1 % (0-10); Myelocyte 1 % (0-0); Neutrophil 64 % (42-75); Nucleated RBC 5 % (0); Platelet Count 250 thou/uL (130-400); Platelet Morphology Comment Appears Adequate; RBC Distribution Width 16.1 % (11.5-14.5); Reactive Lymphocytes 1 % (0-10); Red Blood Cell (RBC) Count 2.49 mill/uL (4.70-6.10); White Blood Cell (WBC) Count 17.5 thou/uL (4.8-10.8)
[2020-08-02 05:17] LABS: Anion Gap 10 mmol/L (10-20); BUN (Urea Nitrogen) 30 mg/dL (8.4-25.7); Calc. Creatinine Clearance 111 mL/min (70-130); Carbon Dioxide 34 mmol/L (22-29); Chloride 108 mmol/L (98-107); Estimated GFR-MDRD Greater than 90; Glucose 171 mg/dL (70-105); Potassium 4.4 mmol/L (3.5-5.1); Sodium 148 mmol/L (136-145)
[2020-08-02] MEDS: predniSONE 20 MG TAB PER TUBE SCH (08:05)
[2020-08-02] MEDS: Enoxaparin Sodium 40 MG/0.4 ML SYRINGE SC SCH (08:05)
[2020-08-02] MEDS: Pantoprazole 40 MG VIAL IVP SCH (08:05)
[2020-08-02] MEDS: Metoprolol Tartrate 25 MG TAB PER TUBE SCH ×2 (08:06→20:23)
[2020-08-02] MEDS: Ziprasidone 20 MG CAP PER TUBE SCH (08:06)
--- NOTE | 2020-08-02 08:51 | PRG ---
DATE OF SERVICE: 08/02/2020 SUBJECTIVE: He is moved back to the ICU yesterday because of rectal bleeding that has dissipated. OBJECTIVE: VITAL SIGNS: Temperature 98.5, pulse 120s, O2 saturation 97% to 100% on 4 L nasal cannula, and blood pressure 154/81. HEENT: Unremarkable. NECK: No adenopathy or JVD. LUNGS: Fairly clear anteriorly. CARDIAC: S1 and S2, slightly tachycardic. ABDOMEN: Soft and nontender. EXTREMITIES: He has the right upper arm hematoma present. LABORATORY DATA: White blood cell count 17.5, hemoglobin 8, hematocrit 24.9, platelet count 215. Sodium 140, potassium 4.4, chloride 108, CO2 of 34, BUN 30, creatinine 0.6, and glucose 171. ASSESSMENT: 1. Status post COVID-19 pneumonia. 2. Severe neuromuscular weakness. 3. Hematochezia. 4. Right arm hematoma. PLAN: 1. I am going to hold the anticoagulation for the next 2 days. 2. Stop the Geodon. 3. Decrease dose of nicotine patch. 4. Continue low-dose prednisone and Florinef. 5. Add D5W at a slightly higher rate than what he is getting. 6. Discontinue potassium from IV fluids. Job ID: [id number]
[2020-08-02] MEDS: Dextrose 5% in Water 1,000 ML IV SCH ×2 (09:15→20:27)
[2020-08-02] MEDS: Fludrocortisone Acetate 0.1 MG TAB PER TUBE SCH (09:15)
[2020-08-02] MEDS: Nicotine 7 MG PATCH TD SCH (09:16)
[2020-08-02 12:25] VITALS: BMI 22.2
--- NOTE | 2020-08-02 12:29 | PDOC.HOSPP ---
- Subjective Encounter Date: 08/02/20 Encounter Time: 10:20 Subjective: pt being cleaned up. Sodium still on the high end. D5W rate increased. Elizabeth stopped, given his ongoing weakness. Recent blood clot-hemoglobin at 8 it came down from 8.9 and he has a right upper arm hematoma. Lovenox DVT prophylaxis stopped. - Objective Vital Signs & Weight: Vital Signs (12 hours) Temp Pulse Pulse BP BP Pulse Ox Pulse Ox 08/02/20 11:54 100 08/02/20 11:00 100 08/02/20 10:55 125 H 119 H 162/66 H 146/78 H 100 08/02/20 09:53 100 08/02/20 09:00 100 08/02/20 07:58 100 08/02/20 07:49 100 08/02/20 07:00 98.5 F 08/02/20 04:00 98.5 F Pulse Ox 08/02/20 11:54 08/02/20 11:00 08/02/20 10:55 100 08/02/20 09:53 08/02/20 09:00 08/02/20 07:58 08/02/20 07:49 08/02/20 07:00 08/02/20 04:00 Weight Admit Weight 169 lb Weight 142 lb Most Recent Monitor Data Heart Rate from ECG 124 NIBP 133/76 NIBP BP-Mean 95 Respiration from ECG 24 SpO2 100 I&O: 08/01/20 08/02/20 08/03/20 06:59 06:59 06:59 Intake Total 1270.8 2775 180 Output Total 565 1810 330 Balance 705.8 965 -150 Result Diagrams: 08/02/20 03:48 08/02/20 03:48 Hospitalist ROS - Medication Medications: Active Medications Generic Name Dose Route Start Last Admin Trade Name Freq PRN Reason Stop Dose Admin Acetaminophen 650 mg 07/04/20 20:19 08/01/20 09:38 Tylenol PO 650 mg Q4H PRN Administration Headache/Fever/Mild Pain (1-3) Enoxaparin Sodium 40 mg 08/01/20 09:00 08/01/20 09:41 Lovenox SC Not Given 09 MERRILL Fludrocortisone Acetate 0.1 mg 07/30/20 08:00 08/02/20 09:15 Florinef PER TUBE 0.1 mg QAM-WM MERRILL Administration Pantoprazole Sodium 80 mg/ 100 mls @ 10 mls/hr 07/31/20 23:00 08/01/20 23:50 Miscellaneous Medication 1 IVPB 100 mls each/ Sodium Chloride INF MERRILL Administration Dextrose/Water 1,000 mls @ 75 mls/hr 08/02/20 08:45 08/02/20 09:15 D5w IV 1,000 mls .[id number] MERRILL Administration Metoprolol Tartrate 12.5 mg 07/17/20 09:00 08/02/20 08:06 Lopressor PER TUBE Not Given BID MERRILL Nicotine 7 mg 08/02/20 09:00 08/02/20 09:16 Nicoderm Patch TD 7 mg Q24HR MERRILL Administration Ondansetron HCl 4 mg 07/04/20 20:20 07/29/20 09:45 Zofran IVP 4 mg Q6H PRN Administration Nausea/Vomiting, use 1st Pantoprazole Sodium 40 mg 08/01/20 09:00 08/02/20 08:05 Protonix IVP 40 mg DAILY MERRILL Administration Polyethylene Glycol 17 gm 07/10/20 13:27 07/14/20 10:15 Miralax PO 17 gm DAILYPRN PRN Administration Constipation Prednisone 20 mg 07/30/20 08:00 08/02/20 08:05 Prednisone PER TUBE 20 mg 0800 MERRILL Administration Sertraline HCl 100 mg 07/26/20 08:15 08/02/20 08:06 Zoloft PO 100 mg DAILY MERRILL Administration Sodium Chloride 10 ml 07/04/20 21:00 08/02/20 08:06 Flush - Normal Saline IVF 10 ml Q12HR MERRILL Administration Sodium Chloride 10 ml 07/04/20 20:22 07/11/20 21:00 Flush - Normal Saline IVF 10 ml PRN PRN Administration Saline Flush Sterile Water 1.2 ml 07/17/20 08:39 07/17/20 09:24 Water For Injection FS 1.2 ml PRN PRN Administration RECONSTITUTION - Exam General Appearance: ill appearing Eye: PERRL, anicteric sclera ENT: normocephalic atraumatic Neck: supple Heart: RRR Respiratory: CTAB Gastrointestinal: soft, normal bowel sounds Extremities - other findings: r. arm hematoma Musculoskeletal: generalized weakness Psychiatric: oriented to person, oriented to place Hosp A/P - Plan (1) Yeast UTI Code(s): B37.49 - OTHER UROGENITAL CANDIDIASIS Status: Resolved (2) Acute respiratory failure with hypoxia Code(s): J96.01 - ACUTE RESPIRATORY FAILURE WITH HYPOXIA Status: Acute (3) COVID-19 virus infection Code(s): U07.1 - COVID-19 Status: Acute (4) Pneumonia due to COVID-19 virus Code(s): U07.1 - COVID-19; J12.89 - OTHER VIRAL PNEUMONIA Status: Acute (5) HTN (hypertension) Code(s): I10 - ESSENTIAL (PRIMARY) HYPERTENSION Status: Acute Qualifiers: Hypertension type: essential hypertension Qualified Code(s): I10 - Essential (primary) hypertension (6) Dysphagia Code(s): R13.10 - DYSPHAGIA, UNSPECIFIED Status: Acute Qualifiers: Dysphagia type: unspecified Qualified Code(s): R13.10 - Dysphagia, unspecified - Plan on high flow O2 support PPI IV prednisone and florinef Hold to the tube feed Blood clot via rectal tube Elevated leukocytosis Acute blood loss anemia Unclear why jump in white count to 26K. -?Likely due to the rectal bleed/blood clot with acute stress demargination -We will follow with chest x-ray as well as urine analysis.--Added. -Patient is not on any antibiotic Will follow with the image studies and will start antibiotic as clinically indicated. -Placed a GI consult. -Hold the tube feed and Lovenox switched to DVT prophylaxis. Will repeat both hemoglobin as well as white count this evening. 6th Acute blood loss anemia secondary to clot with the rectal tube associated. Status post unit of transfusion and current hemoglobin 8.9. -He is on Protonix drip. White count is trending down. -Chest x-ray with no new infiltrate -UA without any signs of urinary tract infection. Right upper extremity DVT -Given the rectal bleed will just provide Lovenox DVT prophylaxis for now. Gluteal ulceration present on admission Routine wound care If continued stability we can transfer him back to [facility] tomorrow. 7th Hypernatremia -D5W rate increased. -On tube feed Recent blood clot-hemoglobin at 8 it decreased from 8.9 Further hemoglobin drop and right arm hematoma Lovenox-DVT prophylaxis stopped. -close monitoring and transfuse as needed. Leukocytosis trending down. Stop PPI/Protonix drip and is scheduled 40 mg daily. Elizabeth stopped, given his ongoing weakness. will stop prednisone as well.
--- NOTE | 2020-08-02 23:28 | PRG ---
DATE OF SERVICE: REASON FOR CONSULTATION: Hematochezia. SUBJECTIVE: Overnight and during the course of the day today, the patient continued to have approximately 3 to 4 semi-solid bowel movements that were blood tinged per nursing staff, but no overt evidence of hematochezia. Further rectal care has been difficult given the significant erosions/excoriation of the skin in the perianal area with significant tenderness to manipulation and overt pain with cleans. Otherwise, the patient denies any nausea, vomiting, fevers, chills, hematemesis, melena, abdominal pain, dysphagia, or odynophagia. Of note, the patient has not had any further episodes of hypotension since being transferred back to the ICU. OBJECTIVE: VITAL SIGNS: Temperature 98.5, pulse 94, blood pressure 131/56, respiratory rate 23, and saturating 100% on high-flow oxygen. GENERAL: The patient was lying in bed, in no acute distress. Alert and oriented x4. Significant conversational dyspnea. CARDIOVASCULAR: Tachycardic rate, but regular rhythm. RESPIRATORY: Clear to auscultation bilaterally with diminished breath sounds in all lung cramer with poor inspiratory effort. ABDOMEN: Normoactive bowel sounds. Soft, nontender, and nondistended. EXTREMITIES: Multiple ecchymoses noted in the right upper extremity. Trace bilateral lower extremity edema to the mid shins. LABORATORY DATA: CBC with a white blood cell count of 17.5, hemoglobin 8, hematocrit 24.9, and platelets 250. Chemistry with a sodium of 148, potassium 4.4, chloride 108, CO2 of 34, BUN 30, creatinine 0.66, and glucose 171. IMAGING DATA: No current GI imaging is available for review. ASSESSMENT AND PLAN: The patient is a 59-year-old male, with no prior medical history, presenting with COVID-19 infection complicated by acute respiratory failure requiring mechanical ventilation, now with right upper extremity deep venous thrombosis and hematochezia while on anticoagulation. Hematochezia. During the course of this admission, the patient had a bowel management system placed while on mechanical ventilation for his respiratory failure secondary to COVID-19 infection. On discovery of the right upper extremity deep venous thrombosis, he was placed on anticoagulation and shortly thereafter he began having hematochezia. With removal of the rectal tube, he has been having slowly diminishing amounts of bright red blood per rectum, although he still continues to have downtrending of his H and H. I explained the current situation with him and described that further management of this condition would require either colonoscopy (with GoLYTELY prep) or flexible sigmoidoscopy (with enema administration). At this time, he would like to continue to monitor the H and H rather than proceeding with invasive therapies and the prep associated with either. At this time, the most likely explanation for his hematochezia would be the colitis/proctitis associated with rectal tube insertion and resultant ulcerations now worsened with anticoagulation. RECOMMENDATIONS: 1. We would continue to trend his H and H and transfuse as necessary to maintain an H and H of 06/15. 2. Continue to monitor clinically for signs of active GI bleeding. 3. We would hold any anticoagulation at time in light of GI bleeding. 4. Avoid replacement of the bowel management system. 5. If the patient continues to have decreasing H and H, I would revisit intraluminal evaluation with endoscopy with the patient. We will continue to follow. Please call with any questions. Job ID: [id number]
[2020-08-03 06:21] LABS: Band 9 % (5-11); Eosinophils 1 % (0-10); Hemoglobin 8.7 g/dL (14.0-18.0); Hypochromia SLIGHT = 6-15 cells (100X) (0-5/hpf); Lymphocytes 6 % (21-51); MDiff Complete? YES; Mean Corpuscular HGB CONC 31.6 g/dL (32.0-36.0); Mean Corpuscular Hemoglobin 31.6 pg (27.0-31.0); Mean Platelet Volume 8.5 fL (7.4-10.4); Monocytes 3 % (0-10); Neutrophil 81 % (42-75); Nucleated RBC 4 % (0); Platelet Count 244 thou/uL (130-400); Platelet Morphology Comment Appears Adequate; RBC Distribution Width 15.9 % (11.5-14.5); Red Blood Cell (RBC) Count 2.74 mill/uL (4.70-6.10); White Blood Cell (WBC) Count 12.1 thou/uL (4.8-10.8)
[2020-08-03 06:28] LABS: Anion Gap 16 mmol/L (10-20); BUN (Urea Nitrogen) 22 mg/dL (8.4-25.7); Calc. Creatinine Clearance 120 mL/min (70-130); Calcium 8.2 mg/dL (7.8-10.44); Carbon Dioxide 26 mmol/L (22-29); Chloride 105 mmol/L (98-107); Estimated GFR-MDRD Greater than 90; Glucose 110 mg/dL (70-105); Potassium 4.5 mmol/L (3.5-5.1); Sodium 142 mmol/L (136-145)
--- NOTE | 2020-08-03 09:14 | PRG ---
DATE OF SERVICE: 08/03/2020 SUBJECTIVE: The patient is sleeping today, looks comfortable. OBJECTIVE: VITAL SIGNS: Temperature 98.1, pulse 111, blood pressure 137/61, O2 saturation 98%. 24-hour intake 2541, output 1475. HEENT: Unremarkable. NECK: No adenopathy or JVD. CHEST: Clear - currently on 3 L of nasal cannula. CARDIAC: S1 and S2. Slightly tachycardic. ABDOMEN: Soft. EXTREMITIES: No edema. LABORATORY DATA: Sodium 142, potassium 4.5, chloride 105, CO2 of 26, BUN 22, creatinine 0.6, and glucose 110. White blood cell count 12.1, hematocrit 27.4, and platelet count 244. ASSESSMENT: 1. Status post COVID-19 pneumonia. 2. Severe neuromuscular weakness. 3. Anemia due to blood loss. PLAN: 1. I am going to change his beta-shell to a calcium channel shell. I am worried about the [employer] depression in this patient. 2. Check C diff because the patient is having diarrhea. 3. Continue ICU for one more day. Job ID: [id number]
[2020-08-03] MEDS: Fludrocortisone Acetate 0.1 MG TAB PER TUBE SCH (09:25)
[2020-08-03] MEDS: Pantoprazole 40 MG VIAL IVP SCH (09:25)
[2020-08-03] MEDS: Nicotine 7 MG PATCH TD SCH (09:25)
[2020-08-03] MEDS: Dextrose 5% in Water 1,000 ML IV SCH ×2 (09:49→23:14)
[2020-08-03] MEDS: Loperamide HCl 1 MG/7.5 ML UDCUP PO PRN (10:33)
[2020-08-03] MEDS ORDERED: Citrucel 500 MG TAB PO SCH (10:45)
--- NOTE | 2020-08-03 11:23 | PRG ---
DATE OF SERVICE: 08/03/2020 REASON FOR CONSULTATION: Hematochezia. SUBJECTIVE: Per nursing staff, the patient had approximately 8 to 10 bowel movements yesterday afternoon, yesterday evening, and early this morning (over the course of 12 hours) with no further evidence of blood in the stool. However, he does continue to have severe excoriations and sloughing of the skin in the perianal area contributing to a mild amount of blood loss as well. Currently, the patient states that his breathing is relatively unchanged, but denies any nausea, vomiting, fevers, chills, hematemesis, melena, or abdominal pain. OBJECTIVE: VITAL SIGNS: Temperature 98.1, pulse 94, blood pressure 110/54, respiratory rate 23, saturating 100% on high-flow oxygen. GENERAL: The patient was lying in bed, in no acute distress. Alert and oriented x4. Significant conversational dyspnea. CARDIOVASCULAR: Tachycardic rate, but regular rhythm. RESPIRATORY: Clear to auscultation bilaterally with diminished breath sounds in all lung cramer with poor inspiratory effort. ABDOMEN: Normoactive bowel sounds. Soft, nontender, nondistended. EXTREMITIES: Multiple ecchymoses in the right upper extremity. Trace bilateral lower extremity edema to the mid vidales. LABORATORY DATA: CBC with a white blood cell count of 12.1, hemoglobin 8.7, hematocrit 27.4, and platelets 244. Chemistry with a sodium of 142, potassium 4.5, chloride 105, CO2 of 26, BUN 22, creatinine 0.61, and glucose 110. ASSESSMENT AND PLAN: The patient is a 59-year-old male with no prior medical history, presenting with COVID-19 infection complicated by acute respiratory failure requiring mechanical ventilation, now with right upper extremity deep venous thrombosis, hematochezia while on anticoagulation for this and now frequent diarrhea. Hematochezia. Over the course of his extended/complicated hospitalization, he had the placement of a bowel management system that the patient had been using up until about a week ago. However, upon placing the patient on anticoagulation, he began to have hematochezia from around the rectal tube itself with significant amounts of hematochezia upon removal of the PEG tube itself; however, over the last 2 to 3 days, the patient has had significantly less and less and less hematochezia with holding his anticoagulation. At this time, the most likely explanation would be the prolonged placement of the bowel management system causing irritation/ulceration of the rectal mucosa that was then further exacerbated with concurrent use of anticoagulation. With his uptrending H and H and no further bouts of hematochezia, endoscopic evaluation is not indicated at this time. Recommendations: 1. We would continue to trend his H and H and transfuse as necessary to maintain an H and H of 7/21. 2. Continue to monitor clinically for signs of active GI bleeding three. 3. Continue to hold any anticoagulation in light of GI bleeding for at least the next 48 hours. 4. We would avoid replacement of the bowel management system as possible. 5. If the patient does have a decreasing H and H, I would revisit intraluminal evaluation via endoscopy. Diarrhea: Over the last 24 to 48 hours, the patient has had a significant increase in the amount of semi-solid bowel movements concerning for the presence of a possible infectious pathogen. Given his multiple antibiotics and prolonged hospitalization, he is certainly at risk for Clostridium difficile colitis. Recommendations: 1. Agree with primary team obtaining infectious stool studies. 2. Could place the patient on Imodium 2 mg b.i.d. 3. Would place the patient on fiber supplementation as part of a stool bulking technique. We will continue to follow. Please call with any questions. Job ID: [id number]
--- NOTE | 2020-08-03 12:45 | PDOC.HOSPP ---
- Subjective Encounter Date: 08/03/20 Encounter Time: 11:30 Subjective: Patient had 8 bowel movements last yesterday. Likely due to being on tube feed. Citrucel and MiraLAX has been ordered. - Objective Vital Signs & Weight: Vital Signs (12 hours) Temp 08/03/20 11:00 98.4 F 08/03/20 07:35 98.1 F 08/03/20 04:00 98.5 F Weight Admit Weight 169 lb Weight 142 lb Most Recent Monitor Data Heart Rate from ECG 87 NIBP 136/56 NIBP BP-Mean 82 Respiration from ECG 23 SpO2 100 I&O: 08/02/20 08/03/20 08/04/20 06:59 06:59 06:59 Intake Total 2775 3541 150 Output Total 1810 1475 407 Balance 965 5726 -434 Result Diagrams: 08/03/20 05:40 08/03/20 05:40 Hospitalist ROS - Medication Medications: Active Medications Generic Name Dose Route Start Last Admin Trade Name Freq PRN Reason Stop Dose Admin Acetaminophen 650 mg 07/04/20 20:19 08/01/20 09:38 Tylenol PO 650 mg Q4H PRN Administration Headache/Fever/Mild Pain (1-3) Diltiazem HCl 30 mg 08/03/20 09:00 08/03/20 09:29 Cardizem PER TUBE 30 mg TID MERRILL Administration Enoxaparin Sodium 40 mg 08/01/20 09:00 08/01/20 09:41 Lovenox SC Not Given 0900 MERRILL Fludrocortisone Acetate 0.1 mg 07/30/20 08:00 08/03/20 09:25 Florinef PER TUBE 0.1 mg QAM-WM MERRILL Administration Dextrose/Water 1,000 mls @ 75 mls/hr 08/02/20 08:45 08/03/20 09:49 D5w IV 1,000 mls .[id number] MERRILL Administration Loperamide HCl 2 mg 08/03/20 08:23 08/03/20 10:33 Imodium PO 2 mg Q4H PRN Administration Diarrhea/Loose Stools Methylcellulose 500 mg 08/03/20 10:45 08/03/20 12:34 Citrucel PO 08/03/20 13:00 500 mg NOW MERRILL Administration Nicotine 7 mg 08/02/20 09:00 08/03/20 09:25 Nicoderm Patch TD 7 mg Q24HR MERRILL Administration Ondansetron HCl 4 mg 07/04/20 20:20 07/29/20 09:45 Zofran IVP 4 mg Q6H PRN Administration Nausea/Vomiting, use 1st Pantoprazole Sodium 40 mg 08/01/20 09:00 08/03/20 09:25 Protonix IVP 40 mg DAILY MERRILL Administration Polyethylene Glycol 17 gm 07/10/20 13:27 07/14/20 10:15 Miralax PO 17 gm DAILYPRN PRN Administration Constipation Sertraline HCl 100 mg 07/26/20 08:15 08/03/20 09:25 Zoloft PO 100 mg DAILY MERRILL Administration Sodium Chloride 10 ml 07/04/20 21:00 08/03/20 09:30 Flush - Normal Saline IVF 10 ml Q12HR MERRILL Administration Sodium Chloride 10 ml 07/04/20 20:22 07/11/20 21:00 Flush - Normal Saline IVF 10 ml PRN PRN Administration Saline Flush Sterile Water 1.2 ml 07/17/20 08:39 07/17/20 09:24 Water For Injection FS 1.2 ml PRN PRN Administration RECONSTITUTION - Exam General Appearance: NAD, awake alert, ill appearing Eye: PERRL ENT: normocephalic atraumatic Neck: supple Heart: RRR, normal peripheral pulses Respiratory: CTAB, normal chest expansion Gastrointestinal: soft, normal bowel sounds Extremities: 1+ LE edema Neurological: no focal deficits Psychiatric: A&O x 3 Hosp A/P - Plan (1) Yeast UTI Code(s): B37.49 - OTHER UROGENITAL CANDIDIASIS Status: Resolved (2) Acute respiratory failure with hypoxia Code(s): J96.01 - ACUTE RESPIRATORY FAILURE WITH HYPOXIA Status: Acute (3) COVID-19 virus infection Code(s): U07.1 - COVID-19 Status: Acute (4) Pneumonia due to COVID-19 virus Code(s): U07.1 - COVID-19; J12.89 - OTHER VIRAL PNEUMONIA Status: Acute (5) HTN (hypertension) Code(s): I10 - ESSENTIAL (PRIMARY) HYPERTENSION Status: Acute Qualifiers: Hypertension type: essential hypertension Qualified Code(s): I10 - Essential (primary) hypertension (6) Dysphagia Code(s): R13.10 - DYSPHAGIA, UNSPECIFIED Status: Acute Qualifiers: Dysphagia type: unspecified Qualified Code(s): R13.10 - Dysphagia, unspecified - Plan on high flow O2 support PPI IV prednisone and florinef Hold to the tube feed Blood clot via rectal tube Elevated leukocytosis Acute blood loss anemia Unclear why jump in white count to 26K. -?Likely due to the rectal bleed/blood clot with acute stress demargination -We will follow with chest x-ray as well as urine analysis.--Added. -Patient is not on any antibiotic Will follow with the image studies and will start antibiotic as clinically indicated. -Placed a GI consult. -Hold the tube feed and Lovenox switched to DVT prophylaxis. Will repeat both hemoglobin as well as white count this evening. 6th Acute blood loss anemia secondary to clot with the rectal tube associated. Status post unit of transfusion and current hemoglobin 8.9. -He is on Protonix drip. White count is trending down. -Chest x-ray with no new infiltrate -UA without any signs of urinary tract infection. Right upper extremity DVT -Given the rectal bleed will just provide Lovenox DVT prophylaxis for now. Gluteal ulceration present on admission Routine wound care If continued stability we can transfer him back to [facility] tomorrow. 7th Hypernatremia -D5W rate increased. -On tube feed Recent blood clot-hemoglobin at 8 it decreased from 8.9 Further hemoglobin drop and right arm hematoma Lovenox-DVT prophylaxis stopped. -close monitoring and transfuse as needed. Leukocytosis trending down. Stop PPI/Protonix drip and is scheduled 40 mg daily. Geodon stopped, given his ongoing weakness. will stop prednisone as well. 8th Loose stool without watery. Unlikely C. difficile associated. He is getting bulking agents. Physical therapy likely follow with him today. This a.m. he was too fatigued to participate in therapy. Speech will be following. He can likely be transferred to the medical floor if he continued to improve tomorrow.
[2020-08-03] MEDS ORDERED: Metamucil PACK PER TUBE SCH (16:15)
[2020-08-03] MEDS: Metamucil PACK PER TUBE SCH (20:03)
[2020-08-04 03:24] LABS: Band 16 % (5-11); Eosinophils 2 % (0-10); Hemoglobin 7.3 g/dL (14.0-18.0); Lymphocytes 9 % (21-51); MDiff Complete? YES; Mean Corpuscular HGB CONC 30.9 g/dL (32.0-36.0); Mean Corpuscular Hemoglobin 30.3 pg (27.0-31.0); Mean Corpuscular Volume 98.1 fL (78.0-98.0); Mean Platelet Volume 8.1 fL (7.4-10.4); Metamyelocyte 3 % (0-0); Monocytes 3 % (0-10); Neutrophil 67 % (42-75); Platelet Count 218 thou/uL (130-400); Platelet Morphology Comment Appears Adequate; Red Blood Cell (RBC) Count 2.41 mill/uL (4.70-6.10); White Blood Cell (WBC) Count 8.4 thou/uL (4.8-10.8)
[2020-08-04 03:47] LABS: Anion Gap 12 mmol/L (10-20); BUN (Urea Nitrogen) 16 mg/dL (8.4-25.7); Calc. Creatinine Clearance 131 mL/min (70-130); Calcium 7.9 mg/dL (7.8-10.44); Carbon Dioxide 28 mmol/L (22-29); Chloride 100 mmol/L (98-107); Estimated GFR-MDRD Greater than 90; Glucose 129 mg/dL (70-105); Potassium 3.8 mmol/L (3.5-5.1); Sodium 136 mmol/L (136-145)
--- NOTE | 2020-08-04 08:23 | PRG ---
DATE OF SERVICE: 08/04/2020 SUBJECTIVE: The patient remains very depressed, very weak. PHYSICAL EXAMINATION: VITAL SIGNS: Temperature is 98.0, pulse generally in the 90s to 100s, and blood pressure 119/52. 24-hour intake 2354, output 1532. HEENT: Severe muscle wasting. NECK: No JVD. LUNGS: Clear anteriorly. CARDIAC: S1, S2. Slightly tachycardic. ABDOMEN: Soft. EXTREMITIES: No edema, but severe muscle wasting. LABORATORY DATA: Sodium 136, potassium 3.8, chloride 100, CO2 of 28, BUN 16, creatinine 0.5, and glucose 129. White blood cell count 8.4, hematocrit 23.7, and platelet count 218. ASSESSMENT: 1. Severe neuromuscular weakness, status post COVID. 2. Anemia due to blood loss. PLAN: 1. Cut down free water because sodium is starting to drop. 2. Needs to be on some component of steroids, so I am going to restart prednisone 20 mg a day. I am not sure how it initially got stopped. Also continue Florinef. 3. Up in a chair as tolerated and continue physical therapy. 4. Nutrition. May need to readdress the amount of protein the patient is getting. 5. Check thyroid status. Job ID: [id number]
[2020-08-04 08:28] LABS: Free T4 (Free Thyroxine) 0.98 ng/dL (0.70-1.48); Thyroid Stimulating Hormone 1.8788 uIU/mL (0.35-4.94)
[2020-08-04] MEDS: Fludrocortisone Acetate 0.1 MG TAB PER TUBE SCH (08:36)
[2020-08-04] MEDS: predniSONE 20 MG TAB PER TUBE SCH (08:36)
[2020-08-04] MEDS: Nicotine 7 MG PATCH TD SCH (08:36)
[2020-08-04] MEDS: Metamucil PACK PER TUBE SCH ×2 (08:40→19:08)
[2020-08-04] MEDS ORDERED: Citrucel 500 MG TAB PO SCH (09:00)
[2020-08-04] MEDS: Enoxaparin Sodium 40 MG/0.4 ML SYRINGE SC SCH (09:20)
--- NOTE | 2020-08-04 09:24 | PRG ---
DATE OF SERVICE: 08/04/2020 SUBJECTIVE: Per nursing staff, Mr. Masterson has had no further hematochezia. Bowel movements are greenish in color. He had 6 bowel movements yesterday, 2 overnight and 1 so far this morning. These are loose nonbloody stools. There has been no report of abdominal pain. He remains profoundly weak. PHYSICAL EXAMINATION: VITAL SIGNS: Temperature 97.6, pulse 111, blood pressure 142/82, 100% oxygen saturation on 3 L nasal cannula. GENERAL: He is sleeping comfortably, in no distress. HEART: Regular tachycardia. LUNGS: Clear to auscultation bilaterally. No respiratory distress. ABDOMEN: Flat, bowel sounds present. Soft and nontender to palpation. EXTREMITIES: No peripheral edema. LABORATORY STUDIES: Hemoglobin did decline to 7.3, WBC 8.4, platelets 218. Sodium 136, potassium 3.8, BUN down to 16, creatinine 0.56. ASSESSMENT/PLAN: 1. Hematochezia, appears to have resolved the past 2 days. 2. Acute blood loss anemia. Hemoglobin continued to downtrend, but with no further evidence of overt bleeding, I would agree with Dr. Benton that recent bleeding was likely secondary to rectal mucosa irritation or possibly ulceration from his prolonged rectal tube, in addition to the anticoagulation that had been started. We will continue to hold anticoagulation if possible, the patient is continuing on prophylactic dose of low-molecular weight heparin. Continue to trend H and H and monitor for any recurrence of overt bleeding. Transfuse as needed, but there is no plan for any endoscopic investigation at this time. Of note, the negative C difficile assay. Job ID: [id number]
[2020-08-04] MEDS: Pantoprazole 40 MG VIAL IVP SCH (09:26)
[2020-08-04] MEDS: Dextrose 5% in Water 1,000 ML IV SCH (09:26)
--- NOTE | 2020-08-04 12:57 | PDOC.HOSPP ---
- Subjective Encounter Date: 08/04/20 Encounter Time: 10:20 Subjective: Since seen this morning. He is seems to be slight improvement. But he is communicating minimal. He is tachycardic. He has a steroid-induced leukocytosis. Afebrile. - Objective Vital Signs & Weight: Vital Signs (12 hours) Temp Pulse Resp BP Pulse Ox 08/04/20 12:00 117 H 27 H 145/77 H 100 08/04/20 11:00 97.5 F L 114 H 37 H 165/85 H 93 L 08/04/20 10:00 105 H 38 H 135/65 91 L 08/04/20 09:00 108 H 23 H 125/65 95 08/04/20 08:00 101 H 18 126/65 100 08/04/20 07:51 100 08/04/20 07:00 97.6 F 111 H 22 H 142/82 H 100 08/04/20 06:00 105 H 21 H 113/63 100 08/04/20 05:00 114 H 28 H 122/63 100 08/04/20 04:00 95 17 127/62 100 08/04/20 03:00 98.0 F Weight Admit Weight 169 lb Weight 142 lb Most Recent Monitor Data Heart Rate from ECG 108 NIBP 119/52 NIBP BP-Mean 74 Respiration from ECG 19 SpO2 99 I&O: 08/03/20 08/04/20 08/05/20 06:59 06:59 06:59 Intake Total 3541 2354 Output Total 1475 1532 415 Balance 2066 822 -415 Result Diagrams: 08/04/20 03:02 08/04/20 03:02 Hospitalist ROS - Medication Medications: Active Medications Generic Name Dose Route Start Last Admin Trade Name Freq PRN Reason Stop Dose Admin Acetaminophen 650 mg 07/04/20 20:19 08/01/20 09:38 Tylenol PO 650 mg Q4H PRN Administration Headache/Fever/Mild Pain (1-3) Diltiazem HCl 30 mg 08/03/20 09:00 08/04/20 08:36 Cardizem PER TUBE 30 mg TID MERRILL Administration Enoxaparin Sodium 40 mg 08/01/20 09:00 08/04/20 09:20 Lovenox SC Not Given [address] [facility] Fludrocortisone Acetate 0.1 mg 07/30/20 08:00 08/04/20 08:36 Florinef PER TUBE 0.1 mg QAM-WM MERRILL Administration Dextrose/Water 1,000 mls @ 50 mls/hr 08/04/20 07:40 08/04/20 09:26 D5w IV 1,000 mls .Q20H MERRILL Administration Loperamide HCl 2 mg 08/03/20 08:23 08/03/20 10:33 Imodium PO 2 mg Q4H PRN Administration Diarrhea/Loose Stools Nicotine 7 mg 08/02/20 09:00 08/04/20 08:36 Nicoderm Patch TD 7 mg Q24HR MERRILL Administration Ondansetron HCl 4 mg 07/04/20 20:20 07/29/20 09:45 Zofran IVP 4 mg Q6H PRN Administration Nausea/Vomiting, use 1st Pantoprazole Sodium 40 mg 08/01/20 09:00 08/04/20 09:26 Protonix IVP 40 mg DAILY MERRILL Administration Polyethylene Glycol 17 gm 07/10/20 13:27 07/14/20 10:15 Miralax PO 17 gm DAILYPRN PRN Administration Constipation Prednisone 20 mg 08/04/20 09:00 08/04/20 08:36 Prednisone PER TUBE 20 mg DAILY MERRILL Administration Psyllium Hydrophilic Mucilloid 1 pk 08/03/20 21:00 08/04/20 08:40 Metamucil PER TUBE 1 pk BID MERRILL Administration Sertraline HCl 100 mg 07/26/20 08:15 08/04/20 08:36 Zoloft PO 100 mg DAILY MERRILL Administration Sodium Chloride 10 ml 07/04/20 21:00 08/04/20 08:36 Flush - Normal Saline IVF 10 ml Q12HR MERRILL Administration Sodium Chloride 10 ml 07/04/20 20:22 07/11/20 21:00 Flush - Normal Saline IVF 10 ml PRN PRN Administration Saline Flush Sterile Water 1.2 ml 07/17/20 08:39 07/17/20 09:24 Water For Injection FS 1.2 ml PRN PRN Administration RECONSTITUTION - Exam General Appearance: awake alert, ill appearing Eye: PERRL ENT: normocephalic atraumatic Neck: supple Heart: RRR Respiratory: CTAB, normal chest expansion Gastrointestinal: soft, normal bowel sounds Neurological: no focal deficits Psychiatric: oriented to person, oriented to place Hosp A/P - Plan (1) Yeast UTI Code(s): B37.49 - OTHER UROGENITAL CANDIDIASIS Status: Resolved (2) Acute respiratory failure with hypoxia Code(s): J96.01 - ACUTE RESPIRATORY FAILURE WITH HYPOXIA Status: Acute (3) COVID-19 virus infection Code(s): U07.1 - COVID-19 Status: Acute (4) Pneumonia due to COVID-19 virus Code(s): U07.1 - COVID-19; J12.89 - OTHER VIRAL PNEUMONIA Status: Acute (5) HTN (hypertension) Code(s): I10 - ESSENTIAL (PRIMARY) HYPERTENSION Status: Acute Qualifiers: Hypertension type: essential hypertension Qualified Code(s): I10 - Essential (primary) hypertension (6) Dysphagia Code(s): R13.10 - DYSPHAGIA, UNSPECIFIED Status: Acute Qualifiers: Dysphagia type: unspecified Qualified Code(s): R13.10 - Dysphagia, unspecified - Plan on high flow O2 support PPI IV prednisone and florinef Hold to the tube feed Blood clot via rectal tube Elevated leukocytosis Acute blood loss anemia Unclear why jump in white count to 26K. -?Likely due to the rectal bleed/blood clot with acute stress demargination -We will follow with chest x-ray as well as urine analysis.--Added. -Patient is not on any antibiotic Will follow with the image studies and will start antibiotic as clinically indicated. -Placed a GI consult. -Hold the tube feed and Lovenox switched to DVT prophylaxis. Will repeat both hemoglobin as well as white count this evening. 6th Acute blood loss anemia secondary to clot with the rectal tube associated. Status post unit of transfusion and current hemoglobin 8.9. -He is on Protonix drip. White count is trending down. -Chest x-ray with no new infiltrate -UA without any signs of urinary tract infection. Right upper extremity DVT -Given the rectal bleed will just provide Lovenox DVT prophylaxis for now. Gluteal ulceration present on admission Routine wound care If continued stability we can transfer him back to [facility] tomorrow. 7th Hypernatremia -D5W rate increased. -On tube feed Recent blood clot-hemoglobin at 8 it decreased from 8.9 Further hemoglobin drop and right arm hematoma Lovenox-DVT prophylaxis stopped. -close monitoring and transfuse as needed. Leukocytosis trending down. Stop PPI/Protonix drip and is scheduled 40 mg daily. Geodon stopped, given his ongoing weakness. will stop prednisone as well. 8th Loose stool without watery. Unlikely C. difficile associated. He is getting bulking agents. Physical therapy likely follow with him today. This a.m. he was too fatigued to participate in therapy. Speech will be following. He can likely be transferred to the medical floor if he continued to improve tomorrow. 9th -Continue with the prednisone and Florinef. White count is not worsening remained stable around 29-30,000 which is more likely steroid-induced. Not on any antibiotics. TSH free T4 in the normal range SOdium moving towards the other side is so we reduced his free water Continue out of bed to chair and ongoing physical therapy. As blood pressure seems to be improving he is okay to be transferred to intermediate care.
[2020-08-05] MEDS: Dextrose 5% in Water 1,000 ML IV SCH (01:20)
[2020-08-05] MEDS: Loperamide HCl 1 MG/7.5 ML UDCUP PO PRN (02:16)
[2020-08-05 03:56] LABS: Anion Gap 14 mmol/L (10-20); BUN (Urea Nitrogen) 11 mg/dL (8.4-25.7); Calc. Creatinine Clearance 136 mL/min (70-130); Calcium 8.1 mg/dL (7.8-10.44); Carbon Dioxide 27 mmol/L (22-29); Chloride 97 mmol/L (98-107); Estimated GFR-MDRD Greater than 90; Glucose 131 mg/dL (70-105); Potassium 3.5 mmol/L (3.5-5.1); Sodium 134 mmol/L (136-145)
[2020-08-05 04:53] LABS: Band 19 % (5-11); Hemoglobin 7.9 g/dL (14.0-18.0); Hypochromia SLIGHT = 6-15 cells (100X) (0-5/hpf); Lymphocytes 14 % (21-51); MDiff Complete? YES; Mean Corpuscular HGB CONC 33.4 g/dL (32.0-36.0); Mean Corpuscular Hemoglobin 32.6 pg (27.0-31.0); Mean Corpuscular Volume 97.7 fL (78.0-98.0); Mean Platelet Volume 7.8 fL (7.4-10.4); Metamyelocyte 2 % (0-0); Monocytes 2 % (0-10); Neutrophil 63 % (42-75); Nucleated RBC 1 % (0); Platelet Count 214 thou/uL (130-400); Platelet Morphology Comment Appears Adequate; RBC Distribution Width 16.1 % (11.5-14.5); Red Blood Cell (RBC) Count 2.42 mill/uL (4.70-6.10); White Blood Cell (WBC) Count 8.4 thou/uL (4.8-10.8)
--- NOTE | 2020-08-05 07:49 | PRG ---
DATE OF SERVICE: SUBJECTIVE: Patient is actually doing a little better. He has been weaned to 2 L nasal cannula. OBJECTIVE: VITAL SIGNS: His O2 saturation is 100%, temperature 98.2, pulse 106, and blood pressure 115/64. HEENT: Remarkable for bitemporal wasting. NECK: No adenopathy or JVD. LUNGS: Clear anteriorly. CARDIAC: S1, S2. Regular. ABDOMEN: Soft. EXTREMITIES: No edema. LABORATORIES: White blood cell count 8.4, hemoglobin 7.9, hematocrit 23.6, and platelet count 214. Sodium 134, potassium 3.5, chloride 97, CO2 of 27, BUN 11, creatinine 0.5, and glucose 131. ASSESSMENT: 1. COVID-19 pneumonia. 2. Severe neuromuscular deconditioning. 3. Swallowing dysfunction. 4. Anemia due to blood loss-hematochezia. PLAN: 1. LTAC placement, if possible. 2. Start iron sulfate. 3. Would continue Lovenox low dose as he is at very high risk for a thromboembolic event. 4. Stop free water as the patient's sodium is low. 5. I will ask Speech to see the patient again to see if he can swallow solid foods as patient is experiencing severe tube feed induced diarrhea. Job ID: [id number]
[2020-08-05] MEDS: predniSONE 20 MG TAB PER TUBE SCH (08:39)
[2020-08-05] MEDS: Fludrocortisone Acetate 0.1 MG TAB PER TUBE SCH (08:39)
[2020-08-05] MEDS: Enoxaparin Sodium 40 MG/0.4 ML SYRINGE SC SCH (08:39)
[2020-08-05] MEDS: Pantoprazole 40 MG VIAL IVP SCH (08:40)
[2020-08-05] MEDS: Nicotine 7 MG PATCH TD SCH (08:40)
[2020-08-05] MEDS: Metamucil PACK PER TUBE SCH ×2 (08:42→20:50)
--- NOTE | 2020-08-05 13:55 | PDOC.HOSPP ---
- Subjective Encounter Date: 08/05/20 Encounter Time: 11:20 Subjective: Patient seen he is awake alert. Speech therapy attempted today also but he failed with a swallow evaluation. Also he is not participating very actively - may be because of the pain. I talked to the as Patient failed twice with the swallow attempt. Discussed with the regarding possibility for PEG evaluation. She would like to wait until next week regarding PEG discussion. - Objective Vital Signs & Weight: Vital Signs (12 hours) Temp Pulse Ox 08/05/20 11:00 98.1 F 08/05/20 07:36 100 08/05/20 07:00 98.1 F 08/05/20 03:00 98.2 F Weight Admit Weight 169 lb Weight 142 lb Most Recent Monitor Data Heart Rate from ECG 102 NIBP 116/56 NIBP BP-Mean 76 Respiration from ECG 19 SpO2 100 I&O: 08/04/20 08/05/20 08/06/20 06:59 06:59 06:59 Intake Total 9144 3199 Output Total 153 2292 727 Balance 822 907 -725 Result Diagrams: 08/05/20 03:26 08/05/20 03:26 Hospitalist ROS - Medication Medications: Active Medications Generic Name Dose Route Start Last Admin Trade Name Freq PRN Reason Stop Dose Admin Acetaminophen 650 mg 07/04/20 20:19 08/01/20 09:38 Tylenol PO 650 mg Q4H PRN Administration Headache/Fever/Mild Pain (1-3) Diltiazem HCl 30 mg 08/03/20 09:00 08/05/20 08:39 Cardizem PER TUBE 30 mg TID MERRILL Administration Enoxaparin Sodium 40 mg 08/01/20 09:00 08/05/20 08:39 Lovenox SC 40 mg 0900 MERIRLL Administration Ferrous Sulfate 300 mg 08/05/20 09:00 08/05/20 08:40 Ferrous Sulfate PER TUBE 300 mg DAILY MERRILL Administration Fludrocortisone Acetate 0.1 mg 07/30/20 08:00 08/05/20 08:39 Florinef PER TUBE 0.1 mg QAM-WM MERRILL Administration Loperamide HCl 2 mg 08/03/20 08:23 08/05/20 02:16 Imodium PO 2 mg Q4H PRN Administration Diarrhea/Loose Stools Nicotine 7 mg 08/02/20 09:00 08/05/20 08:40 Nicoderm Patch TD 7 mg Q24HR MERRILL Administration Ondansetron HCl 4 mg 07/04/20 20:20 07/29/20 09:45 Zofran IVP 4 mg Q6H PRN Administration Nausea/Vomiting, use 1st Pantoprazole Sodium 40 mg 08/01/20 09:00 08/05/20 08:40 Protonix IVP 40 mg DAILY MERRILL Administration Prednisone 20 mg 08/04/20 09:00 08/05/20 08:39 Prednisone PER TUBE 20 mg DAILY MERRILL Administration Psyllium Hydrophilic Mucilloid 1 pk 08/03/20 21:00 08/05/20 08:42 Metamucil PER TUBE 1 pk BID MERRILL Administration Sertraline HCl 100 mg 07/26/20 08:15 08/05/20 08:39 Zoloft PO 100 mg DAILY MERRILL Administration Sodium Chloride 10 ml 07/04/20 21:00 08/05/20 08:40 Flush - Normal Saline IVF 10 ml Q12HR MERRILL Administration Sodium Chloride 10 ml 07/04/20 20:22 07/11/20 21:00 Flush - Normal Saline IVF 10 ml PRN PRN Administration Saline Flush Sterile Water 1.2 ml 07/17/20 08:39 07/17/20 09:24 Water For Injection FS 1.2 ml PRN PRN Administration RECONSTITUTION - Exam General Appearance: awake alert, ill appearing Eye: PERRL, anicteric sclera ENT: normocephalic atraumatic Neck: supple Heart: RRR, normal peripheral pulses Respiratory: CTAB, normal chest expansion Gastrointestinal: soft, normal bowel sounds Neurological: no focal deficits Psychiatric: A&O x 3 Hosp A/P - Plan (1) Yeast UTI Code(s): B37.49 - OTHER UROGENITAL CANDIDIASIS Status: Resolved (2) Acute respiratory failure with hypoxia Code(s): J96.01 - ACUTE RESPIRATORY FAILURE WITH HYPOXIA Status: Acute (3) COVID-19 virus infection Code(s): U07.1 - COVID-19 Status: Acute (4) Pneumonia due to COVID-19 virus Code(s): U07.1 - COVID-19; J12.89 - OTHER VIRAL PNEUMONIA Status: Acute (5) HTN (hypertension) Code(s): I10 - ESSENTIAL (PRIMARY) HYPERTENSION Status: Acute Qualifiers: Hypertension type: essential hypertension Qualified Code(s): I10 - Essential (primary) hypertension (6) Dysphagia Code(s): R13.10 - DYSPHAGIA, UNSPECIFIED Status: Acute Qualifiers: Dysphagia type: unspecified Qualified Code(s): R13.10 - Dysphagia, unspecified - Plan on high flow O2 support PPI IV prednisone and florinef Hold to the tube feed Blood clot via rectal tube Elevated leukocytosis Acute blood loss anemia Unclear why jump in white count to 26K. -?Likely due to the rectal bleed/blood clot with acute stress demargination -We will follow with chest x-ray as well as urine analysis.--Added. -Patient is not on any antibiotic Will follow with the image studies and will start antibiotic as clinically indicated. -Placed a GI consult. -Hold the tube feed and Lovenox switched to DVT prophylaxis. Will repeat both hemoglobin as well as white count this evening. 6th Acute blood loss anemia secondary to clot with the rectal tube associated. Status post unit of transfusion and current hemoglobin 8.9. -He is on Protonix drip. White count is trending down. -Chest x-ray with no new infiltrate -UA without any signs of urinary tract infection. Right upper extremity DVT -Given the rectal bleed will just provide Lovenox DVT prophylaxis for now. Gluteal ulceration present on admission Routine wound care If continued stability we can transfer him back to [facility] tomorrow. 7th Hypernatremia -D5W rate increased. -On tube feed Recent blood clot-hemoglobin at 8 it decreased from 8.9 Further hemoglobin drop and right arm hematoma Lovenox-DVT prophylaxis stopped. -close monitoring and transfuse as needed. Leukocytosis trending down. Stop PPI/Protonix drip and is scheduled 40 mg daily. Geodon stopped, given his ongoing weakness. will stop prednisone as well. 8th Loose stool without watery. Unlikely C. difficile associated. He is getting bulking agents. Physical therapy likely follow with him today. This a.m. he was too fatigued to participate in therapy. Speech will be following. He can likely be transferred to the medical floor if he continued to improve tomorrow. 9th -Continue with the prednisone and Florinef. White count is not worsening remained stable around 29-30,000 which is more likely steroid-induced. Not on any antibiotics. TSH free T4 in the normal range SOdium moving towards the other side is so we reduced his free water Continue out of bed to chair and ongoing physical therapy. As blood pressure seems to be improving he is okay to be transferred to intermediate care. 10th Speech therapy attempted today also but he failed with a swallow evaluation. Also he is not participating very actively . I talked to the as Patient failed twice with the swallow attempt. Discussed with the regarding possibility for PEG evaluation. She would like to wait until next week. Pending transfer to LTAC.
[2020-08-05] MEDS ORDERED: Acetaminophen 650 MG/20.3 ML UDCUP PO PRN (21:15)
[2020-08-06 04:16] LABS: Anion Gap 10 mmol/L (10-20); BUN (Urea Nitrogen) 13 mg/dL (8.4-25.7); Calc. Creatinine Clearance 141 mL/min (70-130); Calcium 8.1 mg/dL (7.8-10.44); Carbon Dioxide 31 mmol/L (22-29); Chloride 99 mmol/L (98-107); Estimated GFR-MDRD Greater than 90; Glucose 116 mg/dL (70-105); Potassium 3.3 mmol/L (3.5-5.1); Sodium 137 mmol/L (136-145)
[2020-08-06 05:00] LABS: Band 15 % (5-11); Eosinophils 1 % (0-10); Hemoglobin 7.9 g/dL (14.0-18.0); Lymphocytes 7 % (21-51); MDiff Complete? YES; Mean Corpuscular HGB CONC 32.4 g/dL (32.0-36.0); Mean Corpuscular Hemoglobin 31.9 pg (27.0-31.0); Mean Corpuscular Volume 98.5 fL (78.0-98.0); Metamyelocyte 2 % (0-0); Monocytes 5 % (0-10); Myelocyte 2 % (0-0); Neutrophil 68 % (42-75); Nucleated RBC 5 % (0); Platelet Count 232 thou/uL (130-400); Polychromasia MODERATE = 3-4 cells (100X) (0-2/hpf); RBC Distribution Width 15.9 % (11.5-14.5); Red Blood Cell (RBC) Count 2.46 mill/uL (4.70-6.10); White Blood Cell (WBC) Count 7.3 thou/uL (4.8-10.8)
--- NOTE | 2020-08-06 06:09 | PRG ---
DATE OF SERVICE: 08/05/2020 SUBJECTIVE: Nurses note Mr. Masterson has had a scant amount of red blood. He has had mainly brown stools, liquid, 4 to 5 times. He has been started on some fiber to go along with his tube feeds. His Clostridium difficile on the was negative. He has significant perineal and gluteal pain when he moves around, apparently he has a decubitus ulcer there, quite a bit of skin breakdown. OBJECTIVE: VITAL SIGNS: Temperature is 98.2, heart rate is 113, stable, and blood pressure 126/69. GENERAL: He is resting comfortably in bed, on tube feeds. ABDOMEN: Benign. LABORATORY DATA: White count is 8.4, hemoglobin 7.9, and platelet count 214. BUN and creatinine 11 and 0.54. ASSESSMENT: 1. Rectal bleeding, self limited, likely related to trauma. 2. Severe COVID deconditioning. 3. High risk for thromboembolic complications of COVID. Agree with restarting Lovenox, which has been done this morning on talking with the nurse. RECOMMENDATIONS: 1. Otherwise monitor hemoglobin and hematocrit daily. Would consider changing to tube feed with fiber supplement. 2. Agree with p.r.n. loperamide and iron. 3. Continue skin barrier cream. We will follow along with you. Job ID: [id number]
[2020-08-06] MEDS ORDERED: Loperamide HCl 2 MG CAP PER TUBE SCH (06:45)
[2020-08-06] MEDS ORDERED: Potassium Chloride 20 MEQ TAB PO SCH (06:45)
--- NOTE | 2020-08-06 06:50 | PRG ---
DATE OF SERVICE: 08/06/2020 SUBJECTIVE: The patient's main issue at this point is diarrhea and inability to swallow food. OBJECTIVE: VITAL SIGNS: His temperature is 98.5, pulse 106, blood pressure 123/70, and O2 saturation 100%. HEENT: Unremarkable. NECK: No JVD. LUNGS: Clear anteriorly. CARDIAC: S1 and S2. Regular. ABDOMEN: Soft. EXTREMITIES: Less swelling in the right upper arm. LABORATORY DATA: Sodium 137, potassium 3.3, chloride 99, CO2 of 31, BUN 13, creatinine 0.5, and glucose 116. White count 7.3, hematocrit 24.2, and platelet count 232. ASSESSMENT: 1. COVID-19 pneumonia - resolved. 2. Severe neuromuscular deconditioning. 3. Swallowing dysfunction. 4. Diarrhea. 5. Anemia due to blood loss. PLAN: 1. LTAC placement. 2. Scheduled Imodium t.i.d. for the next few days. 3. Continue Lovenox. 4. Replace potassium. Job ID: [id number]
[2020-08-06] MEDS: Loperamide HCl 1 MG/7.5 ML UDCUP PO PRN (08:22)
[2020-08-06] MEDS: Loperamide HCl 2 MG CAP PER TUBE SCH ×2 (08:23→14:49)
[2020-08-06] MEDS: Enoxaparin Sodium 40 MG/0.4 ML SYRINGE SC SCH (08:37)
[2020-08-06] MEDS: Pantoprazole 40 MG VIAL IVP SCH (08:38)
[2020-08-06] MEDS: Metamucil PACK PER TUBE SCH (08:39)
[2020-08-06] MEDS: predniSONE 20 MG TAB PER TUBE SCH (08:40)
[2020-08-06] MEDS: Fludrocortisone Acetate 0.1 MG TAB PER TUBE SCH (09:28)
[2020-08-06] MEDS: Nicotine 7 MG PATCH TD SCH (09:28)
--- NOTE | 2020-08-06 13:58 | PDOC.HOSPP ---
- Subjective Encounter Date: 08/06/20 Encounter Time: 11:20 Subjective: Patient remained stable and is oriented but he looks quite lethargic plan to send him to LTAC. Signed for LTAC. - Objective Vital Signs & Weight: Vital Signs (12 hours) Temp Pulse Ox 08/06/20 12:00 97.7 F 08/06/20 09:00 97.6 F 08/06/20 08:00 100 08/06/20 04:00 98.5 F Weight Admit Weight 169 lb Weight 142 lb Most Recent Monitor Data Heart Rate from ECG 111 NIBP 115/62 NIBP BP-Mean 79 Respiration from ECG 27 SpO2 100 I&O: 08/05/20 08/06/20 08/07/20 06:59 06:59 06:59 Intake Total 3199 1323 240 Output Total 8915 2542 420 Balance 907 -582 -180 Result Diagrams: 08/06/20 03:15 08/06/20 03:15 Hospitalist ROS - Medication Medications: Active Medications Generic Name Dose Route Start Last Admin Trade Name Freq PRN Reason Stop Dose Admin Diltiazem HCl 30 mg 08/03/20 09:00 08/06/20 08:39 Cardizem PER TUBE 30 mg TID MERRILL Administration Enoxaparin Sodium 40 mg 08/01/20 09:00 08/06/20 08:37 Lovenox SC 40 mg 899 MERRILL Administration Ferrous Sulfate 300 mg 08/05/20 09:00 08/06/20 08:39 Ferrous Sulfate PER TUBE 300 mg DAILY MERRILL Administration Fludrocortisone Acetate 0.1 mg 07/30/20 08:00 08/06/20 09:28 Florinef PER TUBE 0.1 mg QAM-WM MERRILL Administration Loperamide HCl 2 mg 08/06/20 09:00 08/06/20 08:23 Imodium PER TUBE Not Given TID MERRILL Nicotine 7 mg 08/02/20 09:00 08/06/20 09:28 Nicoderm Patch TD 7 mg Q24HR MERRILL Administration Ondansetron HCl 4 mg 07/04/20 20:20 07/29/20 09:45 Zofran IVP 4 mg Q6H PRN Administration Nausea/Vomiting, use 1st Pantoprazole Sodium 40 mg 08/01/20 09:00 08/06/20 08:38 Protonix IVP 40 mg DAILY MERRILL Administration Prednisone 20 mg 08/04/20 09:00 08/06/20 08:40 Prednisone PER TUBE 20 mg DAILY MERRILL Administration Psyllium Hydrophilic Mucilloid 1 pk 08/03/20 21:00 08/06/20 08:39 Metamucil PER TUBE 1 pk BID MERRILL Administration Sertraline HCl 100 mg 07/26/20 08:15 08/06/20 08:39 Zoloft PO 100 mg DAILY MERRILL Administration Sodium Chloride 10 ml 07/04/20 21:00 08/06/20 08:38 Flush - Normal Saline IVF 10 ml Q12HR MERRILL Administration Sodium Chloride 10 ml 07/04/20 20:22 07/11/20 21:00 Flush - Normal Saline IVF 10 ml PRN PRN Administration Saline Flush Sterile Water 1.2 ml 07/17/20 08:39 07/17/20 09:24 Water For Injection FS 1.2 ml PRN PRN Administration RECONSTITUTION - Exam General Appearance: NAD, awake alert ENT: normocephalic atraumatic Neck: supple Heart: RRR Respiratory: CTAB, normal chest expansion Gastrointestinal: soft, normal bowel sounds Gastrointestinal - other findings: On tube feed Neurological: no focal deficits Psychiatric: somnolent, lethargic Hosp A/P - Plan (1) Yeast UTI Code(s): B37.49 - OTHER UROGENITAL CANDIDIASIS Status: Resolved (2) Acute respiratory failure with hypoxia Code(s): J96.01 - ACUTE RESPIRATORY FAILURE WITH HYPOXIA Status: Acute (3) COVID-19 virus infection Code(s): U07.1 - COVID-19 Status: Acute (4) Pneumonia due to COVID-19 virus Code(s): U07.1 - COVID-19; J12.89 - OTHER VIRAL PNEUMONIA Status: Acute (5) HTN (hypertension) Code(s): I10 - ESSENTIAL (PRIMARY) HYPERTENSION Status: Acute Qualifiers: Hypertension type: essential hypertension Qualified Code(s): I10 - Essential (primary) hypertension (6) Dysphagia Code(s): R13.10 - DYSPHAGIA, UNSPECIFIED Status: Acute Qualifiers: Dysphagia type: unspecified Qualified Code(s): R13.10 - Dysphagia, unspecified - Plan on high flow O2 support PPI IV prednisone and florinef Hold to the tube feed Blood clot via rectal tube Elevated leukocytosis Acute blood loss anemia Unclear why jump in white count to 26K. -?Likely due to the rectal bleed/blood clot with acute stress demargination -We will follow with chest x-ray as well as urine analysis.--Added. -Patient is not on any antibiotic Will follow with the image studies and will start antibiotic as clinically indicated. -Placed a GI consult.---> No scope just to monitor hemoglobin closely. On PPI. -Hold the tube feed and Lovenox switched to DVT prophylaxis. Will repeat both hemoglobin as well as white count this evening. 6th Acute blood loss anemia secondary to clot with the rectal tube associated. Status post unit of transfusion and current hemoglobin 8.9. -He is on Protonix drip. White count is trending down. -Chest x-ray with no new infiltrate -UA without any signs of urinary tract infection. Right upper extremity DVT -Given the rectal bleed will just provide Lovenox DVT prophylaxis for now. Gluteal ulceration present on admission Routine wound care Recent blood clot-hemoglobin at 8 it decreased from 8.9 Further hemoglobin drop and right arm hematoma Lovenox-DVT prophylaxis stopped.-->Restarted back. -close monitoring and transfuse as needed. -Continue with the prednisone and Florinef. TSH free T4 in the normal range 10th Speech therapy attempted today also but he failed with a swallow evaluation. Also he is not participating very actively . I talked to the as Patient failed twice with the swallow attempt. Discussed with the regarding possibility for PEG evaluation. She would like to wait until next week. Pending transfer to LTAC. 1th Papers signed for him to go to LTAC. Potassium replaced. Dysphagia as part of neuromuscular weakness -Hopefully it will improve as he gets better physical. -He needs a repeat swallow evaluation in the LTAC. -Until that time he needs to be on tube feed for nutrition.
[2020-08-06 16:09] VITALS: BP 114/65
[2020-08-06] MEDS: Ondansetron PF 4 MG/2 ML Vial IVP PRN (16:12)
[2020-08-06 16:44] VITALS: TEMP 99
--- NOTE | 2020-08-09 06:11 | DIS ---
DATE OF ADMISSION: 06/23/2020 DATE OF DISCHARGE: 08/06/2020 DISCHARGE DIAGNOSES: 1. COVID pneumonia. 2. Acute respiratory failure with hypoxia. 3. Yeast urinary tract infection. 4. Hypertension. 5. Right upper extremity deep venous thrombosis. 6. Acute blood loss anemia secondary to clot with bleed associated. No need for further endoscopy study at this point. 7. Dysphagia due to neuromuscular weakness. Neuromuscular weakness due to extended ICU stay. 8. Diarrhea secondary to ongoing tube feed. 9. Hypokalemia. DISCHARGE MEDICATIONS: 1. Cardizem 30 mg t.i.d. 2. Lovenox as prophylaxis. 3. Florinef 0.1 mg per PEG tube. 4. Loperamide, Imodium 2 mg three times a day. 5. Prednisone 20 mg daily. 6. Protonix 40 mg daily. 7. Zoloft 100 mg daily. CONSULT: Critical Care Medicine. Please refer to history and physical and daily progress notes for more details. HOSPITAL COURSE: Briefly, this is a 59-year-old male, admitted on June 23 for hypoxia, bilateral pneumonia with COVID. He also has some underlying history of drug abuse. Due to prolonged ventilation, his recovery was very slow. He was extubated and able to stay off the vent for the last few days. However, his recovery in terms of physical conditioning is very slow. He will be continued on prednisone and Florinef on an ongoing basis for now. Speech Therapy attempted twice. He failed both times. So, he will be continued with tube feed until another attempt with a swallow study in the next few days in the LTAC. He also had loose stools likely secondary to tube feed. Because of that, anal area also the skin sloughed off due to ongoing loose stool. It seems to be getting better with Imodium. I approached the for the possibility of PEG tube evaluation. She would like to wait until he goes to LTAC and another attempt with swallow study made. He is hemodynamically stable to be transferred to LTAC. DISCHARGE INSTRUCTIONS: Activity with supervision and ongoing physical therapy to regain the strength. Tube feed. Discharge time took over 35 minutes. Job ID: [id number]
== END 2020-08-06 17:03 | DRG 207 ==
LOC: IMCU/EMU 20:23 → CCU 07-04 12:22 → UNDODISIN 07-04 12:55 → IMCU/EMU 07-31 13:10 → CCU 08-01 10:16
PROVIDERS: ADMIT Internal Medicine; ATTEND Internal Medicine
PROC: 8E0ZXY6 Isolation (ICD-10-PCS; 2020-06-23)
PROC: 5A09557 Assistance with Respiratory Ventilation, Greater than 96 Consecutive Hours, Continuous Positive Airway Pressure (ICD-10-PCS; 2020-06-23)
PROC: 5A1955Z Respiratory Ventilation, Greater than 96 Consecutive Hours (ICD-10-PCS; principal; 2020-07-04)
PROC: 0BH17EZ Insertion of Endotracheal Airway into Trachea, Via Natural or Artificial Opening (ICD-10-PCS; 2020-07-04)
PROC: 02HV33Z Insertion of Infusion Device into Superior Vena Cava, Percutaneous Approach (ICD-10-PCS; 2020-07-04)
PROC: XW033H5 Introduction of Tocilizumab into Peripheral Vein, Percutaneous Approach, New Technology Group 5 (ICD-10-PCS; 2020-07-05)
PROC: XW13325 Transfusion of Convalescent Plasma (Nonautologous) into Peripheral Vein, Percutaneous Approach, New Technology Group 5 (ICD-10-PCS; 2020-07-07)
PROC: 3E033XZ Introduction of Vasopressor into Peripheral Vein, Percutaneous Approach (ICD-10-PCS; 2020-07-12)
PROC: 30233N1 Transfusion of Nonautologous Red Blood Cells into Peripheral Vein, Percutaneous Approach (ICD-10-PCS; 2020-08-01)
DX: U07.1 COVID-19 (principal); J12.89 Other viral pneumonia; J80 Acute respiratory distress syndrome; I82.611 Acute embolism and thrombosis of superficial veins of right upper extremity; G62.81 Critical illness polyneuropathy; G72.81 Critical illness myopathy; B37.49 Other urogenital candidiasis; E87.0 Hyperosmolality and hypernatremia; D62 Acute posthemorrhagic anemia; K62.6 Ulcer of anus and rectum; K92.1 Melena; F41.9 Anxiety disorder, unspecified; R79.89 Other specified abnormal findings of blood chemistry; E87.5 Hyperkalemia; J98.2 Interstitial emphysema; R45.1 Restlessness and agitation; R19.7 Diarrhea, unspecified; D72.829 Elevated white blood cell count, unspecified; T38.0X5A Adverse effect of glucocorticoids and synthetic analogues, initial encounter; S40.021A Contusion of right upper arm, initial encounter; R13.10 Dysphagia, unspecified; X58.XXXA Exposure to other specified factors, initial encounter; I95.9 Hypotension, unspecified; R00.0 Tachycardia, unspecified; F17.200 Nicotine dependence, unspecified, uncomplicated; I10 Essential (primary) hypertension; L98.411 Non-pressure chronic ulcer of buttock limited to breakdown of skin; Z78.1 Physical restraint status
CPT/HCPCS: 36415; 36430; 36600; 71045; 74018; 80048; 80053; 80202; 81003; 81015; 82728; 82805; 83605; 83735; 84439; 84443; 85007; 85025; 85027; 85060; 85379; 86140; 86850; 86900; 86901; 87040; 87086; 87324; 87449; 93005; 93010; 94002; 94003; 94640; 94660; C1751; C9113; J0360; J0456; J0692; J0696; J1100; J1650; J2060; J2270; J2405; J2543; J2704; J2920; J2930; J3010; J3262; J3370; J3480; J3486; J3490; J7030; J7050; J7512; J7620; J7626; P9016; S0028

== ENCOUNTER 2020-12-16 10:16 | Outpatient (CLI) | payer OTHER ==
--- NOTE | 2020-12-16 11:59 | RAD ---
ABDOMEN 1 VIEW: HISTORY: Nephrolithiasis. COMPARISON: Radiograph 07/22/2020. FINDINGS: Indwelling right-sided nephrostomy tube. Bilateral renal calculi. Possible right ureteral calculus measuring 7-8 mm in length between the right L3 and L4 transverse pr ocesses. IMPRESSION: 1. Possible right-sided ureteral calculus measuring 7-8 mm. 2. Indwelling right nephrostomy tube. 3. Bilateral nephrolithiasis. POS: [facility]
== END 2020-12-16 10:17 | disposition home or self-care (01) ==
LOC: RAD 10:16
PROVIDERS: ATTEND Urology
DX: N20.0 Calculus of kidney (principal); Z96.0 Presence of urogenital implants
CPT/HCPCS: 74018

== ENCOUNTER 2021-01-17 07:01 | Day surgery (SDC) | payer OTHER, BC ==
[2021-01-17 07:50] LABS: #Eosinphils 0.1 thou/uL (0.0-0.7); #Lymphocytes 1.4 thou/uL (1.20-3.40); #Monocytes 0.5 thou/uL (0.11-0.59); #Neutrophils 3.5 thou/uL (1.40-6.50); %Basophils 0.1 % (0.0-1.0); %Eosinophils 1.8 % (0.0-10.0); %Lymphocytes 26.1 % (21.0-51.0); %Monocytes 8.6 % (0.0-10.0); %Neutrophils 63.3 % (42.0-75.0); Mean Corpuscular Hemoglobin 26.8 pg (27.0-31.0); Mean Corpuscular Volume 83.8 fL (78.0-98.0); Mean Platelet Volume 7.1 fL (7.4-10.4); Platelet Count 265 thou/uL (130-400); RBC Distribution Width 14.6 % (11.5-14.5); Red Blood Cell (RBC) Count 4.47 mill/uL (4.70-6.10); White Blood Cell (WBC) Count 5.5 thou/uL (4.8-10.8)
[2021-01-17] MEDS ORDERED: Fentanyl 100 MCG/2 ML VIAL ONE (08:07)
[2021-01-17] MEDS ORDERED: Midazolam HCl 2 mg/2 ml Vial ONE (08:08)
[2021-01-17] MEDS ORDERED: Sodium Bicarbonate 2.5 MEQ/5 ML VIAL ONE (08:08)
[2021-01-17 08:25] LABS: PTT 45.5 sec (22.9-36.1); Prothrombin Time 13.4 sec (12.0-14.7)
--- NOTE | 2021-01-17 09:38 | SPC ---
PROCEDURE: Right percutaneous nephrostomy tube placement and nephrostogram PROVIDED CLINICAL HISTORY: Obstructing right ureteral calculus and history of UTI. Replacement of nephrostomy tube was requested . COMPARISON: 1 view abdomen on 12/16/2020 TECHNIQUE: The procedure including the risks and complications were explained to the patient, and informed conse nt was obtained. Patient was placed on the angiography table in the prone position. The left nephrostomy tube and surrounding area were meticulously prepped and draped in usual sterile fashion. A nephrostogram was performed demonstrating no evidence of hydronephrosis. The nephrostomy tube was cut and exchanged over a 0.035 inch [employer] guidewire for a new 8 [place] percutaneous nephrostomy tub e. Distal portion of the nephrostomy tube is seen in the renal pelvis. Contrast injection confirms placement of the catheter in the renal collecting system. Nephrostomy tube was flushed and placed to gravity drainage. Nephrostomy tube was sutured in place utilizing 2-0 Ethilon suture material. Dry sterile dressing was placed. The patient tolerated the procedure well without immediate complication. Fluoroscopy: Time-0.7 minutes Dose-789 mGy centimeter squared IMPRESSION: 1. Filling defect seen within proximal right ureter near right UPJ most likely representing the urete ral calculus noted on one view abdomen on 12/16/2020. 2. Technically successful 8 [place] right percutaneous nephrostomy tube replacement.
[2021-01-17 10:41] VITALS: BMI 21.1
[2021-01-17 10:44] VITALS: BP 112/67; TEMP 99.4
== END 2021-01-17 09:58 | disposition home or self-care (01) ==
LOC: SPEC 07:01
PROVIDERS: ATTEND Urology
PROC: 0T25X0Z Change Drainage Device in Kidney, External Approach (ICD-10-PCS; principal; 2021-01-17)
DX: N20.0 Calculus of kidney (principal); J96.91 Respiratory failure, unspecified with hypoxia; I10 Essential (primary) hypertension; F41.9 Anxiety disorder, unspecified; F17.200 Nicotine dependence, unspecified, uncomplicated; F19.11 Other psychoactive substance abuse, in remission; Z43.6 Encounter for attention to other artificial openings of urinary tract; Z79.899 Other long term (current) drug therapy; Z86.16 Personal history of COVID-19
CPT/HCPCS: 50431; 50436; 75984; 85025; 85610; 85730; C1729; J2250; J3010

== ENCOUNTER 2021-02-17 12:57 | Outpatient (CLI) | payer OTHER | END 2021-02-17 12:58 | disposition home or self-care (01) | LOC: BICRAD 12:57 | PROVIDERS: ATTEND Internal Medicine Critical Care Medicine | DX: R06.00 Dyspnea, unspecified (principal); J93.9 Pneumothorax, unspecified | CPT/HCPCS: 71046 ==

== ENCOUNTER 2021-02-21 10:13 | Outpatient (CLI) | payer BC ==
[2021-02-21 11:32] LABS: Hemoglobin 11.8 g/dL (13.5-17.5); Mean Corpuscular HGB CONC 29.9 g/dL (32.0-36.0); Mean Corpuscular Hemoglobin 25.4 pg (27.0-33.0); Mean Corpuscular Volume 84.7 fl (81.2-95.1); Mean Platelet Volume 9.3 fl (7.4-10.4); Platelet Count 312 10x3/uL (150-450); RBC Distribution Width 14.6 % (11.5-14.5); Red Blood Cell (RBC) Count 4.65 10x6/uL (4.32-5.72)
[2021-02-21 11:43] LABS: Anion Gap 12 mmol/L (10-20); BUN (Urea Nitrogen) 14 mg/dL (8.4-25.7); Calc. Creatinine Clearance 0 mL/min (70-130); Calcium 9.4 mg/dL (7.8-10.44); Carbon Dioxide 31 mmol/L (22-29); Chloride 100 mmol/L (98-107); Glucose 112 mg/dL (70-105); Potassium 4.4 mmol/L (3.5-5.1); Sodium 139 mmol/L (136-145)
[2021-02-21 12:04] LABS: PTT 32.8 sec (22.0-33.0); Prothrombin Time 10.4 sec (9.5-12.1)
[2021-02-21 22:22] LABS: SARS-CoV-2 PCR by NAA Not Detected (NotDetected)
== END 2021-02-21 10:14 | disposition home or self-care (01) ==
LOC: LABBT 10:13
PROVIDERS: ATTEND Urology
DX: Z01.818 Encounter for other preprocedural examination (principal); Z20.822 Contact with and (suspected) exposure to COVID-19; N20.0 Calculus of kidney
CPT/HCPCS: 80048; 85027; 85610; 85730; 87077; 87086; 87186; 87635; 93005; 93010; U0003; U0005

== ENCOUNTER 2021-02-24 08:40 | Day surgery (SDC) | payer BC ==
[2021-02-23 11:22] VITALS: BMI 21.2
[~2021-02-24 08:40] MED LIST: Lidocaine 1% PF 5 ML VIAL ONE; Metoclopramide HCl 10 MG/2 ML VIAL ONE; Ondansetron PF 4 MG/2 ML Vial ONE; PHENYLEPHRINE-NS 100 MCG/ML 10 ML SYRINGE ONE; PROPOFOL 200 MG/20 ML VIAL ONE; Rocuronium Bromide 10 MG/ML (10ML VIAL) ONE
[2021-02-24] MEDS ORDERED: Levofloxacin 500 mg/D5W 100 ml Premix Bag ONE (09:52)
[2021-02-24] MEDS ORDERED: Famotidine/PF 20 mg/2ml Vial ONE (10:52)
[2021-02-24] MEDS ORDERED: Fentanyl 100 MCG/2 ML VIAL ONE (10:52)
[2021-02-24] MEDS ORDERED: Albuterol Sulfate HFA (OR ONLY) ONE (10:52)
[2021-02-24] MEDS ORDERED: B & O ONE (10:56)
[2021-02-24] MEDS ORDERED: Lidocaine 1% PF 5 ML VIAL ONE (11:00)
[2021-02-24] MEDS ORDERED: HYDROcodone/Acetaminophen 5/325 mg Tablet ONE (15:04)
== END 2021-02-24 15:15 | disposition home or self-care (01) ==
LOC: SDC 08:40
PROVIDERS: ATTEND Urology
PROC: 0TC68ZZ Extirpation of Matter from Right Ureter, Via Natural or Artificial Opening Endoscopic (ICD-10-PCS; principal; 2021-02-24)
PROC: 0T768DZ Dilation of Right Ureter with Intraluminal Device, Via Natural or Artificial Opening Endoscopic (ICD-10-PCS; principal; 2021-02-24)
DX: N20.1 Calculus of ureter (principal); U07.1 COVID-19; J96.90 Respiratory failure, unspecified, unspecified whether with hypoxia or hypercapnia; I10 Essential (primary) hypertension; Z79.899 Other long term (current) drug therapy
CPT/HCPCS: 76000; J1956; J3010; S0028

== ENCOUNTER 2021-04-12 08:45 | Outpatient (CLI) | payer OTHER | END 2021-04-12 08:46 | disposition home or self-care (01) | LOC: SCSMRI 08:45 | PROVIDERS: ATTEND Physical Medicine & Rehabilitation | DX: M25.511 Pain in right shoulder (principal); M75.101 Unspecified rotator cuff tear or rupture of right shoulder, not specified as traumatic ==

== ENCOUNTER 2021-05-09 12:30 | Outpatient (CLI) | payer BC, OTHER | END 2021-05-09 12:31 | disposition home or self-care (01) | LOC: BICULT 12:30 | PROVIDERS: ATTEND Urology | DX: N20.0 Calculus of kidney (principal); N28.1 Cyst of kidney, acquired | CPT/HCPCS: 76770 ==

== ENCOUNTER 2021-10-24 08:46 | Outpatient (CLI) | payer OTHER ==
[2021-10-24 10:15] LABS: Hemoglobin 13.4 g/dL (13.5-17.5); Mean Corpuscular HGB CONC 31.2 g/dL (32.0-36.0); Mean Corpuscular Hemoglobin 28.2 pg (27.0-33.0); Mean Corpuscular Volume 90.3 fl (81.2-95.1); Mean Platelet Volume 9.4 fl (7.4-10.4); Platelet Count 263 10x3/uL (150-450); RBC Distribution Width 12.3 % (11.5-14.5); Red Blood Cell (RBC) Count 4.76 10x6/uL (4.32-5.72); White Blood Cell (WBC) Count 6.9 10x3/uL (3.5-10.5)
[2021-10-24 10:29] LABS: Anion Gap 13 mmol/L (10-20); BUN (Urea Nitrogen) 12 mg/dL (8.4-25.7); Calc. Creatinine Clearance 0 mL/min (70-130); Calcium 9.3 mg/dL (7.8-10.44); Carbon Dioxide 28 mmol/L (22-29); Chloride 105 mmol/L (98-107); Glucose 107 mg/dL (70-105); Potassium 4.6 mmol/L (3.5-5.1); Sodium 141 mmol/L (136-145)
[2021-10-24 21:59] LABS: SARS-CoV-2 PCR by NAA Not Detected (NotDetected)
== END 2021-10-24 08:47 | disposition home or self-care (01) ==
LOC: LABBT 08:46
PROVIDERS: ATTEND Orthopaedic Surgery
DX: Z01.818 Encounter for other preprocedural examination (principal); M75.101 Unspecified rotator cuff tear or rupture of right shoulder, not specified as traumatic; Z20.822 Contact with and (suspected) exposure to COVID-19
CPT/HCPCS: 80048; 85027; 93005; 93010; U0003; U0005

== ENCOUNTER 2021-10-27 10:07 | Day surgery (SDC) | payer OTHER ==
[2021-10-25 11:59] VITALS: BMI 22.8
[2021-10-27] MEDS ORDERED: Midazolam HCl 2 mg/2 ml Vial ONE (11:32)
[2021-10-27] MEDS ORDERED: Fentanyl 100 MCG/2 ML VIAL ONE ×2 (11:32→11:37)
[2021-10-27] MEDS ORDERED: Lidocaine 2% Jelly 5 ML TUBE ONE (11:37)
[2021-10-27] MEDS ORDERED: Bupivacaine 0.25% HCL 30 ML VIAL ONE (11:39)
[2021-10-27] MEDS ORDERED: EPINEPHrine 1 MG/ML AMP ONE (11:40)
[2021-10-27] MEDS ORDERED: Sodium Chloride 0.9% 0 ML ONE (11:41)
[2021-10-27] MEDS ORDERED: ceFAZolin 2 GM/DEX 5% 100 ML BAG ONE (11:41)
[2021-10-27] MEDS ORDERED: Phenylephrine 10 MG/ML VIAL ONE (12:25)
[2021-10-27] MEDS ORDERED: PROPOFOL 200 MG/20 ML VIAL ONE (12:25)
[2021-10-27] MEDS ORDERED: Ropivacaine 0.5% HCl/PF (150 MG/30 ML VIAL) ONE (12:25)
[2021-10-27] MEDS ORDERED: Ondansetron PF 4 MG/2 ML Vial ONE (12:25)
[2021-10-27] MEDS ORDERED: Glycopyrrolate 0.2 MG/ML 5 ML SYRINGE ONE (12:25)
[2021-10-27] MEDS ORDERED: Dexamethasone 20 MG/5 ML VIAL ONE (12:25)
[2021-10-27] MEDS ORDERED: Rocuronium Bromide 10 MG/ML (10ML VIAL) ONE (12:25)
[2021-10-27] MEDS ORDERED: Ropivacaine 2% HCl/PF (20 MG/10 ML VIAL) ONE (12:25)
[2021-10-27] MEDS ORDERED: Ropivacaine 0.2% 550 ML 550 ML NERVE BLCK SCH (12:30)
[2021-10-27] MEDS ORDERED: Promethazine HCl 25 MG/ML VIAL IM PRN (12:30)
[2021-10-27] MEDS ORDERED: HYDROcodone/Acetaminophen 5/325 mg Tablet PO PRN ×2 (12:30)
[2021-10-27] MEDS ORDERED: traMADol HCl 50 MG TAB PO PRN ×2 (12:30)
[2021-10-27] MEDS ORDERED: Zolpidem Tartrate 5 MG TAB PO PRN (12:30)
[2021-10-27] MEDS ORDERED: Ondansetron PF 4 MG/2 ML Vial IVP PRN (12:30)
[2021-10-27] MEDS ORDERED: Ketorolac Tromethamine 30 MG/ML VIAL IVP PRN (12:30)
[2021-10-27] MEDS ORDERED: Albuterol Sulfate 1.25 MG/3 ML NEB ONE (14:54)
== END 2021-10-27 17:41 | disposition home or self-care (01) ==
LOC: SDC 10:07
PROVIDERS: ATTEND Orthopaedic Surgery
PROC: 0LQ14ZZ Repair Right Shoulder Tendon, Percutaneous Endoscopic Approach (ICD-10-PCS; principal; 2021-10-27)
PROC: 3E0T3BZ Introduction of Anesthetic Agent into Peripheral Nerves and Plexi, Percutaneous Approach (ICD-10-PCS; principal; 2021-10-27)
PROC: 0RNJ4ZZ Release Right Shoulder Joint, Percutaneous Endoscopic Approach (ICD-10-PCS; principal; 2021-10-27)
DX: M75.111 Incomplete rotator cuff tear or rupture of right shoulder, not specified as traumatic (principal); M65.811 Other synovitis and tenosynovitis, right shoulder; Z79.899 Other long term (current) drug therapy
CPT/HCPCS: C1713; J0171; J1100; J2250; J2370; J2405; J2704; J2795; J3010; S0020

== ENCOUNTER 2022-03-05 21:13 | Emergency (ER) | payer OTHER ==
[2022-03-05] MEDS ORDERED: Ketorolac Tromethamine 30 MG/ML VIAL ONE (22:44)
[2022-03-05 22:55] LABS: #Eosinphils 0.1 thou/uL (0.0-0.7); #Lymphocytes 1.6 thou/uL (1.20-3.40); #Monocytes 0.9 thou/uL (0.11-0.59); #Neutrophils 7.4 thou/uL (1.40-6.50); %Basophils 0.1 % (0.0-1.0); %Eosinophils 0.7 % (0.0-10.0); %Monocytes 8.7 % (0.0-10.0); %Neutrophils 74.4 % (42.0-75.0); Hemoglobin 9.8 g/dL (14.0-18.0); Mean Corpuscular HGB CONC 30.3 g/dL (32.0-36.0); Mean Corpuscular Hemoglobin 22.7 pg (27.0-31.0); Mean Corpuscular Volume 75.1 fL (78.0-98.0); Mean Platelet Volume 7.8 fL (7.4-10.4); Platelet Count 275 thou/uL (130-400); RBC Distribution Width 13.7 % (11.5-14.5); Red Blood Cell (RBC) Count 4.32 mill/uL (4.70-6.10)
[2022-03-05 23:04] LABS: Bacteria/HPF None Seen HPF (None Seen); Bilirubin Negative (Negative); Blood, Urine Negative (Negative); Clarity Clear (Clear); Glucose, Urine (Dipstick) Normal (Negative); Ketone, Urine Negative (Negative); Leukocyte Negative Leu/uL (Negative); Nitrite Negative (Negative); Protein, Urine (Dipstick) 30 mg/dL (Neg-Trace); RBC/HPF 0-3 HPF (0-3); Specific Gravity, Urine 1.027 (1.002-1.036); Squamous Epithelial 0-3 HPF (0-3); Urobilinogen Normal mg/dL (Less than 2); WBC/HPF 0-3 HPF (0-3); pH, Urine 5.5 (5.0-9.0)
[2022-03-05 23:16] LABS: ALT (SGPT) 10 U/L (8-55); AST (SGOT) 15 U/L (5-34); Albumin 4.5 g/dL (3.5-5.0); Alkaline Phosphatase 67 U/L (40-110); Anion Gap 13 mmol/L (10-20); BUN (Urea Nitrogen) 14 mg/dL (8.4-25.7); Bilirubin, Total 0.3 mg/dL (0.2-1.2); Calc. Creatinine Clearance 0 mL/min (70-130); Calcium 9.1 mg/dL (7.8-10.44); Carbon Dioxide 25 mmol/L (22-29); Chloride 102 mmol/L (98-107); Globulin 2.8 g/dL (2.4-3.5); Glucose 121 mg/dL (70-105); Potassium 3.8 mmol/L (3.5-5.1); Protein, Total 7.3 g/dL (6.0-8.3); Sodium 136 mmol/L (136-145)
[2022-03-05] MEDS ORDERED: Morphine 4 MG/ML VIAL ONE (23:33)
[2022-03-05] MEDS ORDERED: Ondansetron PF 4 MG/2 ML Vial ONE (23:33)
== END 2022-03-06 00:49 | disposition home or self-care (01) ==
LOC: ERS 21:13
DX: N13.2 Hydronephrosis with renal and ureteral calculous obstruction (principal)
CPT/HCPCS: 74176; 80053; 81003; 81015; 85025; 96374; 96375; J1885; J2270; J2405

== ENCOUNTER 2022-03-27 09:04 | Outpatient (CLI) | payer OTHER ==
[2022-03-27 10:18] LABS: Hemoglobin 9.3 g/dL (13.5-17.5); Mean Corpuscular HGB CONC 28.4 g/dL (32.0-36.0); Mean Corpuscular Hemoglobin 21.3 pg (27.0-33.0); Mean Corpuscular Volume 75.2 fl (81.2-95.1); Mean Platelet Volume 9.7 fl (7.4-10.4); Platelet Count 333 10x3/uL (150-450); RBC Distribution Width 14.7 % (11.5-14.5); Red Blood Cell (RBC) Count 4.36 10x6/uL (4.32-5.72)
[2022-03-27 10:39] LABS: Anion Gap 11 mmol/L (10-20); BUN (Urea Nitrogen) 13 mg/dL (8.4-25.7); Calc. Creatinine Clearance 0 mL/min (70-130); Calcium 9.5 mg/dL (7.8-10.44); Carbon Dioxide 28 mmol/L (22-29); Chloride 105 mmol/L (98-107); Glucose 95 mg/dL (70-105); INR-International Normal Ratio 0.9; PTT 25.9 sec (22.0-33.0); Potassium 4.9 mmol/L (3.5-5.1); Prothrombin Time 10.3 sec (9.5-12.1); Sodium 139 mmol/L (136-145)
[2022-03-27 11:37] LABS: Bilirubin Neg (Negative); Blood, Urine 150 (Negative); Clarity Clear (Clear); Glucose, Urine (Dipstick) Normal (Negative); Ketone, Urine Negative (Negative); Leukocyte Negative (Negative); Nitrite Negative (Negative); Protein, Urine (Dipstick) 15 mg/dl (Neg-Trace); Urobilinogen Normal mg/dL (Less than 2)
[2022-03-27 12:06] LABS: Bacteria/HPF None Seen HPF (None Seen); Squamous Epithelial 0-3 HPF (0-3); WBC/HPF 0-3 HPF (0-3)
[2022-03-27 23:05] LABS: SARS-CoV-2 PCR by NAA Not Detected (NotDetected)
== END 2022-03-27 09:05 | disposition home or self-care (01) ==
LOC: LABBT 09:04
PROVIDERS: ATTEND Urology
DX: Z01.818 Encounter for other preprocedural examination (principal); N20.0 Calculus of kidney; J96.91 Respiratory failure, unspecified with hypoxia; Z20.822 Contact with and (suspected) exposure to COVID-19
CPT/HCPCS: 80048; 81001; 85027; 85610; 85730; 87086; 93005; 93010; U0003; U0005

== ENCOUNTER 2022-03-29 07:51 | Outpatient (CLI) | payer BC | END 2022-03-29 07:52 | disposition home or self-care (01) | LOC: CT 07:51 | PROVIDERS: ATTEND Urology | DX: N13.2 Hydronephrosis with renal and ureteral calculous obstruction (principal) | CPT/HCPCS: 74176 ==

== ENCOUNTER 2022-03-30 05:41 | Day surgery (SDC) | payer BC ==
[2022-03-28 14:51] VITALS: BMI 23.1
[2022-03-30] MEDS ORDERED: Levofloxacin 500 mg/D5W 100 ml Premix Bag ONE (06:24)
[2022-03-30] MEDS ORDERED: Fentanyl 100 MCG/2 ML VIAL ONE (06:55)
[2022-03-30] MEDS ORDERED: B & O ONE (07:33)
[2022-03-30] MEDS ORDERED: Ioversol 68 % 50 ML VIAL ONE (07:34)
[2022-03-30] MEDS ORDERED: Ondansetron PF 4 MG/2 ML Vial ONE (07:52)
[2022-03-30] MEDS ORDERED: Dexamethasone 20 MG/5 ML VIAL ONE (07:52)
[2022-03-30] MEDS ORDERED: PROPOFOL 200 MG/20 ML VIAL ONE (07:52)
[2022-03-30] MEDS ORDERED: Lidocaine 1% PF 5 ML VIAL ONE (07:52)
[2022-03-30] MEDS ORDERED: Ketorolac Tromethamine 30 MG/ML VIAL ONE (07:52)
== END 2022-03-30 11:05 | disposition home or self-care (01) ==
LOC: SDC 05:41
PROVIDERS: ATTEND Urology
PROC: 0TC78ZZ Extirpation of Matter from Left Ureter, Via Natural or Artificial Opening Endoscopic (ICD-10-PCS; principal; 2022-03-30)
PROC: 0T778DZ Dilation of Left Ureter with Intraluminal Device, Via Natural or Artificial Opening Endoscopic (ICD-10-PCS; principal; 2022-03-30)
DX: N20.1 Calculus of ureter (principal); Q62.10 Congenital occlusion of ureter, unspecified; I10 Essential (primary) hypertension; F17.290 Nicotine dependence, other tobacco product, uncomplicated; J96.91 Respiratory failure, unspecified with hypoxia; Z86.16 Personal history of COVID-19; Z79.899 Other long term (current) drug therapy; Z99.81 Dependence on supplemental oxygen
CPT/HCPCS: 71045; 76000; 82365; 88300; C2617; J1100; J1885; J1956; J2405; J2704; J3010; Q9967

== ENCOUNTER 2022-05-19 14:59 | Outpatient (CLI) | payer BC, OTHER | END 2022-05-19 15:00 | disposition home or self-care (01) | LOC: BICULT 14:59 | PROVIDERS: ATTEND Urology | DX: N20.0 Calculus of kidney (principal) | CPT/HCPCS: 76770 ==

== ENCOUNTER 2022-06-12 10:50 | Inpatient (IN) | payer OTHER ==
[2022-06-12 11:35] LABS: #Eosinphils 0.1 thou/uL (0.0-0.7); #Lymphocytes 0.7 thou/uL (1.20-3.40); #Monocytes 0.6 thou/uL (0.11-0.59); #Neutrophils 8.7 thou/uL (1.40-6.50); %Basophils 0.1 % (0.0-1.0); %Eosinophils 0.6 % (0.0-10.0); %Lymphocytes 7.3 % (21.0-51.0); Mean Corpuscular HGB CONC 30.2 g/dL (32.0-36.0); Mean Corpuscular Hemoglobin 24.6 pg (27.0-31.0); Mean Corpuscular Volume 81.7 fL (78.0-98.0); Platelet Count 250 thou/uL (130-400); RBC Distribution Width 17.7 % (11.5-14.5); Red Blood Cell (RBC) Count 4.08 mill/uL (4.70-6.10); White Blood Cell (WBC) Count 10.1 thou/uL (4.8-10.8)
[2022-06-12 12:00] LABS: ALT (SGPT) 14 U/L (8-55); AST (SGOT) 56 U/L (5-34); Albumin 4.2 g/dL (3.5-5.0); Alkaline Phosphatase 62 U/L (40-110); Anion Gap 16 mmol/L (10-20); BUN (Urea Nitrogen) 10 mg/dL (8.4-25.7); Bilirubin, Total 0.4 mg/dL (0.2-1.2); Calc. Creatinine Clearance 0 mL/min (70-130); Carbon Dioxide 21 mmol/L (22-29); Chloride 105 mmol/L (98-107); Estimated GFR 80; Globulin 2.7 g/dL (2.4-3.5); Glucose 119 mg/dL (70-105); Potassium 5.4 mmol/L (3.5-5.1); Protein, Total 6.9 g/dL (6.0-8.3); Sodium 137 mmol/L (136-145)
[2022-06-12] MEDS ORDERED: Ondansetron ODT 4 MG TAB PO PRN (14:48)
[2022-06-12] MEDS ORDERED: Acetaminophen 325 MG TAB PO PRN (14:48)
[2022-06-12 15:42] LABS: Troponin I Less than 0.010 ng/mL (< 0.028)
[2022-06-12 18:23] LABS: Hemoglobin 8.1 g/dL (14.0-18.0)
[2022-06-12 18:24] LABS: Potassium 4.3 mmol/L (3.5-5.1)
[2022-06-12 18:35] LABS: Troponin I Less than 0.010 ng/mL (< 0.028)
[2022-06-12 19:19] VITALS: BMI 23.1
[2022-06-12] MEDS: Potassium Chloride 10 MEQ TAB PO SCH (21:33)
[2022-06-12 23:20] LABS: Hemoglobin 7.9 g/dL (14.0-18.0)
[2022-06-12] MEDS: Sodium Chloride 0.9% 1,000 ML IV SCH (23:35)
[2022-06-13 04:53] LABS: Anion Gap 13 mmol/L (10-20); BUN (Urea Nitrogen) 9 mg/dL (8.4-25.7); Calc. Creatinine Clearance 79 mL/min (70-130); Calcium 8.5 mg/dL (7.8-10.44); Carbon Dioxide 22 mmol/L (22-29); Chloride 107 mmol/L (98-107); Estimated GFR 92; Glucose 103 mg/dL (70-105); Potassium 4.1 mmol/L (3.5-5.1); Sodium 138 mmol/L (136-145)
[2022-06-13 04:54] LABS: #Eosinphils 0.1 thou/uL (0.0-0.7); #Lymphocytes 1.6 thou/uL (1.20-3.40); #Monocytes 0.8 thou/uL (0.11-0.59); #Neutrophils 2.6 thou/uL (1.40-6.50); %Basophils 0.1 % (0.0-1.0); %Eosinophils 1.7 % (0.0-10.0); %Lymphocytes 31.5 % (21.0-51.0); %Monocytes 14.9 % (0.0-10.0); %Neutrophils 51.6 % (42.0-75.0); Hemoglobin 8.1 g/dL (14.0-18.0); Mean Corpuscular Hemoglobin 25.4 pg (27.0-31.0); Mean Corpuscular Volume 84.6 fL (78.0-98.0); Platelet Count 200 thou/uL (130-400); RBC Distribution Width 17.7 % (11.5-14.5)
[2022-06-13] MEDS: Ipratropium Bromide 2.5 ml Neb NEB SCH (07:31)
[2022-06-13] MEDS: Potassium Chloride 10 MEQ TAB PO SCH (08:56)
[2022-06-13] MEDS: Multivitamin W/ Minerals 1 TAB PO SCH (08:57)
[2022-06-13] MEDS: Loratadine 10 MG TAB PO SCH (08:59)
[2022-06-13] MEDS: Sodium Chloride 0.9% 1,000 ML IV SCH ×2 (11:11→11:46)
[2022-06-13] MEDS ORDERED: GoLYTELY 4,000 ml Bottle PO SCH (17:00)
[2022-06-14] MEDS: Sodium Chloride 0.9% 1,000 ML IV SCH (06:21)
[2022-06-14 06:46] LABS: #Eosinphils 0.1 thou/uL (0.0-0.7); #Lymphocytes 1.7 thou/uL (1.20-3.40); #Monocytes 0.6 thou/uL (0.11-0.59); #Neutrophils 2.8 thou/uL (1.40-6.50); %Basophils 0.2 % (0.0-1.0); %Eosinophils 2.7 % (0.0-10.0); %Lymphocytes 31.6 % (21.0-51.0); %Monocytes 12.2 % (0.0-10.0); %Neutrophils 53.3 % (42.0-75.0); Hemoglobin 7.8 g/dL (14.0-18.0); Mean Corpuscular HGB CONC 31.4 g/dL (32.0-36.0); Mean Corpuscular Hemoglobin 25.1 pg (27.0-31.0); Mean Corpuscular Volume 80.1 fL (78.0-98.0); Mean Platelet Volume 8.1 fL (7.4-10.4); Platelet Count 213 thou/uL (130-400); RBC Distribution Width 17.2 % (11.5-14.5); Red Blood Cell (RBC) Count 3.09 mill/uL (4.70-6.10); White Blood Cell (WBC) Count 5.3 thou/uL (4.8-10.8)
[2022-06-14] MEDS: Ipratropium Bromide 2.5 ml Neb NEB SCH (07:01)
[2022-06-14] MEDS ORDERED: Lidocaine 1% PF 5 ML VIAL ONE (10:44)
[2022-06-14] MEDS ORDERED: PROPOFOL 200 MG/20 ML VIAL ONE (10:44)
[2022-06-14] MEDS: Loratadine 10 MG TAB PO SCH (12:23)
[2022-06-14] MEDS: Multivitamin W/ Minerals 1 TAB PO SCH (13:13)
[2022-06-15 04:30] LABS: #Eosinphils 0.1 thou/uL (0.0-0.7); #Lymphocytes 1.5 thou/uL (1.20-3.40); #Monocytes 0.4 thou/uL (0.11-0.59); #Neutrophils 2.6 thou/uL (1.40-6.50); %Basophils 0.4 % (0.0-1.0); %Eosinophils 2.1 % (0.0-10.0); %Lymphocytes 32.8 % (21.0-51.0); %Monocytes 9.4 % (0.0-10.0); %Neutrophils 55.2 % (42.0-75.0); Hemoglobin 7.7 g/dL (14.0-18.0); Mean Corpuscular HGB CONC 31.7 g/dL (32.0-36.0); Mean Corpuscular Hemoglobin 25.4 pg (27.0-31.0); Mean Corpuscular Volume 80.2 fL (78.0-98.0); Platelet Count 210 thou/uL (130-400); Red Blood Cell (RBC) Count 3.03 mill/uL (4.70-6.10); White Blood Cell (WBC) Count 4.7 thou/uL (4.8-10.8)
[2022-06-15 04:48] LABS: Anion Gap 12 mmol/L (10-20); BUN (Urea Nitrogen) 7 mg/dL (8.4-25.7); Calc. Creatinine Clearance 83 mL/min (70-130); Calcium 8.6 mg/dL (7.8-10.44); Carbon Dioxide 26 mmol/L (22-29); Chloride 107 mmol/L (98-107); Estimated GFR 98; Glucose 95 mg/dL (70-105); Magnesium 1.9 mg/dL (1.6-2.6); Potassium 3.9 mmol/L (3.5-5.1); Sodium 141 mmol/L (136-145)
[2022-06-15] MEDS: Ipratropium Bromide 2.5 ml Neb NEB SCH (06:52)
[2022-06-15] MEDS ORDERED: Electrolyte Replacement Protocol 1 EACH FS SCH (07:45)
[2022-06-15] MEDS ORDERED: Magnesium 2 GM/50 ML(in water) 2 GM in Premix Bag 1 BAG IVPB SCH (08:00)
[2022-06-15] MEDS: Multivitamin W/ Minerals 1 TAB PO SCH (08:16)
[2022-06-15] MEDS: Loratadine 10 MG TAB PO SCH (08:16)
[2022-06-15] MEDS: Folic Acid 1 MG TAB PO SCH (10:08)
[2022-06-16 06:21] LABS: #Eosinphils 0.1 thou/uL (0.0-0.7); #Lymphocytes 1.2 thou/uL (1.20-3.40); #Monocytes 0.4 thou/uL (0.11-0.59); #Neutrophils 2.5 thou/uL (1.40-6.50); %Basophils 0.4 % (0.0-1.0); %Eosinophils 2.5 % (0.0-10.0); %Lymphocytes 28.8 % (21.0-51.0); %Monocytes 10.1 % (0.0-10.0); %Neutrophils 58.2 % (42.0-75.0); Hemoglobin 8.2 g/dL (14.0-18.0); Mean Corpuscular HGB CONC 31.1 g/dL (32.0-36.0); Mean Corpuscular Hemoglobin 25.3 pg (27.0-31.0); Mean Corpuscular Volume 81.5 fL (78.0-98.0); Platelet Count 248 thou/uL (130-400); RBC Distribution Width 16.7 % (11.5-14.5); Red Blood Cell (RBC) Count 3.22 mill/uL (4.70-6.10); White Blood Cell (WBC) Count 4.3 thou/uL (4.8-10.8)
[2022-06-16 07:01] LABS: Iron 20 ug/dL (65-175); Iron Binding Capacity, Total 453 mcg/dL (261-462)
[2022-06-16] MEDS: Ipratropium Bromide 2.5 ml Neb NEB SCH (07:23)
[2022-06-16] MEDS: Multivitamin W/ Minerals 1 TAB PO SCH (08:39)
[2022-06-16] MEDS: Folic Acid 1 MG TAB PO SCH (08:39)
[2022-06-16] MEDS: Loratadine 10 MG TAB PO SCH (08:39)
[2022-06-16] MEDS ORDERED: Iron Sucrose Complex 200 MG in Sodium Chloride 0.9% 100 ML IVPB SCH (12:00)
[2022-06-16] MEDS ORDERED: Iopamidol-370 76% 500 ML 1 ML ONE (12:58)
[2022-06-16] MEDS ORDERED: Magnevist 469MG/ML 20 ML VIAL ONE (13:13)
[2022-06-16] MEDS ORDERED: Iron, Sodium Ferric Gluconate 250 MG in Sodium Chloride 0.9% 100 ML IVPB SCH (14:00)
[2022-06-16] MEDS ORDERED: Polyethylene Glycol 3350 17 GM Packet PO SCH (21:00)
[2022-06-17] MEDS ORDERED: Iron, Sodium Ferric Gluconate 250 MG in Sodium Chloride 0.9% 100 ML IVPB SCH (06:00)
[2022-06-17] MEDS: Ipratropium Bromide 2.5 ml Neb NEB SCH (07:08)
[2022-06-17] MEDS: Folic Acid 1 MG TAB PO SCH (09:01)
[2022-06-17] MEDS: Multivitamin W/ Minerals 1 TAB PO SCH (09:02)
[2022-06-17] MEDS: Loratadine 10 MG TAB PO SCH (09:02)
[2022-06-17 12:49] VITALS: BP 109/59; TEMP 97.6
== END 2022-06-17 12:56 | disposition home or self-care (01) | DRG 375 ==
LOC: ERS 10:50 → ERHOLD 14:42 → 2NO 18:39 → OBSVTOIN 06-13 17:05 → T4-A 06-15 18:11
PROVIDERS: ADMIT Internal Medicine; ATTEND Internal Medicine
PROC: 0DBP8ZX Excision of Rectum, Via Natural or Artificial Opening Endoscopic, Diagnostic (ICD-10-PCS; principal; 2022-06-14)
DX: C19 Malignant neoplasm of rectosigmoid junction (principal); D62 Acute posthemorrhagic anemia; K62.5 Hemorrhage of anus and rectum; Z20.822 Contact with and (suspected) exposure to COVID-19; E87.5 Hyperkalemia; I10 Essential (primary) hypertension; D72.819 Decreased white blood cell count, unspecified; I95.89 Other hypotension; R74.01 Elevation of levels of liver transaminase levels; Z87.442 Personal history of urinary calculi; Z98.890 Other specified postprocedural states; Z86.16 Personal history of COVID-19; Z79.899 Other long term (current) drug therapy; Z87.01 Personal history of pneumonia (recurrent)
CPT/HCPCS: 36415; 71260; 72197; 74177; 80048; 80053; 82378; 82728; 83540; 83550; 83735; 84484; 85025; 86850; 86900; 86901; 88305; 93005; 93306; 94640; 96360; 96361; A9579; G0378; J2704; J2916; J3475; J3490; J7050; Q9967; U0003; U0005

== ENCOUNTER 2022-12-07 09:22 | Outpatient (CLI) | payer BC | END 2022-12-07 09:23 | disposition home or self-care (01) | LOC: CT 09:22 | PROVIDERS: ATTEND Radiology Radiation Oncology | DX: C20 Malignant neoplasm of rectum (principal); K80.20 Calculus of gallbladder without cholecystitis without obstruction; Z92.21 Personal history of antineoplastic chemotherapy | CPT/HCPCS: 71260; 74160 ==

== ENCOUNTER 2023-02-03 08:54 | Inpatient (IN) | payer BC ==
[2023-02-03] MEDS ORDERED: Rocuronium Bromide 10 MG/ML (10ML VIAL) ONE ×2 (09:00→10:26)
[2023-02-03] MEDS ORDERED: Ketamine 50 MG/ML (10ML VIAL) ONE (09:00)
[2023-02-03] MEDS ORDERED: niCARdipine 25 MG/10 ML VIAL ONE (09:28)
[2023-02-03 09:35] LABS: Actual Bicarbonate (HCO3a) 23.6 mEq/L (22-28); Base Excess (BEa) -0.2 mEq/L (-2.0 to +3.0); CO2 Tension 35.7 mmHg (35.0-45.0); Carboxyhemoglobin (COHb) 0.6 gm% (0.0-3.0); Hemoglobin (Hb) 11.8 g/dL (14.0-18.0); O2 Tension (PaO2), arterial 257.1 mmHg (> 80.0); pH, Arterial 7.44 (7.35-7.45)
[2023-02-03 09:36] LABS: ALV-art Gradient 126.075 mmHg (0-20); Analyzer IN Cardio ER; Calcium, Ionized (arterial) 1.09 mmol/L (1.12-1.30); Potassium - ABG Lab 2.95 mmol/L (3.70-5.30); Puncture Site RBA
[2023-02-03 09:43] LABS: ALT (SGPT) 15 U/L (8-55); AST (SGOT) 26 U/L (5-34); Albumin 4.6 g/dL (3.4-4.8); Alkaline Phosphatase 78 U/L (40-110); Anion Gap 16 mmol/L (10-20); BUN (Urea Nitrogen) 9 mg/dL (8.4-25.7); Bilirubin, Total 0.5 mg/dL (0.2-1.2); CK (CPK) 100 U/L (30-200); Calc. Creatinine Clearance 0 mL/min (70-130); Carbon Dioxide 21 mmol/L (23-31); Chloride 107 mmol/L (98-107); Estimated GFR 83; Globulin 3.2 g/dL (2.4-3.5); Glucose 135 mg/dL (80-115); Lipase 50 U/L (8-78); Potassium 3.3 mmol/L (3.5-5.1); Protein, Total 7.8 g/dL (5.8-8.1); Sodium 141 mmol/L (136-145)
[2023-02-03 09:45] LABS: Hemoglobin 12.3 g/dL (14.0-18.0); Mean Corpuscular HGB CONC 31.5 g/dL (32.0-36.0); Mean Corpuscular Hemoglobin 25.4 pg (27.0-31.0); Mean Corpuscular Volume 80.6 fl (78.0-98.0); Mean Platelet Volume 8.6 fL (7.4-10.4); Platelet Count 244 10x3/uL (130-400); RBC Distribution Width 15.8 % (11.5-14.5); Red Blood Cell (RBC) Count 4.85 mill/uL (4.70-6.10); White Blood Cell (WBC) Count 8.8 10x3/uL (4.8-10.8)
[2023-02-03] MEDS ORDERED: Thrombin 5000 UNITS/5 ML VIAL ONE ×2 (10:02→11:44)
[2023-02-03] MEDS ORDERED: Bacitracin Zinc Ointment 30 gm TUBE ONE (10:02)
[2023-02-03] MEDS ORDERED: Bupivacaine PF 0.5% 30 ML VIAL ONE (10:02)
[2023-02-03] MEDS ORDERED: EPINEPHrine 1 MG/ML AMP ONE (10:02)
[2023-02-03] MEDS ORDERED: Lidocaine 1% (PF) 30 ML VIAL ONE (10:02)
[2023-02-03] MEDS ORDERED: Fentanyl 250 MCG/5 ML VIAL ONE (10:04)
[2023-02-03] MEDS ORDERED: Midazolam HCl 2 mg/2 ml Vial ONE (10:04)
[2023-02-03 10:06] LABS: Bacteria/HPF None Seen HPF (None Seen); Bilirubin Negative (Negative); Blood, Urine Trace (Negative); Clarity Clear (Clear); Glucose, Urine (Dipstick) Normal (Negative); Ketone, Urine Negative (Negative); Leukocyte Negative Leu/uL (Negative); Nitrite Negative (Negative); Protein, Urine (Dipstick) 300 mg/dL (Neg-Trace); RBC/HPF 0-3 HPF (0-3); Specific Gravity, Urine 1.023 (1.002-1.036); Squamous Epithelial None Seen HPF (0-3); Urobilinogen Normal mg/dL (Less than 2); WBC/HPF 0-3 HPF (0-3)
[2023-02-03] MEDS ORDERED: Milk Of Magnesia 30 ML UDCUP PO PRN (10:16)
[2023-02-03] MEDS ORDERED: niCARdipine 25 MG in Sodium Chloride 0.9% 250 ML 250 ML IVPB PRN (10:16)
[2023-02-03] MEDS ORDERED: manNITOL 20% 500 ML ONE (10:20)
[2023-02-03] MEDS ORDERED: PHENYLEPHRINE-NS 100 MCG/ML 10 ML SYRINGE ONE (10:26)
[2023-02-03] MEDS ORDERED: Vecuronium 10 MG VIAL ONE (10:26)
[2023-02-03 10:43] LABS: Eosinophils 4 % (0-10); Hypochromia SLIGHT = 6-15 cells (100X) (0-5/hpf); Lymphocytes 55 % (21-51); MDiff Complete? YES; Monocytes 6 % (0-10); Neutrophil 35 % (42-75); Ovalocytes SLIGHT = 2-5 cells (100X) (0-1/hpf); Platelet Morphology Comment Appears Adequate
[2023-02-03 10:44] LABS: INR-International Normal Ratio 0.9; PTT 28.1 sec (22.9-36.1)
[2023-02-03] MEDS ORDERED: Morphine 2 MG/ML VIAL SLOW IVP PRN ×2 (12:21→14:00)
[2023-02-03] MEDS ORDERED: Ondansetron PF 4 MG/2 ML Vial IVP PRN (12:21)
[2023-02-03] MEDS ORDERED: Docusate 100 MG CAP PO PRN (12:21)
[2023-02-03] MEDS: Fentanyl CADD 100 ML IV SCH ×2 (13:21→13:23)
[2023-02-03] MEDS: Sodium Chloride 0.9% 1,000 ML IV SCH (13:23)
[2023-02-03 13:25] LABS: Lactic Acid 1.7 mmol/L (0.5-2.2)
[2023-02-03] MEDS ORDERED: Propofol 1,000 MG/100 ML VIAL IV ONE (13:43)
[2023-02-03] MEDS ORDERED: Fentanyl CADD 100 ML IV SCH (14:00)
[2023-02-03] MEDS ORDERED: Propofol 1,000 MG/100 ML VIAL IV PRN (14:00)
[2023-02-03] MEDS ORDERED: DISCONTINUE PREVIOUS NARCOTIC PAIN MEDICATIONS AND BENZODIAZEPINES FS SCH (14:00)
[2023-02-03] MEDS ORDERED: Fentanyl BOLUS 250 ML IVPB PRN (14:00)
[2023-02-03] MEDS ORDERED: Propofol BOLUS 1,000 MG/100 ML VIAL IV PRN (14:00)
[2023-02-03] MEDS ORDERED: Lorazepam 2 MG/ML VIAL SLOW IVP PRN (14:00)
[2023-02-03 16:04] LABS: SARS-CoV-2 NAA Rapid Test Not Detected (NotDetected)
[2023-02-03] MEDS: CEFAZOLIN 2 GM in Sodium Chloride 0.9% 100 ML IVPB SCH (20:36)
[2023-02-03] MEDS: Famotidine/PF 20 mg/2ml Vial SLOW IVP SCH (20:37)
[2023-02-04] MEDS: CEFAZOLIN 2 GM in Sodium Chloride 0.9% 100 ML IVPB SCH ×3 (04:34→21:37)
[2023-02-04] MEDS: Sodium Chloride 0.9% 1,000 ML IV SCH ×2 (05:21→16:14)
[2023-02-04 08:07] LABS: #Eosinphils 0.1 thou/uL (0.0-0.7); #Lymphocytes 0.7 thou/uL (1.20-3.40); #Monocytes 0.8 thou/uL (0.11-0.59); #Neutrophils 6.2 thou/uL (1.40-6.50); %Eosinophils 0.7 % (0.0-10.0); %Lymphocytes 9.1 % (21.0-51.0); %Monocytes 10.6 % (0.0-10.0); %Neutrophils 79.6 % (42.0-75.0); Hemoglobin 11.1 g/dL (14.0-18.0); Mean Corpuscular HGB CONC 31.7 g/dL (32.0-36.0); Mean Corpuscular Hemoglobin 25.2 pg (27.0-31.0); Mean Corpuscular Volume 79.7 fl (78.0-98.0); Mean Platelet Volume 8.7 fL (7.4-10.4); Platelet Count 171 10x3/uL (130-400); RBC Distribution Width 15.4 % (11.5-14.5); White Blood Cell (WBC) Count 7.8 10x3/uL (4.8-10.8)
[2023-02-04 08:36] LABS: Anion Gap 13 mmol/L (10-20); BUN (Urea Nitrogen) 7 mg/dL (8.4-25.7); Calc. Creatinine Clearance 85 mL/min (70-130); Calcium 8.8 mg/dL (7.8-10.44); Carbon Dioxide 23 mmol/L (23-31); Cardiac Risk 4.6 (Less than 4.5); Chloride 107 mmol/L (98-107); Cholesterol 139 mg/dl (< 200 Desired); Estimated GFR 98; Glucose 102 mg/dL (80-115); HDL Cholesterol 30 mg/dL (>60 Neg Risk); LDL Cholesterol, Calculated 82 mg/dL; Potassium 3.6 mmol/L (3.5-5.1); Sodium 139 mmol/L (136-145); Triglycerides 137 mg/dL (Less than 150)
[2023-02-04] MEDS: Famotidine/PF 20 mg/2ml Vial SLOW IVP SCH ×2 (09:40→21:36)
[2023-02-04] MEDS: hydrALAZINE 20 MG/ML VIAL SLOW IVP PRN ×2 (09:46→22:06)
[2023-02-04] MEDS: Morphine 2 MG/ML VIAL SLOW IVP PRN ×4 (14:33→22:05)
[2023-02-04] MEDS ORDERED: ISOVUE-370 76%-LOCM 1 ML ONE (15:21)
[2023-02-04] MEDS ORDERED: Acetaminophen/Codeine 30-300mg Tablet PO PRN (16:36)
[2023-02-05] MEDS: Morphine 2 MG/ML VIAL SLOW IVP PRN ×3 (02:56→20:31)
[2023-02-05] MEDS: CEFAZOLIN 2 GM in Sodium Chloride 0.9% 100 ML IVPB SCH ×3 (03:01→19:51)
[2023-02-05] MEDS: Sodium Chloride 0.9% 1,000 ML IV SCH ×3 (05:36→19:52)
[2023-02-05 06:31] LABS: #Lymphocytes 0.7 thou/uL (1.20-3.40); #Monocytes 0.7 thou/uL (0.11-0.59); #Neutrophils 7.5 thou/uL (1.40-6.50); %Basophils 0.1 % (0.0-1.0); %Eosinophils 0.3 % (0.0-10.0); %Lymphocytes 7.3 % (21.0-51.0); %Monocytes 7.5 % (0.0-10.0); %Neutrophils 84.7 % (42.0-75.0); Hemoglobin 11.3 g/dL (14.0-18.0); Mean Corpuscular HGB CONC 31.2 g/dL (32.0-36.0); Mean Corpuscular Hemoglobin 25.1 pg (27.0-31.0); Mean Corpuscular Volume 80.5 fl (78.0-98.0); Mean Platelet Volume 8.8 fL (7.4-10.4); Platelet Count 183 10x3/uL (130-400); RBC Distribution Width 15.6 % (11.5-14.5); Red Blood Cell (RBC) Count 4.48 mill/uL (4.70-6.10); White Blood Cell (WBC) Count 8.8 10x3/uL (4.8-10.8)
[2023-02-05 06:57] LABS: ALT (SGPT) 9 U/L (8-55); AST (SGOT) 17 U/L (5-34); Albumin 4.1 g/dL (3.4-4.8); Alkaline Phosphatase 63 U/L (40-110); Anion Gap 13 mmol/L (10-20); BUN (Urea Nitrogen) 7 mg/dL (8.4-25.7); Bilirubin, Total 0.5 mg/dL (0.2-1.2); Calc. Creatinine Clearance 88 mL/min (70-130); Calcium 9.2 mg/dL (7.8-10.44); Carbon Dioxide 25 mmol/L (23-31); Chloride 105 mmol/L (98-107); Estimated GFR 99; Globulin 3.1 g/dL (2.4-3.5); Glucose 98 mg/dL (80-115); Magnesium 1.7 mg/dL (1.6-2.6); Potassium 3.3 mmol/L (3.5-5.1); Protein, Total 7.2 g/dL (5.8-8.1); Sodium 140 mmol/L (136-145)
[2023-02-05] MEDS: Famotidine/PF 20 mg/2ml Vial SLOW IVP SCH ×2 (10:48→19:51)
[2023-02-05] MEDS ORDERED: Magnesium 2 GM/50 ML(in water) 2 GM in Premix Bag 1 BAG IVPB SCH (12:30)
[2023-02-05] MEDS: Potassium Chloride 20 MEQ in Premix Bag 1 BAG IVPB SCH ×2 (13:47→17:51)
[2023-02-05] MEDS: hydrALAZINE 20 MG/ML VIAL SLOW IVP PRN ×2 (14:06→19:51)
[2023-02-05] MEDS ORDERED: levETIRAcetam in NS 500 MG in Premix Bag 1 BAG IVPB SCH (15:00)
[2023-02-05] MEDS ORDERED: levETIRAcetam 500 MG/5 ML VIAL SLOW IVP SCH (15:00)
[2023-02-06] MEDS: Morphine 2 MG/ML VIAL SLOW IVP PRN ×2 (00:24→04:19)
[2023-02-06] MEDS: Labetalol HCl 100 MG/20 ML VIAL SLOW IVP PRN ×2 (00:25→15:46)
[2023-02-06] MEDS: CEFAZOLIN 2 GM in Sodium Chloride 0.9% 100 ML IVPB SCH ×3 (03:22→21:09)
[2023-02-06 04:34] LABS: Anion Gap 14 mmol/L (10-20); BUN (Urea Nitrogen) 12 mg/dL (8.4-25.7); Calc. Creatinine Clearance 91 mL/min (70-130); Carbon Dioxide 21 mmol/L (23-31); Chloride 108 mmol/L (98-107); Estimated GFR 100; Glucose 92 mg/dL (80-115); Magnesium 2.1 mg/dL (1.6-2.6); Potassium 3.7 mmol/L (3.5-5.1); Sodium 139 mmol/L (136-145)
[2023-02-06] MEDS: Famotidine/PF 20 mg/2ml Vial SLOW IVP SCH ×2 (10:08→21:11)
[2023-02-06] MEDS: levETIRAcetam 500 MG/5 ML VIAL SLOW IVP SCH ×2 (10:08→21:12)
[2023-02-06] MEDS ORDERED: Acetaminophen 650 MG Suppository PR PRN (20:16)
[2023-02-07] MEDS: Labetalol HCl 100 MG/20 ML VIAL SLOW IVP PRN ×3 (00:17→15:01)
[2023-02-07] MEDS: CEFAZOLIN 2 GM in Sodium Chloride 0.9% 100 ML IVPB SCH ×3 (04:11→21:11)
[2023-02-07] MEDS: Sodium Chloride 0.9% 1,000 ML IV SCH ×3 (04:12→21:11)
[2023-02-07 06:50] LABS: Anion Gap 13 mmol/L (10-20); BUN (Urea Nitrogen) 13 mg/dL (8.4-25.7); Calc. Creatinine Clearance 84 mL/min (70-130); Calcium 8.9 mg/dL (7.8-10.44); Carbon Dioxide 20 mmol/L (23-31); Chloride 109 mmol/L (98-107); Estimated GFR 99; Glucose 83 mg/dL (80-115); Magnesium 1.8 mg/dL (1.6-2.6); Potassium 3.6 mmol/L (3.5-5.1); Sodium 138 mmol/L (136-145)
[2023-02-07] MEDS ORDERED: Potassium Chloride 20 MEQ in Premix Bag 1 BAG IVPB SCH (08:00)
[2023-02-07] MEDS: levETIRAcetam 500 MG/5 ML VIAL SLOW IVP SCH ×2 (09:52→21:12)
[2023-02-07] MEDS: Famotidine/PF 20 mg/2ml Vial SLOW IVP SCH ×2 (09:52→21:12)
[2023-02-07 11:22] VITALS: BMI 21.7
[2023-02-07] MEDS: Morphine 2 MG/ML VIAL SLOW IVP PRN (15:00)
[2023-02-07] MEDS: Atorvastatin Calcium 40 MG TAB PO SCH (21:11)
[2023-02-08] MEDS: CEFAZOLIN 2 GM in Sodium Chloride 0.9% 100 ML IVPB SCH ×2 (04:15→11:54)
[2023-02-08 07:09] LABS: Anion Gap 16 mmol/L (10-20); BUN (Urea Nitrogen) 12 mg/dL (8.4-25.7); Calc. Creatinine Clearance 80 mL/min (70-130); Calcium 8.9 mg/dL (7.8-10.44); Carbon Dioxide 20 mmol/L (23-31); Chloride 105 mmol/L (98-107); Estimated GFR 98; Glucose 90 mg/dL (80-115); Magnesium 1.9 mg/dL (1.6-2.6); Potassium 3.8 mmol/L (3.5-5.1); Sodium 137 mmol/L (136-145)
[2023-02-08] MEDS: levETIRAcetam 500 MG/5 ML VIAL SLOW IVP SCH ×2 (09:32→21:22)
[2023-02-08] MEDS: Famotidine/PF 20 mg/2ml Vial SLOW IVP SCH ×2 (09:32→21:23)
[2023-02-08] MEDS: Labetalol HCl 100 MG/20 ML VIAL SLOW IVP PRN ×2 (09:54→21:23)
[2023-02-08] MEDS ORDERED: Carvedilol 6.25 MG TAB PO SCH (13:00)
[2023-02-08] MEDS ORDERED: Amlodipine 5 MG TAB PO SCH (15:00)
[2023-02-08] MEDS: Sodium Chloride 0.9% 1,000 ML IV SCH (15:19)
[2023-02-08] MEDS: Atorvastatin Calcium 40 MG TAB PO SCH (21:23)
[2023-02-09] MEDS: Acetaminophen 325 MG TAB PO PRN ×2 (00:54→09:37)
[2023-02-09] MEDS: Sodium Chloride 0.9% 1,000 ML IV SCH ×3 (02:09→17:09)
[2023-02-09 06:02] LABS: Anion Gap 14 mmol/L (10-20); BUN (Urea Nitrogen) 12 mg/dL (8.4-25.7); Calc. Creatinine Clearance 88 mL/min (70-130); Calcium 9.1 mg/dL (7.8-10.44); Carbon Dioxide 21 mmol/L (23-31); Chloride 106 mmol/L (98-107); Estimated GFR 101; Glucose 92 mg/dL (80-115); Potassium 3.7 mmol/L (3.5-5.1); Sodium 137 mmol/L (136-145)
[2023-02-09] MEDS ORDERED: Carvedilol 6.25 MG TAB PO SCH (08:00)
[2023-02-09] MEDS ORDERED: Amlodipine 5 MG TAB PO SCH ×2 (09:00→16:45)
[2023-02-09] MEDS ORDERED: Potassium Chloride 20 MEQ TAB PO SCH (09:30)
[2023-02-09] MEDS: Famotidine/PF 20 mg/2ml Vial SLOW IVP SCH ×2 (09:38→20:32)
[2023-02-09] MEDS: levETIRAcetam 500 MG/5 ML VIAL SLOW IVP SCH ×2 (09:38→20:31)
[2023-02-09] MEDS: hydrALAZINE 20 MG/ML VIAL SLOW IVP PRN (15:03)
[2023-02-09] MEDS: Labetalol HCl 100 MG/20 ML VIAL SLOW IVP PRN (16:06)
[2023-02-09] MEDS: Carvedilol 25 MG TAB PO SCH (17:10)
[2023-02-09] MEDS: Atorvastatin Calcium 40 MG TAB PO SCH (20:32)
[2023-02-10] MEDS: Amlodipine 10 MG TAB PO SCH (08:17)
[2023-02-10] MEDS: Carvedilol 25 MG TAB PO SCH ×2 (08:17→16:57)
[2023-02-10] MEDS: Famotidine/PF 20 mg/2ml Vial SLOW IVP SCH ×2 (08:17→20:28)
[2023-02-10] MEDS: levETIRAcetam 500 MG/5 ML VIAL SLOW IVP SCH ×2 (08:17→20:28)
[2023-02-10] MEDS: Acetaminophen 325 MG TAB PO PRN (08:18)
[2023-02-10] MEDS: Lisinopril 10 MG TAB PO SCH ×2 (10:04→20:27)
[2023-02-10] MEDS: Sodium Chloride 0.9% 1,000 ML IV SCH (10:32)
[2023-02-10] MEDS ORDERED: Potassium Bicarbonate/Cit Ac 20 MEQ TAB PO SCH (11:15)
[2023-02-10] MEDS: Atorvastatin Calcium 40 MG TAB PO SCH (20:27)
[2023-02-11 06:00] LABS: Anion Gap 12 mmol/L (10-20); BUN (Urea Nitrogen) 14 mg/dL (8.4-25.7); Calc. Creatinine Clearance 83 mL/min (70-130); Calcium 9.2 mg/dL (7.8-10.44); Carbon Dioxide 27 mmol/L (23-31); Chloride 103 mmol/L (98-107); Estimated GFR 99; Glucose 100 mg/dL (80-115); Magnesium 1.9 mg/dL (1.6-2.6); Potassium 3.7 mmol/L (3.5-5.1); Sodium 138 mmol/L (136-145)
[2023-02-11] MEDS: Sodium Chloride 0.9% 1,000 ML IV SCH (06:44)
[2023-02-11] MEDS ORDERED: Lisinopril 10 MG TAB PO SCH (09:00)
[2023-02-11] MEDS: Carvedilol 25 MG TAB PO SCH (10:08)
[2023-02-11] MEDS: levETIRAcetam 500 MG/5 ML VIAL SLOW IVP SCH (10:09)
[2023-02-11] MEDS: Famotidine/PF 20 mg/2ml Vial SLOW IVP SCH (10:09)
[2023-02-11] MEDS: Acetaminophen 325 MG TAB PO PRN (10:09)
[2023-02-11] MEDS: Amlodipine 10 MG TAB PO SCH (10:13)
[2023-02-11 12:21] VITALS: TEMP 98.2
[2023-02-11 13:13] VITALS: BP 136/79
== END 2023-02-11 14:40 | DRG 23 ==
LOC: ERS 08:54 → SDC 10:30 → CCU 12:51 → IMCU/EMU 02-05 12:00 → NEURO 02-06 17:13
PROVIDERS: ADMIT Hospitalist; ATTEND Internal Medicine
PROC: 02HV33Z Insertion of Infusion Device into Superior Vena Cava, Percutaneous Approach (ICD-10-PCS; principal; 2023-02-03)
PROC: 00N00ZZ Release Brain, Open Approach (ICD-10-PCS; 2023-02-03)
PROC: 0DH67UZ Insertion of Feeding Device into Stomach, Via Natural or Artificial Opening (ICD-10-PCS; 2023-02-03)
PROC: 4A133R1 Monitoring of Arterial Saturation, Peripheral, Percutaneous Approach (ICD-10-PCS; 2023-02-03)
PROC: 3E043XZ Introduction of Vasopressor into Central Vein, Percutaneous Approach (ICD-10-PCS; 2023-02-03)
PROC: 0BH17EZ Insertion of Endotracheal Airway into Trachea, Via Natural or Artificial Opening (ICD-10-PCS; 2023-02-03)
PROC: 5A1935Z Respiratory Ventilation, Less than 24 Consecutive Hours (ICD-10-PCS; 2023-02-03)
DX: I61.4 Nontraumatic intracerebral hemorrhage in cerebellum (principal); G93.5 Compression of brain; J96.00 Acute respiratory failure, unspecified whether with hypoxia or hypercapnia; C19 Malignant neoplasm of rectosigmoid junction; G93.40 Encephalopathy, unspecified; E87.20 Acidosis, unspecified; I11.9 Hypertensive heart disease without heart failure; E87.6 Hypokalemia; D64.9 Anemia, unspecified; Z20.822 Contact with and (suspected) exposure to COVID-19; Z88.8 Allergy status to other drugs, medicaments and biological substances; Z79.899 Other long term (current) drug therapy; Z86.16 Personal history of COVID-19; Z98.890 Other specified postprocedural states; Z78.1 Physical restraint status
CPT/HCPCS: 31500; 36415; 36556; 36600; 51702; 70450; 70496; 71045; 74230; 80048; 80053; 80061; 81003; 81015; 82550; 82805; 83605; 83690; 83735; 83880; 84484; 85025; 85610; 85730; 87040; 87811; 94002; 94003; 95816; 95819; 95957; 96365; 96375; C1713; J0171; J0360; J1953; J2001; J2250; J2272; J2704; J3010; J3475; J3480; J3490; J7050; J7799; Q9966; S0020; S0028; U0002

== ENCOUNTER 2023-02-22 08:33 | Outpatient (CLI) | payer BC | END 2023-02-22 08:34 | disposition home or self-care (01) | LOC: HS RAD 08:33 | PROVIDERS: ATTEND Physical Medicine & Rehabilitation | DX: R41.82 Altered mental status, unspecified (principal); I61.9 Nontraumatic intracerebral hemorrhage, unspecified; G93.89 Other specified disorders of brain; Z98.890 Other specified postprocedural states | CPT/HCPCS: 70450 ==

== ENCOUNTER 2023-02-26 12:10 | Inpatient (IN) | payer BC ==
[2023-02-26 14:12] LABS: #Eosinphils 0.1 thou/uL (0.0-0.7); #Lymphocytes 0.8 thou/uL (1.20-3.40); #Monocytes 0.3 thou/uL (0.11-0.59); #Neutrophils 3.6 thou/uL (1.40-6.50); %Basophils 0.2 % (0.0-1.0); %Eosinophils 1.4 % (0.0-10.0); %Lymphocytes 16.7 % (21.0-51.0); %Monocytes 5.9 % (0.0-10.0); %Neutrophils 75.9 % (42.0-75.0); Hemoglobin 10.7 g/dL (14.0-18.0); Mean Corpuscular HGB CONC 30.5 g/dL (32.0-36.0); Mean Corpuscular Hemoglobin 24.9 pg (27.0-31.0); Mean Corpuscular Volume 81.5 fl (78.0-98.0); Mean Platelet Volume 8.5 fL (7.4-10.4); Platelet Count 152 10x3/uL (130-400); RBC Distribution Width 15.7 % (11.5-14.5); Red Blood Cell (RBC) Count 4.31 mill/uL (4.70-6.10); White Blood Cell (WBC) Count 4.8 10x3/uL (4.8-10.8)
[2023-02-26 14:34] LABS: ALT (SGPT) 24 U/L (8-55); AST (SGOT) 25 U/L (5-34); Alkaline Phosphatase 74 U/L (40-110); Anion Gap 9 mmol/L (10-20); BUN (Urea Nitrogen) 4 mg/dL (8.4-25.7); Bilirubin, Total 0.4 mg/dL (0.2-1.2); Calc. Creatinine Clearance 0 mL/min (70-130); Calcium 9.4 mg/dL (7.8-10.44); Carbon Dioxide 28 mmol/L (23-31); Chloride 108 mmol/L (98-107); Estimated GFR 96; Globulin 2.6 g/dL (2.4-3.5); Glucose 99 mg/dL (80-115); Lipase 61 U/L (8-78); Magnesium 1.6 mg/dL (1.6-2.6); Potassium 4.1 mmol/L (3.5-5.1); Protein, Total 6.6 g/dL (5.8-8.1); Sodium 141 mmol/L (136-145)
[2023-02-26 14:35] LABS: Bilirubin Negative (Negative); Blood, Urine Negative (Negative); Clarity Clear (Clear); Glucose, Urine (Dipstick) Normal (Negative); Ketone, Urine Negative (Negative); Leukocyte Negative Leu/uL (Negative); Nitrite Negative (Negative); Protein, Urine (Dipstick) Negative (Neg-Trace); Specific Gravity, Urine 1.008 (1.002-1.036); Urobilinogen Normal mg/dL (Less than 2)
[2023-02-26] MEDS ORDERED: Ondansetron ODT 4 MG TAB SL PRN (18:30)
[2023-02-26] MEDS ORDERED: Acetaminophen 325 MG TAB PO PRN (18:30)
[2023-02-26] MEDS ORDERED: Ondansetron PF 4 MG/2 ML Vial IVP PRN ×2 (18:30→19:08)
[2023-02-26] MEDS ORDERED: Sodium Chloride 0.9% 1,000 ML IV SCH ×2 (18:30→19:15)
[2023-02-26] MEDS ORDERED: Ondansetron ODT 4 MG TAB PO PRN (19:08)
[2023-02-26] MEDS ORDERED: Magnesium 2 GM/50 ML(in water) 2 GM in Premix Bag 1 BAG IVPB SCH (20:30)
[2023-02-27 03:12] LABS: Amphetamine Not Detected (NotDetected); Barbiturates Screen Not Detected (NotDetected); Benzodiazepine Screen Not Detected (NotDetected); Cocaine Metabolite Screen Not Detected (NotDetected); Methadone Not Detected (NotDetected); Methamphetamine Not Detected (NotDetected); Opiate Screen Not Detected (NotDetected); Oxycodone Screen Not Detected (NotDetected); Phencyclidine (PCP) Not Detected (NotDetected); THC/Cannabinoid Screen Not Detected (NotDetected); Tricyclic Screen Not Detected (NotDetected)
[2023-02-27 06:59] LABS: #Eosinphils 0.1 thou/uL (0.0-0.7); #Lymphocytes 0.8 thou/uL (1.20-3.40); #Monocytes 0.3 thou/uL (0.11-0.59); #Neutrophils 3.3 thou/uL (1.40-6.50); %Basophils 0.3 % (0.0-1.0); %Eosinophils 2.1 % (0.0-10.0); %Lymphocytes 16.9 % (21.0-51.0); %Neutrophils 74.6 % (42.0-75.0); Hemoglobin 10.2 g/dL (14.0-18.0); Mean Corpuscular HGB CONC 31.9 g/dL (32.0-36.0); Mean Corpuscular Hemoglobin 25.5 pg (27.0-31.0); Mean Corpuscular Volume 79.9 fl (78.0-98.0); Platelet Count 120 10x3/uL (130-400); RBC Distribution Width 15.9 % (11.5-14.5); Red Blood Cell (RBC) Count 4.01 mill/uL (4.70-6.10); White Blood Cell (WBC) Count 4.4 10x3/uL (4.8-10.8)
[2023-02-27 07:13] LABS: Anion Gap 11 mmol/L (10-20); BUN (Urea Nitrogen) 6 mg/dL (8.4-25.7); Calc. Creatinine Clearance 79 mL/min (70-130); Calcium 8.8 mg/dL (7.8-10.44); Carbon Dioxide 26 mmol/L (23-31); Chloride 106 mmol/L (98-107); Estimated GFR 99; Glucose 95 mg/dL (80-115); Potassium 3.6 mmol/L (3.5-5.1); Sodium 139 mmol/L (136-145)
[2023-02-27] MEDS ORDERED: diphenhydrAMINE 25 MG CAP PO PRN (13:19)
[2023-02-27] MEDS ORDERED: Ipratropium Bromide 2.5 ml Neb NEB PRN (13:19)
[2023-02-27 13:27] VITALS: BMI 21.0
[2023-02-27 15:36] LABS: Free T4 (Free Thyroxine) 1.06 ng/dL (0.70-1.48)
[2023-02-27] MEDS: Carvedilol 25 MG TAB PO SCH (18:30)
[2023-02-27] MEDS: GUAIFENESIN SF SOLN 200 MG/10 ML UDCUP PO SCH ×2 (18:31→20:09)
[2023-02-27] MEDS: cloNIDine 0.1 MG TAB PO SCH ×2 (18:32→22:58)
[2023-02-27] MEDS ORDERED: Acetaminophen 650 MG/20.3 ML UDCUP PO PRN (18:32)
[2023-02-27] MEDS: levETIRAcetam 500 MG TAB PO SCH (20:04)
[2023-02-27] MEDS: Sertraline 25 MG TAB PO SCH (20:06)
[2023-02-27] MEDS: Atorvastatin Calcium 40 MG TAB PO SCH (20:06)
[2023-02-27] MEDS: Amlodipine 5 MG TAB PO SCH (20:08)
[2023-02-28] MEDS: GUAIFENESIN SF SOLN 200 MG/10 ML UDCUP PO SCH ×6 (00:58→20:34)
[2023-02-28] MEDS: cloNIDine 0.1 MG TAB PO SCH ×4 (04:09→23:48)
[2023-02-28] MEDS: Multivitamin W/ Minerals 1 TAB PO SCH (09:00)
[2023-02-28] MEDS: levETIRAcetam 500 MG TAB PO SCH ×2 (09:00→20:34)
[2023-02-28] MEDS: Lisinopril 10 MG TAB PO SCH (09:00)
[2023-02-28] MEDS: Carvedilol 25 MG TAB PO SCH ×2 (09:00→16:39)
[2023-02-28] MEDS ORDERED: Magnevist 469MG/ML 20 ML VIAL ONE (12:51)
[2023-02-28] MEDS: Sertraline 25 MG TAB PO SCH (20:34)
[2023-02-28] MEDS: Atorvastatin Calcium 40 MG TAB PO SCH (20:34)
[2023-02-28] MEDS: Amlodipine 5 MG TAB PO SCH (20:35)
[2023-03-01] MEDS: GUAIFENESIN SF SOLN 200 MG/10 ML UDCUP PO SCH ×3 (01:58→07:44)
[2023-03-01] MEDS: cloNIDine 0.1 MG TAB PO SCH (07:44)
[2023-03-01] MEDS: Carvedilol 25 MG TAB PO SCH (07:45)
[2023-03-01] MEDS: levETIRAcetam 500 MG TAB PO SCH ×2 (08:14→21:06)
[2023-03-01] MEDS: Multivitamin W/ Minerals 1 TAB PO SCH (08:14)
[2023-03-01] MEDS: Lisinopril 10 MG TAB PO SCH (08:14)
[2023-03-01] MEDS: Sertraline 25 MG TAB PO SCH (21:06)
[2023-03-01] MEDS: Atorvastatin Calcium 40 MG TAB PO SCH (21:06)
[2023-03-01] MEDS: Amlodipine 5 MG TAB PO SCH (21:07)
[2023-03-02] MEDS: Lisinopril 10 MG TAB PO SCH (09:30)
[2023-03-02] MEDS: Multivitamin W/ Minerals 1 TAB PO SCH (09:30)
[2023-03-02] MEDS: levETIRAcetam 500 MG TAB PO SCH (09:38)
[2023-03-02] MEDS: levETIRAcetam 500 mg/5 ml Oral Solution PO SCH ×2 (10:38→21:11)
[2023-03-02] MEDS: Sertraline 25 MG TAB PO SCH (21:10)
[2023-03-02] MEDS: Atorvastatin Calcium 40 MG TAB PO SCH (21:11)
[2023-03-02] MEDS: Amlodipine 5 MG TAB PO SCH (21:11)
[2023-03-03] MEDS: Lisinopril 10 MG TAB PO SCH (09:53)
[2023-03-03] MEDS: Multivitamin W/ Minerals 1 TAB PO SCH (09:53)
[2023-03-03] MEDS: levETIRAcetam 500 mg/5 ml Oral Solution PO SCH ×2 (09:53→20:47)
[2023-03-03] MEDS: Amlodipine 5 MG TAB PO SCH (20:47)
[2023-03-03] MEDS: Sertraline 25 MG TAB PO SCH (20:47)
[2023-03-03] MEDS: Atorvastatin Calcium 40 MG TAB PO SCH (20:47)
[2023-03-04] MEDS: Lisinopril 10 MG TAB PO SCH (08:26)
[2023-03-04] MEDS: Multivitamin W/ Minerals 1 TAB PO SCH (08:26)
[2023-03-04] MEDS: levETIRAcetam 500 mg/5 ml Oral Solution PO SCH ×2 (08:26→20:27)
[2023-03-04] MEDS: Atorvastatin Calcium 40 MG TAB PO SCH (20:27)
[2023-03-04] MEDS: Sertraline 25 MG TAB PO SCH (20:27)
[2023-03-04] MEDS: Amlodipine 5 MG TAB PO SCH (20:28)
[2023-03-05] MEDS: Multivitamin W/ Minerals 1 TAB PO SCH (08:45)
[2023-03-05] MEDS: Lisinopril 10 MG TAB PO SCH (08:45)
[2023-03-05] MEDS: levETIRAcetam 500 mg/5 ml Oral Solution PO SCH (08:46)
[2023-03-05 17:11] VITALS: BP 105/63; TEMP 98
== END 2023-03-05 17:20 | DRG 72 ==
LOC: ERS 12:10 → T4-B 17:49 → OBSVTOIN 02-28 10:04
PROVIDERS: ADMIT Internal Medicine; ATTEND Internal Medicine
DX: G93.41 Metabolic encephalopathy (principal); R94.6 Abnormal results of thyroid function studies; I10 Essential (primary) hypertension; E78.5 Hyperlipidemia, unspecified; D64.9 Anemia, unspecified; I69.228 Other speech and language deficits following other nontraumatic intracranial hemorrhage; Z85.048 Personal history of other malignant neoplasm of rectum, rectosigmoid junction, and anus; Z88.8 Allergy status to other drugs, medicaments and biological substances; Z79.899 Other long term (current) drug therapy; Z87.442 Personal history of urinary calculi; Z86.16 Personal history of COVID-19; Z87.01 Personal history of pneumonia (recurrent)
CPT/HCPCS: 36415; 70450; 70553; 71045; 74230; 80048; 80306; 80307; 81003; 82607; 83690; 83735; 83880; 84146; 84439; 84443; 84480; 84484; 85025; 93005; 95712; 95819; 95957; 96374; A9579; G0378; J3475; J7050

== ENCOUNTER 2023-07-13 10:14 | Outpatient (CLI) | payer MEDICARE, BC ==
[2023-07-13 12:13] LABS: Anion Gap 16 mmol/L (10-20); BUN (Urea Nitrogen) 8 mg/dL (8.4-25.7); Calc. Creatinine Clearance 0 mL/min (70-130); Calcium 9.3 mg/dL (7.8-10.44); Carbon Dioxide 27 mmol/L (23-31); Chloride 106 mmol/L (98-107); Estimated GFR 91; Glucose 77 mg/dL (80-115); Potassium 3.7 mmol/L (3.5-5.1); Sodium 145 mmol/L (136-145)
[2023-07-13 12:17] LABS: #Eosinphils 0.1 10x3/uL (0.0-0.5); #Monocytes 0.4 10x3/uL (0.0-1.1); #Neutrophils 3.4 10x3/uL (1.5-8.4); %Basophils 0.4 % (0.0-2.0); %Eosinophils 1.8 % (0.0-6.0); %Neutrophils 67.6 % (40.0-75.0); Hematocrit 39.8 % (38.8-50.0); Hemoglobin 12.5 g/dL (13.5-17.5); Mean Corpuscular HGB CONC 31.4 g/dL (32.0-36.0); Mean Corpuscular Hemoglobin 27.2 pg (27.0-33.0); Mean Corpuscular Volume 86.5 fl (81.2-95.1); Mean Platelet Volume 9.2 fl (7.4-10.4); Platelet Count 199 10x3/uL (150-450); RBC Distribution Width 13.6 % (11.5-14.5)
== END 2023-07-13 10:15 | disposition home or self-care (01) ==
LOC: LABBT 10:14
PROVIDERS: ATTEND Surgery
DX: Z01.812 Encounter for preprocedural laboratory examination (principal); C20 Malignant neoplasm of rectum
CPT/HCPCS: 80048; 85025

== ENCOUNTER 2023-07-13 10:30 | Inpatient (IN) | payer MEDICARE, BC ==
[2023-07-13 10:49] VITALS: BMI 20.8
[2023-07-18] MEDS ORDERED: fentaNYL PF 100 MCG/2 ML SYRINGE ONE (06:38)
[2023-07-18] MEDS ORDERED: Midazolam HCl 2 mg/2 ml Vial ONE (07:22)
[2023-07-18] MEDS ORDERED: Bupivacaine PF 0.5% 30 ML VIAL ONE (07:22)
[2023-07-18] MEDS ORDERED: Lidocaine 1% (PF) 30 ML VIAL ONE (07:24)
[2023-07-18] MEDS ORDERED: Sodium Chloride 0.9% 100 ML ONE (07:35)
[2023-07-18] MEDS ORDERED: cefOXitin 2 GM VIAL ONE (07:35)
[2023-07-18] MEDS ORDERED: Bupivacaine HCl 0.5%/Epinephrine 1:200,000/PF 30 ml Vial ONE (07:40)
[2023-07-18] MEDS ORDERED: NEOSTIGMINE 3 MG/3 ML SYR 3 MG/3 ML SYRINGE ONE (07:59)
[2023-07-18] MEDS ORDERED: Ondansetron PF 4 MG/2 ML Vial ONE (07:59)
[2023-07-18] MEDS ORDERED: ePHEDrine Sulfate 50 MG/10 ML VIAL ONE (07:59)
[2023-07-18] MEDS ORDERED: PHENYLEPHRINE-NS 100 MCG/ML 10 ML SYRINGE ONE (07:59)
[2023-07-18] MEDS ORDERED: Ketorolac Tromethamine 30 MG/ML VIAL ONE (07:59)
[2023-07-18] MEDS ORDERED: Lidocaine 1% PF 5 ML VIAL ONE (07:59)
[2023-07-18] MEDS ORDERED: Dexamethasone 20 MG/5 ML VIAL ONE (07:59)
[2023-07-18] MEDS ORDERED: Glycopyrrolate 0.2 MG/ML 5 ML SYRINGE ONE (07:59)
[2023-07-18] MEDS ORDERED: Rocuronium Bromide 10 MG/ML (10ML VIAL) ONE (07:59)
[2023-07-18] MEDS ORDERED: PROPOFOL 200 MG/20 ML VIAL ONE (07:59)
[2023-07-18] MEDS ORDERED: Methylene Blue 50 MG/10 ML AMPUL ONE (09:26)
[2023-07-18] MEDS ORDERED: Ondansetron HCl/PF 4 MG/2 ML Vial IVP PRN (10:59)
[2023-07-18] MEDS ORDERED: Promethazine HCl 25 MG/ML VIAL IM PRN (10:59)
[2023-07-18] MEDS ORDERED: Ipratropium/Albuterol 3 ML NEB NEB PRN (11:21)
[2023-07-18] MEDS ORDERED: hydrALAZINE 20 MG/ML VIAL SLOW IVP PRN (11:21)
[2023-07-18] MEDS ORDERED: fentaNYL 50 mcg/mL 1 mL Vial ONE ×4 (11:45→14:32)
[2023-07-18] MEDS ORDERED: Amlodipine 5 MG TAB PO PRN (12:50)
[2023-07-18] MEDS: D5 1/2 NS w/20 mEq KCL 1,000 ML IV SCH ×2 (16:46→20:20)
[2023-07-18] MEDS: cefOXitin 2 GM in Sodium Chloride 0.9% 100 ML IVPB SCH ×2 (16:46→23:27)
[2023-07-18] MEDS: fentaNYL 50 mcg/mL 1 mL Vial SLOW IVP PRN ×2 (17:01→20:17)
[2023-07-18] MEDS: HYDROcodone/Acetaminophen 7.5/325 mg Tablet PO PRN ×2 (17:02→21:52)
[2023-07-18] MEDS: Famotidine/PF 20 mg/2ml Vial SLOW IVP SCH (20:18)
[2023-07-18] MEDS: Atorvastatin Calcium 40 MG TAB PO SCH (20:18)
[2023-07-18] MEDS: Famotidine 20 MG TAB PO SCH (20:19)
[2023-07-18] MEDS: Sertraline 25 MG TAB PO SCH (20:19)
[2023-07-18] MEDS ORDERED: levETIRAcetam 500 MG TAB PO SCH (21:00)
[2023-07-18] MEDS: levETIRAcetam 500 mg/5 ml Oral Solution PO SCH (21:53)
[2023-07-19] MEDS: D5 1/2 NS w/20 mEq KCL 1,000 ML IV SCH ×3 (03:41→22:11)
[2023-07-19] MEDS: fentaNYL 50 mcg/mL 1 mL Vial SLOW IVP PRN ×2 (05:38→16:21)
[2023-07-19 05:43] LABS: #Monocytes 0.7 thou/uL (0.11-0.59); #Neutrophils 6.6 thou/uL (1.40-6.50); %Lymphocytes 7.6 % (21.0-51.0); %Monocytes 9.1 % (0.0-10.0); Hematocrit 27.2 % (42.0-52.0); Hemoglobin 8.4 g/dL (14.0-18.0); Mean Corpuscular HGB CONC 30.9 g/dL (32.0-36.0); Mean Corpuscular Hemoglobin 27.5 pg (27.0-31.0); Mean Corpuscular Volume 89.2 fl (78.0-98.0); Mean Platelet Volume 9.7 fL (7.4-10.4); Platelet Count 149 10x3/uL (130-400); RBC Distribution Width 13.9 % (11.5-14.5); Red Blood Cell (RBC) Count 3.05 mill/uL (4.70-6.10); White Blood Cell (WBC) Count 7.9 10x3/uL (4.8-10.8)
[2023-07-19 06:06] LABS: Anion Gap 10 mmol/L (10-20); BUN (Urea Nitrogen) 9 mg/dL (8.4-25.7); Calc. Creatinine Clearance 70 mL/min (70-130); Calcium 8.6 mg/dL (7.8-10.44); Carbon Dioxide 28 mmol/L (23-31); Chloride 105 mmol/L (98-107); Estimated GFR 92; Glucose 140 mg/dL (80-115); Potassium 4.6 mmol/L (3.5-5.1); Sodium 138 mmol/L (136-145)
[2023-07-19] MEDS: HYDROcodone/Acetaminophen 7.5/325 mg Tablet PO PRN (08:47)
[2023-07-19] MEDS: Famotidine/PF 20 mg/2ml Vial SLOW IVP SCH ×2 (08:48→22:12)
[2023-07-19] MEDS: levETIRAcetam 500 mg/5 ml Oral Solution PO SCH ×2 (08:48→22:12)
[2023-07-19] MEDS: Lisinopril 10 MG TAB PO SCH (08:49)
[2023-07-19] MEDS: Famotidine 20 MG TAB PO SCH ×2 (09:00→22:12)
[2023-07-19] MEDS: Ondansetron PF 4 MG/2 ML Vial IVP PRN ×2 (09:03→16:18)
[2023-07-19] MEDS ORDERED: Acetaminophen 325 MG TAB PO PRN (11:18)
[2023-07-19] MEDS: Sertraline 25 MG TAB PO SCH (22:12)
[2023-07-19] MEDS: Atorvastatin Calcium 40 MG TAB PO SCH (22:12)
[2023-07-20] MEDS: fentaNYL 50 mcg/mL 1 mL Vial SLOW IVP PRN ×2 (07:20→17:14)
[2023-07-20] MEDS: levETIRAcetam 500 mg/5 ml Oral Solution PO SCH ×2 (07:21→21:18)
[2023-07-20] MEDS: Famotidine/PF 20 mg/2ml Vial SLOW IVP SCH ×2 (07:21→21:19)
[2023-07-20] MEDS: Lisinopril 10 MG TAB PO SCH (07:21)
[2023-07-20] MEDS: D5 1/2 NS w/20 mEq KCL 1,000 ML IV SCH ×3 (07:25→17:22)
[2023-07-20 07:36] LABS: #Monocytes 0.6 thou/uL (0.11-0.59); #Neutrophils 7.4 thou/uL (1.40-6.50); %Eosinophils 0.1 % (0.0-10.0); %Monocytes 6.7 % (0.0-10.0); %Neutrophils 82.9 % (42.0-75.0); Hematocrit 29.2 % (42.0-52.0); Mean Corpuscular HGB CONC 30.8 g/dL (32.0-36.0); Mean Corpuscular Hemoglobin 27.4 pg (27.0-31.0); Mean Platelet Volume 9.5 fL (7.4-10.4); Platelet Count 164 10x3/uL (130-400); RBC Distribution Width 14.1 % (11.5-14.5); Red Blood Cell (RBC) Count 3.28 mill/uL (4.70-6.10); White Blood Cell (WBC) Count 8.9 10x3/uL (4.8-10.8)
[2023-07-20 07:54] LABS: Anion Gap 10 mmol/L (10-20); BUN (Urea Nitrogen) 4 mg/dL (8.4-25.7); Calc. Creatinine Clearance 84 mL/min (70-130); Calcium 8.8 mg/dL (7.8-10.44); Carbon Dioxide 28 mmol/L (23-31); Chloride 104 mmol/L (98-107); Estimated GFR 101; Glucose 126 mg/dL (80-115); Sodium 138 mmol/L (136-145)
[2023-07-20] MEDS: Famotidine 20 MG TAB PO SCH ×2 (14:42→21:19)
[2023-07-20] MEDS: Sertraline 25 MG TAB PO SCH (21:18)
[2023-07-20] MEDS: Atorvastatin Calcium 40 MG TAB PO SCH (21:18)
[2023-07-21] MEDS: HYDROcodone/Acetaminophen 7.5/325 mg Tablet PO PRN ×4 (04:23→22:54)
[2023-07-21] MEDS: Famotidine 20 MG TAB PO SCH ×2 (09:03→20:57)
[2023-07-21] MEDS: levETIRAcetam 500 mg/5 ml Oral Solution PO SCH ×2 (09:03→20:57)
[2023-07-21] MEDS: Famotidine/PF 20 mg/2ml Vial SLOW IVP SCH ×2 (09:04→20:58)
[2023-07-21] MEDS: Lisinopril 10 MG TAB PO SCH (09:04)
[2023-07-21] MEDS: Sertraline 25 MG TAB PO SCH (20:57)
[2023-07-21] MEDS: Atorvastatin Calcium 40 MG TAB PO SCH (20:57)
[2023-07-21] MEDS: Ondansetron PF 4 MG/2 ML Vial IVP PRN (22:51)
[2023-07-22] MEDS: Promethazine HCl 25 MG/ML VIAL IM PRN ×2 (00:53→18:27)
[2023-07-22] MEDS: Famotidine 20 MG TAB PO SCH ×2 (08:12→20:48)
[2023-07-22] MEDS: Lisinopril 10 MG TAB PO SCH (08:13)
[2023-07-22] MEDS: levETIRAcetam 500 mg/5 ml Oral Solution PO SCH ×2 (08:13→20:49)
[2023-07-22] MEDS: Famotidine/PF 20 mg/2ml Vial SLOW IVP SCH ×2 (09:39→20:52)
[2023-07-22] MEDS: HYDROcodone/Acetaminophen 7.5/325 mg Tablet PO PRN ×2 (11:16→14:42)
[2023-07-22] MEDS: Ondansetron PF 4 MG/2 ML Vial IVP PRN ×2 (16:33→21:38)
[2023-07-22] MEDS: Atorvastatin Calcium 40 MG TAB PO SCH (20:48)
[2023-07-22] MEDS: Sertraline 25 MG TAB PO SCH (20:48)
[2023-07-22] MEDS: Simethicone Chewable 80 MG TAB PO PRN (21:38)
[2023-07-23 05:52] LABS: #Monocytes 0.8 thou/uL (0.11-0.59); #Neutrophils 6.8 thou/uL (1.40-6.50); %Basophils 0.1 % (0.0-1.0); %Lymphocytes 8.3 % (21.0-51.0); %Monocytes 9.4 % (0.0-10.0); %Neutrophils 81.6 % (42.0-75.0); Hematocrit 35.2 % (42.0-52.0); Hemoglobin 11.1 g/dL (14.0-18.0); Mean Corpuscular HGB CONC 31.5 g/dL (32.0-36.0); Mean Corpuscular Hemoglobin 27.1 pg (27.0-31.0); Mean Corpuscular Volume 85.9 fl (78.0-98.0); Mean Platelet Volume 9.5 fL (7.4-10.4); Platelet Count 280 10x3/uL (130-400); RBC Distribution Width 14.4 % (11.5-14.5); White Blood Cell (WBC) Count 8.3 10x3/uL (4.8-10.8)
[2023-07-23 06:18] LABS: Anion Gap 15 mmol/L (10-20); BUN (Urea Nitrogen) 28 mg/dL (8.4-25.7); Calc. Creatinine Clearance 62 mL/min (70-130); Calcium 9.9 mg/dL (7.8-10.44); Carbon Dioxide 27 mmol/L (23-31); Chloride 98 mmol/L (98-107); Estimated GFR 79; Glucose 116 mg/dL (80-115); Potassium 4.3 mmol/L (3.5-5.1); Sodium 136 mmol/L (136-145)
[2023-07-23] MEDS: levETIRAcetam 500 mg/5 ml Oral Solution PO SCH ×2 (09:25→21:22)
[2023-07-23] MEDS: Lisinopril 10 MG TAB PO SCH (09:25)
[2023-07-23] MEDS: Famotidine 20 MG TAB PO SCH ×2 (09:25→21:22)
[2023-07-23] MEDS: Famotidine/PF 20 mg/2ml Vial SLOW IVP SCH ×2 (09:26→21:23)
[2023-07-23] MEDS ORDERED: D5 1/2 NS w/20 mEq KCL 1,000 ML IV SCH (10:00)
[2023-07-23] MEDS ORDERED: Sodium Chloride 0.9% 1,000 ML IV SCH (10:00)
[2023-07-23] MEDS: HYDROcodone/Acetaminophen 7.5/325 mg Tablet PO PRN (14:19)
[2023-07-23] MEDS: Sodium Chloride 0.9% 1,000 ML IV SCH (18:12)
[2023-07-23] MEDS: Sertraline 25 MG TAB PO SCH (21:22)
[2023-07-23] MEDS: Atorvastatin Calcium 40 MG TAB PO SCH (21:22)
[2023-07-24] MEDS: Sodium Chloride 0.9% 1,000 ML IV SCH ×2 (07:43→22:19)
[2023-07-24] MEDS: Famotidine/PF 20 mg/2ml Vial SLOW IVP SCH ×2 (08:24→22:18)
[2023-07-24] MEDS: levETIRAcetam 500 mg/5 ml Oral Solution PO SCH ×2 (10:38→22:18)
[2023-07-24] MEDS: Famotidine 20 MG TAB PO SCH ×2 (10:38→22:17)
[2023-07-24] MEDS: Lisinopril 10 MG TAB PO SCH (10:38)
[2023-07-24] MEDS: HYDROcodone/Acetaminophen 7.5/325 mg Tablet PO PRN (13:47)
[2023-07-24] MEDS: Simethicone Chewable 80 MG TAB PO PRN (13:47)
[2023-07-24] MEDS: Sertraline 25 MG TAB PO SCH (22:17)
[2023-07-24] MEDS: Atorvastatin Calcium 40 MG TAB PO SCH (22:17)
[2023-07-25] MEDS: Famotidine 20 MG TAB PO SCH (08:43)
[2023-07-25] MEDS: Lisinopril 10 MG TAB PO SCH (08:43)
[2023-07-25] MEDS: levETIRAcetam 500 mg/5 ml Oral Solution PO SCH (08:44)
[2023-07-25] MEDS: Famotidine/PF 20 mg/2ml Vial SLOW IVP SCH (08:44)
[2023-07-25] MEDS: Sodium Chloride 0.9% 1,000 ML IV SCH (08:53)
[2023-07-25 12:00] VITALS: BP 122/77; TEMP 98.3
[2023-07-25 12:58] LABS: Bacteria/HPF None Seen HPF (None Seen); Bilirubin Negative (Negative); Blood, Urine Negative (Negative); CAUTI Indications for Culture Dysuria,urgency,freq; Clarity Clear (Clear); Glucose, Urine (Dipstick) Normal (Negative); Ketone, Urine Negative (Negative); Leukocyte Negative Leu/uL (Negative); Nitrite Negative (Negative); Protein, Urine (Dipstick) Negative (Neg-Trace); RBC/HPF 0-3 HPF (0-3); Squamous Epithelial 0-3 HPF (0-3); Urobilinogen Normal mg/dL (Less than 2); WBC/HPF 0-3 HPF (0-3); pH, Urine 5.5 (5.0-9.0)
[2023-07-25 13:03] LABS: Urine Culture Reflex No No
== END 2023-07-25 15:10 | disposition home health service (06) | DRG 330 ==
LOC: SURG A 07-18 06:02 → SURG B 07-18 15:16
PROVIDERS: ADMIT Surgery; ATTEND Surgery
PROC: 0DTN4ZZ Resection of Sigmoid Colon, Percutaneous Endoscopic Approach (ICD-10-PCS; principal; 2023-07-18)
PROC: 0D1B4Z4 Bypass Ileum to Cutaneous, Percutaneous Endoscopic Approach (ICD-10-PCS; 2023-07-18)
PROC: 8E0W4CZ Robotic Assisted Procedure of Trunk Region, Percutaneous Endoscopic Approach (ICD-10-PCS; 2023-07-18)
DX: C20 Malignant neoplasm of rectum (principal); K63.3 Ulcer of intestine; R13.10 Dysphagia, unspecified; R53.1 Weakness; Z88.8 Allergy status to other drugs, medicaments and biological substances; I69.391 Dysphagia following cerebral infarction; I69.398 Other sequelae of cerebral infarction; R26.89 Other abnormalities of gait and mobility; I69.320 Aphasia following cerebral infarction; I10 Essential (primary) hypertension; F41.9 Anxiety disorder, unspecified; D64.9 Anemia, unspecified; Z98.890 Other specified postprocedural states; Z86.16 Personal history of COVID-19; Z87.442 Personal history of urinary calculi; Z79.899 Other long term (current) drug therapy; Z83.3 Family history of diabetes mellitus
CPT/HCPCS: 36415; 80048; 81001; 85025; 88309; 97139; A4649; C1776; J0694; J1100; J1650; J1885; J2001; J2250; J2405; J2550; J2704; J3010; J3480; J3490; J7050; Q9968; S0020; S0028

== ENCOUNTER 2023-07-29 08:38 | Inpatient (IN) | payer MEDICARE, BC ==
[2023-07-29 10:10] LABS: #Monocytes 0.9 thou/uL (0.11-0.59); %Basophils 0.1 % (0.0-1.0); %Eosinophils 0.2 % (0.0-10.0); %Lymphocytes 4.6 % (21.0-51.0); %Monocytes 5.9 % (0.0-10.0); Hematocrit 37.2 % (42.0-52.0); Mean Corpuscular HGB CONC 32.3 g/dL (32.0-36.0); Mean Corpuscular Hemoglobin 27.3 pg (27.0-31.0); Mean Corpuscular Volume 84.7 fl (78.0-98.0); Mean Platelet Volume 9.2 fL (7.4-10.4); Platelet Count 433 10x3/uL (130-400); RBC Distribution Width 15.1 % (11.5-14.5); Red Blood Cell (RBC) Count 4.39 mill/uL (4.70-6.10); White Blood Cell (WBC) Count 14.7 10x3/uL (4.8-10.8)
[2023-07-29 10:35] LABS: ALT (SGPT) 16 U/L (8-55); AST (SGOT) 21 U/L (5-34); Albumin 4.4 g/dL (3.4-4.8); Alkaline Phosphatase 79 U/L (40-110); Anion Gap 20 mmol/L (10-20); BUN (Urea Nitrogen) 56 mg/dL (8.4-25.7); Bilirubin, Total 1.1 mg/dL (0.2-1.2); Calc. Creatinine Clearance 0 mL/min (70-130); Calcium 9.8 mg/dL (7.8-10.44); Carbon Dioxide 21 mmol/L (23-31); Chloride 94 mmol/L (98-107); Estimated GFR 29; Globulin 4.1 g/dL (2.4-3.5); Glucose 112 mg/dL (80-115); Lipase 98 U/L (8-78); Potassium 3.9 mmol/L (3.5-5.1); Protein, Total 8.5 g/dL (5.8-8.1); Sodium 131 mmol/L (136-145)
[2023-07-29] MEDS ORDERED: Piperacillin/Tazobactam 3.375 GM VIAL ONE (11:27)
[2023-07-29] MEDS ORDERED: Sodium Chloride 0.9% 100 ML ONE (11:27)
[2023-07-29 11:35] LABS: Bilirubin Negative (Negative); Blood, Urine Negative (Negative); CAUTI Indications for Culture Immunosuppressed; Clarity Turbid (Clear); Glucose, Urine (Dipstick) Normal (Negative); Ketone, Urine Negative (Negative); Leukocyte Negative Leu/uL (Negative); Nitrite Negative (Negative); Protein, Urine (Dipstick) 20 mg/dL (Neg-Trace); RBC/HPF 0-3 HPF (0-3); Specific Gravity, Urine 1.019 (1.002-1.036); Squamous Epithelial 0-3 HPF (0-3); Urobilinogen Normal mg/dL (Less than 2); WBC/HPF 0-3 HPF (0-3)
[2023-07-29 11:46] LABS: Bacteria/HPF 1+ HPF (None Seen)
[2023-07-29 11:48] LABS: Urine Culture Reflex Yes Yes
[2023-07-29] MEDS: Sodium Chloride 0.9% 1,000 ML IV SCH ×2 (12:30→21:03)
[2023-07-29] MEDS ORDERED: hydrALAZINE 20 MG/ML VIAL SLOW IVP PRN (13:47)
[2023-07-29] MEDS ORDERED: Ipratropium/Albuterol 3 ML NEB NEB PRN (13:47)
[2023-07-29] MEDS ORDERED: Amlodipine 5 MG TAB PO PRN (14:20)
[2023-07-29] MEDS: Ondansetron PF 4 MG/2 ML Vial IVP PRN (16:16)
[2023-07-29] MEDS: Piperacillin/Tazobactam 3.375 GM in Sodium Chloride 0.9% 100 ML IVPB SCH (16:16)
[2023-07-29] MEDS: Dextrose 5 % And 0.9 % NaCl 1,000 ML IV SCH ×2 (16:16→21:03)
[2023-07-29] MEDS ORDERED: Piperacillin/Tazobactam 3.375 GM in Sodium Chloride 0.9% 100 ML IVPB SCH (18:00)
[2023-07-29] MEDS: Morphine 2 MG/ML VIAL SLOW IVP PRN (20:31)
[2023-07-29] MEDS: Promethazine HCl 25 MG/ML VIAL IM PRN (20:37)
[2023-07-29] MEDS ORDERED: levETIRAcetam 500 MG TAB PO SCH (21:00)
[2023-07-29] MEDS: Atorvastatin Calcium 40 MG TAB PO SCH (21:02)
[2023-07-29] MEDS: levETIRAcetam 500 mg/5 ml Oral Solution PO SCH (21:02)
[2023-07-29] MEDS: Sertraline 25 MG TAB PO SCH (21:02)
[2023-07-29] MEDS: Famotidine/PF 20 mg/2ml Vial SLOW IVP SCH (21:02)
[2023-07-30] MEDS: Ondansetron PF 4 MG/2 ML Vial IVP PRN ×3 (00:45→14:43)
[2023-07-30] MEDS: Morphine 2 MG/ML VIAL SLOW IVP PRN ×3 (01:16→19:48)
[2023-07-30] MEDS: Dextrose 5 % And 0.9 % NaCl 1,000 ML IV SCH ×3 (03:42→17:58)
[2023-07-30] MEDS: Piperacillin/Tazobactam 3.375 GM in Sodium Chloride 0.9% 100 ML IVPB SCH ×3 (03:42→22:47)
[2023-07-30 05:25] LABS: Hematocrit 33.7 % (42.0-52.0); Hemoglobin 10.6 g/dL (14.0-18.0); Mean Corpuscular HGB CONC 31.5 g/dL (32.0-36.0); Mean Corpuscular Hemoglobin 27.5 pg (27.0-31.0); Platelet Count 393 10x3/uL (130-400); RBC Distribution Width 15.1 % (11.5-14.5); Red Blood Cell (RBC) Count 3.86 mill/uL (4.70-6.10); White Blood Cell (WBC) Count 10.7 10x3/uL (4.8-10.8)
[2023-07-30 05:27] LABS: Delete Auto Diff?? YES; Manual Diff?? YES; Mean Corpuscular Volume 87.3 fl (78.0-98.0)
[2023-07-30 05:54] LABS: Anisocytosis SLIGHT = 6-15 cells HPF (0-5); Band 15 % (5-11); CellaVision Operator ID LAB.CLH1; Hypochromia SLIGHT = 6-15 cells HPF (0-5); Lymphocytes 4 % (21-51); Macrocytosis SLIGHT = 6-15 cells HPF (0-5); Monocytes 5 % (0-10); Neutrophil 77 % (42-75); Platelet Adequacy Comment Platelets Normal; Poikilocytosis MODERATE=16-30 cells HPF (0-5); Polychromasia SLIGHT = 2-3 cells HPF (0-2); Total Cell Count 102
[2023-07-30 06:03] LABS: Anion Gap 14 mmol/L (10-20); BUN (Urea Nitrogen) 38 mg/dL (8.4-25.7); Calc. Creatinine Clearance 54 mL/min (70-130); Carbon Dioxide 21 mmol/L (23-31); Chloride 102 mmol/L (98-107); Estimated GFR 67; Glucose 118 mg/dL (80-115); Potassium 4.1 mmol/L (3.5-5.1); Sodium 133 mmol/L (136-145)
[2023-07-30] MEDS: Famotidine/PF 20 mg/2ml Vial SLOW IVP SCH ×2 (08:53→20:11)
[2023-07-30] MEDS: levETIRAcetam 500 mg/5 ml Oral Solution PO SCH ×2 (10:50→20:12)
[2023-07-30] MEDS ORDERED: Lidocaine 2% Jelly 30 GM TUBE FS SCH (13:15)
[2023-07-30] MEDS ORDERED: Benzocaine 20% Spray 60 ML CAN FS SCH (13:15)
[2023-07-30] MEDS ORDERED: Lidocaine 2% 6 ML (Jelly) SYR FS SCH (13:30)
[2023-07-30] MEDS: Promethazine HCl 25 MG/ML VIAL IM PRN (14:54)
[2023-07-30] MEDS: Famotidine 20 MG TAB PO SCH ×2 (14:57→21:57)
[2023-07-30] MEDS: Lisinopril 10 MG TAB PO SCH (15:14)
[2023-07-30] MEDS ORDERED: SODIUM CHLORIDE 0.9% IVPB PRN (17:21)
[2023-07-30] MEDS ORDERED: CHLORPROMAZINE HCL IVPB PRN (17:21)
[2023-07-30] MEDS ORDERED: LIDOCAINE 4% Topical Sol 4 ML SOLN.PK.G. FS SCH (17:36)
[2023-07-30 17:43] LABS: #Monocytes 0.1 thou/uL (0.11-0.59); #Neutrophils 4.2 thou/uL (1.40-6.50); %Monocytes 2.3 % (0.0-10.0); %Neutrophils 95.5 % (42.0-75.0); Hematocrit 31.7 % (42.0-52.0); Mean Corpuscular HGB CONC 31.5 g/dL (32.0-36.0); Mean Corpuscular Hemoglobin 27.8 pg (27.0-31.0); Mean Corpuscular Volume 88.1 fl (78.0-98.0); Mean Platelet Volume 8.9 fL (7.4-10.4); Platelet Count 332 10x3/uL (130-400); RBC Distribution Width 14.8 % (11.5-14.5); White Blood Cell (WBC) Count 4.4 10x3/uL (4.8-10.8)
[2023-07-30] MEDS ORDERED: Sodium Chloride 0.9% 1,000 ML IV SCH (17:45)
[2023-07-30] MEDS ORDERED: Benzocaine 20% Spray 60 ML CAN PO SCH (17:45)
[2023-07-30] MEDS: Sodium Chloride 0.9% 1,000 ML IV SCH (17:57)
[2023-07-30] MEDS: Dextrose 5%-Lactated Ringers 1,000 ML IV SCH (17:59)
[2023-07-30 18:07] LABS: ALT (SGPT) 11 U/L (8-55); AST (SGOT) 21 U/L (5-34); Albumin 3.5 g/dL (3.4-4.8); Alkaline Phosphatase 57 U/L (40-110); Anion Gap 12 mmol/L (10-20); BUN (Urea Nitrogen) 30 mg/dL (8.4-25.7); Bilirubin, Total 1.2 mg/dL (0.2-1.2); Calc. Creatinine Clearance 57 mL/min (70-130); Calcium 8.6 mg/dL (7.8-10.44); Carbon Dioxide 21 mmol/L (23-31); Chloride 106 mmol/L (98-107); Estimated GFR 71; Globulin 3.3 g/dL (2.4-3.5); Glucose 117 mg/dL (80-115); Magnesium 1.8 mg/dL (1.6-2.6); Potassium 4.1 mmol/L (3.5-5.1); Protein, Total 6.8 g/dL (5.8-8.1); Sodium 135 mmol/L (136-145)
[2023-07-30 18:10] LABS: Troponin I Less than 0.010 ng/mL (< 0.028)
[2023-07-30 18:33] LABS: Phosphorus Less than 1.0 mg/dL (2.3-4.7)
[2023-07-30] MEDS ORDERED: Electrolyte Replacement Protocol 1 EACH FS SCH (19:00)
[2023-07-30] MEDS ORDERED: Potassium Phosphate 30 MMOL in Sodium Chloride 0.9% 250 ML 250 ML IVPB SCH (19:15)
[2023-07-30] MEDS ORDERED: Magnesium 2 GM/50 ML(in water) 2 GM in Premix Bag 1 BAG IVPB SCH (19:15)
[2023-07-30] MEDS: Atorvastatin Calcium 40 MG TAB PO SCH (20:11)
[2023-07-30] MEDS: Sertraline 25 MG TAB PO SCH (20:11)
[2023-07-30] MEDS ORDERED: Lactated Ringer's 500 ML IV SCH (22:45)
[2023-07-31] MEDS: Dextrose 5%-Lactated Ringers 1,000 ML IV SCH ×2 (00:35→09:51)
[2023-07-31] MEDS: Piperacillin/Tazobactam 3.375 GM in Sodium Chloride 0.9% 100 ML IVPB SCH ×3 (06:34→21:58)
[2023-07-31 06:43] LABS: #Monocytes 0.6 thou/uL (0.11-0.59); #Neutrophils 9.8 thou/uL (1.40-6.50); %Basophils 0.1 % (0.0-1.0); %Eosinophils 0.2 % (0.0-10.0); %Lymphocytes 4.7 % (21.0-51.0); %Neutrophils 89.6 % (42.0-75.0); Hematocrit 26.9 % (42.0-52.0); Hemoglobin 8.5 g/dL (14.0-18.0); Mean Corpuscular HGB CONC 31.6 g/dL (32.0-36.0); Mean Corpuscular Hemoglobin 28.1 pg (27.0-31.0); Mean Corpuscular Volume 88.8 fl (78.0-98.0); Platelet Count 296 10x3/uL (130-400); RBC Distribution Width 15.2 % (11.5-14.5); Red Blood Cell (RBC) Count 3.03 mill/uL (4.70-6.10); White Blood Cell (WBC) Count 10.9 10x3/uL (4.8-10.8)
[2023-07-31 06:49] LABS: Manual Diff?? YES
[2023-07-31 06:57] LABS: INR-International Normal Ratio 1.3; Prothrombin Time 16.4 sec (12.0-14.7)
[2023-07-31 06:58] LABS: PTT 32.9 sec (22.9-36.1)
[2023-07-31 07:09] LABS: Anion Gap 7 mmol/L (10-20); BUN (Urea Nitrogen) 16 mg/dL (8.4-25.7); Calc. Creatinine Clearance 78 mL/min (70-130); Calcium 8.7 mg/dL (7.8-10.44); Carbon Dioxide 23 mmol/L (23-31); Chloride 108 mmol/L (98-107); Estimated GFR 98; Glucose 122 mg/dL (80-115); Potassium 3.7 mmol/L (3.5-5.1); Sodium 134 mmol/L (136-145)
[2023-07-31 07:29] LABS: Band 39 % (5-11); Burr Cells MODERATE= 6-15 cells HPF (0-1); CellaVision Operator ID LAB.GE; Dohle Bodies SLIGHT; Eosinophils 1 % (0-10); Lymphocytes 4 % (21-51); Metamyelocyte 9 % (0-0); Neutrophil 45 % (42-75); Platelet Adequacy Comment Platelets Normal; Polychromasia SLIGHT = 2-3 cells HPF (0-2); Reactive Lymphocytes 1 % (0-10); Total Cell Count 102
[2023-07-31] MEDS: Lisinopril 10 MG TAB PO SCH (09:44)
[2023-07-31] MEDS: Famotidine/PF 20 mg/2ml Vial SLOW IVP SCH ×2 (09:44→21:57)
[2023-07-31] MEDS: levETIRAcetam 500 mg/5 ml Oral Solution PO SCH ×2 (09:44→21:57)
[2023-07-31] MEDS: Famotidine 20 MG TAB PO SCH ×2 (09:51→21:58)
[2023-07-31 12:35] LABS: Phosphorus 1.9 mg/dL (2.3-4.7)
[2023-07-31] MEDS: NS 0.9% w/ 20 MEQ KCL 1,000 ML/1,000 ML BAG IV SCH (13:42)
[2023-07-31] MEDS ORDERED: Potassium Phosphate 20 MMOL in Sodium Chloride 0.9% 250 ML 250 ML IVPB SCH (16:00)
[2023-07-31] MEDS: PHOS-NAK 1 PKT PACK PO SCH ×2 (16:19→16:25)
[2023-07-31] MEDS: Ondansetron PF 4 MG/2 ML Vial IVP PRN (18:54)
[2023-07-31] MEDS: Atorvastatin Calcium 40 MG TAB PO SCH (21:58)
[2023-07-31] MEDS: Sertraline 25 MG TAB PO SCH (21:58)
[2023-08-01 04:40] LABS: Anion Gap 10 mmol/L (10-20); BUN (Urea Nitrogen) 12 mg/dL (8.4-25.7); Calc. Creatinine Clearance 82 mL/min (70-130); Calcium 8.7 mg/dL (7.8-10.44); Carbon Dioxide 24 mmol/L (23-31); Chloride 109 mmol/L (98-107); Estimated GFR 99; Glucose 95 mg/dL (80-115); Magnesium 1.9 mg/dL (1.6-2.6); Potassium 4.3 mmol/L (3.5-5.1); Sodium 139 mmol/L (136-145)
[2023-08-01] MEDS ORDERED: Magnesium 2 GM/50 ML(in water) 2 GM in Premix Bag 1 BAG IVPB SCH (05:00)
[2023-08-01] MEDS: Piperacillin/Tazobactam 3.375 GM in Sodium Chloride 0.9% 100 ML IVPB SCH ×3 (05:13→22:14)
[2023-08-01] MEDS: Famotidine 20 MG TAB PO SCH ×2 (07:56→19:57)
[2023-08-01] MEDS: Lisinopril 10 MG TAB PO SCH (09:08)
[2023-08-01] MEDS: Famotidine/PF 20 mg/2ml Vial SLOW IVP SCH ×2 (09:09→19:58)
[2023-08-01] MEDS: levETIRAcetam 500 mg/5 ml Oral Solution PO SCH ×2 (09:09→19:58)
[2023-08-01] MEDS: NS 0.9% w/ 20 MEQ KCL 1,000 ML/1,000 ML BAG IV SCH ×2 (09:09→15:45)
[2023-08-01] MEDS: Sertraline 25 MG TAB PO SCH (19:57)
[2023-08-01] MEDS: Atorvastatin Calcium 40 MG TAB PO SCH (19:57)
[2023-08-02 05:11] LABS: Anion Gap 13 mmol/L (10-20); BUN (Urea Nitrogen) 13 mg/dL (8.4-25.7); Calc. Creatinine Clearance 83 mL/min (70-130); Calcium 9.1 mg/dL (7.8-10.44); Carbon Dioxide 25 mmol/L (23-31); Chloride 108 mmol/L (98-107); Estimated GFR 100; Glucose 81 mg/dL (80-115); Magnesium 2.1 mg/dL (1.6-2.6); Phosphorus 2.8 mg/dL (2.3-4.7); Potassium 4.5 mmol/L (3.5-5.1); Sodium 141 mmol/L (136-145)
[2023-08-02] MEDS: NS 0.9% w/ 20 MEQ KCL 1,000 ML/1,000 ML BAG IV SCH ×2 (05:14→18:16)
[2023-08-02] MEDS: Piperacillin/Tazobactam 3.375 GM in Sodium Chloride 0.9% 100 ML IVPB SCH ×3 (05:19→22:16)
[2023-08-02] MEDS: Famotidine 20 MG TAB PO SCH ×2 (08:50→20:28)
[2023-08-02] MEDS: levETIRAcetam 500 mg/5 ml Oral Solution PO SCH ×2 (08:53→20:29)
[2023-08-02] MEDS: Famotidine/PF 20 mg/2ml Vial SLOW IVP SCH ×2 (08:54→20:29)
[2023-08-02] MEDS: Lisinopril 10 MG TAB PO SCH (09:44)
[2023-08-02] MEDS: Atorvastatin Calcium 40 MG TAB PO SCH (20:28)
[2023-08-02] MEDS: Sertraline 25 MG TAB PO SCH (20:28)
[2023-08-03] MEDS: Ondansetron PF 4 MG/2 ML Vial IVP PRN (01:41)
[2023-08-03] MEDS: Morphine 2 MG/ML VIAL SLOW IVP PRN ×2 (01:46→21:44)
[2023-08-03] MEDS: Piperacillin/Tazobactam 3.375 GM in Sodium Chloride 0.9% 100 ML IVPB SCH ×3 (05:46→22:12)
[2023-08-03 06:31] LABS: Phosphorus 2.7 mg/dL (2.3-4.7)
[2023-08-03 06:32] LABS: Anion Gap 12 mmol/L (10-20); BUN (Urea Nitrogen) 10 mg/dL (8.4-25.7); Calc. Creatinine Clearance 71 mL/min (70-130); Calcium 8.9 mg/dL (7.8-10.44); Carbon Dioxide 28 mmol/L (23-31); Chloride 102 mmol/L (98-107); Estimated GFR 99; Glucose 95 mg/dL (80-115); Magnesium 1.7 mg/dL (1.6-2.6); Potassium 4.1 mmol/L (3.5-5.1); Sodium 138 mmol/L (136-145)
[2023-08-03] MEDS ORDERED: Magnesium 2 GM/50 ML(in water) 2 GM in Premix Bag 1 BAG IVPB SCH (08:00)
[2023-08-03] MEDS: Famotidine/PF 20 mg/2ml Vial SLOW IVP SCH ×2 (09:38→21:45)
[2023-08-03] MEDS: levETIRAcetam 500 mg/5 ml Oral Solution PO SCH ×2 (09:39→21:45)
[2023-08-03] MEDS: Famotidine 20 MG TAB PO SCH ×2 (09:40→21:41)
[2023-08-03] MEDS: Lisinopril 10 MG TAB PO SCH (09:40)
[2023-08-03] MEDS: NS 0.9% w/ 20 MEQ KCL 1,000 ML/1,000 ML BAG IV SCH ×2 (09:47→22:12)
[2023-08-03 12:24] VITALS: BMI 18.8
[2023-08-03] MEDS: Atorvastatin Calcium 40 MG TAB PO SCH (21:40)
[2023-08-03] MEDS: Sertraline 25 MG TAB PO SCH (21:40)
[2023-08-04] MEDS: Piperacillin/Tazobactam 3.375 GM in Sodium Chloride 0.9% 100 ML IVPB SCH (06:07)
[2023-08-04] MEDS: Morphine 2 MG/ML VIAL SLOW IVP PRN ×2 (06:10→20:21)
[2023-08-04 06:57] LABS: Phosphorus 2.9 mg/dL (2.3-4.7)
[2023-08-04] MEDS ORDERED: HYDROcodone/Acetaminophen 7.5/325 mg Tablet PO PRN (09:02)
[2023-08-04] MEDS ORDERED: Acetaminophen 325 MG TAB PO PRN (09:02)
[2023-08-04] MEDS: Famotidine/PF 20 mg/2ml Vial SLOW IVP SCH ×2 (09:55→20:22)
[2023-08-04] MEDS: Lisinopril 10 MG TAB PO SCH (09:59)
[2023-08-04] MEDS: Famotidine 20 MG TAB PO SCH ×2 (09:59→20:22)
[2023-08-04] MEDS: levETIRAcetam 500 mg/5 ml Oral Solution PO SCH ×2 (09:59→20:22)
[2023-08-04] MEDS: NS 0.9% w/ 20 MEQ KCL 1,000 ML/1,000 ML BAG IV SCH (10:04)
[2023-08-04] MEDS: Sertraline 25 MG TAB PO SCH (20:22)
[2023-08-04] MEDS: Atorvastatin Calcium 40 MG TAB PO SCH (20:22)
[2023-08-05] MEDS: NS 0.9% w/ 20 MEQ KCL 1,000 ML/1,000 ML BAG IV SCH ×2 (01:00→16:30)
[2023-08-05 05:27] LABS: Hematocrit 30.7 % (42.0-52.0); Hemoglobin 9.5 g/dL (14.0-18.0); Platelet Count 288 10x3/uL (130-400)
[2023-08-05] MEDS: Famotidine/PF 20 mg/2ml Vial SLOW IVP SCH ×2 (08:35→23:46)
[2023-08-05] MEDS: Lisinopril 10 MG TAB PO SCH (08:38)
[2023-08-05] MEDS: Famotidine 20 MG TAB PO SCH ×2 (08:38→20:54)
[2023-08-05] MEDS: levETIRAcetam 500 mg/5 ml Oral Solution PO SCH ×2 (08:38→20:54)
[2023-08-05] MEDS: Diphenoxylate HCl/Atropine Tablet PO SCH ×2 (16:31→21:15)
[2023-08-05] MEDS: Atorvastatin Calcium 40 MG TAB PO SCH (20:54)
[2023-08-05] MEDS: Sertraline 25 MG TAB PO SCH (20:54)
[2023-08-06] MEDS: NS 0.9% w/ 20 MEQ KCL 1,000 ML/1,000 ML BAG IV SCH (04:09)
[2023-08-06] MEDS: Lisinopril 10 MG TAB PO SCH (09:33)
[2023-08-06] MEDS: levETIRAcetam 500 mg/5 ml Oral Solution PO SCH (09:33)
[2023-08-06] MEDS: Famotidine/PF 20 mg/2ml Vial SLOW IVP SCH (09:34)
[2023-08-06] MEDS: Famotidine 20 MG TAB PO SCH (09:34)
[2023-08-06] MEDS: Diphenoxylate HCl/Atropine Tablet PO SCH ×2 (09:34→17:01)
[2023-08-06 16:05] VITALS: BP 112/74; TEMP 97.7
== END 2023-08-06 17:00 | disposition home health service (06) | DRG 388 ==
LOC: ERS 08:38 → SURG A 11:26 → OBSVTOIN 13:57 → IMCU/EMU 07-30 17:23 → SURG A 08-02 17:21
PROVIDERS: ADMIT Specialist; ATTEND Specialist
PROC: 5A0935A Assistance with Respiratory Ventilation, Less than 24 Consecutive Hours, High Flow/Velocity Cannula (ICD-10-PCS; principal; 2023-07-30)
DX: K56.7 Ileus, unspecified (principal); N17.0 Acute kidney failure with tubular necrosis; J98.11 Atelectasis; E86.0 Dehydration; I10 Essential (primary) hypertension; D64.9 Anemia, unspecified; E78.5 Hyperlipidemia, unspecified; F41.9 Anxiety disorder, unspecified; E86.1 Hypovolemia; Z98.890 Other specified postprocedural states; Z79.899 Other long term (current) drug therapy; Z88.8 Allergy status to other drugs, medicaments and biological substances; Z87.442 Personal history of urinary calculi; Z85.048 Personal history of other malignant neoplasm of rectum, rectosigmoid junction, and anus; Z87.440 Personal history of urinary (tract) infections; Z86.16 Personal history of COVID-19; I69.320 Aphasia following cerebral infarction; I69.391 Dysphagia following cerebral infarction; R13.10 Dysphagia, unspecified
CPT/HCPCS: 36415; 71045; 74018; 74177; 80048; 80053; 81001; 83605; 83690; 83735; 84100; 84145; 84484; 85014; 85018; 85025; 85049; 85610; 85730; 87040; 87086; 93005; 93010; 93306; 96361; 96365; 97139; G0378; J1642; J1650; J2272; J2405; J2543; J2550; J3475; J3480; J3490; J7030; J7042; J7050; J7120; S0028

== ENCOUNTER 2023-09-13 08:31 | Outpatient (CLI) | payer MEDICARE, BC | END 2023-09-13 08:32 | disposition home or self-care (01) | LOC: RAD 08:31 | PROVIDERS: ATTEND Surgery | DX: C20 Malignant neoplasm of rectum (principal); K62.89 Other specified diseases of anus and rectum | CPT/HCPCS: 74270 ==

== ENCOUNTER 2023-09-19 13:40 | Outpatient (CLI) | payer MEDICARE, BC ==
[2023-09-19 14:34] LABS: #Eosinphils 0.1 10x3/uL (0.0-0.5); #Monocytes 0.5 10x3/uL (0.0-1.1); #Neutrophils 4.4 10x3/uL (1.5-8.4); %Basophils 0.2 % (0.0-2.0); %Eosinophils 1.6 % (0.0-6.0); %Lymphocytes 19.2 % (18.0-47.0); %Monocytes 7.4 % (0.0-10.0); %Neutrophils 71.3 % (40.0-75.0); Hemoglobin 11.5 g/dL (13.5-17.5); Mean Corpuscular HGB CONC 31.1 g/dL (32.0-36.0); Mean Corpuscular Hemoglobin 27.5 pg (27.0-33.0); Mean Corpuscular Volume 88.5 fl (81.2-95.1); Mean Platelet Volume 9.6 fl (7.4-10.4); Platelet Count 229 10x3/uL (150-450); RBC Distribution Width 15.6 % (11.5-14.5); Red Blood Cell (RBC) Count 4.18 10x6/uL (4.32-5.72); White Blood Cell (WBC) Count 6.1 10x3/uL (3.5-10.5)
[2023-09-19 14:58] LABS: Anion Gap 14 mmol/L (10-20); BUN (Urea Nitrogen) 9 mg/dL (8.4-25.7); Calc. Creatinine Clearance 0 mL/min (70-130); Calcium 9.1 mg/dL (7.8-10.44); Carbon Dioxide 24 mmol/L (23-31); Chloride 107 mmol/L (98-107); Estimated GFR 95; Glucose 104 mg/dL (80-115); Potassium 4.5 mmol/L (3.5-5.1); Sodium 140 mmol/L (136-145)
== END 2023-09-19 13:41 | disposition home or self-care (01) ==
LOC: LABBT 13:40
PROVIDERS: ATTEND Surgery
DX: Z01.818 Encounter for other preprocedural examination (principal)
CPT/HCPCS: 80048; 85025; 93005; 93010

== ENCOUNTER 2023-09-19 14:00 | Inpatient (IN) | payer MEDICARE, BC ==
[2023-09-19 14:20] VITALS: BMI 18.8
[2023-09-25] MEDS ORDERED: cefOXitin 2 GM VIAL ONE (08:21)
[2023-09-25] MEDS ORDERED: Sodium Chloride 0.9% 100 ML ONE ×2 (08:21→15:51)
[2023-09-25] MEDS ORDERED: SUGAMMADEX SODIUM 200 MG/2 ML VIAL ONE ×2 (08:57→10:57)
[2023-09-25] MEDS ORDERED: fentaNYL PF 100 MCG/2 ML SYRINGE ONE ×2 (08:57)
[2023-09-25] MEDS ORDERED: Vasopressin 20 UNITS/ML VIAL ONE (09:04)
[2023-09-25] MEDS ORDERED: Rocuronium Bromide 10 MG/ML (10ML VIAL) ONE (09:30)
[2023-09-25] MEDS ORDERED: PROPOFOL 200 MG/20 ML VIAL ONE (09:30)
[2023-09-25] MEDS ORDERED: Esmolol 100 MG/10 ML VIAL ONE (09:30)
[2023-09-25] MEDS ORDERED: Dexamethasone 20 MG/5 ML VIAL ONE (09:30)
[2023-09-25] MEDS ORDERED: Glycopyrrolate 0.2 MG/ML 5 ML SYRINGE ONE (09:30)
[2023-09-25] MEDS ORDERED: PHENYLEPHRINE-NS 100 MCG/ML 10 ML SYRINGE ONE (09:30)
[2023-09-25] MEDS ORDERED: Lidocaine 1% PF 5 ML VIAL ONE (09:30)
[2023-09-25] MEDS ORDERED: NEOSTIGMINE 3 MG/3 ML SYR 3 MG/3 ML SYRINGE ONE (09:30)
[2023-09-25] MEDS ORDERED: Albumin 5% 500 ML ONE (09:35)
[2023-09-25] MEDS ORDERED: Promethazine HCl 25 MG/ML VIAL IM PRN ×2 (10:09→11:52)
[2023-09-25] MEDS ORDERED: Ondansetron HCl/PF 4 MG/2 ML Vial IVP PRN (10:09)
[2023-09-25] MEDS ORDERED: Bupivacaine 0.25% HCL 30 ML VIAL ONE (10:16)
[2023-09-25] MEDS ORDERED: EPINEPHrine 1 MG/ML AMP ONE (10:16)
[2023-09-25] MEDS ORDERED: Naloxone HCl 0.4 mg/ml Vial ONE (10:58)
[2023-09-25] MEDS ORDERED: fentaNYL 50 mcg/mL 1 mL Vial ONE ×2 (11:37→12:21)
[2023-09-25] MEDS ORDERED: hydrALAZINE 20 MG/ML VIAL SLOW IVP PRN (11:52)
[2023-09-25] MEDS ORDERED: Amlodipine 10 MG TAB PO PRN (11:52)
[2023-09-25] MEDS ORDERED: Ipratropium/Albuterol 3 ML NEB NEB PRN (11:52)
[2023-09-25] MEDS ORDERED: Morphine 4 MG/ML VIAL SLOW IVP PRN (11:52)
[2023-09-25] MEDS ORDERED: Ondansetron PF 4 MG/2 ML Vial IVP PRN (11:52)
[2023-09-25] MEDS ORDERED: ceFOXitin 1 GM VIAL ONE (15:50)
[2023-09-25] MEDS: cefOXitin Sodium 1 GM in Sodium Chloride 0.9% 100 ML IVPB SCH ×2 (15:55→23:58)
[2023-09-25] MEDS ORDERED: HYDROcodone/Acetaminophen 7.5/325 mg Tablet ONE (16:28)
[2023-09-25] MEDS: Sodium Chloride 0.9% 1,000 ML IV SCH (18:13)
[2023-09-25] MEDS: Famotidine 20 MG TAB PO SCH (22:00)
[2023-09-25] MEDS: levETIRAcetam 500 MG TAB PO SCH (22:00)
[2023-09-25] MEDS: Sertraline 25 MG TAB PO SCH (22:01)
[2023-09-25] MEDS: Famotidine/PF 20 mg/2ml Vial SLOW IVP SCH (22:02)
[2023-09-26] MEDS: Sodium Chloride 0.9% 1,000 ML IV SCH ×3 (00:03→11:29)
[2023-09-26 04:56] LABS: #Monocytes 0.9 thou/uL (0.11-0.59); #Neutrophils 8.7 thou/uL (1.40-6.50); %Basophils 0.1 % (0.0-1.0); %Lymphocytes 8.5 % (21.0-51.0); %Monocytes 8.2 % (0.0-10.0); %Neutrophils 82.6 % (42.0-75.0); Hematocrit 31.2 % (42.0-52.0); Hemoglobin 9.9 g/dL (14.0-18.0); Mean Corpuscular HGB CONC 31.7 g/dL (32.0-36.0); Mean Corpuscular Hemoglobin 27.8 pg (27.0-31.0); Mean Corpuscular Volume 87.6 fl (78.0-98.0); Mean Platelet Volume 9.8 fL (7.4-10.4); Platelet Count 186 10x3/uL (130-400); RBC Distribution Width 15.5 % (11.5-14.5); Red Blood Cell (RBC) Count 3.56 mill/uL (4.70-6.10); White Blood Cell (WBC) Count 10.5 10x3/uL (4.8-10.8)
[2023-09-26 05:21] LABS: Anion Gap 14 mmol/L (10-20); BUN (Urea Nitrogen) 11 mg/dL (8.4-25.7); Calc. Creatinine Clearance 66 mL/min (70-130); Calcium 8.8 mg/dL (7.8-10.44); Carbon Dioxide 21 mmol/L (23-31); Chloride 106 mmol/L (98-107); Estimated GFR 97; Glucose 97 mg/dL (80-115); Potassium 4.2 mmol/L (3.5-5.1); Sodium 137 mmol/L (136-145)
[2023-09-26] MEDS: levETIRAcetam 500 MG TAB PO SCH ×2 (08:48→21:28)
[2023-09-26] MEDS: HYDROcodone/Acetaminophen 7.5/325 mg Tablet PO PRN ×3 (08:49→21:27)
[2023-09-26] MEDS: Famotidine 20 MG TAB PO SCH ×2 (08:49→21:29)
[2023-09-26] MEDS ORDERED: HYDROcodone/Acetaminophen 7.5/325 mg Tablet PO PRN (10:46)
[2023-09-26] MEDS ORDERED: Acetaminophen 325 MG TAB PO PRN (10:46)
[2023-09-26] MEDS: Lisinopril 2.5 MG TAB PO SCH (11:29)
[2023-09-26] MEDS: Famotidine/PF 20 mg/2ml Vial SLOW IVP SCH ×2 (11:29→21:28)
[2023-09-26] MEDS: Sertraline 25 MG TAB PO SCH (21:28)
[2023-09-27] MEDS: Sodium Chloride 0.9% 1,000 ML IV SCH ×2 (05:52→05:53)
[2023-09-27 08:39] VITALS: TEMP 98
[2023-09-27] MEDS: levETIRAcetam 500 MG TAB PO SCH (09:24)
[2023-09-27] MEDS: Famotidine 20 MG TAB PO SCH (09:24)
[2023-09-27] MEDS: Famotidine/PF 20 mg/2ml Vial SLOW IVP SCH (09:25)
[2023-09-27] MEDS: Lisinopril 2.5 MG TAB PO SCH (09:25)
[2023-09-27 12:20] VITALS: BP 150/80
== END 2023-09-27 12:54 | disposition home or self-care (01) | DRG 330 ==
LOC: SURG A 09-25 06:45 → SURG B 09-25 18:46
PROVIDERS: ADMIT Surgery; ATTEND Surgery
PROC: 0DBB0ZZ Excision of Ileum, Open Approach (ICD-10-PCS; principal; 2023-09-25)
PROC: 3E033XZ Introduction of Vasopressor into Peripheral Vein, Percutaneous Approach (ICD-10-PCS; 2023-09-25)
PROC: 30233J1 Transfusion of Nonautologous Serum Albumin into Peripheral Vein, Percutaneous Approach (ICD-10-PCS; 2023-09-25)
DX: Z43.2 Encounter for attention to ileostomy (principal); C20 Malignant neoplasm of rectum; F41.9 Anxiety disorder, unspecified; I10 Essential (primary) hypertension; Z98.890 Other specified postprocedural states; Z86.73 Personal history of transient ischemic attack (TIA), and cerebral infarction without residual deficits
CPT/HCPCS: 36415; 36416; 80048; 85025; 93005; 93010; A4649; J0171; J0694; J1650; J2310; J3010; J3490; J7050; P9045; S0020; S0028

== ENCOUNTER 2023-09-30 20:03 | Emergency (ER) | payer MEDICARE, BC ==
[~2023-09-30 20:03] MED LIST changes: +Iopamidol-370 76% 500 ML MDV (1 ML CHARGE) ONE; -Lidocaine 1% PF 5 ML VIAL ONE; -Metoclopramide HCl 10 MG/2 ML VIAL ONE; -Ondansetron PF 4 MG/2 ML Vial ONE; -PHENYLEPHRINE-NS 100 MCG/ML 10 ML SYRINGE ONE; -PROPOFOL 200 MG/20 ML VIAL ONE; -Rocuronium Bromide 10 MG/ML (10ML VIAL) ONE
[2023-09-30 21:26] LABS: #Eosinphils 0.1 thou/uL (0.0-0.7); #Monocytes 0.5 thou/uL (0.11-0.59); #Neutrophils 9.8 thou/uL (1.40-6.50); %Basophils 0.2 % (0.0-1.0); %Eosinophils 0.7 % (0.0-10.0); %Lymphocytes 9.3 % (21.0-51.0); %Monocytes 4.7 % (0.0-10.0); %Neutrophils 84.8 % (42.0-75.0); Hematocrit 36.8 % (42.0-52.0); Hemoglobin 11.8 g/dL (14.0-18.0); Mean Corpuscular HGB CONC 32.1 g/dL (32.0-36.0); Mean Corpuscular Hemoglobin 28.2 pg (27.0-31.0); Mean Corpuscular Volume 87.8 fl (78.0-98.0); Mean Platelet Volume 8.7 fL (7.4-10.4); Platelet Count 226 10x3/uL (130-400); RBC Distribution Width 15.1 % (11.5-14.5); Red Blood Cell (RBC) Count 4.19 mill/uL (4.70-6.10); White Blood Cell (WBC) Count 11.5 10x3/uL (4.8-10.8)
[2023-09-30] MEDS ORDERED: Ondansetron PF 4 MG/2 ML Vial ONE (21:27)
[2023-09-30] MEDS ORDERED: Morphine 4 MG/ML VIAL ONE (21:27)
[2023-09-30 21:52] LABS: Troponin I Less than 0.010 ng/mL (< 0.028)
[2023-09-30 22:08] LABS: Albumin 4.8 g/dL (3.4-4.8)
[2023-09-30 22:09] LABS: Calcium 9.6 mg/dL (7.8-10.44); Chloride 100 mmol/L (98-107); Potassium 3.3 mmol/L (3.5-5.1); Sodium 142 mmol/L (136-145)
[2023-09-30 22:10] LABS: Globulin 2.4 g/dL (2.4-3.5); Glucose 163 mg/dL (80-115); Protein, Total 7.2 g/dL (5.8-8.1)
[2023-09-30 22:11] LABS: Carbon Dioxide 29 mmol/L (23-31)
[2023-09-30 22:12] LABS: Bilirubin, Total 0.8 mg/dL (0.2-1.2)
[2023-09-30 22:13] LABS: Alkaline Phosphatase 92 U/L (40-110)
[2023-09-30 22:14] LABS: BUN (Urea Nitrogen) 6 mg/dL (8.4-25.7); Calc. Creatinine Clearance 0 mL/min (70-130); Estimated GFR 99
[2023-09-30 22:15] LABS: AST (SGOT) 40 U/L (5-34)
[2023-09-30 22:16] LABS: ALT (SGPT) 24 U/L (8-55); Lipase 42 U/L (8-78)
[2023-09-30 22:19] LABS: Anion Gap 16 mmol/L (10-20)
== END 2023-10-01 00:03 | disposition home or self-care (01) ==
LOC: ERS 20:03
DX: K59.00 Constipation, unspecified (principal); I10 Essential (primary) hypertension
CPT/HCPCS: 36415; 74177; 80053; 83605; 83690; 84484; 85025; 93005; 96374; 96375; J1642; J2270; J2405; Q9967

== ENCOUNTER 2023-11-26 08:03 | Emergency (ER) | payer MEDICARE, BC ==
[2023-11-26] MEDS ORDERED: predniSONE 20 MG TAB ONE (09:03)
[2023-11-26 09:31] LABS: SARS-CoV-2 NAA Rapid Test Not Detected (NotDetected)
== END 2023-11-26 09:53 | disposition home or self-care (01) ==
LOC: ERS 08:03
DX: J06.9 Acute upper respiratory infection, unspecified (principal); I10 Essential (primary) hypertension
CPT/HCPCS: 0240U; 71045; J7512

== ENCOUNTER 2024-04-25 08:41 | Outpatient (CLI) | payer MEDICARE, BC | END 2024-04-25 08:42 | disposition home or self-care (01) | LOC: RAD 08:41 | PROVIDERS: ATTEND Family Medicine | DX: I69.091 Dysphagia following nontraumatic subarachnoid hemorrhage (principal); I69.191 Dysphagia following nontraumatic intracerebral hemorrhage; I69.891 Dysphagia following other cerebrovascular disease | CPT/HCPCS: 74230 ==

== ENCOUNTER 2024-05-21 08:10 | Outpatient (CLI) | payer MEDICARE, BC ==
[2024-05-21] MEDS ORDERED: Iopamidol 370 76% 100 ML VIAL ONE (14:56)
== END 2024-05-21 08:11 | disposition home or self-care (01) ==
LOC: BICCT 08:10
PROVIDERS: ATTEND Internal Medicine Hematology & Oncology
DX: C20 Malignant neoplasm of rectum (principal); R97.8 Other abnormal tumor markers; R91.1 Solitary pulmonary nodule
CPT/HCPCS: 71260; 74177; 82565

== ENCOUNTER 2024-06-05 08:00 | Outpatient (CLI) | payer MEDICARE, BC | END 2024-06-05 08:01 | disposition home or self-care (01) | LOC: PET 08:00 | PROVIDERS: ATTEND Internal Medicine Hematology & Oncology | DX: C20 Malignant neoplasm of rectum (principal); R91.8 Other nonspecific abnormal finding of lung field | CPT/HCPCS: 78815; A9552 ==

== ENCOUNTER 2024-08-04 05:42 | Day surgery (SDC) | payer MEDICARE, BC ==
[2024-06-26 11:15] VITALS: BMI 19.4
[2024-08-04] MEDS ORDERED: PROPOFOL 40 ML ONE (07:16)
[2024-08-04] MEDS ORDERED: Lidocaine 1% PF 5 ML VIAL ONE (07:16)
[2024-08-04] MEDS ORDERED: PHENYLEPHRINE-NS 100 MCG/ML 10 ML SYRINGE ONE (07:21)
[2024-08-04] MEDS ORDERED: GLYCOPYRROLATE/PF 0.2 MG/ML VIAL ONE (07:21)
== END 2024-08-04 09:26 | disposition home or self-care (01) ==
LOC: SDC 05:42
PROVIDERS: ATTEND Internal Medicine
PROC: 0DJD8ZZ Inspection of Lower Intestinal Tract, Via Natural or Artificial Opening Endoscopic (ICD-10-PCS; principal; 2024-08-04)
DX: Z12.11 Encounter for screening for malignant neoplasm of colon (principal); K57.30 Diverticulosis of large intestine without perforation or abscess without bleeding; Z98.0 Intestinal bypass and anastomosis status; Z86.16 Personal history of COVID-19; Z79.899 Other long term (current) drug therapy; F17.200 Nicotine dependence, unspecified, uncomplicated; Z85.038 Personal history of other malignant neoplasm of large intestine
CPT/HCPCS: G0105; J1642; J2704; J3490

== ENCOUNTER 2025-10-20 07:46 | Outpatient (CLI) | payer MEDICARE, BC ==
[2025-10-20 08:49] LABS: Estimated GFR - POC 96.0
== END 2025-10-20 07:47 | disposition home or self-care (01) ==
LOC: CT 07:46
PROVIDERS: ATTEND Radiology Radiation Oncology
DX: C78.01 Secondary malignant neoplasm of right lung (principal); J47.9 Bronchiectasis, uncomplicated; R91.8 Other nonspecific abnormal finding of lung field; I25.10 Atherosclerotic heart disease of native coronary artery without angina pectoris; Z90.49 Acquired absence of other specified parts of digestive tract; N20.0 Calculus of kidney; N28.1 Cyst of kidney, acquired; Z98.890 Other specified postprocedural states
CPT/HCPCS: 36415; 71260; 74177; 82565 ×2; J1642